=== PATIENT | female | born 2000 | race Hispanic/Latino ===

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

== ENCOUNTER → 2023-06-04 | Emergency (ER) | payer OTHER, SELFPAY ==
[~2023-06-04] MED LIST: NA CHLORIDE 0.9% 2,000 ML ONE; ONDANSETRON 4 MG/2 ML VIAL ONE
--- OUTSIDE RECORDS SUMMARY | 2023-06-04 07:05 | XMS REPORT | Continuity of Care Document ---
Author Name Unknown Address [address] [facility]. [address] [place] [address] [facility] thconnect Address [address] [facility] [address] [place] [address] Care Team Providers Care Director Of Corporate Communications Name Role Phone Olivia Dumont Primary Care Physician [phone] LUIS RICE Attending Clinician Unavailable NAPOLEON HERBERT Attending Clinician NAPOLEON Caballero Attending Clinician JULIO Gallo Attending Clinician Unavaila ble TRIJULIO HAY Attending Clinician Unavaila ble Lab, Ang - Db Attending Clinician Unavailable Doctor Unassigned, [place] Attending Clinician U Luis Gtz MD Attending Clinician [phone], [facility] Attending Clinician Unavailable Only, Timbo Db Test Attending Clinician Unavailabl e Yordy Delgado Attending Clinician [phone] YORDY SCHAEFER Attending Clinician Unavailable Amalia Thakkar Attending Clinician [phone] AMALIA MELLO Attending Clinician Unavailable Chayito Field PA-C Attending Clinician [phone] CHAYITO FIELD Attending Clinician Unavailable Suzi Moya MD Attending Clinician [phone] SUZI MOYA Attending Clinician Unavailable PREET MAYBERRY Attending Clinician Bryce Bergman DO Anthony Grewalan Attending Clinician [phone] Preet Mayberry MD Attending Clinician + [phone] Curt ARCHIBALD, Sharimn K.H. Attending Clinician [phone] SHARMIN ROUSEH. Attending Clinician Unavailaamir Henriquez WHCNPCindy Attending Clinician + CINDY HENRIQUEZ Attending Clinician Unavail able Room, [facility] Attending Clinician Unavailable Ultrasound, Ang-Mfm Attending Clinician Unavaila Dylan Molina MD Attending Clinician [phone] RAHEEM BENITO Attending Clinician Unavailab jovanni Benito WELLNESS EDUCATORRaheem Attending Clinician + [phone] LUIS RICE Admitting Clinician Unavailable Luis Rice MD Admitting Clinician [phone] Payers Payer Name Policy Type Policy Number Effective Date Expirati on Date Source [employer] [id number] 2019 00:00:00 Problems Condition Name Condition Details Condition Category Status Onset Date Resolution Date Last Treatment Date Treating Clinician Comments Source Encounter for initial management of nuvaring Encounter for initial management of nuvaring Disease Active 2020-03 00:00: 00 [facility] Allergies, Adverse Reactions, Alerts Allergy Name Allergy Type Status Severity Reaction(s) Onset Date Inactive Date Treating Clinician Comments Source NO KNOWN ALLERGIE S Drug Class Active [facility] Social History Social Habit Start Date Stop Date Quantity Comments Source History SDOH Alcohol Comment [place] o f [facility] History SDOH Alcohol Std Drinks [facility] History SDOH Alcohol Binge [facility] Gender identity [facility] Sexual orientation U [facility] Alcohol intake 2023-02-16 00:00:00 2023-02-16 00:00:00 Lifetime non-drinker (finding) [facility] Exposure to SARS-CoV-2 (event) 2022-07-03 00:00:00 2022-07-13 09:05:00 Not sure [facility] Tobacco use and exposure 2022-07-01 00:00:00 2022-07-01 00:00:00 Smokeless tobacco non-user [facility] History of Social function 2022-07-01 00:00:00 2022-07-01 00:00:00 [facility] Education - What is the highest level of school you have completed or the highest degree you have received? 2019-10-09 00:00:00 2019-10-09 00:00:00 12th grade [facility] History SDOH Financial 2019-10-09 00:00:00 2019-10-09 00:00:00 5 [facility] History SDOH Food Worry 2019-10-09 00:00:00 2019-10-09 00:00:00 1 [facility] History SDOH Food Scarcity 2019-10-09 00:00:00 2019-10-09 00:00:00 1 [facility] History SDOH Transport Med 2019-10-09 00:00:00 2019-10-09 00:00:00 2 [facility] History SDOH Transport Non-Med 2019-10-09 00:00:00 2019-10-09 00:00:00 2 [facility] History SDOH Alcohol Frequency 2019-07-01 00:00:00 2019-07-01 00:00:00 1 [facility] Sex Assigned At 2001 00:00:00 2000 00:00:00 [facility] Smoking Status Start Date Stop Date Source Never smoked tobacco [facility] Medications Ordered Medication Name Filled Medication Name Start Date Stop Date Current Medication? Ordering Clinician Indication Dosage Frequency Signature (SIG) Comments Components Source copper (PARAGARD T 380A) IUD 1 Intra Uterine Device 15 18:00: 00 10-25 17:59 :00 No [id number] 1{IUD} [facility] copper (PARAGARD T 380A) IUD 1 Intra Uterine Device 10-25 18:00: 00 10-25 17:59 :00 No [id number] 1{IUD} 1 Intra Uterine Device, Intrauteri ne, ONCE, 1 dose, On Mon10/25/22 at 1300, Routine [facility] copper (PARAGARD T 380A) IUD 1 Intra Uterine Device 10-25 18:00: 00 10-25 17:59 :00 No [id number] 1{IUD} [facility] copper (PARAGARD T 380A) IUD 1 Intra Uterine Device 10-25 18:00: 00 10-25 17:59 :00 No [id number] 1{IUD} 1 Intra Uterine Device, Intrauteri ne, ONCE, 1 dose, On Mon10/25/22 at 1300, Routine [facility] metroNIDAZO LE (FLAGYL) 500 mg tablet 07-14 00:00: 00 07-22 04:59 :00 No [id number] 500mg Take 1 tablet by mouth in the morning and 1 tablet in the evening. Do all this for 7 days. [facility] NuvaRing 0.12-0.015 mg/24 hr vaginal insert 07-13 00:00: 00 Yes [id number] 1{each} Insert 1 Each into vagina once every month. Insert vaginally and leave in place for 3 consecutiv e weeks, then remove for 1 week. [facility] NuvaRing 0.12-0.015 mg/24 hr vaginal insert 07-13 00:00: 00 Yes [id number] 1{each} Insert 1 Each into vagina once every month. Insert vaginally and leave in place for 3 consecutiv e weeks, then remove for 1 week. [facility] NuvaRing 0.12-0.015 mg/24 hr vaginal insert 07-13 00:00: 00 Yes [id number] 1{each} Insert 1 Each into vagina once every month. Insert vaginally and leave in place for 3 consecutiv e weeks, then remove for 1 week. [facility] NuvaRing 0.12-0.015 mg/24 hr vaginal insert 2022-0 5-03 00:00: 00 Yes [id number] 1{each} Insert 1 Each into vagina once every month. Insert vaginally and leave in place for 3 consecutiv e weeks, then remove for 1 week. [facility] NuvaRing 0.12-0.015 mg/24 hr vaginal insert 2022-0 5-03 00:00: 00 Yes [id number] 1{each} Insert 1 Each into vagina once every month. Insert vaginally and leave in place for 3 consecutiv e weeks, then remove for 1 week. [facility] it[facility] NuvaRing 0.12-0.015 mg/24 hr vaginal insert 2022-0 5- 00:00: 00 Yes [id number] 1{each} Insert 1 Each into vagina once every month. Insert vaginally and leave in place for 3 consecutiv e weeks, then remove for 1 week. [facility] it[facility] NuvaRing 0.12-0.015 mg/24 hr vaginal insert 2022-0 - 00:00: 00 Yes [id number] 1{each} Insert 1 Each into vagina once every month. Insert vaginally and leave in place for 3 consecutiv e weeks, then remove for 1 week. [facility] ity [facility] NuvaRing 0.12-0.015 mg/24 hr vaginal insert 2022-0 5-03 00:00: 00 Yes [id number] 1{each} Insert 1 Each into vagina once every month. Insert vaginally and leave in place for 3 consecutiv e weeks, then remove for 1 week. [facility] NuvaRing 0.12-0.015 mg/24 hr vaginal insert 2022-0 -03 00:00: 00 Yes [id number] 1{each} Insert 1 Each into vagina once every month. Insert vaginally and leave in place for 3 consecutiv e weeks, then remove for 1 week. [facility] NuvaRing 0.12-0.015 mg/24 hr vaginal insert 2022-0 5-03 00:00: 00 Yes [id number] 1{each} Insert 1 Each into vagina once every month. Insert vaginally and leave in place for 3 consecutiv e weeks, then remove for 1 week. [facility] 0.12-0.015 mg/24 hr vaginal insert 2022-0 5- 00:00: 00 Yes [id number] 1{each} Insert 1 Each into vagina once every month. Insert vaginally and leave in place for 3 consecutiv e weeks, then remove for 1 week. [facility] 0.12-0.015 mg/24 hr vaginal insert 2022-0 5- 00:00: 00 Yes [id number] 1{each} Insert 1 Each into vagina once every month. Insert vaginally and leave in place for 3 consecutiv e weeks, then remove for 1 week. [facility] NuvaRing 0.12-0.015 mg/24 hr vaginal insert 2022-0 5- 00:00: 00 Yes [id number] 1{each} Insert 1 Each into vagina once every month. Insert vaginally and leave in place for 3 consecutiv e weeks, then remove for 1 week. [facility] NuvaRing 0.12-0.015 mg/24 hr vaginal insert 2022-0 5- 00:00: 00 Yes [id number] 1{each} Insert 1 Each into vagina once every month. Insert vaginally and leave in place for 3 consecutiv e weeks, then remove for 1 week. [facility] NuvaRing 0.12-0.015 mg/24 hr vaginal insert 2022-0 5- 00:00: 00 Yes [id number] 1{each} Insert 1 Each into vagina once every month. Insert vaginally and leave in place for 3 consecutiv e weeks, then remove for 1 week. [facility] NuvaRing 0.12-0.015 mg/24 hr vaginal insert 2022-0 5-03 00:00: 00 Yes [id number] 1{each} Insert 1 Each into vagina once every month. Insert vaginally and leave in place for 3 consecutiv e weeks, then remove for 1 week. [facility] NuvaRing 0.12-0.015 mg/24 hr vaginal insert 2022-0 5-03 00:00: 00 Yes [id number] 1{each} Insert 1 Each into vagina once every month. Insert vaginally and leave in place for 3 consecutiv e weeks, then remove for 1 week. [facility] NuvaRing 0.12-0.015 mg/24 hr vaginal insert 0 - 00:00: 00 12-23 00:00 :00 No [id number] 1{each} Insert 1 Each into vagina once every month. Insert vaginally and leave in place for 3 consecutiv e weeks, then remove for 1 week. [facility] NuvaRing 0.12-0.015 mg/24 hr vaginal insert - 00:00: 00 12-23 00:00 :00 No [id number] 1{each} Insert 1 Each into vagina once every month. Insert vaginally and leave in place for 3 consecutiv e weeks, then remove for 1 week. [facility] NuvaRing 0.12-0.015 mg/24 hr vaginal insert 07-13 00:00: 00 12-23 00:00 :00 No [id number] 1{each} Insert 1 Each into vagina once every month. Insert vaginally and leave in place for 3 consecutiv e weeks, then remove for 1 week. [facility] amoxicillin -pot clavulanate 500 mg (AUGMENTIN) 500-125 mg tablet 07-04 00:00: 00 Yes [id number] 500mg Take 1 tablet by mouth in the morning and 1 tablet at noon and 1 tablet in the evening. [facility] amoxicillin -pot clavulanate 500 mg (AUGMENTIN) 500-125 mg tablet 07-04 00:00: 00 07-13 00:00 :00 No [id number] 500mg Take 1 tablet by mouth in the morning and 1 tablet at noon and 1 tablet in the evening. [facility] amoxicillin -pot clavulanate 500 mg (AUGMENTIN) 500-125 mg tablet 07-04 00:00: 00 07-13 00:00 :00 No [id number] 500mg Take 1 tablet by mouth in the morning and 1 tablet at noon and 1 tablet in the evening. [facility] NUVARING (NUVARING) 0.12-0.015 mg/24 hr vaginal insert 2021-0 - 00:00: 00 Yes [id number] 1{each} Insert 1 Each into vagina once every month. Insert vaginally and leave in place for 3 consecutiv e weeks, then remove for 1 week. [facility] NUVARING (NUVARING) 0.12-0.015 mg/24 hr vaginal insert 2021-0 5- 00:00: 00 Yes [id number] 1{each} Insert 1 Each into vagina once every month. Insert vaginally and leave in place for 3 consecutiv e weeks, then remove for 1 week. [facility] NUVARING (NUVARING) 0.12-0.015 mg/24 hr vaginal insert 2021-0 5- 00:00: 00 Yes [id number] 1{each} Insert 1 Each into vagina once every month. Insert vaginally and leave in place for 3 consecutiv e weeks, then remove for 1 week. [facility] NUVARING (NUVARING) 0.12-0.015 mg/24 hr vaginal insert 2021-0 - 00:00: 00 Yes [id number] 1{each} Insert 1 Each into vagina once every month. Insert vaginally and leave in place for 3 consecutiv e weeks, then remove for 1 week. [facility] NUVARING (NUVARING) 0.12-0.015 mg/24 hr vaginal insert 2021-0 5- 00:00: 00 Yes [id number] 1{each} Insert 1 Each into vagina once every month. Insert vaginally and leave in place for 3 consecutiv e weeks, then remove for 1 week. [facility] NUVARING (NUVARING) 0.12-0.015 mg/24 hr vaginal insert 2021-0 5- 00:00: 00 Yes [id number] 1{each} Insert 1 Each into vagina once every month. Insert vaginally and leave in place for 3 consecutiv e weeks, then remove for 1 week. [facility] NUVARING (NUVARING) 0.12-0.015 mg/24 hr vaginal insert 2021-0 5-02 00:00: 00 Yes [id number] 1{each} Insert 1 Each into vagina once every month. Insert vaginally and leave in place for 3 consecutiv e weeks, then remove for 1 week. [facility] NUVARING (NUVARING) 0.12-0.015 mg/24 hr vaginal insert 2021-0 5-02 00:00: 00 Yes [id number] 1{each} Insert 1 Each into vagina once every month. Insert vaginally and leave in place for 3 consecutiv e weeks, then remove for 1 week. [facility] NUVARING (NUVARING) 0.12-0.015 mg/24 hr vaginal insert 2021-0 5-02 00:00: 00 07-13 00:00 :00 No [id number] 1{each} Insert 1 Each into vagina once every month. Insert vaginally and leave in place for 3 consecutiv e weeks, then remove [facility] NUVARING (NUVARING) 0.12-0.015 mg/24 hr vaginal insert 2021-0 5-02 00:00: 00 07-13 00:00 :00 No [id number] 1{each} Insert 1 Each into vagina once every month. Insert vaginally and leave in place for 3 consecutiv e weeks, then remove for 1 week. [facility] NUVARING (NUVARING) 0.12-0.015 mg/24 hr vaginal insert 2021-0 3-08 00:00: 00 07-12 00:00 :00 No [id number] 1{each} Insert 1 Each into vagina once every month. Insert vaginally and leave in place for 3 consecutiv e weeks, then remove for 1 week. [facility] NUVARING (NUVARING) 0.12-0.015 mg/24 hr vaginal insert 2021-0 3-08 00:00: 00 07-12 00:00 :00 No [id number] 1{each} Insert 1 Each into vagina once every month. Insert vaginally and leave in place for 3 consecutiv e weeks, then remove for 1 week. [facility] Colestipol HCl 1 gram tablet 2020-0 6-17 00:00: 00 Yes [facility] Colestipol HCl 1 gram tablet 0 08-27 00:00: 00 Yes [facility] Colestipol HCl 1 gram tablet 2020-0 17 00:00: 00 Yes [facility] Colestipol HCl 1 gram tablet 0 08-27 00:00: 00 Yes [facility] Colestipol HCl 1 gram tablet 0 08-27 00:00: 00 Yes [facility] Colestipol HCl 1 gram tablet 0 08-27 00:00: 00 Yes [facility] Colestipol HCl 1 gram tablet 0 17 00:00: 00 Yes [facility] Colestipol HCl 1 gram tablet 0 08-27 00:00: 00 Yes [facility] Colestipol HCl 1 gram tablet 0 08-27 00:00: 00 07-13 00:00 :00 No [facility] Colestipol HCl 1 gram tablet 0 08-27 00:00: 00 07-13 00:00 :00 No [facility] Immunizations Ordered Immunization Name Filled Immunization Name Date Status Comments Source SARS-COV-2 COVID-19 PFIZER VACCINE 2020-09-27 00:00:00 Completed [facility] SARS-COV-2 COVID-19 PFIZER VACCINE 2020-09-27 00:00:00 Completed [facility] SARS-COV-2 COVID-19 PFIZER VACCINE 2020-09-27 00:00:00 Completed [facility] SARS-COV-2 COVID-19 PFIZER VACCINE 2020-09-27 00:00:00 Completed [facility] SARS-COV-2 COVID-19 PFIZER VACCINE 2020-09-27 00:00:00 Completed [facility] SARS-COV-2 COVID-19 PFIZER VACCINE 2020-09-27 00:00:00 Completed [facility] SARS-COV-2 COVID-19 PFIZER VACCINE 2020-09-27 00:00:00 Completed [facility] SARS-COV-2 COVID-19 PFIZER VACCINE 2020-09-27 00:00:00 Completed [facility] SARS-COV-2 COVID-19 PFIZER VACCINE 2020-09-27 00:00:00 Completed [facility] SARS-COV-2 COVID-19 PFIZER VACCINE 2020-09-27 00:00:00 Completed [facility] SARS-COV-2 COVID-19 PFIZER VACCINE 2020-09-27 00:00:00 Completed [facility] SARS-COV-2 COVID-19 PFIZER VACCINE 2020-09-27 00:00:00 Completed [facility] SARS-COV-2 COVID-19 PFIZER VACCINE 2020-09-27 00:00:00 Completed [facility] SARS-COV-2 COVID-19 PFIZER VACCINE 2020-09-27 00:00:00 Completed [facility] SARS-COV-2 COVID-19 PFIZER VACCINE 2020-09-27 00:00:00 Completed [facility] SARS-COV-2 COVID-19 PFIZER VACCINE 2020-09-27 00:00:00 Completed [facility] SARS-COV-2 COVID-19 PFIZER VACCINE 2020-09-27 00:00:00 Completed [facility] SARS-COV-2 COVID-19 PFIZER VACCINE 2020-09-27 00:00:00 Completed [facility] SARS-COV-2 COVID-19 PFIZER VACCINE 2020-09-27 00:00:00 Completed [facility] SARS-COV-2 COVID-19 PFIZER VACCINE 2020-09-27 00:00:00 Completed [facility] SARS-COV-2 COVID-19 PFIZER VACCINE 2020-09-27 00:00:00 Completed [facility] SARS-COV-2 COVID-19 PFIZER VACCINE 2020-09-27 00:00:00 Completed [facility] SARS-COV-2 COVID-19 PFIZER VACCINE 2020-09-27 00:00:00 Completed [facility] SARS-COV-2 COVID-19 PFIZER VACCINE 2020-09-27 00:00:00 Completed [facility] SARS-COV-2 COVID-19 PFIZER VACCINE 2020-09-06 00:00:00 Completed [facility] SARS-COV-2 COVID-19 PFIZER VACCINE 2020-09-06 00:00:00 Completed [facility] SARS-COV-2 COVID-19 PFIZER VACCINE 2020-09-06 00:00:00 Completed [facility] SARS-COV-2 COVID-19 PFIZER VACCINE 2020-09-06 00:00:00 Completed [facility] SARS-COV-2 COVID-19 PFIZER VACCINE 2020-09-06 00:00:00 Completed [facility] SARS-COV-2 COVID-19 PFIZER VACCINE 2020-09-06 00:00:00 Completed [facility] SARS-COV-2 COVID-19 PFIZER VACCINE 2020-09-06 00:00:00 Completed [facility] SARS-COV-2 COVID-19 PFIZER VACCINE 2020-09-06 00:00:00 Completed [facility] SARS-COV-2 COVID-19 PFIZER VACCINE 2020-09-06 00:00:00 Completed [facility] SARS-COV-2 COVID-19 PFIZER VACCINE 2020-09-06 00:00:00 Completed [facility] SARS-COV-2 COVID-19 PFIZER VACCINE 2020-09-06 00:00:00 Completed [facility] SARS-COV-2 COVID-19 PFIZER VACCINE 2020-09-06 00:00:00 Completed [facility] SARS-COV-2 COVID-19 PFIZER VACCINE 2020-09-06 00:00:00 Completed [facility] SARS-COV-2 COVID-19 PFIZER VACCINE 2020-09-06 00:00:00 Completed [facility] SARS-COV-2 COVID-19 PFIZER VACCINE 2020-09-06 00:00:00 Completed [facility] SARS-COV-2 COVID-19 PFIZER VACCINE 2020-09-06 00:00:00 Completed [facility] SARS-COV-2 COVID-19 PFIZER VACCINE 2020-09-06 00:00:00 Completed [facility] SARS-COV-2 COVID-19 PFIZER VACCINE 2020-09-06 00:00:00 Completed [facility] SARS-COV-2 COVID-19 PFIZER VACCINE 2020-09-06 00:00:00 Completed [facility] SARS-COV-2 COVID-19 PFIZER VACCINE 2020-09-06 00:00:00 Completed [facility] SARS-COV-2 COVID-19 PFIZER VACCINE 2020-09-06 00:00:00 Completed [facility] SARS-COV-2 COVID-19 PFIZER VACCINE 2020-09-06 00:00:00 Completed [facility] SARS-COV-2 COVID-19 PFIZER VACCINE 2020-09-06 00:00:00 Completed [facility] SARS-COV-2 COVID-19 PFIZER VACCINE 2020-09-06 00:00:00 Completed [facility] TDAP 2012-12-03 00:00:00 Completed [facility] Meningococcal Oligosaccharide (groups A, C, Y and W-135) conjugate vaccine (MCV4O) 2012-12-03 00:00:00 Completed [facility] Influenza Virus Vaccine 2012-12-03 00:00:00 Completed [facility] TDAP 2012-12-03 00:00:00 Completed [facility] Meningococcal Oligosaccharide (groups A, C, Y and W-135) conjugate vaccine (MCV4O) 2012-12-03 00:00:00 Completed [facility] Influenza Virus Vaccine 2012-12-03 00:00:00 Completed [facility] TDAP 2012-12-03 00:00:00 Completed [facility] Meningococcal Oligosaccharide (groups A, C, Y and W-135) conjugate vaccine (MCV4O) 2012-12-03 00:00:00 Completed [facility] Influenza Virus Vaccine 2012-12-03 00:00:00 Completed [facility] TDAP 2012-12-03 00:00:00 Completed [facility] Meningococcal Oligosaccharide (groups A, C, Y and W-135) conjugate vaccine (MCV4O) 2012-12-03 00:00:00 Completed [facility] Influenza Virus Vaccine 2012-12-03 00:00:00 Completed [facility] TDAP 2012-12-03 00:00:00 Completed [facility] Meningococcal Oligosaccharide (groups A, C, Y and W-135) conjugate vaccine (MCV4O) 2012-12-03 00:00:00 Completed [facility] Influenza Virus Vaccine 2012-12-03 00:00:00 Completed [facility] TDAP 2012-12-03 00:00:00 Completed [facility] Meningococcal Oligosaccharide (groups A, C, Y and W-135) conjugate vaccine (MCV4O) 2012-12-03 00:00:00 Completed [facility] Influenza Virus Vaccine 2012-12-03 00:00:00 Completed [facility] TDAP 2012-12-03 00:00:00 Completed [facility] Meningococcal Oligosaccharide (groups A, C, Y and W-135) conjugate vaccine (MCV4O) 2012-12-03 00:00:00 Completed [facility] Influenza Virus Vaccine 2012-12-03 00:00:00 Completed [facility] TDAP 2012-12-03 00:00:00 Completed [facility] Meningococcal Oligosaccharide (groups A, C, Y and W-135) conjugate vaccine (MCV4O) 2012-12-03 00:00:00 Completed [facility] Influenza Virus Vaccine 2012-12-03 00:00:00 Completed [facility] TDAP 2012-12-03 00:00:00 Completed [facility] Meningococcal Oligosaccharide (groups A, C, Y and W-135) conjugate vaccine (MCV4O) 2012-12-03 00:00:00 Completed [facility] Influenza Virus Vaccine 2012-12-03 00:00:00 Completed [facility] TDAP 2012-12-03 00:00:00 Completed [facility] Meningococcal Oligosaccharide (groups A, C, Y and W-135) conjugate vaccine (MCV4O) 2012-12-03 00:00:00 Completed [facility] Influenza Virus Vaccine 2012-12-03 00:00:00 Completed [facility] TDAP 2012-12-03 00:00:00 Completed [facility] Meningococcal Oligosaccharide (groups A, C, Y and W-135) conjugate vaccine (MCV4O) 2012-12-03 00:00:00 Completed [facility] Influenza Virus Vaccine 2012-12-03 00:00:00 Completed [facility] TDAP 2012-12-03 00:00:00 Completed [facility] Meningococcal Oligosaccharide (groups A, C, Y and W-135) conjugate vaccine (MCV4O) 2012-12-03 00:00:00 Completed [facility] Influenza Virus Vaccine 2012-12-03 00:00:00 Completed [facility] TDAP 2012-12-03 00:00:00 Completed [facility] Meningococcal Oligosaccharide (groups A, C, Y and W-135) conjugate vaccine (MCV4O) 2012-12-03 00:00:00 Completed [facility] Influenza Virus Vaccine 2012-12-03 00:00:00 Completed [facility] TDAP 2012-12-03 00:00:00 Completed [facility] Meningococcal Oligosaccharide (groups A, C, Y and W-135) conjugate vaccine (MCV4O) 2012-12-03 00:00:00 Completed [facility] Influenza Virus Vaccine 2012-12-03 00:00:00 Completed [facility] TDAP 2012-12-03 00:00:00 Completed [facility] Meningococcal Oligosaccharide (groups A, C, Y and W-135) conjugate vaccine (MCV4O) 2012-12-03 00:00:00 Completed [facility] Influenza Virus Vaccine 2012-12-03 00:00:00 Completed [facility] TDAP 2012-12-03 00:00:00 Completed [facility] Meningococcal Oligosaccharide (groups A, C, Y and W-135) conjugate vaccine (MCV4O) 2012-12-03 00:00:00 Completed [facility] Influenza Virus Vaccine 2012-12-03 00:00:00 Completed [facility] TDAP 2012-12-03 00:00:00 Completed [facility] Meningococcal Oligosaccharide (groups A, C, Y and W-135) conjugate vaccine (MCV4O) 2012-12-03 00:00:00 Completed [facility] Influenza Virus Vaccine 2012-12-03 00:00:00 Completed [facility] TDAP 2012-12-03 00:00:00 Completed [facility] Meningococcal Oligosaccharide (groups A, C, Y and W-135) conjugate vaccine (MCV4O) 2012-12-03 00:00:00 Completed [facility] Influenza Virus Vaccine 2012-12-03 00:00:00 Completed [facility] TDAP 2012-12-03 00:00:00 Completed [facility] Meningococcal Oligosaccharide (groups A, C, Y and W-135) conjugate vaccine (MCV4O) 2012-12-03 00:00:00 Completed [facility] Influenza Virus Vaccine 2012-12-03 00:00:00 Completed [facility] TDAP 2012-12-03 00:00:00 Completed [facility] Meningococcal Oligosaccharide (groups A, C, Y and W-135) conjugate vaccine (MCV4O) 2012-12-03 00:00:00 Completed [facility] Influenza Virus Vaccine 2012-12-03 00:00:00 Completed [facility] TDAP 2012-12-03 00:00:00 Completed [facility] Meningococcal Oligosaccharide (groups A, C, Y and W-135) conjugate vaccine (MCV4O) 2012-12-03 00:00:00 Completed [facility] Influenza Virus Vaccine 2012-12-03 00:00:00 Completed [facility] TDAP 2012-12-03 00:00:00 Completed [facility] Meningococcal Oligosaccharide (groups A, C, Y and W-135) conjugate vaccine (MCV4O) 2012-12-03 00:00:00 Completed [facility] Influenza Virus Vaccine 2012-12-03 00:00:00 Completed [facility] TDAP 2012-12-03 00:00:00 Completed [facility] Meningococcal Oligosaccharide (groups A, C, Y and W-135) conjugate vaccine (MCV4O) 2012-12-03 00:00:00 Completed [facility] Influenza Virus Vaccine 2012-12-03 00:00:00 Completed [facility] TDAP 2012-12-03 00:00:00 Completed [facility] Meningococcal Oligosaccharide (groups A, C, Y and W-135) conjugate vaccine (MCV4O) 2012-12-03 00:00:00 Completed [facility] Influenza Virus Vaccine 2012-12-03 00:00:00 Completed [facility] Influenza Virus Vaccine 2012-03-14 00:00:00 Completed [facility] Influenza Virus Vaccine 2012-03-14 00:00:00 Completed [facility] Influenza Virus Vaccine 2012-03-14 00:00:00 Completed [facility] Influenza Virus Vaccine 2012-03-14 00:00:00 Completed [facility] Influenza Virus Vaccine 2012-03-14 00:00:00 Completed [facility] Influenza Virus Vaccine 2012-03-14 00:00:00 Completed [facility] Influenza Virus Vaccine 2012-03-14 00:00:00 Completed [facility] Influenza Virus Vaccine 2012-03-14 00:00:00 Completed [facility] Influenza Virus Vaccine 2012-03-14 00:00:00 Completed [facility] Influenza Virus Vaccine 2012-03-14 00:00:00 Completed [facility] Influenza Virus Vaccine 2012-03-14 00:00:00 Completed [facility] Influenza Virus Vaccine 2012-03-14 00:00:00 Completed [facility] Influenza Virus Vaccine 2012-03-14 00:00:00 Completed [facility] Influenza Virus Vaccine 2012-03-14 00:00:00 Completed [facility] Influenza Virus Vaccine 2012-03-14 00:00:00 Completed [facility] Influenza Virus Vaccine 2012-03-14 00:00:00 Completed [facility] Influenza Virus Vaccine 2012-03-14 00:00:00 Completed [facility] Influenza Virus Vaccine 2012-03-14 00:00:00 Completed [facility] Influenza Virus Vaccine 2012-03-14 00:00:00 Completed [facility] Influenza Virus Vaccine 2012-03-14 00:00:00 Completed [facility] Influenza Virus Vaccine 2012-03-14 00:00:00 Completed [facility] Influenza Virus Vaccine 2012-03-14 00:00:00 Completed [facility] Influenza Virus Vaccine 2012-03-14 00:00:00 Completed [facility] Influenza Virus Vaccine 2012-03-14 00:00:00 Completed [facility] HPV 2011-05-09 00:00:00 Completed [facility] HPV 2011-05-09 00:00:00 Completed [facility] HPV 2011-05-09 00:00:00 Completed [facility] HPV 2011-05-09 00:00:00 Completed [facility] HPV 2011-05-09 00:00:00 Completed [facility] HPV 2011-05-09 00:00:00 Completed [facility] HPV 2011-05-09 00:00:00 Completed [facility] HPV 2011-05-09 00:00:00 Completed [facility] HPV 2011-05-09 00:00:00 Completed [facility] HPV 2011-05-09 00:00:00 Completed [facility] HPV 2011-05-09 00:00:00 Completed [facility] HPV 2011-05-09 00:00:00 Completed [facility] HPV 2011-05-09 00:00:00 Completed [facility] HPV 2011-05-09 00:00:00 Completed [facility] HPV 2011-05-09 00:00:00 Completed [facility] HPV 2011-05-09 00:00:00 Completed [facility] HPV 2011-05-09 00:00:00 Completed [facility] HPV 2011-05-09 00:00:00 Completed [facility] HPV 2011-05-09 00:00:00 Completed [facility] HPV 2011-05-09 00:00:00 Completed [facility] HPV 2011-05-09 00:00:00 Completed [facility] HPV 2011-05-09 00:00:00 Completed [facility] HPV 2011-05-09 00:00:00 Completed [facility] HPV 2011-05-09 00:00:00 Completed [facility] HPV 2011-01-10 00:00:00 Completed [facility] Influenza Virus Vaccine 2011-01-10 00:00:00 Completed [facility] HPV 2011-01-10 00:00:00 Completed [facility] Influenza Virus Vaccine 2011-01-10 00:00:00 Completed [facility] HPV 2011-01-10 00:00:00 Completed [facility] Influenza Virus Vaccine 2011-01-10 00:00:00 Completed [facility] HPV 2011-01-10 00:00:00 Completed [facility] Influenza Virus Vaccine 2011-01-10 00:00:00 Completed [facility] HPV 2011-01-10 00:00:00 Completed [facility] Influenza Virus Vaccine 2011-01-10 00:00:00 Completed [facility] HPV 2011-01-10 00:00:00 Completed [facility] Influenza Virus Vaccine 2011-01-10 00:00:00 Completed [facility] HPV 2011-01-10 00:00:00 Completed [facility] Influenza Virus Vaccine 2011-01-10 00:00:00 Completed [facility] HPV 2011-01-10 00:00:00 Completed [facility] Influenza Virus Vaccine 2011-01-10 00:00:00 Completed [facility] HPV 2011-01-10 00:00:00 Completed [facility] Influenza Virus Vaccine 2011-01-10 00:00:00 Completed [facility] HPV 2011-01-10 00:00:00 Completed [facility] Influenza Virus Vaccine 2011-01-10 00:00:00 Completed [facility] HPV 2011-01-10 00:00:00 Completed [facility] Influenza Virus Vaccine 2011-01-10 00:00:00 Completed [facility] HPV 2011-01-10 00:00:00 Completed [facility] Influenza Virus Vaccine 2011-01-10 00:00:00 Completed [facility] HPV 2011-01-10 00:00:00 Completed [facility] Influenza Virus Vaccine 2011-01-10 00:00:00 Completed [facility] HPV 2011-01-10 00:00:00 Completed [facility] Influenza Virus Vaccine 2011-01-10 00:00:00 Completed [facility] HPV 2011-01-10 00:00:00 Completed [facility] Influenza Virus Vaccine 2011-01-10 00:00:00 Completed [facility] HPV 2011-01-10 00:00:00 Completed [facility] Influenza Virus Vaccine 2011-01-10 00:00:00 Completed [facility] HPV 2011-01-10 00:00:00 Completed [facility] Influenza Virus Vaccine 2011-01-10 00:00:00 Completed [facility] HPV 2011-01-10 00:00:00 Completed [facility] Influenza Virus Vaccine 2011-01-10 00:00:00 Completed [facility] HPV 2011-01-10 00:00:00 Completed [facility] Influenza Virus Vaccine 2011-01-10 00:00:00 Completed [facility] HPV 2011-01-10 00:00:00 Completed [facility] Influenza Virus Vaccine 2011-01-10 00:00:00 Completed [facility] HPV 2011-01-10 00:00:00 Completed [facility] Influenza Virus Vaccine 2011-01-10 00:00:00 Completed [facility] HPV 2011-01-10 00:00:00 Completed [facility] Influenza Virus Vaccine 2011-01-10 00:00:00 Completed [facility] HPV 2011-01-10 00:00:00 Completed [facility] Influenza Virus Vaccine 2011-01-10 00:00:00 Completed [facility] HPV 2011-01-10 00:00:00 Completed [facility] Influenza Virus Vaccine 2011-01-10 00:00:00 Completed [facility] HPV 2010-11-09 00:00:00 Completed [facility] HPV 2010-11-09 00:00:00 Completed [facility] HPV 2010-11-09 00:00:00 Completed [facility] HPV 2010-11-09 00:00:00 Completed [facility] HPV 2010-11-09 00:00:00 Completed [facility] HPV 2010-11-09 00:00:00 Completed [facility] HPV 2010-11-09 00:00:00 Completed [facility] HPV 2010-11-09 00:00:00 Completed [facility] HPV 2010-11-09 00:00:00 Completed [facility] HPV 2010-11-09 00:00:00 Completed [facility] HPV 2010-11-09 00:00:00 Completed [facility] HPV 2010-11-09 00:00:00 Completed [facility] HPV 2010-11-09 00:00:00 Completed [facility] HPV 2010-11-09 00:00:00 Completed [facility] HPV 2010-11-09 00:00:00 Completed [facility] HPV 2010-11-09 00:00:00 Completed [facility] HPV 2010-11-09 00:00:00 Completed [facility] HPV 2010-11-09 00:00:00 Completed [facility] HPV 2010-11-09 00:00:00 Completed [facility] HPV 2010-11-09 00:00:00 Completed [facility] HPV 2010-11-09 00:00:00 Completed [facility] HPV 2010-11-09 00:00:00 Completed [facility] HPV 2010-11-09 00:00:00 Completed [facility] HPV 2010-11-09 00:00:00 Completed [facility] Varicella (varivax)(chicken pox) 2006-10-09 00:00:00 Completed [facility] Varicella (varivax)(chicken pox) 2006-10-09 00:00:00 Completed [facility] Varicella (varivax)(chicken pox) 2006-10-09 00:00:00 Completed [facility] Varicella (varivax)(chicken pox) 2006-10-09 00:00:00 Completed [facility] Varicella (varivax)(chicken pox) 2006-10-09 00:00:00 Completed [facility] Varicella (varivax)(chicken pox) 2006-10-09 00:00:00 Completed [facility] Varicella (varivax)(chicken pox) 2006-10-09 00:00:00 Completed [facility] Varicella (varivax)(chicken pox) 2006-10-09 00:00:00 Completed [facility] Varicella (varivax)(chicken pox) 2006-10-09 00:00:00 Completed [facility] Varicella (varivax)(chicken pox) 2006-10-09 00:00:00 Completed [facility] Varicella (varivax)(chicken pox) 2006-10-09 00:00:00 Completed [facility] Varicella (varivax)(chicken pox) 2006-10-09 00:00:00 Completed [facility] Varicella (varivax)(chicken pox) 2006-10-09 00:00:00 Completed [facility] Varicella (varivax)(chicken pox) 2006-10-09 00:00:00 Completed [facility] Varicella (varivax)(chicken pox) 2006-10-09 00:00:00 Completed [facility] Varicella (varivax)(chicken pox) 2006-10-09 00:00:00 Completed [facility] Varicella (varivax)(chicken pox) 2006-10-09 00:00:00 Completed [facility] Varicella (varivax)(chicken pox) 2006-10-09 00:00:00 Completed [facility] Varicella (varivax)(chicken pox) 2006-10-09 00:00:00 Completed [facility] Varicella (varivax)(chicken pox) 2006-10-09 00:00:00 Completed [facility] Varicella (varivax)(chicken pox) 2006-10-09 00:00:00 Completed [facility] Varicella (varivax)(chicken pox) 2006-10-09 00:00:00 Completed [facility] Varicella (varivax)(chicken pox) 2006-10-09 00:00:00 Completed [facility] Varicella (varivax)(chicken pox) 2006-10-09 00:00:00 Completed [facility] HEPATITIS A 2005-11-18 00:00:00 Completed [facility] HEPATITIS A 2005-11-18 00:00:00 Completed [facility] HEPATITIS A 2005-11-18 00:00:00 Completed [facility] HEPATITIS A 2005-11-18 00:00:00 Completed [facility] HEPATITIS A 2005-11-18 00:00:00 Completed [facility] HEPATITIS A 2005-11-18 00:00:00 Completed [facility] HEPATITIS A 2005-11-18 00:00:00 Completed [facility] HEPATITIS A 2005-11-18 00:00:00 Completed [facility] HEPATITIS A 2005-11-18 00:00:00 Completed [facility] HEPATITIS A 2005-11-18 00:00:00 Completed [facility] HEPATITIS A 2005-11-18 00:00:00 Completed [facility] HEPATITIS A 2005-11-18 00:00:00 Completed [facility] HEPATITIS A 2005-11-18 00:00:00 Completed [facility] HEPATITIS A 2005-11-18 00:00:00 Completed [facility] HEPATITIS A 2005-11-18 00:00:00 Completed [facility] HEPATITIS A 2005-11-18 00:00:00 Completed [facility] HEPATITIS A 2005-11-18 00:00:00 Completed [facility] HEPATITIS A 2005-11-18 00:00:00 Completed [facility] HEPATITIS A 2005-11-18 00:00:00 Completed [facility] HEPATITIS A 2005-11-18 00:00:00 Completed [facility] HEPATITIS A 2005-11-18 00:00:00 Completed [facility] HEPATITIS A 2005-11-18 00:00:00 Completed [facility] HEPATITIS A 2005-11-18 00:00:00 Completed [facility] HEPATITIS A 2005-11-18 00:00:00 Completed [facility] DTAP 2005-10-14 00:00:00 Completed [facility] Polio (IPV/OPV) 2005-10-14 00:00:00 Completed [facility] MMR 2005-10-14 00:00:00 Completed [facility] DTAP 2005-10-14 00:00:00 Completed [facility] Polio (IPV/OPV) 2005-10-14 00:00:00 Completed [facility] MMR 2005-10-14 00:00:00 Completed [facility] DTAP 2005-10-14 00:00:00 Completed [facility] Polio (IPV/OPV) 2005-10-14 00:00:00 Completed [facility] MMR 2005-10-14 00:00:00 Completed [facility] HEPATITIS A 2005-04-13 00:00:00 Completed [facility] HEPATITIS A 2005-04-13 00:00:00 Completed [facility] HEPATITIS A 2005-04-13 00:00:00 Completed [facility] HEPATITIS A 2005-04-13 00:00:00 Completed [facility] HEPATITIS A 2005-04-13 00:00:00 Completed [facility] HEPATITIS A 2005-04-13 00:00:00 Completed [facility] HEPATITIS A 2005-04-13 00:00:00 Completed [facility] HEPATITIS A 2005-04-13 00:00:00 Completed [facility] HEPATITIS A 2005-04-13 00:00:00 Completed [facility] HEPATITIS A 2005-04-13 00:00:00 Completed [facility] HEPATITIS A 2005-04-13 00:00:00 Completed [facility] HEPATITIS A 2005-04-13 00:00:00 Completed [facility] HEPATITIS A 2005-04-13 00:00:00 Completed [facility] HEPATITIS A 2005-04-13 00:00:00 Completed [facility] HEPATITIS A 2005-04-13 00:00:00 Completed [facility] HEPATITIS A 2005-04-13 00:00:00 Completed [facility] HEPATITIS A 2005-04-13 00:00:00 Completed [facility] HEPATITIS A 2005-04-13 00:00:00 Completed [facility] HEPATITIS A 2005-04-13 00:00:00 Completed [facility] HEPATITIS A 2005-04-13 00:00:00 Completed [facility] HEPATITIS A 2005-04-13 00:00:00 Completed [facility] HEPATITIS A 2005-04-13 00:00:00 Completed [facility] HEPATITIS A 2005-04-13 00:00:00 Completed [facility] HEPATITIS A 2005-04-13 00:00:00 Completed [facility] Pneumococcal 7 Conjugate, PCV7 (Prevnar7) 2003-06-13 00:00:00 Completed [facility] Pneumococcal 7 Conjugate, PCV7 (Prevnar7) 2003-06-13 00:00:00 Completed [facility] Pneumococcal 7 Conjugate, PCV7 (Prevnar7) 2003-06-13 00:00:00 Completed [facility] Pneumococcal 7 Conjugate, PCV7 (Prevnar7) 2003-06-13 00:00:00 Completed [facility] Pneumococcal 7 Conjugate, PCV7 (Prevnar7) 2003-06-13 00:00:00 Completed [facility] Pneumococcal 7 Conjugate, PCV7 (Prevnar7) 2003-06-13 00:00:00 Completed [facility] Pneumococcal 7 Conjugate, PCV7 (Prevnar7) 2003-06-13 00:00:00 Completed [facility] Pneumococcal 7 Conjugate, PCV7 (Prevnar7) 2003-06-13 00:00:00 Completed [facility] Pneumococcal 7 Conjugate, PCV7 (Prevnar7) 2003-06-13 00:00:00 Completed [facility] Pneumococcal 7 Conjugate, PCV7 (Prevnar7) 2003-06-13 00:00:00 Completed [facility] Pneumococcal 7 Conjugate, PCV7 (Prevnar7) 2003-06-13 00:00:00 Completed [facility] Pneumococcal 7 Conjugate, PCV7 (Prevnar7) 2003-06-13 00:00:00 Completed [facility] Pneumococcal 7 Conjugate, PCV7 (Prevnar7) 2003-06-13 00:00:00 Completed [facility] Pneumococcal 7 Conjugate, PCV7 (Prevnar7) 2003-06-13 00:00:00 Completed [facility] Pneumococcal 7 Conjugate, PCV7 (Prevnar7) 2003-06-13 00:00:00 Completed [facility] Pneumococcal 7 Conjugate, PCV7 (Prevnar7) 2003-06-13 00:00:00 Completed [facility] Pneumococcal 7 Conjugate, PCV7 (Prevnar7) 2003-06-13 00:00:00 Completed [facility] Pneumococcal 7 Conjugate, PCV7 (Prevnar7) 2003-06-13 00:00:00 Completed [facility] Pneumococcal 7 Conjugate, PCV7 (Prevnar7) 2003-06-13 00:00:00 Completed [facility] Pneumococcal 7 Conjugate, PCV7 (Prevnar7) 2003-06-13 00:00:00 Completed [facility] Pneumococcal 7 Conjugate, PCV7 (Prevnar7) 2003-06-13 00:00:00 Completed [facility] Pneumococcal 7 Conjugate, PCV7 (Prevnar7) 2003-06-13 00:00:00 Completed [facility] Pneumococcal 7 Conjugate, PCV7 (Prevnar7) 2003-06-13 00:00:00 Completed [facility] Pneumococcal 7 Conjugate, PCV7 (Prevnar7) 2003-06-13 00:00:00 Completed [facility] DTAP 2003-03-11 00:00:00 Completed [facility] HIB 4 Dose Schedule 2003-03-11 00:00:00 Completed [facility] Pneumococcal 7 Conjugate, PCV7 (Prevnar7) 2003-03-11 00:00:00 Completed [facility] DTAP 2003-03-11 00:00:00 Completed [facility] HIB 4 Dose Schedule 2003-03-11 00:00:00 Completed [facility] Pneumococcal 7 Conjugate, PCV7 (Prevnar7) 2003-03-11 00:00:00 Completed [facility] DTAP 2003-03-11 00:00:00 Completed [facility] HIB 4 Dose Schedule 2003-03-11 00:00:00 Completed [facility] Pneumococcal 7 Conjugate, PCV7 (Prevnar7) 2003-03-11 00:00:00 Completed [facility] DTAP 2003-03-11 00:00:00 Completed [facility] HIB 4 Dose Schedule 2003-03-11 00:00:00 Completed [facility] Pneumococcal 7 Conjugate, PCV7 (Prevnar7) 2003-03-11 00:00:00 Completed [facility] DTAP 2003-03-11 00:00:00 Completed [facility] HIB 4 Dose Schedule 2003-03-11 00:00:00 Completed [facility] Pneumococcal 7 Conjugate, PCV7 (Prevnar7) 2003-03-11 00:00:00 Completed [facility] DTAP 2003-03-11 00:00:00 Completed [facility] HIB 4 Dose Schedule 2003-03-11 00:00:00 Completed [facility] Pneumococcal 7 Conjugate, PCV7 (Prevnar7) 2003-03-11 00:00:00 Completed [facility] DTAP 2003-03-11 00:00:00 Completed [facility] HIB 4 Dose Schedule 2003-03-11 00:00:00 Completed [facility] Pneumococcal 7 Conjugate, PCV7 (Prevnar7) 2003-03-11 00:00:00 Completed [facility] DTAP 2003-03-11 00:00:00 Completed [facility] HIB 4 Dose Schedule 2003-03-11 00:00:00 Completed [facility] Pneumococcal 7 Conjugate, PCV7 (Prevnar7) 2003-03-11 00:00:00 Completed [facility] DTAP 2003-03-11 00:00:00 Completed [facility] HIB 4 Dose Schedule 2003-03-11 00:00:00 Completed [facility] Pneumococcal 7 Conjugate, PCV7 (Prevnar7) 2003-03-11 00:00:00 Completed [facility] DTAP 2003-03-11 00:00:00 Completed [facility] HIB 4 Dose Schedule 2003-03-11 00:00:00 Completed [facility] Pneumococcal 7 Conjugate, PCV7 (Prevnar7) 2003-03-11 00:00:00 Completed [facility] DTAP 2003-03-11 00:00:00 Completed [facility] HIB 4 Dose Schedule 2003-03-11 00:00:00 Completed [facility] Pneumococcal 7 Conjugate, PCV7 (Prevnar7) 2003-03-11 00:00:00 Completed [facility] DTAP 2003-03-11 00:00:00 Completed [facility] HIB 4 Dose Schedule 2003-03-11 00:00:00 Completed [facility] Pneumococcal 7 Conjugate, PCV7 (Prevnar7) 2003-03-11 00:00:00 Completed [facility] DTAP 2003-03-11 00:00:00 Completed [facility] HIB 4 Dose Schedule 2003-03-11 00:00:00 Completed [facility] Pneumococcal 7 Conjugate, PCV7 (Prevnar7) 2003-03-11 00:00:00 Completed [facility] DTAP 2003-03-11 00:00:00 Completed [facility] HIB 4 Dose Schedule 2003-03-11 00:00:00 Completed [facility] Pneumococcal 7 Conjugate, PCV7 (Prevnar7) 2003-03-11 00:00:00 Completed [facility] DTAP 2003-03-11 00:00:00 Completed [facility] HIB 4 Dose Schedule 2003-03-11 00:00:00 Completed [facility] Pneumococcal 7 Conjugate, PCV7 (Prevnar7) 2003-03-11 00:00:00 Completed [facility] DTAP 2003-03-11 00:00:00 Completed [facility] HIB 4 Dose Schedule 2003-03-11 00:00:00 Completed [facility] Pneumococcal 7 Conjugate, PCV7 (Prevnar7) 2003-03-11 00:00:00 Completed [facility] DTAP 2003-03-11 00:00:00 Completed [facility] HIB 4 Dose Schedule 2003-03-11 00:00:00 Completed [facility] Pneumococcal 7 Conjugate, PCV7 (Prevnar7) 2003-03-11 00:00:00 Completed [facility] DTAP 2003-03-11 00:00:00 Completed [facility] HIB 4 Dose Schedule 2003-03-11 00:00:00 Completed [facility] Pneumococcal 7 Conjugate, PCV7 (Prevnar7) 2003-03-11 00:00:00 Completed [facility] DTAP 2003-03-11 00:00:00 Completed [facility] HIB 4 Dose Schedule 2003-03-11 00:00:00 Completed [facility] Pneumococcal 7 Conjugate, PCV7 (Prevnar7) 2003-03-11 00:00:00 Completed [facility] DTAP 2003-03-11 00:00:00 Completed [facility] HIB 4 Dose Schedule 2003-03-11 00:00:00 Completed [facility] Pneumococcal 7 Conjugate, PCV7 (Prevnar7) 2003-03-11 00:00:00 Completed [facility] DTAP 2003-03-11 00:00:00 Completed [facility] HIB 4 Dose Schedule 2003-03-11 00:00:00 Completed [facility] Pneumococcal 7 Conjugate, PCV7 (Prevnar7) 2003-03-11 00:00:00 Completed [facility] DTAP 2003-03-11 00:00:00 Completed [facility] HIB 4 Dose Schedule 2003-03-11 00:00:00 Completed [facility] Pneumococcal 7 Conjugate, PCV7 (Prevnar7) 2003-03-11 00:00:00 Completed [facility] DTAP 2003-03-11 00:00:00 Completed [facility] HIB 4 Dose Schedule 2003-03-11 00:00:00 Completed [facility] Pneumococcal 7 Conjugate, PCV7 (Prevnar7) 2003-03-11 00:00:00 Completed [facility] DTAP 2003-03-11 00:00:00 Completed [facility] HIB 4 Dose Schedule 2003-03-11 00:00:00 Completed [facility] Pneumococcal 7 Conjugate, PCV7 (Prevnar7) 2003-03-11 00:00:00 Completed [facility] Hep B, Adol or Pedi Dosage 2002-10-15 00:00:00 Completed [facility] MMR 2002-10-15 00:00:00 Completed [facility] Polio (IPV/OPV) 2002-10-15 00:00:00 Completed [facility] Varicella (varivax)(chicken pox) 2002-10-15 00:00:00 Completed [facility] Hep B, Adol or Pedi Dosage 2002-10-15 00:00:00 Completed [facility] MMR 2002-10-15 00:00:00 Completed [facility] Polio (IPV/OPV) 2002-10-15 00:00:00 Completed [facility] Varicella (varivax)(chicken pox) 2002-10-15 00:00:00 Completed [facility] Hep B, Adol or Pedi Dosage 2002-10-15 00:00:00 Completed [facility] MMR 2002-10-15 00:00:00 Completed [facility] Polio (IPV/OPV) 2002-10-15 00:00:00 Completed [facility] Varicella (varivax)(chicken pox) 2002-10-15 00:00:00 Completed [facility] Hep B, Adol or Pedi Dosage 2002-10-15 00:00:00 Completed [facility] MMR 2002-10-15 00:00:00 Completed [facility] Polio (IPV/OPV) 2002-10-15 00:00:00 Completed [facility] Varicella (varivax)(chicken pox) 2002-10-15 00:00:00 Completed [facility] Hep B, Adol or Pedi Dosage 2002-10-15 00:00:00 Completed [facility] MMR 2002-10-15 00:00:00 Completed [facility] Polio (IPV/OPV) 2002-10-15 00:00:00 Completed [facility] Varicella (varivax)(chicken pox) 2002-10-15 00:00:00 Completed [facility] Hep B, Adol or Pedi Dosage 2002-10-15 00:00:00 Completed [facility] MMR 2002-10-15 00:00:00 Completed [facility] Polio (IPV/OPV) 2002-10-15 00:00:00 Completed [facility] Varicella (varivax)(chicken pox) 2002-10-15 00:00:00 Completed [facility] Hep B, Adol or Pedi Dosage 2002-10-15 00:00:00 Completed [facility] MMR 2002-10-15 00:00:00 Completed [facility] Polio (IPV/OPV) 2002-10-15 00:00:00 Completed [facility] Varicella (varivax)(chicken pox) 2002-10-15 00:00:00 Completed [facility] Hep B, Adol or Pedi Dosage 2002-10-15 00:00:00 Completed [facility] MMR 2002-10-15 00:00:00 Completed [facility] Polio (IPV/OPV) 2002-10-15 00:00:00 Completed [facility] Varicella (varivax)(chicken pox) 2002-10-15 00:00:00 Completed [facility] Hep B, Adol or Pedi Dosage 2002-10-15 00:00:00 Completed [facility] MMR 2002-10-15 00:00:00 Completed [facility] Polio (IPV/OPV) 2002-10-15 00:00:00 Completed [facility] Varicella (varivax)(chicken pox) 2002-10-15 00:00:00 Completed [facility] Hep B, Adol or Pedi Dosage 2002-10-15 00:00:00 Completed [facility] MMR 2002-10-15 00:00:00 Completed [facility] Polio (IPV/OPV) 2002-10-15 00:00:00 Completed [facility] Varicella (varivax)(chicken pox) 2002-10-15 00:00:00 Completed [facility] Hep B, Adol or Pedi Dosage 2002-10-15 00:00:00 Completed [facility] MMR 2002-10-15 00:00:00 Completed [facility] Polio (IPV/OPV) 2002-10-15 00:00:00 Completed [facility] Varicella (varivax)(chicken pox) 2002-10-15 00:00:00 Completed [facility] Hep B, Adol or Pedi Dosage 2002-10-15 00:00:00 Completed [facility] MMR 2002-10-15 00:00:00 Completed [facility] Polio (IPV/OPV) 2002-10-15 00:00:00 Completed [facility] Varicella (varivax)(chicken pox) 2002-10-15 00:00:00 Completed [facility] Hep B, Adol or Pedi Dosage 2002-10-15 00:00:00 Completed [facility] MMR 2002-10-15 00:00:00 Completed [facility] Polio (IPV/OPV) 2002-10-15 00:00:00 Completed [facility] Varicella (varivax)(chicken pox) 2002-10-15 00:00:00 Completed [facility] Hep B, Adol or Pedi Dosage 2002-10-15 00:00:00 Completed [facility] MMR 2002-10-15 00:00:00 Completed [facility] Polio (IPV/OPV) 2002-10-15 00:00:00 Completed [facility] Varicella (varivax)(chicken pox) 2002-10-15 00:00:00 Completed [facility] Hep B, Adol or Pedi Dosage 2002-10-15 00:00:00 Completed [facility] MMR 2002-10-15 00:00:00 Completed [facility] Polio (IPV/OPV) 2002-10-15 00:00:00 Completed [facility] Varicella (varivax)(chicken pox) 2002-10-15 00:00:00 Completed [facility] Hep B, Adol or Pedi Dosage 2002-10-15 00:00:00 Completed [facility] MMR 2002-10-15 00:00:00 Completed [facility] Polio (IPV/OPV) 2002-10-15 00:00:00 Completed [facility] Varicella (varivax)(chicken pox) 2002-10-15 00:00:00 Completed [facility] Hep B, Adol or Pedi Dosage 2002-10-15 00:00:00 Completed [facility] MMR 2002-10-15 00:00:00 Completed [facility] Polio (IPV/OPV) 2002-10-15 00:00:00 Completed [facility] Varicella (varivax)(chicken pox) 2002-10-15 00:00:00 Completed [facility] Hep B, Adol or Pedi Dosage 2002-10-15 00:00:00 Completed [facility] MMR 2002-10-15 00:00:00 Completed [facility] Polio (IPV/OPV) 2002-10-15 00:00:00 Completed [facility] Varicella (varivax)(chicken pox) 2002-10-15 00:00:00 Completed [facility] Hep B, Adol or Pedi Dosage 2002-10-15 00:00:00 Completed [facility] MMR 2002-10-15 00:00:00 Completed [facility] Polio (IPV/OPV) 2002-10-15 00:00:00 Completed [facility] Varicella (varivax)(chicken pox) 2002-10-15 00:00:00 Completed [facility] Hep B, Adol or Pedi Dosage 2002-10-15 00:00:00 Completed [facility] MMR 2002-10-15 00:00:00 Completed [facility] Polio (IPV/OPV) 2002-10-15 00:00:00 Completed [facility] Varicella (varivax)(chicken pox) 2002-10-15 00:00:00 Completed [facility] Hep B, Adol or Pedi Dosage 2002-10-15 00:00:00 Completed [facility] MMR 2002-10-15 00:00:00 Completed [facility] Polio (IPV/OPV) 2002-10-15 00:00:00 Completed [facility] Varicella (varivax)(chicken pox) 2002-10-15 00:00:00 Completed [facility] Hep B, Adol or Pedi Dosage 2002-10-15 00:00:00 Completed [facility] MMR 2002-10-15 00:00:00 Completed [facility] Polio (IPV/OPV) 2002-10-15 00:00:00 Completed [facility] Varicella (varivax)(chicken pox) 2002-10-15 00:00:00 Completed [facility] Hep B, Adol or Pedi Dosage 2002-10-15 00:00:00 Completed [facility] MMR 2002-10-15 00:00:00 Completed [facility] Polio (IPV/OPV) 2002-10-15 00:00:00 Completed [facility] Varicella (varivax)(chicken pox) 2002-10-15 00:00:00 Completed [facility] Hep B, Adol or Pedi Dosage 2002-10-15 00:00:00 Completed [facility] MMR 2002-10-15 00:00:00 Completed [facility] Polio (IPV/OPV) 2002-10-15 00:00:00 Completed [facility] Varicella (varivax)(chicken pox) 2002-10-15 00:00:00 Completed [facility] HIB 4 Dose Schedule 2002-04-19 00:00:00 Completed [facility] DTAP 2002-04-19 00:00:00 Completed [facility] HIB 4 Dose Schedule 2002-04-19 00:00:00 Completed [facility] DTAP 2002-04-19 00:00:00 Completed [facility] HIB 4 Dose Schedule 2002-04-19 00:00:00 Completed [facility] DTAP 2002-04-19 00:00:00 Completed [facility] HIB 4 Dose Schedule 2002-04-19 00:00:00 Completed [facility] DTAP 2002-04-19 00:00:00 Completed [facility] HIB 4 Dose Schedule 2002-04-19 00:00:00 Completed [facility] DTAP 2002-04-19 00:00:00 Completed [facility] HIB 4 Dose Schedule 2002-04-19 00:00:00 Completed [facility] DTAP 2002-04-19 00:00:00 Completed [facility] HIB 4 Dose Schedule 2002-04-19 00:00:00 Completed [facility] DTAP 2002-04-19 00:00:00 Completed [facility] HIB 4 Dose Schedule 2002-04-19 00:00:00 Completed [facility] DTAP 2002-04-19 00:00:00 Completed [facility] HIB 4 Dose Schedule 2002-04-19 00:00:00 Completed [facility] DTAP 2002-04-19 00:00:00 Completed [facility] HIB 4 Dose Schedule 2002-04-19 00:00:00 Completed [facility] DTAP 2002-04-19 00:00:00 Completed [facility] HIB 4 Dose Schedule 2002-04-19 00:00:00 Completed [facility] DTAP 2002-04-19 00:00:00 Completed [facility] HIB 4 Dose Schedule 2002-04-19 00:00:00 Completed [facility] DTAP 2002-04-19 00:00:00 Completed [facility] HIB 4 Dose Schedule 2002-04-19 00:00:00 Completed [facility] DTAP 2002-04-19 00:00:00 Completed [facility] HIB 4 Dose Schedule 2002-04-19 00:00:00 Completed [facility] DTAP 2002-04-19 00:00:00 Completed [facility] HIB 4 Dose Schedule 2002-04-19 00:00:00 Completed [facility] DTAP 2002-04-19 00:00:00 Completed [facility] HIB 4 Dose Schedule 2002-04-19 00:00:00 Completed [facility] DTAP 2002-04-19 00:00:00 Completed [facility] HIB 4 Dose Schedule 2002-04-19 00:00:00 Completed [facility] DTAP 2002-04-19 00:00:00 Completed [facility] HIB 4 Dose Schedule 2002-04-19 00:00:00 Completed [facility] DTAP 2002-04-19 00:00:00 Completed [facility] HIB 4 Dose Schedule 2002-04-19 00:00:00 Completed [facility] DTAP 2002-04-19 00:00:00 Completed [facility] HIB 4 Dose Schedule 2002-04-19 00:00:00 Completed [facility] DTAP 2002-04-19 00:00:00 Completed [facility] HIB 4 Dose Schedule 2002-04-19 00:00:00 Completed [facility] DTAP 2002-04-19 00:00:00 Completed [facility] HIB 4 Dose Schedule 2002-04-19 00:00:00 Completed [facility] DTAP 2002-04-19 00:00:00 Completed [facility] HIB 4 Dose Schedule 2002-04-19 00:00:00 Completed [facility] DTAP 2002-04-19 00:00:00 Completed [facility] HIB 4 Dose Schedule 2002-04-19 00:00:00 Completed [facility] DTAP 2002-04-19 00:00:00 Completed [facility] DTAP 2002-02-18 00:00:00 Completed [facility] HIB 4 Dose Schedule 2002-02-18 00:00:00 Completed [facility] Polio (IPV/OPV) 2002-02-18 00:00:00 Completed [facility] DTAP 2002-02-18 00:00:00 Completed [facility] HIB 4 Dose Schedule 2002-02-18 00:00:00 Completed [facility] Polio (IPV/OPV) 2002-02-18 00:00:00 Completed [facility] DTAP 2002-02-18 00:00:00 Completed [facility] HIB 4 Dose Schedule 2002-02-18 00:00:00 Completed [facility] Polio (IPV/OPV) 2002-02-18 00:00:00 Completed [facility] DTAP 2002-02-18 00:00:00 Completed [facility] HIB 4 Dose Schedule 2002-02-18 00:00:00 Completed [facility] Polio (IPV/OPV) 2002-02-18 00:00:00 Completed [facility] DTAP 2002-02-18 00:00:00 Completed [facility] HIB 4 Dose Schedule 2002-02-18 00:00:00 Completed [facility] Polio (IPV/OPV) 2002-02-18 00:00:00 Completed [facility] DTAP 2002-02-18 00:00:00 Completed [facility] HIB 4 Dose Schedule 2002-02-18 00:00:00 Completed [facility] Polio (IPV/OPV) 2002-02-18 00:00:00 Completed [facility] DTAP 2002-02-18 00:00:00 Completed [facility] HIB 4 Dose Schedule 2002-02-18 00:00:00 Completed [facility] Polio (IPV/OPV) 2002-02-18 00:00:00 Completed [facility] DTAP 2002-02-18 00:00:00 Completed [facility] HIB 4 Dose Schedule 2002-02-18 00:00:00 Completed [facility] Polio (IPV/OPV) 2002-02-18 00:00:00 Completed [facility] DTAP 2002-02-18 00:00:00 Completed [facility] HIB 4 Dose Schedule 2002-02-18 00:00:00 Completed [facility] Polio (IPV/OPV) 2002-02-18 00:00:00 Completed [facility] DTAP 2002-02-18 00:00:00 Completed [facility] HIB 4 Dose Schedule 2002-02-18 00:00:00 Completed [facility] Polio (IPV/OPV) 2002-02-18 00:00:00 Completed [facility] DTAP 2002-02-18 00:00:00 Completed [facility] HIB 4 Dose Schedule 2002-02-18 00:00:00 Completed [facility] Polio (IPV/OPV) 2002-02-18 00:00:00 Completed [facility] DTAP 2002-02-18 00:00:00 Completed [facility] HIB 4 Dose Schedule 2002-02-18 00:00:00 Completed [facility] Polio (IPV/OPV) 2002-02-18 00:00:00 Completed [facility] DTAP 2002-02-18 00:00:00 Completed [facility] HIB 4 Dose Schedule 2002-02-18 00:00:00 Completed [facility] Polio (IPV/OPV) 2002-02-18 00:00:00 Completed [facility] DTAP 2002-02-18 00:00:00 Completed [facility] HIB 4 Dose Schedule 2002-02-18 00:00:00 Completed [facility] Polio (IPV/OPV) 2002-02-18 00:00:00 Completed [facility] DTAP 2002-02-18 00:00:00 Completed [facility] HIB 4 Dose Schedule 2002-02-18 00:00:00 Completed [facility] Polio (IPV/OPV) 2002-02-18 00:00:00 Completed [facility] DTAP 2002-02-18 00:00:00 Completed [facility] HIB 4 Dose Schedule 2002-02-18 00:00:00 Completed [facility] Polio (IPV/OPV) 2002-02-18 00:00:00 Completed [facility] DTAP 2002-02-18 00:00:00 Completed [facility] HIB 4 Dose Schedule 2002-02-18 00:00:00 Completed [facility] Polio (IPV/OPV) 2002-02-18 00:00:00 Completed [facility] DTAP 2002-02-18 00:00:00 Completed [facility] HIB 4 Dose Schedule 2002-02-18 00:00:00 Completed [facility] Polio (IPV/OPV) 2002-02-18 00:00:00 Completed [facility] DTAP 2002-02-18 00:00:00 Completed [facility] HIB 4 Dose Schedule 2002-02-18 00:00:00 Completed [facility] Polio (IPV/OPV) 2002-02-18 00:00:00 Completed [facility] DTAP 2002-02-18 00:00:00 Completed [facility] HIB 4 Dose Schedule 2002-02-18 00:00:00 Completed [facility] Polio (IPV/OPV) 2002-02-18 00:00:00 Completed [facility] DTAP 2002-02-18 00:00:00 Completed [facility] HIB 4 Dose Schedule 2002-02-18 00:00:00 Completed [facility] Polio (IPV/OPV) 2002-02-18 00:00:00 Completed [facility] DTAP 2002-02-18 00:00:00 Completed [facility] HIB 4 Dose Schedule 2002-02-18 00:00:00 Completed [facility] Polio (IPV/OPV) 2002-02-18 00:00:00 Completed [facility] DTAP 2002-02-18 00:00:00 Completed [facility] HIB 4 Dose Schedule 2002-02-18 00:00:00 Completed [facility] Polio (IPV/OPV) 2002-02-18 00:00:00 Completed [facility] DTAP 2002-02-18 00:00:00 Completed [facility] HIB 4 Dose Schedule 2002-02-18 00:00:00 Completed [facility] Polio (IPV/OPV) 2002-02-18 00:00:00 Completed [facility] DTAP 2002-01-16 00:00:00 Completed [facility] HIB 4 Dose Schedule 2002-01-16 00:00:00 Completed [facility] Hep B, Adol or Pedi Dosage 2002-01-16 00:00:00 Completed [facility] Polio (IPV/OPV) 2002-01-16 00:00:00 Completed [facility] DTAP 2002-01-16 00:00:00 Completed [facility] HIB 4 Dose Schedule 2002-01-16 00:00:00 Completed [facility] Hep B, Adol or Pedi Dosage 2002-01-16 00:00:00 Completed [facility] Polio (IPV/OPV) 2002-01-16 00:00:00 Completed [facility] DTAP 2002-01-16 00:00:00 Completed [facility] HIB 4 Dose Schedule 2002-01-16 00:00:00 Completed [facility] Hep B, Adol or Pedi Dosage 2002-01-16 00:00:00 Completed [facility] Polio (IPV/OPV) 2002-01-16 00:00:00 Completed [facility] DTAP 2002-01-16 00:00:00 Completed [facility] HIB 4 Dose Schedule 2002-01-16 00:00:00 Completed [facility] Hep B, Adol or Pedi Dosage 2002-01-16 00:00:00 Completed [facility] Polio (IPV/OPV) 2002-01-16 00:00:00 Completed [facility] DTAP 2002-01-16 00:00:00 Completed [facility] HIB 4 Dose Schedule 2002-01-16 00:00:00 Completed [facility] Hep B, Adol or Pedi Dosage 2002-01-16 00:00:00 Completed [facility] Polio (IPV/OPV) 2002-01-16 00:00:00 Completed [facility] DTAP 2002-01-16 00:00:00 [facility] [facility] HIB 4 Dose Schedule 2002-01-16 00:00:00 Completed [facility] Hep B, Adol or Pedi Dosage 2002-01-16 00:00:00 Completed [facility] Polio (IPV/OPV) 2002-01-16 00:00:00 Completed [facility] DTAP 2002-01-16 00:00:00 Completed [facility] HIB 4 Dose Schedule 2002-01-16 00:00:00 Completed [facility] Hep B, Adol or Pedi Dosage 2002-01-16 00:00:00 Completed [facility] Polio (IPV/OPV) 2002-01-16 00:00:00 Completed [facility] DTAP 2002-01-16 00:00:00 Completed [facility] HIB 4 Dose Schedule 2002-01-16 00:00:00 Completed [facility] Hep B, Adol or Pedi Dosage 2002-01-16 00:00:00 Completed [facility] Polio (IPV/OPV) 2002-01-16 00:00:00 Completed [facility] DTAP 2002-01-16 00:00:00 Completed [facility] HIB 4 Dose Schedule 2002-01-16 00:00:00 Completed [facility] Hep B, Adol or Pedi Dosage 2002-01-16 00:00:00 Completed [facility] Polio (IPV/OPV) 2002-01-16 00:00:00 Completed [facility] DTAP 2002-01-16 00:00:00 Completed [facility] HIB 4 Dose Schedule 2002-01-16 00:00:00 Completed [facility] Hep B, Adol or Pedi Dosage 2002-01-16 00:00:00 Completed [facility] Polio (IPV/OPV) 2002-01-16 00:00:00 Completed [facility] DTAP 2002-01-16 00:00:00 Completed [facility] HIB 4 Dose Schedule 2002-01-16 00:00:00 Completed [facility] Hep B, Adol or Pedi Dosage 2002-01-16 00:00:00 Completed [facility] Polio (IPV/OPV) 2002-01-16 00:00:00 Completed [facility] DTAP 2002-01-16 00:00:00 Completed [facility] HIB 4 Dose Schedule 2002-01-16 00:00:00 Completed [facility] Hep B, Adol or Pedi Dosage 2002-01-16 00:00:00 Completed [facility] Polio (IPV/OPV) 2002-01-16 00:00:00 Completed [facility] DTAP 2002-01-16 00:00:00 Completed [facility] HIB 4 Dose Schedule 2002-01-16 00:00:00 Completed [facility] Hep B, Adol or Pedi Dosage 2002-01-16 00:00:00 Completed [facility] Polio (IPV/OPV) 2002-01-16 00:00:00 Completed [facility] DTAP 2002-01-16 00:00:00 Completed [facility] HIB 4 Dose Schedule 2002-01-16 00:00:00 Completed [facility] Hep B, Adol or Pedi Dosage 2002-01-16 00:00:00 Completed [facility] Polio (IPV/OPV) 2002-01-16 00:00:00 Completed [facility] DTAP 2002-01-16 00:00:00 Completed [facility] HIB 4 Dose Schedule 2002-01-16 00:00:00 Completed [facility] Hep B, Adol or Pedi Dosage 2002-01-16 00:00:00 Completed [facility] Polio (IPV/OPV) 2002-01-16 00:00:00 Completed [facility] DTAP 2002-01-16 00:00:00 Completed [facility] HIB 4 Dose Schedule 2002-01-16 00:00:00 Completed [facility] Hep B, Adol or Pedi Dosage 2002-01-16 00:00:00 Completed [facility] Polio (IPV/OPV) 2002-01-16 00:00:00 Completed [facility] DTAP 2002-01-16 00:00:00 Completed [facility] HIB 4 Dose Schedule 2002-01-16 00:00:00 Completed [facility] Hep B, Adol or Pedi Dosage 2002-01-16 00:00:00 Completed [facility] Polio (IPV/OPV) 2002-01-16 00:00:00 Completed [facility] DTAP 2002-01-16 00:00:00 Completed [facility] HIB 4 Dose Schedule 2002-01-16 00:00:00 Completed [facility] Hep B, Adol or Pedi Dosage 2002-01-16 00:00:00 Completed [facility] Polio (IPV/OPV) 2002-01-16 00:00:00 Completed [facility] DTAP 2002-01-16 00:00:00 Completed [facility] HIB 4 Dose Schedule 2002-01-16 00:00:00 Completed [facility] Hep B, Adol or Pedi Dosage 2002-01-16 00:00:00 Completed [facility] Polio (IPV/OPV) 2002-01-16 00:00:00 Completed [facility] DTAP 2002-01-16 00:00:00 Completed [facility] HIB 4 Dose Schedule 2002-01-16 00:00:00 Completed [facility] Hep B, Adol or Pedi Dosage 2002-01-16 00:00:00 Completed [facility] Polio (IPV/OPV) 2002-01-16 00:00:00 Completed [facility] DTAP 2002-01-16 00:00:00 Completed [facility] HIB 4 Dose Schedule 2002-01-16 00:00:00 Completed [facility] Hep B, Adol or Pedi Dosage 2002-01-16 00:00:00 Completed [facility] Polio (IPV/OPV) 2002-01-16 00:00:00 Completed [facility] DTAP 2002-01-16 00:00:00 Completed [facility] HIB 4 Dose Schedule 2002-01-16 00:00:00 Completed [facility] Hep B, Adol or Pedi Dosage 2002-01-16 00:00:00 Completed [facility] Polio (IPV/OPV) 2002-01-16 00:00:00 Completed [facility] DTAP 2002-01-16 00:00:00 Completed [facility] HIB 4 Dose Schedule 2002-01-16 00:00:00 Completed [facility] Hep B, Adol or Pedi Dosage 2002-01-16 00:00:00 Completed [facility] Polio (IPV/OPV) 2002-01-16 00:00:00 Completed [facility] DTAP 2002-01-16 00:00:00 Completed [facility] HIB 4 Dose Schedule 2002-01-16 00:00:00 Completed [facility] Hep B, Adol or Pedi Dosage 2002-01-16 00:00:00 Completed [facility] Polio (IPV/OPV) 2002-01-16 00:00:00 Completed [facility] Hep B, Adol or Pedi Dosage 2001 00:00:00 Completed [facility] Hep B, Adol or Pedi Dosage 2001 00:00:00 Completed [facility] Hep B, Adol or Pedi Dosage 2001 00:00:00 Completed [facility] Hep B, Adol or Pedi Dosage 2001 00:00:00 Completed [facility] Hep B, Adol or Pedi Dosage 2001 00:00:00 Completed [facility] Hep B, Adol or Pedi Dosage 2001 00:00:00 Completed [facility] Hep B, Adol or Pedi Dosage 2001 00:00:00 Completed [facility] Hep B, Adol or Pedi Dosage 2001 00:00:00 Completed [facility] Hep B, Adol or Pedi Dosage 2001 00:00:00 Completed [facility] Hep B, Adol or Pedi Dosage 2001 00:00:00 Completed [facility] Hep B, Adol or Pedi Dosage 2001 00:00:00 Completed [facility] Hep B, Adol or Pedi Dosage 2001 00:00:00 Completed [facility] Hep B, Adol or Pedi Dosage 2001 00:00:00 Completed [facility] Hep B, Adol or Pedi Dosage 2001 00:00:00 Completed [facility] Hep B, Adol or Pedi Dosage 2001 00:00:00 Completed [facility] Hep B, Adol or Pedi Dosage 2001 00:00:00 Completed [facility] Hep B, Adol or Pedi Dosage 2001 00:00:00 Completed [facility] Hep B, Adol or Pedi Dosage 2001 00:00:00 Completed [facility] Hep B, Adol or Pedi Dosage 2001 00:00:00 Completed [facility] Hep B, Adol or Pedi Dosage 2001 00:00:00 Completed [facility] Hep B, Adol or Pedi Dosage 2001 00:00:00 Completed [facility] Hep B, Adol or Pedi Dosage 2001 00:00:00 Completed [facility] Hep B, Adol or Pedi Dosage 2001 00:00:00 Completed [facility] Hep B, Adol or Pedi Dosage 2001 00:00:00 Completed [facility] DTAP Unknown Completed [facility] DTAP Unknown Completed [facility] DTAP Unknown Completed [facility] DTAP Unknown Completed [facility] HIB 4 Dose Schedule Unknown Completed [facility] HIB 4 Dose Schedule Unknown Completed [facility] HIB 4 Dose Schedule Unknown Completed [facility] HIB 4 Dose Schedule Unknown Completed [facility] HEPATITIS A Unknown Completed [facility] HEPATITIS A Unknown Completed [facility] Hep B, Adol or Pedi Dosage Unknown Completed [facility] Hep B, Adol or Pedi Dosage Unknown Completed [facility] Hep B, Adol or Pedi Dosage Unknown Completed [facility] HPV Unknown Completed [facility] HPV Unknown Completed [facility] HPV Unknown Completed [facility] Influenza Virus Vaccine Unknown Completed [facility] Influenza Virus Vaccine Unknown Completed [facility] MMR Unknown Completed [facility] Pneumococcal 7 Conjugate, PCV7 (Prevnar7) Unknown Completed [facility] Pneumococcal 7 Conjugate, PCV7 (Prevnar7) Unknown Completed [facility] Polio (IPV/OPV) Unknown [facility]) [facility] Com[facility] Varicella (varivax)(chicken pox) Unknown Completed [facility] Varicella (varivax)(chicken pox) Unknown Completed [facility] TDAP Unknown Completed [facility] Meningococcal Oligosaccharide (groups A, C, Y and W-135) conjugate vaccine (MCV4O) Unknown Completed [facility] Influenza Virus Vaccine Unknown Completed [facility] SARS-COV-2 COVID-19 PFIZER VACCINE Unknown Completed [facility] SARS-COV-2 COVID-19 PFIZER VACCINE Unknown Completed [facility] DTAP Unknown Completed [facility] DTAP Unknown Completed [facility] DTAP Unknown Completed [facility] DTAP Unknown Completed [facility] HIB 4 Dose Schedule Unknown Completed [facility] HIB 4 Dose Schedule Unknown Completed [facility] HIB 4 Dose Schedule Unknown Completed [facility] HIB 4 Dose Schedule Unknown Completed [facility] HEPATITIS A Unknown Completed [facility] HEPATITIS A Unknown Completed [facility] Hep B, Adol or Pedi Dosage Unknown Completed [facility] Hep B, Adol or Pedi Dosage Unknown Completed [facility] Hep B, Adol or Pedi Dosage Unknown Completed [facility] HPV Unknown Completed [facility] HPV Unknown Completed [facility] HPV Unknown Completed [facility] Influenza Virus Vaccine Unknown Completed [facility] Influenza Virus Vaccine Unknown Completed [facility] MMR Unknown Completed [facility] Pneumococcal 7 Conjugate, PCV7 (Prevnar7) Unknown Completed [facility] Pneumococcal 7 Conjugate, PCV7 (Prevnar7) Unknown Completed [facility] Polio (IPV/OPV) Unknown Completed [facility] Polio (IPV/OPV) Unknown Completed [facility] Polio (IPV/OPV) Unknown Completed [facility] Varicella (varivax)(chicken pox) Unknown Completed [facility] Varicella (varivax)(chicken pox) Unknown Completed [facility] TDAP Unknown Completed [facility] Meningococcal Oligosaccharide (groups A, C, Y and W-135) conjugate vaccine (MCV4O) Unknown Completed [facility] Influenza Virus Vaccine Unknown Completed [facility] DTAP Unknown Completed [facility] DTAP Unknown Completed [facility] DTAP Unknown Completed [facility] DTAP Unknown Completed [facility] HIB 4 Dose Schedule Unknown Completed [facility] HIB 4 Dose Schedule Unknown Completed [facility] HIB 4 Dose Schedule Unknown Completed [facility] HIB 4 Dose Schedule Unknown Completed [facility] HEPATITIS A Unknown [facility] HEPATITIS A Unknown [facility] Hep B, Adol or Pedi Dosage Unknown Completed [facility] Hep B, Adol or Pedi Dosage Unknown Completed [facility] Hep B, Adol or Pedi Dosage Unknown Completed [facility] HPV Unknown Completed [facility] HPV Unknown Completed [facility] HPV Unknown Completed [facility] Influenza Virus Vaccine Unknown Completed [facility] Influenza Virus Vaccine Unknown Completed [facility] MMR Unknown Completed [facility] Pneumococcal 7 Conjugate, PCV7 (Prevnar7) Unknown Completed [facility] Pneumococcal 7 Conjugate, PCV7 (Prevnar7) Unknown Completed [facility] Polio (IPV/OPV) Unknown Completed [facility] Polio (IPV/OPV) Unknown Completed [facility] Polio (IPV/OPV) Unknown Completed [facility] Varicella (varivax)(chicken pox) Unknown Completed [facility] Varicella (varivax)(chicken pox) Unknown Completed [facility] TDAP Unknown Completed [facility] Meningococcal Oligosaccharide (groups A, C, Y and W-135) conjugate vaccine (MCV4O) Unknown Completed [facility] Influenza Virus Vaccine Unknown Completed [facility] SARS-COV-2 COVID-19 PFIZER VACCINE Unknown Completed [facility] SARS-COV-2 COVID-19 PFIZER VACCINE Unknown Completed [facility] DTAP Unknown Completed [facility] DTAP Unknown Completed [facility] DTAP Unknown Completed [facility] DTAP Unknown Completed [facility] HIB 4 Dose Schedule Unknown Completed [facility] HIB 4 Dose Schedule Unknown Completed [facility] HIB 4 Dose Schedule Unknown Completed [facility] HIB 4 Dose Schedule Unknown Completed [facility] HEPATITIS A Unknown [facility] HEPATITIS A Unknown Completed [facility] Hep B, Adol or Pedi Dosage Unknown Completed [facility] Hep B, Adol or Pedi Dosage Unknown Completed [facility] Hep B, Adol or Pedi Dosage Unknown Completed [facility] HPV Unknown Completed [facility] HPV Unknown Completed [facility] HPV Unknown Completed [facility] Influenza Virus Vaccine Unknown Completed [facility] Influenza Virus Vaccine Unknown Completed [facility] MMR Unknown Completed [facility] Pneumococcal 7 Conjugate, PCV7 (Prevnar7) Unknown Completed [facility] Pneumococcal 7 Conjugate, PCV7 (Prevnar7) Unknown Completed [facility] Polio (IPV/OPV) Unknown Completed [facility] Polio (IPV/OPV) Unknown Completed [facility] Polio (IPV/OPV) Unknown Completed [facility] Varicella (varivax)(chicken pox) Unknown Completed [facility] Varicella (varivax)(chicken pox) Unknown Completed [facility] TDAP Unknown Completed [facility] Meningococcal Oligosaccharide (groups A, C, Y and W-135) conjugate vaccine (MCV4O) Unknown Completed [facility] Influenza Virus Vaccine Unknown Completed [facility] SARS-COV-2 COVID-19 PFIZER VACCINE Unknown Completed [facility] SARS-COV-2 COVID-19 PFIZER VACCINE Unknown Completed [facility] DTAP Unknown Completed [facility] Polio (IPV/OPV) Unknown Completed [facility] MMR Unknown Completed [facility] DTAP Unknown Completed [facility] DTAP Unknown Completed [facility] DTAP Unknown Completed [facility] DTAP Unknown Completed [facility] HIB 4 Dose Schedule Unknown Completed [facility] HIB 4 Dose Schedule Unknown Completed [facility] HIB 4 Dose Schedule Unknown Completed [facility] HIB 4 Dose Schedule Unknown Completed [facility] HEPATITIS A Unknown Completed [facility] HEPATITIS A Unknown Completed [facility] Hep B, Adol or Pedi Dosage Unknown Completed [facility] Hep B, Adol or Pedi Dosage Unknown Completed [facility] Hep B, Adol or Pedi Dosage Unknown Completed [facility] HPV Unknown Completed [facility] HPV Unknown Completed [facility] HPV Unknown Completed [facility] Influenza Virus Vaccine Unknown Completed [facility] Influenza Virus Vaccine Unknown Completed [facility] MMR Unknown Completed [facility] Pneumococcal 7 Conjugate, PCV7 (Prevnar7) Unknown Completed [facility] Pneumococcal 7 Conjugate, PCV7 (Prevnar7) Unknown Completed [facility] Polio (IPV/OPV) Unknown Completed [facility] Polio (IPV/OPV) Unknown Completed [facility] Polio (IPV/OPV) Unknown Completed [facility] Varicella (varivax)(chicken pox) Unknown Completed [facility] Varicella (varivax)(chicken pox) Unknown Completed [facility] TDAP Unknown Completed [facility] Meningococcal Oligosaccharide (groups A, C, Y and W-135) conjugate vaccine (MCV4O) Unknown Completed [facility] Influenza Virus Vaccine Unknown Completed [facility] SARS-COV-2 COVID-19 PFIZER VACCINE Unknown Completed [facility] SARS-COV-2 COVID-19 PFIZER VACCINE Unknown Completed [facility] DTAP Unknown Completed [facility] DTAP Unknown Completed [facility] DTAP Unknown Completed [facility] DTAP Unknown Completed [facility] HIB 4 Dose Schedule Unknown Completed [facility] HIB 4 Dose Schedule Unknown Completed [facility] HIB 4 Dose Schedule Unknown Completed [facility] HIB 4 Dose Schedule Unknown Completed [facility] HEPATITIS A Unknown Completed [facility] HEPATITIS A Unknown Completed [facility] Hep B, Adol or Pedi Dosage Unknown Completed [facility] Hep B, Adol or Pedi Dosage Unknown Completed [facility] Hep B, Adol or Pedi Dosage Unknown Completed [facility] HPV Unknown Completed [facility] HPV Unknown Completed [facility] HPV Unknown Completed [facility] Influenza Virus Vaccine Unknown Completed [facility] Influenza Virus Vaccine Unknown Completed [facility] MMR Unknown Completed [facility] Pneumococcal 7 Conjugate, PCV7 (Prevnar7) Unknown Completed [facility] Pneumococcal 7 Conjugate, PCV7 (Prevnar7) Unknown Completed [facility] Polio (IPV/OPV) Unknown Completed [facility] Polio (IPV/OPV) Unknown Completed [facility] Polio (IPV/OPV) Unknown Completed [facility] Varicella (varivax)(chicken pox) Unknown Completed [facility] Varicella (varivax)(chicken pox) Unknown Completed [facility] TDAP Unknown Completed [facility] Meningococcal Oligosaccharide (groups A, C, Y and W-135) conjugate vaccine (MCV4O) Unknown Completed [facility] Influenza Virus Vaccine Unknown Completed [facility] SARS-COV-2 COVID-19 PFIZER VACCINE Unknown Completed [facility] SARS-COV-2 COVID-19 PFIZER VACCINE Unknown Completed [facility] DTAP Unknown Completed [facility] DTAP Unknown Completed [facility] DTAP Unknown Completed [facility] DTAP Unknown Completed [facility] HIB 4 Dose Schedule Unknown Completed [facility] HIB 4 Dose Schedule Unknown Completed [facility] HIB 4 Dose Schedule Unknown Completed [facility] HIB 4 Dose Schedule Unknown Completed [facility] HEPATITIS A Unknown Completed [facility] HEPATITIS A Unknown Completed [facility] Hep B, Adol or Pedi Dosage Unknown Completed [facility] Hep B, Adol or Pedi Dosage Unknown Completed [facility] Hep B, Adol or Pedi Dosage Unknown Completed [facility] HPV Unknown Completed [facility] HPV Unknown Completed [facility] HPV Unknown Completed [facility] Influenza Virus Vaccine Unknown Completed [facility] Influenza Virus Vaccine Unknown Completed [facility] MMR Unknown Completed [facility] Pneumococcal 7 Conjugate, PCV7 (Prevnar7) Unknown Completed [facility] Pneumococcal 7 Conjugate, PCV7 (Prevnar7) Unknown Completed [facility] Polio (IPV/OPV) Unknown Completed [facility] Polio (IPV/OPV) Unknown Completed [facility] Polio (IPV/OPV) Unknown Completed [facility] Varicella (varivax)(chicken pox) Unknown Completed [facility] Varicella (varivax)(chicken pox) Unknown Completed [facility] TDAP Unknown Completed [facility] Meningococcal Oligosaccharide (groups A, C, Y and W-135) conjugate vaccine (MCV4O) Unknown Completed [facility] Influenza Virus Vaccine Unknown Completed [facility] SARS-COV-2 COVID-19 PFIZER VACCINE Unknown Completed [facility] SARS-COV-2 COVID-19 PFIZER VACCINE Unknown Completed [facility] DTAP Unknown Completed [facility] DTAP Unknown Completed [facility] DTAP Unknown Completed [facility] DTAP Unknown Completed [facility] HIB 4 Dose Schedule Unknown Completed [facility] HIB 4 Dose Schedule Unknown Completed [facility] HIB 4 Dose Schedule Unknown Completed [facility] HIB 4 Dose Schedule Unknown Completed [facility] HEPATITIS A Unknown Completed [facility] HEPATITIS A Unknown Completed [facility] Hep B, Adol or Pedi Dosage Unknown Completed [facility] Hep B, Adol or Pedi Dosage Unknown Completed [facility] Hep B, Adol or Pedi Dosage Unknown Completed [facility] HPV Unknown Completed [facility] HPV Unknown Completed [facility] HPV Unknown Completed [facility] Influenza Virus Vaccine Unknown Completed [facility] Influenza Virus Vaccine Unknown Completed [facility] MMR Unknown Completed [facility] Pneumococcal 7 Conjugate, PCV7 (Prevnar7) Unknown Completed [facility] Pneumococcal 7 Conjugate, PCV7 (Prevnar7) Unknown Completed [facility] Polio (IPV/OPV) Unknown Completed [facility] Polio (IPV/OPV) Unknown Completed [facility] Polio (IPV/OPV) Unknown Completed [facility] Varicella (varivax)(chicken pox) Unknown Completed [facility] Varicella (varivax)(chicken pox) Unknown Completed [facility] TDAP Unknown Completed [facility] Meningococcal Oligosaccharide (groups A, C, Y and W-135) conjugate vaccine (MCV4O) Unknown Completed [facility] Influenza Virus Vaccine Unknown Completed [facility] SARS-COV-2 COVID-19 PFIZER VACCINE Unknown Completed [facility] SARS-COV-2 COVID-19 PFIZER VACCINE Unknown Completed [facility] DTAP Unknown Completed [facility] DTAP Unknown Completed [facility] DTAP Unknown Completed [facility] DTAP Unknown Completed [facility] HIB 4 Dose Schedule Unknown Completed [facility] HIB 4 Dose Schedule Unknown Completed [facility] HIB 4 Dose Schedule Unknown Completed [facility] HIB 4 Dose Schedule Unknown Completed [facility] HEPATITIS A Unknown Completed [facility] HEPATITIS A Unknown Completed [facility] Hep B, Adol or Pedi Dosage Unknown Completed [facility] Hep B, Adol or Pedi Dosage Unknown Completed [facility] Hep B, Adol or Pedi Dosage Unknown Completed [facility] HPV Unknown Completed [facility] HPV Unknown Completed [facility] HPV Unknown Completed [facility] Influenza Virus Vaccine Unknown Completed [facility] Influenza Virus Vaccine Unknown Completed [facility] MMR Unknown Completed [facility] Pneumococcal 7 Conjugate, PCV7 (Prevnar7) Unknown Completed [facility] Pneumococcal 7 Conjugate, PCV7 (Prevnar7) Unknown Completed [facility] Polio (IPV/OPV) Unknown Completed [facility] Polio (IPV/OPV) Unknown Completed [facility] Polio (IPV/OPV) Unknown Completed [facility] Varicella (varivax)(chicken pox) Unknown Completed [facility] Varicella (varivax)(chicken pox) Unknown Completed [facility] TDAP Unknown Completed [facility] Meningococcal Oligosaccharide (groups A, C, Y and W-135) conjugate vaccine (MCV4O) Unknown Completed [facility] Influenza Virus Vaccine Unknown Completed [facility] SARS-COV-2 COVID-19 PFIZER VACCINE Unknown Completed [facility] SARS-COV-2 COVID-19 PFIZER VACCINE Unknown Completed [facility] DTAP Unknown Completed [facility] DTAP Unknown Completed [facility] DTAP Unknown Completed [facility] DTAP Unknown Completed [facility] HIB 4 Dose Schedule Unknown Completed [facility] HIB 4 Dose Schedule Unknown Completed [facility] HIB 4 Dose Schedule Unknown Completed [facility] HIB 4 Dose Schedule Unknown Completed [facility] HEPATITIS A Unknown Completed [facility] HEPATITIS A Unknown Completed [facility] Hep B, Adol or Pedi Dosage Unknown Completed [facility] Hep B, Adol or Pedi Dosage Unknown Completed [facility] Hep B, Adol or Pedi Dosage Unknown Completed [facility] HPV Unknown Completed [facility] HPV Unknown Completed [facility] HPV Unknown Completed [facility] Influenza Virus Vaccine Unknown Completed [facility] Influenza Virus Vaccine Unknown Completed [facility] MMR Unknown Completed [facility] Pneumococcal 7 Conjugate, PCV7 (Prevnar7) Unknown Completed [facility] Pneumococcal 7 Conjugate, PCV7 (Prevnar7) Unknown Completed [facility] Polio (IPV/OPV) Unknown Completed [facility] Polio (IPV/OPV) Unknown Completed [facility] Polio (IPV/OPV) Unknown Completed [facility] Varicella (varivax)(chicken pox) Unknown Completed [facility] Varicella (varivax)(chicken pox) Unknown Completed [facility] TDAP Unknown Completed [facility] Meningococcal Oligosaccharide (groups A, C, Y and W-135) conjugate vaccine (MCV4O) Unknown Completed [facility] Influenza Virus Vaccine Unknown Completed [facility] SARS-COV-2 COVID-19 PFIZER VACCINE Unknown Completed [facility] SARS-COV-2 COVID-19 PFIZER VACCINE Unknown Completed [facility] DTAP Unknown Completed [facility] DTAP Unknown Completed [facility] DTAP Unknown Completed [facility] DTAP Unknown Completed [facility] HIB 4 Dose Schedule Unknown Completed [facility] HIB 4 Dose Schedule Unknown Completed [facility] HIB 4 Dose Schedule Unknown Completed [facility] HIB 4 Dose Schedule Unknown Completed [facility] HEPATITIS A Unknown Completed [facility] HEPATITIS A Unknown Completed [facility] Hep B, Adol or Pedi Dosage Unknown Completed [facility] Hep B, Adol or Pedi Dosage Unknown Completed [facility] Hep B, Adol or Pedi Dosage Unknown Completed [facility] HPV Unknown Completed [facility] HPV Unknown Completed [facility] HPV Unknown Completed [facility] Influenza Virus Vaccine Unknown Completed [facility] Influenza Virus Vaccine Unknown Completed [facility] MMR Unknown Completed [facility] Pneumococcal 7 Conjugate, PCV7 (Prevnar7) Unknown Completed [facility] Pneumococcal 7 Conjugate, PCV7 (Prevnar7) Unknown Completed [facility] Polio (IPV/OPV) Unknown Completed [facility] Polio (IPV/OPV) Unknown Completed [facility] Polio (IPV/OPV) Unknown Completed [facility] Varicella (varivax)(chicken pox) Unknown Completed [facility] Varicella (varivax)(chicken pox) Unknown Completed [facility] TDAP Unknown Completed [facility] Meningococcal Oligosaccharide (groups A, C, Y and W-135) conjugate vaccine (MCV4O) Unknown Completed [facility] Influenza Virus Vaccine Unknown Completed [facility] SARS-COV-2 COVID-19 PFIZER VACCINE Unknown Completed [facility] SARS-COV-2 COVID-19 PFIZER VACCINE Unknown Completed [facility] DTAP Unknown Completed [facility] DTAP Unknown Completed [facility] DTAP Unknown Completed [facility] DTAP Unknown Completed [facility] HIB 4 Dose Schedule Unknown Completed [facility] HIB 4 Dose Schedule Unknown Completed [facility] HIB 4 Dose Schedule Unknown Completed [facility] HIB 4 Dose Schedule Unknown Completed [facility] HEPATITIS A Unknown Completed [facility] HEPATITIS A Unknown Completed [facility] Hep B, Adol or Pedi Dosage Unknown Completed [facility] Hep B, Adol or Pedi Dosage Unknown Completed [facility] Hep B, Adol or Pedi Dosage Unknown Completed [facility] HPV Unknown Completed [facility] HPV Unknown Completed [facility] HPV Unknown Completed [facility] Influenza Virus Vaccine Unknown Completed [facility] Influenza Virus Vaccine Unknown Completed [facility] MMR Unknown Completed [facility] Pneumococcal 7 Conjugate, PCV7 (Prevnar7) Unknown Completed [facility] Pneumococcal 7 Conjugate, PCV7 (Prevnar7) Unknown Completed [facility] Polio (IPV/OPV) Unknown Completed [facility] Polio (IPV/OPV) Unknown Completed [facility] Polio (IPV/OPV) Unknown Completed [facility] Varicella (varivax)(chicken pox) Unknown Completed [facility] Varicella (varivax)(chicken pox) Unknown Completed [facility] TDAP Unknown Completed [facility] Meningococcal Oligosaccharide (groups A, C, Y and W-135) conjugate vaccine (MCV4O) Unknown Completed [facility] Influenza Virus Vaccine Unknown Completed [facility] SARS-COV-2 COVID-19 PFIZER VACCINE Unknown Completed [facility] SARS-COV-2 COVID-19 PFIZER VACCINE Unknown Completed [facility] DTAP Unknown Completed [facility] DTAP Unknown Completed [facility] DTAP Unknown Completed [facility] DTAP Unknown Completed [facility] HIB 4 Dose Schedule Unknown Completed [facility] HIB 4 Dose Schedule Unknown Completed [facility] HIB 4 Dose Schedule Unknown Completed [facility] HIB 4 Dose Schedule Unknown Completed [facility] HEPATITIS A Unknown Completed [facility] HEPATITIS A Unknown Completed [facility] Hep B, Adol or Pedi Dosage Unknown Completed [facility] Hep B, Adol or Pedi Dosage Unknown Completed [facility] Hep B, Adol or Pedi Dosage Unknown Completed [facility] HPV Unknown Completed [facility] HPV Unknown Completed [facility] HPV Unknown Completed [facility] Influenza Virus Vaccine Unknown Completed [facility] Influenza Virus Vaccine Unknown Completed [facility] MMR Unknown Completed [facility] Pneumococcal 7 Conjugate, PCV7 (Prevnar7) Unknown Completed [facility] Pneumococcal 7 Conjugate, PCV7 (Prevnar7) Unknown Completed [facility] Polio (IPV/OPV) Unknown Completed [facility] Polio (IPV/OPV) Unknown Completed [facility] Polio (IPV/OPV) Unknown Completed [facility] Varicella (varivax)(chicken pox) Unknown Completed [facility] Varicella (varivax)(chicken pox) Unknown Completed [facility] TDAP Unknown Completed [facility] Meningococcal Oligosaccharide (groups A, C, Y and W-135) conjugate vaccine (MCV4O) Unknown Completed [facility] Influenza Virus Vaccine Unknown Completed [facility] SARS-COV-2 COVID-19 PFIZER VACCINE Unknown Completed [facility] SARS-COV-2 COVID-19 PFIZER VACCINE Unknown Completed [facility] Vital Signs Vital Name Observation Time Observation Value Comments Se carreon Systolic blood pressure 2023-02-16 14:30:00 120 mm[Hg] [facility] Diastolic blood pressure 2023-02-16 14:30:00 79 mm[Hg] [facility] Heart rate 2023-02-16 14:30:00 77 /min [facility] Body temperature 2023-02-16 14:30:00 36.94 Jackie [facility] Respiratory rate 2023-02-16 14:30:00 16 /min [facility] Body height 2023-02-16 14:30:00 154.9 cm [facility] Body weight 2023-02-16 14:30:00 74.435 kg [facility] BMI 2023-02-16 14:30:00 31.01 kg/m2 [facility] Oxygen saturation in Arterial blood by Pulse oximetry 2023-02-16 14:30:00 100 /min [facility] Systolic blood pressure 2022-12-23 20:36:00 136 mm[Hg] [facility] Diastolic blood pressure 2022-12-23 20:36:00 85 mm[Hg] [facility] Heart rate 2022-12-23 20:36:00 99 /[facility] Respiratory rate 2022-12-23 20:36:00 18 /min [facility] Body height 2022-12-23 20:36:00 154.9 cm [facility] Body weight 2022-12-23 20:36:00 75.297 kg [facility] BMI 2022-12-23 20:36:00 31.37 kg/m2 [facility] Systolic blood pressure 2022-11-24 16:40:00 135 mm[Hg] [facility] Diastolic blood pressure 2022-11-24 16:40:00 89 mm[Hg] [facility] Heart rate 2022-11-24 16:40:00 88 /min [facility] Respiratory rate 2022-11-24 16:40:00 18 /min [facility] Body height 2022-11-24 16:40:00 154.9 cm [facility] Body weight 2022-11-24 16:40:00 72.576 kg [facility] BMI 2022-11-24 16:40:00 30.23 kg/m2 [facility] Systolic blood pressure 2022-10-25 15:47:00 126 mm[Hg] [facility] Diastolic blood pressure 2022-10-25 15:47:00 82 mm[Hg] [facility] Body temperature 2022-10-25 15:47:00 37.17 Jackie [facility] Respiratory rate 2022-10-25 15:47:00 18 /min [facility] Body height 2022-10-25 15:47:00 154.9 cm [facility] Body weight 2022-10-25 15:47:00 73.029 kg [facility] BMI 2022-10-25 15:47:00 30.42 kg/m2 [facility] Systolic blood pressure 2022-10-18 15:15:00 129 mm[Hg] [facility] Diastolic blood pressure 2022-10-18 15:15:00 86 mm[Hg] [facility] Heart rate 2022-10-18 15:15:00 96 /min [facility] Body temperature 2022-10-18 15:15:00 36.78 Jackie [facility] Body height 2022-10-18 15:15:00 154.9 cm [facility] Body weight 2022-10-18 15:15:00 71.487 kg [facility] BMI 2022-10-18 15:15:00 29.78 kg/m2 [facility] Systolic blood pressure 2022-07-13 14:25:00 120 mm[Hg] [facility] Diastolic blood pressure 2022-07-13 14:25:00 81 mm[Hg] [facility] Heart rate 2022-07-13 14:25:00 87 /min [facility] Body temperature 2022-07-13 14:25:00 36.67 Jackie [facility] Respiratory rate 2022-07-13 14:25:00 18 /min [facility] Body height 2022-07-13 14:25:00 154.9 cm [facility] Body weight 2022-07-13 14:25:00 70.126 kg [facility] BMI 2022-07-13 14:25:00 29.21 kg/m2 [facility] Oxygen saturation in Arterial blood by Pulse oximetry 2022-07-13 14:25:00 99 /min [facility] Systolic blood pressure 2022-07-01 13:17:00 129 mm[Hg] [facility] Diastolic blood pressure 2022-07-01 13:17:00 71 mm[Hg] [facility] Heart rate 2022-07-01 13:17:00 86 /min [facility] Respiratory rate 2022-07-01 13:17:00 18 /min [facility] Body height 2022-07-01 13:17:00 154.9 cm [facility] Body weight 2022-07-01 13:17:00 71.169 kg [facility] BMI 2022-07-01 13:17:00 29.65 kg/m2 [facility] Oxygen saturation in Arterial blood by Pulse oximetry 2022-07-01 13:17:00 99 /min [facility] Systolic blood pressure 2021-07-12 14:42:00 120 mm[Hg] [facility] Diastolic blood pressure 2021-07-12 14:42:00 80 mm[Hg] [facility] Heart rate 2021-07-12 14:42:00 83 /min [facility] Body temperature 2021-07-12 14:42:00 36.67 Jackie [facility] Respiratory rate 2021-07-12 14:42:00 18 /min [facility] Body height 2021-07-12 14:42:00 154.9 cm [facility] Body weight 2021-07-12 14:42:00 71.668 kg [facility] BMI 2021-07-12 14:42:00 29.85 kg/m2 [facility] Body mass index (BMI) [Percentile] Per age and sex 2021-07-12 14:42:00 93.09 % [facility] Procedures Procedure Date / Time Performed Performing Clinician Source POCT TEST 2022-12-23 00:00:00 Napoleon Herbert [facility] NET TRAINER CL[facility]IC ULTRASOUND 2022-11-24 05:01:00 Doc tor Unassigned, [place] [facility] POCT TEST 2022-11-24 00:00:00 Napoleon Herbert [facility] DISCLOSURE AND CONSENT MEDICAL & SURGICAL PROCEDURES - FEMALM 2022-10-25 05:01:00 Doctor Unassigned, [place] [facility] POCT TEST 2022-10-25 00:00:00 Napoleon Herbert [facility] CONSENT FOR CONTRACEPTION 2022-07-13 05:01:00 Doctor Unassigned, [place] [facility] POCT URINALYSIS 2022-07-01 13:22:00 Zara Herbert [facility] ASSIGNMENT OF BENEFITS 2022-07-01 13:04:58 Docto r Unassigned, [place] [facility] CONSENT FOR CONTRACEPTION 2021-07-12 05:01:00 Doctor Unassigned, [place] [facility] Encounters Start Date/Time End Date/Time Encounter Type Admission Type Attending Clinicians Care Facility Care Department Encounter ID Source 2021-01-08 09:31:05 Outpatient P [facility] [id number] [facility] 2023-04-10 13:30:00 2023-04-10 13:30:00 Outpatient NAPOLEON BERRY [facility] [id number] [facility] 2023-02-16 08:30:00 2023-02-16 08:57:21 Outpatient NAPOLEON BERRY [facility] [id number] [facility] 2023-02-16 08:30:00 2023-02-16 08:57:21 Office Visit Emmanuel salter [facility] 1.2.840.114 350.1.13.10 4.2.7.2.686 [id number] [facility] 2023-02-16 00:00:00 2023-02-16 00:00:00 Letter (Out) Emmanuel salter [facility] 1.2.840.114 350.1.13.10 4.2.7.2.686 [id number] [facility] 2022-12-23 16:30:00 2022-12-23 16:30:00 Outpatient R [id number] 2022-12-23 16:30:00 2022-12-23 16:30:00 Reading Intervention Teacher Visit Lab, [place] - Vinnie Emmanuel salter [facility] 1.2.840.114 350.1.13.10 4.2.7.2.686 [id number] [facility] 2022-12-23 15:30:00 2022-12-23 15:49:47 Office Visit Emmanuel salter [facility] 1.2.840.114 350.1.13.10 4.2.7.2.686 [id number] [facility] 2022-12-23 00:00:00 2022-12-23 00:00:00 Letter (Out) Emmanuel salter [facility] 1.2.840.114 350.1.13.10 4.2.7.2.686 [id number] [facility] 2022-12-23 00:00:00 2022-12-23 00:00:00 Telephone Emmanuel salter [facility] 1.2.840.114 350.1.13.10 4.2.7.2.686 [id number] [facility] 2022-11-24 12:45:00 2022-11-24 13:00:00 Reading Intervention Teacher Visit Lab, Ang - Db Emmanuel salter [facility] 1.2.840.114 350.1.13.10 4.2.7.2.686 [id number] [facility] 2022-11-24 12:45:00 2022-11-24 12:45:00 Outpatient R EMMANUEL S, NAPOLEON MARVIN-EMETERIO S [facility] [id number] [facility] 2022-11-24 11:30:00 2022-11-24 12:04:33 [facility] 1.2.840.114 350.1.13.10 4.2.7.2.686 [id number] [facility] 2022-11-24 00:00:00 2022-11-24 00:00:00 Orders Only Doctor Unassigned, [place] [facility] 1.2.840.114 350.1.13.10 4.2.7.2.686 [id number] [facility] 2022-10-25 11:00:00 2022-10-25 11:47:43 Outpatient R CHAGO-EMETERIO S, NAPOLEON MARVIN-EMETERIO S, [facility] [id number] [facility] 2022-10-25 11:00:00 2022-10-25 11:47:43 Office Visit Napoleon Hartmann [facility] 1.2840.114 350.1.13.10 4.2.7.2.686 [id number] [facility] 2022-10-25 00:00:00 2022-10-25 00:00:00 Letter (Out) Napoleon Hartmann [facility] 1.2.840.114 350.1.13.10 4.2.7.2.686 [id number] [facility] 2022-10-25 00:00:00 2022-10-25 00:00:00 Orders Only Doctor Unassigned, [place] [facility] 1.2840.114 350.1.13.10 4.2.7.2.686 [id number] [facility] 2022-10-18 10:30:00 2022-10-18 10:30:00 Office Visit Napoleon Hartmann [facility] 1.2840.114 350.1.13.10 4.2.7.2.686 [id number] [facility] 2022-10-18 10:30:00 2022-10-18 10:28:14 Outpatient R EMMANUEL Salter, NAPOLEON EMMANUEL Salter, N[facility]OLEON [facility] [id number] [facility] 2022-10-18 00:00:00 2022-10-18 00:00:00 Letter (Out) Napoleon Hartmann [facility] 1.2.840.114 350.1.13.10 4.2.7.2.686 [id number] [facility] 2022-07-14 00:00:00 2022-07-14 00:00:00 Case Management Luis Rice [facility] 1.2.840.114 350.1.13.10 4.2.7.2.686 [id number] [facility] 2022-07-13 10:15:00 2022-07-13 10:30:00 Reading Intervention Teacher Visit 2, Adc Lab Luis Rice [facility] 1.2.840.114 350.1.13.10 4.2.7.2.686 [id number] [facility] 2022-07-13 09:30:00 2022-07-13 09:51:41 Outpatient R DWAYNE [facility]IS [facility] [id number] [facility] 2022-07-13 09:30:00 2022-07-13 09:51:41 Office Visit Luis Rice [facility] 1.2.840.114 350.1.13.10 4.2.7.2.686 [id number] 134 [id number] [facility] 2022-07-13 00:00:00 2022-07-13 00:00:00 Letter (Out) Luis Rice [facility] 1.2.840.114 350.1.13.10 4.2.7.2.686 [id number] 134 [id number] [facility] 2022-07-13 00:00:00 2022-07-13 00:00:00 Orders Only Doctor Unassigned, [place] [facility] 1.2.840.114 350.1.13.10 4.2.7.2.686 [id number] [facility] 2022-07-04 00:00:00 2022-07-04 00:00:00 Telephone Napoleon Hartmann [facility] 1.2.840.114 350.1.13.10 4.2.7.2.686 [id number] 134 [id number] [facility] 2022-07-01 08:00:00 2022-07-01 08:47:31 Outpatient R AUNDREAEMETERIO Se, NAPOLEON MARVINSylvainEMETERIO Se NAPOLEON [facility] [id number] [facility] 2022-07-01 08:00:00 2022-07-01 08:47:31 Office Visit Napoleon Hartmann [facility] 1.2840.114 350.1.13.10 4.2.7.2.686 [id number] 134 [id number] [facility] 2022-07-01 00:00:00 2022-07-01 00:00:00 Orders Only Doctor Unassigned, [place] [facility] 1.2840.114 350.1.13.10 4.2.7.2.686 [id number] [facility] 2021-07-12 10:45:00 2021-07-12 11:00:00 Reading Intervention Teacher Visit 2, Adc Lab [facility] 1.284.114 350.1.13.10 4.2.7.2.686 [id number] [facility] 2021-07-12 09:30:00 2021-07-12 10:07:49 Outpatient R LUIS RICE [facility] [id number] [facility] 2021-07-12 09:30:00 2021-07-12 10:07:49 Office Visit [facility] 1.284.114 350.1.13.10 4.2.7.2.686 [id number] 134 [id number] [facility] 2021-07-12 09:30:00 2021-07-12 09:30:00 Outpatient R LUIS RICE [facility] [id number] [facility] 2021-07-12 09:30:00 2021-07-12 09:30:00 Outpatient R LUIS RICE [facility] [id number] [facility] 2021-07-12 00:00:00 2021-07-12 00:00:00 Letter (Out) Luis Rice [facility] 1.840.114 350.1.13.10 4.2.7.2.686 [id number] 134 [id number] [facility] 2021-07-12 00:00:00 2021-07-12 00:00:00 Orders Only Doctor Unassigned, [place] [facility] 1.840.114 350.1.13.10 4.2.7.2.686 [id number] [facility] 2021-07-05 08:00:00 2021-07-05 08:00:00 Outpatient R LUIS RICE [facility] [id number] [facility] 2021-05-17 00:00:00 2021-05-17 00:00:00 Refill Luis Rice [facility] 1.840.114 350.1.13.10 4.2.7.2.686 [id number] 134 [id number] [facility] 2021-03-16 12:00:00 2021-03-16 12:15:00 Laboratory Only Only, Ang Db Test Manda [facility] 1.840.114 350.1.13.10 4.2.7.2.686 [id number] [facility] 2021-03-16 12:00:00 2021-03-16 12:00:00 Outpatient R [facility]DA [facility] [id number] [facility] 2021-03-11 14:00:00 2021-03-11 14:15:00 Laboratory Only Only, Ang Db Test Anthony [facility] 1..840.114 350.1.13.10 4.2.7.2.686 [id number] [facility] 2021-03-11 14:00:00 2021-03-11 14:00:00 Outpatient Janette MELLO AMALIA [facility] [id number] [facility] 2021-01-28 15:59:35 2021-01-28 16:42:18 Office Visit Luis Rice [facility] 1..840.114 350.1.13.10 4.2.7.2.686 [id number] 134 [id number] [facility] 2021-01-28 15:45:00 2021-01-28 16:42:18 Outpatient Janette FIELD [facility] [id number] [facility] 2021-01-28 15:45:00 2021-01-28 15:45:00 Outpatient Janette FIELD [facility] [id number] [facility] 2021-01-28 00:00:00 2021-01-28 00:00:00 Orders Only Doctor Unassigned, [place] [facility] 1.840.114 350.1.13.10 4.2.7.2.686 [id number] [facility] 2020-12-17 09:03:03 2020-12-17 09:50:58 Office Visit Suzi Moya [facility] 1..840.114 350.1.13.10 4.2.7.2.686 [id number] [facility] 2020-12-17 09:00:00 2020-12-17 09:00:00 [facility] [id number] [facility] 2020-11-27 00:00:00 2020-11-27 00:00:00 Case Management Suzi Moya [facility] Building 1.2.840.114 350.1.13.10 4.2.7.2.686 [id number] 134 [id number] [facility] 2020-11-27 00:00:00 2020-11-27 00:00:00 Telephone Adum, Suzi BURNS [facility] 1.2.840.114 350.1.13.10 4.2.7.2.686 [id number] 134 [id number] [facility] 2020-11-25 00:00:00 2020-11-25 00:00:00 Case Management Adum, Suzi Moss [facility] 1.2.840.114 350.1.13.10 4.2.7.2.686 [id number] 134 [id number] [facility] 2020-11-25 00:00:00 2020-11-25 00:00:00 Telephone Adum, Suzi Moss [facility] 1.2.840.114 350.1.13.10 4.2.7.2.686 [id number] 134 [id number] [facility] 2020-11-19 12:54:20 2020-11-19 13:35:54 Office Visit AdSuzi corea MAKOMAL [facility] 1.2.840.114 350.1.13.10 4.2.7.2.686 [id number] 134 [id number] [facility] 2020-11-19 13:00:00 2020-11-19 13:00:00 Outpatient R ADPIPPA, SUZI [facility] [id number] [facility] 2020-11-19 00:00:00 2020-11-19 00:00:00 Orders Only Doctor Unassigned, [place] [facility] 1.2.840.114 350.1.13.10 4.2.7.2.686 [id number] [id number] [facility] 2020-11-19 00:00:00 2020-11-19 00:00:00 Orders Only Doctor Unassigned, [place] [facility] 1.2.840.114 350.1.13.10 4.2.7.2.686 [id number] [facility] 2020-10-21 11:00:00 2020-10-21 11:00:00 Outpatient PREET BRIGHT [facility] [id number] [facility] 2020-09-08 10:32:07 2020-09-08 11:02:07 Office Visit Larry Riceen Suzi Mendiola [facility] 1..840.114 350.1.13.10 4.2.7.2.686 [id number] 134 [id number] [facility] 2020-09-08 10:30:00 2020-09-08 10:30:00 Outpatient SUZI GRAFF [facility] [id number] [facility] 2020-07-20 10:15:00 2020-07-20 10:15:00 Outpatient PREET BRIGHT [facility] [id number] [facility] 2020-07-09 15:12:08 2020-07-09 16:41:32 Office Visit Luis Rice [facility] Building 1..840.114 350.1.13.10 4.2.7.2.686 [id number] 134 [id number] [facility] 2020-07-09 15:00:00 2020-07-09 15:00:00 Outpatient R LUIS RICE [facility] [id number] [facility] 2020-07-06 00:00:00 2020-07-06 00:00:00 Telephone Luis Rice Bossman [facility] Building 1..840.114 350.1.13.10 4.2.7.2.686 [id number] 134 [id number] [facility] 2020-06-02 00:00:00 2020-06-02 00:00:00 Patient Outreach Anthony Bergman [facility] 1.840.114 350.1.13.10 4.2.7.2.686 [id number] [facility] 2020-01-20 10:28:24 2020-01-20 10:43:24 Office Visit Liuwin Preet [facility] Building [facility] 1.840.114 350.1.13.10 4.2.7.2.686 [id number] [facility] 2020-01-20 10:30:00 2020-01-20 10:30:00 Outpatient R PREET MAYBERRY [facility] [id number] [facility] 2020-01-08 09:00:00 2020-01-08 09:00:00 Outpatient R [facility] [id number] [facility] 2019-12-25 09:30:20 2019-12-25 10:00:20 Office Visit Preet Mayberry [facility] 1.840.114 350.1.13.10 4.2.7.2.686 [id number] [facility] 2019-12-25 09:30:00 2019-12-25 09:30:00 Outpatient R PREET MAYBERRY [facility] [id number] [facility] 2019-12-09 13:46:42 2019-12-16 15:20:20 Office Visit Sharmin Rouse [facility] Building 1..840.114 350.1.13.10 4.2.7.2.686 [id number] [facility] 2019-12-16 00:00:00 2019-12-16 00:00:00 Telephone Sharmin Rouse [facility] Building 1.0.114 350.1.13.10 4.2.7.2.686 [id number] [facility] 2019-12-09 14:00:00 2019-12-09 14:00:00 Outpatient R SHARMIN ROUSE [facility] [id number] [facility] 2019-11-27 10:29:31 2019-11-27 11:14:39 Office Visit Luis Rice [facility] 1..114 350.1.13.10 4.2.7.2.686 [id number] 134 [id number] [facility] 2019-11-27 10:30:00 2019-11-27 10:30:00 Outpatient R LUIS RICE [facility] [id number] [facility] 2019-11-21 08:56:57 2019-11-21 09:44:36 Office Visit Cindy Henriquez [facility] NET TRAINER [facility]ERNAL & [facility] 1..114 350.1.13.10 4.2.7.2.686 [id number] [facility] 2019-11-21 09:00:00 2019-11-21 09:00:00 Outpatient R CINDY HENRIQUEZ [facility] [id number] [facility] 2019-11-21 00:00:00 2019-11-21 00:00:00 Orders Only Doctor Unassigned, [place] [facility] 1.114 350.1.13.10 4.2.7.2.686 [id number] [facility] 2019-11-20 00:00:00 2019-11-20 00:00:00 Telephone Cindy Henriquez [facility] NET TRAINER [facility] CHILD [facility] 1.114 350.1.13.10 4.2.7.2.686 [id number] [facility] 2019-11-12 00:00:00 2019-11-12 00:00:00 Telephone Luis Rice [facility] 1.2.840.114 350.1.13.10 4.2.7.2.686 [id number] 134 [id number] [facility] 2019-11-12 00:00:00 2019-11-12 00:00:00 Telephone Luis Rice [facility] 1.2.840.114 350.1.13.10 4.2.7.2.686 [id number] 134 [id number] [facility] 2019-11-12 00:00:00 2019-11-12 00:00:00 Telephone Luis Rice [facility] 1.2.840.114 350.1.13.10 4.2.7.2.686 [id number] 134 [id number] [facility] 2019-11-12 00:00:00 2019-11-12 00:00:00 Patient Secure Msg Doctor Unassigned, [place] [facility] 1.2.840.114 350.1.13.10 4.2.7.2.686 [id number] 134 [id number] [facility] 2019-11-12 00:00:00 2019-11-12 00:00:00 Telephone Luis Rice [facility] 1.2.840.114 350.1.13.10 4.2.7.2.686 [id number] 134 [id number] 2019-11-12 00:00:00 2019-11-12 00:00:00 Telephone Luis Rice [facility] Building 1.2.840.114 350.1.13.10 4.2.7.2.686 [id number] 134 [id number] 2019-11-12 00:00:00 2019-11-12 00:00:00 [facility] 1.2.840.114 350.1.13.10 4.2.7.2.686 [id number] 134 [id number] 2019-10-30 09:25:33 2019-10-30 11:02:55 Office Visit Luis Rice [facility] Building 1.284.114 350.1.13.10 4.2.7.2.686 [id number] 134 [id number] [facility] 2019-10-30 09:25:33 2019-10-30 11:02:55 Office Visit Luis Rice [facility] Building 1.2.114 350.1.13.10 4.2.7.2.686 [id number] 134 [id number] 2019-10-30 09:30:00 2019-10-30 09:30:00 Outpatient R [facility]NE [facility] [id number] [facility] 2019-10-28 10:45:00 2019-10-28 10:45:00 [id number] 2019-10-23 13:25:39 2019-10-23 14:04:18 Routine Visit Luis Rice [facility] Building 1.2114 350.1.13.10 4.2.7.2.686 [id number] 134 [id number] [facility] 2019-10-23 13:30:00 2019-10-23 13:30:00 [facility] [id number] [facility] 2019-10-23 09:00:00 2019-10-23 09:00:00 Outpatient R DWAYNE [facility] [id number] [facility] 2019-10-23 00:00:00 2019-10-23 00:00:00 Orders Only Doctor Unassigned, [place] [facility] 1.284.114 350.1.13.10 4.2.7.2.686 [id number] [facility] 2019-10-22 00:00:00 2019-10-22 00:00:00 Telephone Luis Rice [facility] 1.2.840.114 350.1.13.10 4.2.7.2.686 [id number] 134 [id number] [facility] 2019-10-09 10:04:00 2019-10-10 21:15:00 Hospital Encounter Luis Rice [facility] 1.2.840.114 350.1.13.10 4.2.7.2.686 [id number] [facility] 2019-10-10 00:00:00 2019-10-10 00:00:00 Refill [facility] 1.2.840.114 350.1.13.10 4.2.7.2.686 [id number] 134 [id number] [facility] 2019-10-09 10:04:00 2019-10-09 10:04:00 Outpatient P LUIS RICE [facility] [id number] [facility] 2019-10-09 08:50:40 2019-10-09 09:47:51 Routine Visit Luis Rice [facility] Building 1.2.840.114 350.1.13.10 4.2.7.2.686 [id number] [facility] 2019-10-09 09:00:00 2019-10-09 09:00:00 Outpatient R LUIS RICE [facility] [id number] [facility] 2019-10-08 16:30:00 2019-10-08 23:59:00 Hospital Encounter Luis Rice [facility] 1.2.840.114 350.1.13.10 4.2.7.2.686 [id number] [facility] 2019-10-08 15:45:00 2019-10-08 15:45:00 Outpatient R LUIS RICE [facility] [id number] [facility] 2019-10-08 00:00:00 2019-10-08 00:00:00 Outpatient R LUIS RICE [facility] [id number] [facility] 2019-10-08 00:00:00 2019-10-08 00:00:00 Orders Only Doctor Unassigned, [place] [facility] 1..114 350.1.13.10 4.2.7.2.686 [id number] [facility] 2019-10-07 15:52:52 2019-10-07 16:47:16 Routine Visit Room, [facility] Nst Luis Rice [facility] Building 1..114 350.1.13.10 4.2.7.2.686 [id number] [facility] 2019-10-07 15:00:00 2019-10-07 15:00:00 Outpatient R [facility] [id number] [facility] 2019-10-07 00:00:00 2019-10-07 00:00:00 Telephone Luis Rice [facility] Building 1..114 350.1.13.10 4.2.7.2.686 [id number] 134 [id number] [facility] 2019-10-01 00:00:00 2019-10-01 00:00:00 Telephone Luis Rice [facility] Building 1.84.114 350.1.13.10 4.2.7.2.686 [id number] 134 [id number] [facility] 2019-09-30 08:44:27 2019-09-30 11:34:24 Telemedici ne Visit [facility] 1..114 350.1.13.10 4.2.7.2.686 [id number] 134 [id number] [facility] 2019-09-30 11:30:00 2019-09-30 11:30:00 Outpatient R EMIR CHAYITO [facility] [id number] [facility] 2019-09-25 00:00:00 2019-09-25 00:00:00 Refill Luis Rice [facility] Building 1.114 350.1.13.10 4.2.7.2.686 [id number] 134 [id number] [facility] 2019-09-11 08:22:17 2019-09-11 09:25:31 Reading Intervention Teacher Visit Ultrasound, Dylan Parham [facility] NET TRAINER [facility] 1.114 350.1.13.10 4.2.7.2.686 [id number] [facility] 2019-09-11 08:30:00 2019-09-11 08:30:00 Outpatient P [facility] [id number] [facility] 2019-09-02 11:32:22 2019-09-02 12:17:09 Routine Visit Luis Rice [facility] Building 1.114 350.1.13.10 4.2.7.2.686 [id number] 134 [id number] [facility] 2019-09-02 11:30:00 2019-09-02 11:30:00 Outpatient R DWAYNE LUIS [facility] [id number] [facility] 2019-08-20 00:00:00 2019-08-20 00:00:00 Orders Only Doctor Unassigned, [place] [facility] 1.114 350.1.13.10 4.2.7.2.686 [id number] [facility] 2019-08-07 11:38:10 2019-08-07 11:53:10 Reading Intervention Teacher Visit 2, Adc Lab Luis Rice [facility] Building 1.2.840.114 350.1.13.10 4.2.7.2.686 [id number] [facility] 2019-08-07 11:45:00 2019-08-07 11:45:00 Outpatient R [facility] [id number] [facility] 2019-08-01 14:15:00 2019-08-01 14:15:00 Outpatient R CHAYITO FIELD [facility] [id number] [facility] 2019-08-01 09:15:00 2019-08-01 09:15:00 Outpatient R GEOVANY BENITOPHYLICIA [facility] [id number] [facility] 2019-08-01 08:10:47 2019-08-01 08:25:47 Telemedici ne Visit Chayito Field [facility] 1.2.840.114 350.1.13.10 4.2.7.2.686 [id number] 134 [id number] [facility] 2019-07-15 00:00:00 2019-07-15 00:00:00 Telephone Luis Rice [facility] 1.2.840.114 350.1.13.10 4.2.7.2.686 [id number] 134 [id number] [facility] 2019-07-10 00:00:00 2019-07-10 00:00:00 Telephone Luis Rice [facility] 1.2.840.114 350.1.13.10 4.2.7.2.686 [id number] 134 [id number] [facility] 2019-07-05 08:36:47 2019-07-05 08:51:47 Reading Intervention Teacher Visit 2, Adc Lab Luis Rice [facility] Building 1.2.840.114 350.1.13.10 4.2.7.2.686 [id number] [facility] 2019-07-05 08:45:00 2019-07-05 08:45:00 Outpatient R LUIS RICE [facility] [id number] [facility] 2019-07-04 07:57:41 2019-07-04 13:41:52 Telemedici ne Visit Luis Rice [facility] 1.284.114 350.1.13.10 4.2.7.2.686 [id number] 134 [id number] [facility] 2019-07-04 11:00:00 2019-07-04 11:00:00 Outpatient R LUIS RICE [facility] [id number] [facility] 2019-07-02 00:00:00 2019-07-02 00:00:00 Telephone Raheem Benito [facility] NET TRAINER [facility] MATERNAL & CHILD [facility] 1.84.114 350.1.13.10 4.2.7.2.686 [id number] [facility] 2019-07-01 08:37:18 2019-07-01 09:59:40 Initial Visit Raheem Benito [facility] NET TRAINER [facility] MATERNAL & CHILD [facility] 1..114 350.1.13.10 4.2.7.2.686 [id number] [facility] 2019-07-01 08:45:00 2019-07-01 08:45:00 Outpatient R RAHEEM BENITO [facility] [id number] [facility] 2019-07-01 00:00:00 2019-07-01 00:00:00 Orders Only Doctor Unassigned, [place] [facility] 1..114 350.1.13.10 4.2.7.2.686 [id number] [facility] Results Test Description Test Time Test Comments Results Result Co [facility]ments [id number] 20:41:00* Test Item Value Reference Range Interpretation Comme nts POCT PREG (test code = 1605) Negative On board controls acceptable with C Line (test code = 3574) Yes POCT PREG LOT # (test code = 3575) POCT PREG TEST DATE ( test code = 3576) [facility] [id number] 20:41:00* Test Item Value Reference Range Interpretation Comme nts POCT PREG (test code = 1605) Negative On board controls acceptable with C Line (test code = 3574) Yes POCT PREG LOT # (test code = 3575) POCT PREG TEST DATE ( test code = 3576) [facility] [id number] 17:07:00* Test Item Value Reference Range Interpretation Comme nts POCT PREG (test code = 1605) Negative - per marvin On board controls acceptable with C Line (test code = 3574) Yes POCT PREG LOT # (test code = 3575) POCT PREG TEST DATE ( test code = 3576) [facility] [id number] 17:07:00* Test Item Value Reference Range Interpretation Comme nts POCT PREG (test code = 1605) Negative - per marvni On board controls acceptable with C Line (test code = 3574) Yes POCT PREG LOT # (test code = 3575) POCT PREG TEST DATE ( test code = 3576) [facility] [id number] 16:13:00* Test Item Value Reference Range Interpretation Comme nts POCT PREG (test code = 1605) Negative On board controls acceptable with C Line (test code = 3574) Yes POCT PREG LOT # (test code = 3575) POCT PREG TEST DATE ( test code = 3576) [facility] [id number] 16:13:00* Test Item Value Reference Range Interpretation Comme nts POCT PREG (test code = 1605) Negative On board controls acceptable with C Line (test code = 3574) Yes POCT PREG LOT # (test code = 3575) POCT PREG TEST DATE ( test code = 3576) [facility] URINALYSIS W SPECIFIC [id number] 13:23:00* Test Item Value Reference Range Interpretation Comme nts POCT U SP GRAV (test code = 3255) n/a 1.005-1.025 POCT PH U (test code = 3254) 7 mg/dl 5-8 POCT U LEUK EST (test code = 3263) negative Negative - Negative POCT U NIT (test code = 3262) negative Negative - Negati ve POCT U PROT (test code = 3259) negative Negative - Negat sima POCT U GLU (test code = 3256) negative Negative - Negati ve POCT U KETONE (test code = 3258) negative Negative - Neg ative POCT U UROBILI (test code = 3260) negative 0.2-1 POCT U BILI (test code = 3261) negative Negative - Negat sima POCT U BLD (test code = 3257) 250 Negative - Negati ve POCT U COLOR (test code = 3266) POCT U APPEAR (test code = 3267) Lab Interpretation (test cod e = 37408-9) Normal [facility] URINALYSIS W SPECIFIC [id number] 13:23:00* Test Item Value Reference Range Interpretation Comme nts POCT U SP GRAV (test code = 3255) n/a 1.005-1.025 POCT PH U (test code = 3254) 7 mg/dl 5-8 POCT U LEUK EST (test code = 3263) negative Negative - Negative POCT U NIT (test code = 3262) negative Negative - Negati ve POCT U PROT (test code = 3259) negative Negative - Negat sima POCT U GLU (test code = 3256) negative Negative - Negati ve POCT U KETONE (test code = 3258) negative Negative - Neg ative POCT U UROBILI (test code = 3260) negative 0.2-1 POCT U BILI (test code = 3261) negative Negative - Negat sima POCT U BLD (test code = 3257) 250 Negative - Negati ve POCT U COLOR (test code = 3266) POCT U APPEAR (test code = 3267) Lab Interpretation (test cod e = 99909-7) Normal [facility] URINALYSIS W SPECIFIC [id number] 13:23:00* Test Item Value Reference Range Interpretation Comme nts POCT U SP GRAV (test code = 3255) n/a 1.005-1.025 POCT PH U (test code = 3254) 7 mg/dl 5-8 POCT U LEUK EST (test code = 3263) negative Negative - Negative POCT U NIT (test code = 3262) negative Negative - Negati ve POCT U PROT (test code = 3259) negative Negative - Negat sima POCT U GLU (test code = 3256) negative Negative - Negati ve POCT U KETONE (test code = 3258) negative Negative - Neg ative POCT U UROBILI (test code = 3260) negative 0.2-1 POCT U BILI (test code = 3261) negative Negative - Negat sima POCT U BLD (test code = 3257) 250 Negative - Negati ve POCT U COLOR (test code = 3266) POCT U APPEAR (test code = 3267) Lab Interpretation (test cod e = 91505-6) Normal [facility] Notes Date/Time Note Provider Source 2022-11-24 12:45:00 [id number]:45:00F ormatting of this note is different from the original.Images from the original note were not included.Venipuncture collection performed by clean technique on the left anticubitus. Total of 1 attempts were made. Slight pressure and a bandage/dressing were applied to the site(s). The patient experienced no complications. The following specimens were processed according to instructions and sent to [facility] laboratories per lab order on today: LT BLUE SST 1 RED LAV PPT DK GREEN (LiHep) DK GREEN (SodH) [place] DK BLUE (K2) DK BLUE (S) ACD Blood Culture NIPT/NTD [id number] [id number]:34:13Nurse [id number] for patient [id number] NoteLN[address] [id number] [id number] .[id number]. [id number] [facility]"
[2023-06-04 07:58] LABS: Absolute Basophils 0.1 K/uL (0-0.5); Absolute Lymphocytes (CBC) 0.3 K/uL (0.7-4.9); Absolute Monocytes 0.5 K/uL (0.1-1.3); Absolute Neutrophil 17.6 K/uL (1.8-8.0); Basophils % 0.7 % (0-1.3); Hematocrit 43.5 % (36.0-45.0); Lymphocytes % 1.7 % (15.3-44.8); MCH 25.3 pg (27.0-35.0); MCHC 32.1 g/dL (32.0-36.0); MCV 78.9 fL (80-100); MPV 8.6 fL (7.6-11.3); Monocytes % 2.6 % (3.3-12.3); Platelets 266 thou/uL (152-406); RBC Red Blood Cell Count 5.52 M/uL (3.86-4.86); Red Cell Distribution Width 14.1 % (12.1-15.2)
[2023-06-04 08:18] LABS: ALT/SGPT 23 U/L (13-56); AST/SGOT 16 U/L (15-37); Albumin/Globulin Ratio 0.9 (1.1-1.8); Alkaline Phosphatase 91 U/L (45-117); BUN Blood Urea Nitrogen 16 mg/dL (7-18); Bicarbonate 26 mEq/L (21-32); Bilirubin Direct 0.2 mg/dL (0-0.2); Bilirubin Indirect, Calculated 0.5 mg/dL (0.2-0.8); Bilirubin Total 0.7 mg/dL (0.2-1.0); Globulin 4.3 g/dL (2.3-3.5); Glomerular Filtration Rate 83 ml/min (=/>90); Glucose Level 150 mg/dL (74-106); Lipase 21 U/L (13-75); NT PRO-BNP 18 pg/mL (<125); Protein, Total 8.3 g/dL (6.4-8.2); Sodium Level 140 mEq/L (136-145)
[2023-06-04 08:20] LABS: Troponin High Sensitivity < 3.0 pg/mL (<58.9)
--- NOTE | 2023-06-04 08:40 | RAD REPORT ---
EXAM DESCRIPTION: CT - Head Brain Wo Cont - 06/04/2023 7:39 am CLINICAL HISTORY: SYNCOPE Headache, drowsiness, syncope COMPARISON: No comparisons TECHNIQUE: All CT scans are performed using dose optimization technique as appropriate and may inclu de automated exposure control or mA/KV adjustment according to patient size. FINDINGS: No intracranial hemorrhage, hydrocephalus or extra-axial fluid collection.No areas of brai n edema or evidence of midline shift. The paranasal sinuses and mastoids are clear. The calvarium is intact. IMPRESSION: No acute intracranial abnormality.
--- NOTE | 2023-06-04 08:44 | RAD REPORT ---
EXAM DESCRIPTION: RAD - Chest Single View - 06/04/2023 8:08 am CLINICAL HISTORY: CHEST PAIN Chest pain. COMPARISON: No comparisons FINDINGS: Portable technique limits examination quality. The lungs are grossly clear. The heart is normal in size. No displaced fractures. IMPRESSION: No acute intrathoracic process suspected.
[2023-06-04 10:08] LABS: Blood Morphology Comment NOT SEEN (NOT SEEN); Platelet Estimate ADEQ; White Blood Cell Scan OK (OK)
--- NOTE | 2023-06-04 10:10 | RAD REPORT ---
EXAM DESCRIPTION: US - Extrem Venous W Compress Az - 06/04/2023 10:04 am CLINICAL HISTORY: PAIN Bilateral leg edema and swelling. COMPARISON: No comparisons TECHNIQUE: Real-time sonographic interrogation of the left and right lower extremity deep venous sys tems was performed. FINDINGS: Normal compressibility, flow augmentation, phasic flow and spontaneous flow is identified in both the left and right lower extremity deep venous systems. IMPRESSION: No sonographic evidence of left or right lower extremity deep venous thrombosis.
[2023-06-04 10:28] LABS: Specific Gravity 1.029 (1.005-1.030)
[2023-06-04 10:30] LABS: Specific Gravity 1.029 (1.005-1.030); Urine Bacteria None Seen /HPF (<20); Urine Bilirubin NEGATIVE (Negative); Urine Blood Negative (Negative); Urine Clarity Turbid (Clear); Urine Color Light-Yellow (Yellow); Urine Culture Reflex Order NOT NEEDED; Urine Glucose NEGATIVE (Negative); Urine Ketones NEGATIVE (Negative); Urine Microscopic Reflex YN ORDER UMIC; Urine Mucus 2+ /HPF (None Seen); Urine Nitrite NEGATIVE (Negative); Urine Protein TRACE (Negative); Urine Urobilinogen Normal (Normal); Urine WBC <5 /HPF (<5); Urine pH 6.5 (5.0-7.0)
--- NOTE | 2023-06-04 10:53 | RAD REPORT ---
EXAM DESCRIPTION: CT - Chest For Pe Angio - 06/04/2023 10:45 am CLINICAL HISTORY: Chest pain. CHEST PAIN COMPARISON: No comparisons TECHNIQUE: CT angiogram of the pulmonary arteries was performed with MIP. All CT scans are performed using dose optimization technique as appropriate and may include automated exposure control or mA/KV adjustment according to patient size. FINDINGS: No evidence of pulmonary thromboembolism. No acute aortic finding demonstrated. The lungs are clear. No significant pericardial or pleural fluid. No concerning bony finding. IMPRESSION: No evidence of pulmonary thromboembolism. No acute lung findings.
--- NOTE | 2023-06-04 10:54 | RAD REPORT ---
EXAM DESCRIPTION: CTAbdomen Pelvis W Contrast - 06/04/2023 10:45 am CLINICAL HISTORY: Abdominal pain. ABD PAIN COMPARISON: Abdomen Pelvis W Contrast dated 04/21/2019 TECHNIQUE: Biphasic CT imaging of the abdomen and pelvis was performed with 100 ml non-ionic IV cont rast. All CT scans are performed using dose optimization technique as appropriate and may include automated exposure control or mA/KV adjustment according to patient size. FINDINGS: The lung bases are clear.Cholecystectomy clips. The liver, spleen, pancreas, adrenal glands and kidneys are within normal limits. No bowel obstruction, free air, free fluid or abscess. Mild fluid filled colon and small bowel loops. The appendix is normal. No evidence of significant lymphadenopathy. IUD is noted in the uterus. No suspicious bony findings. IMPRESSION: Nonspecific fluid-filled small and large bowel loops present. This is a nonspecific find ing but could indicate diarrheal condition.
--- NOTE | 2023-06-04 11:00 | ER ---
Nurse's Notes [facility] Name: Rashmi Patel Age: 22 yrs Sex: Female : 2000 Arrival Date: 06/04/2023 Time: 06:56 Bed 7 Private MD: Diagnosis: Syncope Near;Vomiting;Diarrhea, unspecified;Weakness;Elevated white blood cell count;Other specified noninfective gastroenteritis and colitis Presentation: 06/03 07:09 Chief complaint: N/V/D and chills since last night. Not tolerating fluids. Coronavirus hb screen: At this time, the client does not indicate any symptoms associated with coronavirus-19. Ebola Screen: No symptoms or risks identified at this time. Initial Sepsis Screen: Does the patient meet any 2 criteria? No. Patient's initial sepsis screen is negative. Does the patient have a suspected source of infection? No. Patient's initial sepsis screen is negative. Risk Assessment: Do you want to hurt yourself or someone else? Patient reports no desire to harm self or others. Onset of symptoms was June 03, 2023. 07:09 Method Of Arrival: Ambulatory 07:09 Acuity: MARK 3 hb Triage Assessment: 07:10 General: Appears in no apparent distress. uncomfortable, Behavior is calm, cooperative. hb Pain: Pain currently is 0 out of 10 on a pain scale. Neuro: Level of Consciousness is awake, alert, obeys commands, Oriented to person, place, time, situation. Cardiovascular: Patient's skin is warm and dry. Respiratory: Respiratory effort is even, unlabored, Respiratory pattern is regular, symmetrical. GI: Reports diarrhea, intolerance of fluids, nausea, vomiting. 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 - Social history:: Smoking status: Patient denies any tobacco usage or history of. Screenin:40 [facility] ED Fall Risk Assessment (Adult) History of falling in the last 3 months, jp5 including since admission No falls in past 3 months (0 pts) Confusion or Disorientation No (0 pts) Intoxicated or Sedated No (0 pts) Impaired Gait No (0 pts) Mobility Assist Device Used No (0 pt) Altered Elimination No (0 pt) Score/Fall Risk Level 0 - 2 = Low Risk Oriented to surroundings. 07:40 Abuse screen: Denies threats or abuse. Denies injuries from another. Nutritional jp5 screening: No deficits noted. Tuberculosis screening: No symptoms or risk factors identified. Assessment: 07:40 General: Appears in no apparent distress. comfortable, well groomed, Behavior is calm, jp5 cooperative, appropriate for age, Denies fever, fatigue, chills. Pain: Complains of pain in chest Pain radiates to left arm. Neuro: Level of Consciousness is awake, alert, obeys commands, Oriented to person, place, time, situation, Appropriate for age. Cardiovascular: Capillary refill < 3 seconds Patient's skin is warm and dry. Respiratory: Airway is patent Respiratory effort is even, unlabored, relaxed. GI: Abdomen is non-distended, Reports nausea, vomiting. Vital Signs: 07:09 BP 108 / 74; Pulse 80; Resp 16; Temp 98.9(O); Pulse Ox 98% on R/A; Weight 70.31 kg; hb Height 5 ft. 1 in. ; Pain 0/10; 08:30 BP 124 / 70; Pulse 98; Resp 16; Pulse Ox 100% on R/A; ph 09:44 BP 131 / 76; Pulse 103; Resp 16; Pulse Ox 100% on R/A; ph 10:56 BP 117 / 66 LA Sitting (auto/reg); Pulse 102; Resp 16 S; Pulse Ox 100% on R/A; ph 07:09 Body Mass Index 29.29 (70.31 kg, 154.94 cm) hb 07:09 Pain Scale: Adult hb ED Course: 07:02 Patient arrived in ED. gm2 07:04 Noah Gallegos MD is Attending Physician. rt 07:09 Attending Physician role handed off by Noah Gallegos MD kera 07:09 Sourav Mariee MD is Attending Physician. kera 07:10 Triage completed. hb 07:10 Arm band placed on right wrist. hb 07:11 Provided Education on: use of call light. Client placed on continuous cardiac and pulse hb oximetry monitoring. NIBP monitoring applied. Pulse ox on. NIBP on. 07:40 Patient has correct armband on for positive identification. Bed in low position. Call 5 light in reach. Side rails up X 1. Adult w/ patient. 07:40 Initial lab(s) drawn, by me, sent to lab. Inserted saline lock: 22 gauge in right jp5 antecubital area, using aseptic technique. 07:41 CT Head Brain wo Cont In Process Unspecified. EDMS 07:52 Lipase Sent. jp5 07:52 D-Dimer Sent. jp5 07:52 Basic Metabolic Panel Sent. jp5 07:52 CBC with Diff Sent. jp5 07:52 LFT's Sent. jp5 07:52 NT PRO-BNP Sent. jp5 07:52 Troponin HS Sent. jp5 08:10 XRAY Chest (1 view) In Process Unspecified. EDMS 08:26 EKG done, by phone technician. reviewed by Sourav Mariee MD. hb 08:56 Radiology exam delayed due to test not completed at this time. mw3 09:58 Radiology exam delayed due to test not completed at this time. mw3 10:06 US Extremity Venous W Compression Az In Process Unspecified. EDMS 10:17 Test, Serum Sent. hb 10:17 PREGU Sent. hb 10:17 Urinalysis w/ reflexes Sent. hb 10:17 Urine collected: clean catch specimen, clear. hb 10:30 EKG done, by phone technician. reviewed by Sourav Mariee MD. hb 10:[address] via wheelchair. hb 10:36 Adela Israel, RN is Primary Nurse. ph 10:47 CT Chest For PE Angio In Process Unspecified. EDMS 10:47 CT Abd/Pelvis - IV Contrast Only In Process Unspecified. EDMS 11:19 IV discontinued, bleeding controlled, Pressure dressing applied. jp5 Administered Medications: 07:51 Drug: NS 0.9% IV 1000 ml IV at 1 bolus Per protocol; 1000 mL bolus Route: IV; Rate: 1 jp5 bolus; Site: right antecubital; 09:50 Follow up: Response: No adverse reaction; IV Status: Completed infusion; IV Intake: ph 1000ml 09:51 Follow up: Response: No adverse reaction; IV Status: Completed infusion; IV Intake: ph 1000ml 07:51 Drug: NS 0.9% IV 1000 ml IV at 1 bolus Per protocol; 1000 mL bolus Route: IV; Rate: 1 jp5 bolus; Site: right antecubital; 07:51 Drug: Ondansetron IVP 4 mg IVP once; over 2 minutes Route: IVP; Site: right antecubital;jp5 09:51 Follow up: Response: No adverse reaction; Marked relief of symptoms ph Intake: 09:50 IV: 1000ml; Total: 1000ml. ph 09:51 IV: 1000ml; Total: 2000ml. ph Outcome: 10:58 Discharge ordered by . kera 11:19 Discharged to home ambulatory, jp5 11:19 Condition: good 11:19 Discharge instructions given to patient, family, Instructed on discharge instructions, follow up and referral plans. medication usage, Demonstrated understanding of instructions, follow-up care, medications, Prescriptions given X 2, 11:20 Patient left the ED. jp5 Signatures: Dispatcher [employer] Sourav Greenberg MD MD cha Hall, Patricia, RN RN Carol Martinez RN RN Samira Christensen mw3 Elizabeth Herron ag6 Noah Gallegos MD MD rt Mitchell, Ginger gm2 Karen Vieyra, PANCHO RN jp5 Corrections: (The following items were deleted from the chart) 09:57 09:57 Radiology exam delayed due to test not completed at this time. ag6 ag6
--- NOTE | 2023-06-04 11:00 | EDPHYS ---
Physician Documentation [facility] Name: Rashmi Patel Age: 22 yrs Sex: Female : 2000 Arrival Date: 06/04/2023 Time: 06:56 Bed 7 Private MD: ED Physician Sourav Mariee HPI: 06/03 07:20 This 22 yrs old Female presents to ER via Ambulatory with complaints of kera Nausea/Vomiting, Weakness, Syncope. 07:20 The patient presents to the emergency department with nausea, vomiting, diarrhea. kera Onset: The symptoms/episode began/occurred just prior to arrival, last night. Possible causes: unknown. The symptoms are aggravated by nothing. The symptoms are alleviated by nothing. Severity of symptoms: At their worst the symptoms were mild moderate in the emergency department the symptoms are unchanged. The patient has not experienced similar symptoms in the past. 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 - Social history:: Smoking status: Patient denies any tobacco usage or history of. ROS: 07:22 Constitutional: Negative for fever, chills, and weight loss, Eyes: Negative for injury, kera pain, redness, and discharge, ENT: Negative for injury, pain, and discharge, Neck: Negative for injury, pain, and swelling, Respiratory: Negative for shortness of breath, cough, wheezing, and pleuritic chest pain, Back: Negative for injury and pain, : Negative for injury, bleeding, discharge, and swelling, MS/Extremity: Negative for injury and deformity, Skin: Negative for injury, rash, and discoloration, Neuro: Negative for headache, weakness, numbness, tingling, and seizure, Psych: Negative for depression, anxiety, suicide ideation, homicidal ideation, and hallucinations, Allergy/Immunology: Negative for hives, rash, and allergies, Endocrine: Negative for neck swelling, polydipsia, polyuria, polyphagia, and marked weight changes, Hematologic/Lymphatic: Negative for swollen nodes, abnormal bleeding, and unusual bruising, 07:22 Cardiovascular: Positive for chest pain, 07:22 Neuro: Positive for syncope, near syncope, weakness, Exam: 07:22 Constitutional: This is a well developed, well nourished patient who is awake, alert, kera and in no acute distress. Head/Face: Normocephalic, atraumatic. Eyes: Pupils equal round and reactive to light, extra-ocular motions intact. Lids and lashes normal. Conjunctiva and sclera are non-icteric and not injected. Cornea within normal limits. Periorbital areas with no swelling, redness, or edema. ENT: Nares patent. No nasal discharge, no septal abnormalities noted. Tympanic membranes are normal and external auditory canals are clear. Oropharynx with no redness, swelling, or masses, exudates, or evidence of obstruction, uvula midline. Mucous membranes moist. Neck: Trachea midline, no thyromegaly or masses palpated, and no cervical lymphadenopathy. Supple, full range of motion without nuchal rigidity, or vertebral point tenderness. No Meningismus. Chest/axilla: Normal chest wall appearance and motion. Nontender with no deformity. No lesions are appreciated. Cardiovascular: Regular rate and rhythm with a normal S1 and S2. No gallops, murmurs, or rubs. Normal PMI, no JVD. No pulse deficits. Respiratory: Lungs have equal breath sounds bilaterally, clear to auscultation and percussion. No rales, rhonchi or wheezes noted. No increased work of breathing, no retractions or nasal flaring. Abdomen/GI: Soft, non-tender, with normal bowel sounds. No distension or tympany. No guarding or rebound. No evidence of tenderness throughout. Back: No spinal tenderness. No costovertebral tenderness. Full range of motion. Skin: Warm, dry with normal turgor. Normal color with no rashes, no lesions, and no evidence of cellulitis. MS/ Extremity: Pulses equal, no cyanosis. Neurovascular intact. Full, normal range of motion. Neuro: Awake and alert, GCS 15, oriented to person, place, time, and situation. Cranial nerves II-XII grossly intact. Motor strength 5/5 in all extremities. Sensory grossly intact. Cerebellar exam normal. Normal gait. Psych: Awake, alert, with orientation to person, place and time. Behavior, mood, and affect are within normal limits. 07:22 Musculoskeletal/extremity: DVT Exam: No signs of deep vein thrombosis. no pain, no swelling, no tenderness, negative Homans' sign noted on exam, no appreciated bluish discoloration, no erythema, no increased warmth, 07:22 Neuro: Orientation: is normal, appropriate for stated age, no acute changes, Mentation: is normal, appropriate for stated age, no acute changes, Memory: is normal, appropriate for stated age, no acute changes, Cranial nerves: grossly normal, is grossly normal based on the patient's age, no acute changes, Cerebellar function: is grossly normal, is grossly normal based on the patient's age, no acute changes, Gait: is steady, appropriate for age, Babinski testing is normal, seizure activity, is not displayed by the patient, 10:15 ECG was reviewed by the Attending Physician. kera 10:24 ECG was reviewed by the Attending Physician. [facility] Vital Signs: 07:09 BP 108 / 74; Pulse 80; Resp 16; Temp 98.9(O); Pulse Ox 98% on R/A; Weight 70.31 kg; hb Height 5 ft. 1 in. ; Pain 0/10; 08:30 BP 124 / 70; Pulse 98; Resp 16; Pulse Ox 100% on R/A; ph 09:44 BP 131 / 76; Pulse 103; Resp 16; Pulse Ox 100% on R/A; ph 10:56 BP 117 / 66 LA Sitting (auto/reg); Pulse 102; Resp 16 S; Pulse Ox 100% on R/A; ph 07:09 Body Mass Index 29.29 (70.31 kg, 154.94 cm) hb 07:09 Pain Scale: Adult hb MDM: 07:09 Patient medically screened. kera 07:22 Differential diagnosis: abnormal EKG, coronary artery disease Nonspecific abd pain, kera gastritis, cholecystitis, pancreatitis, appendicitis, diverticulitis, viral gastroenteritis. HEART Score: History: Slightly Suspicious (0), ECG: Normal (0), Age: < or = 45 years (0), Risk Factors: No Risk Factors Known (0), Troponin: < or = 1 x Normal Limit (0). Differential Diagnosis: aortic aneurysm, cardiac arrhythmia, cerebrovascular accident, GI bleed, , seizure, vasovagal episode. COOKIE Risk Score: TOTAL SCORE = 0. Data reviewed: vital signs, nurses notes, lab test result(s), EKG, radiologic studies, CT scan, plain films. Consideration of Admission/Observation Escalation of care including admission/observation considered. I considered the following discharge prescriptions or medication management in the emergency department Medications were administered in the Emergency Department. See MAR. Test considered but Not performed: MRI: renee mri brain. 06/03 07:20 Order name: Basic Metabolic Panel; Complete Time: 08:47 06/03 07:20 Order name: CBC with Diff; Complete Time: 10:10 06/03 07:20 Order name: D-Dimer; Complete Time: 08:47 06/03 07:20 Order name: LFT's; Complete Time: 08:47 06/03 07:20 Order name: NT PRO-BNP; Complete Time: 08:47 06/03 07:20 Order name: Troponin HS; Complete Time: 08:47 06/03 07:20 Order name: Lipase; Complete Time: 08:47 06/03 07:22 Order name: Urinalysis w/ reflexes; Complete Time: 10:40 kera 06/03 07:22 Order name: PREGU; Complete Time: 10:40 06/03 08:02 Order name: CBC Smear Scan; Complete Time: 10:10 EDMS 06/03 07:20 Order name: XRAY Chest (1 view); Complete Time: 08:47 06/03 07:20 Order name: CT Head Brain wo Cont; Complete Time: 08:47 06/03 08:48 Order name: CT Chest For PE Angio; Complete Time: 10:58 06/03 08:48 Order name: CT Abd/Pelvis - IV Contrast Only; Complete Time: 10:58 06/03 08:48 Order name: US Extremity Venous W Compression Az; Complete Time: 10:16 06/03 07:20 Order name: EKG; Complete Time: 07:21 06/03 10:15 Order name: EKG; Complete Time: 10:15 06/03 07:20 Order name: Cardiac monitoring; Complete Time: 07:53 06/03 07:20 Order name: EKG - Nurse/Tech; Complete Time: 09:19 06/03 07:20 Order name: IV Saline Lock; Complete Time: 07:52 06/03 07:20 Order name: Labs collected and sent; Complete Time: 07:52 06/03 07:20 Order name: O2 Per Protocol; Complete Time: 09:19 kera 06/03 07:20 Order name: O2 Sat Monitoring; Complete Time: 07:52 [facility] 06/03 10:15 Order name: EKG - Nurse/Tech; Complete Time: 10:29 [facility] 06/03 10:16 Order name: PO challenge: JUICE kera EC:15 Rate is 94 beats/min. Rhythm is regular. QRS Niles is Normal. ND interval is normal. QRS kera interval is normal. QT interval is normal. No Q waves. T waves are Normal. No ST changes noted. Clinical impression: NSR w/ Non-specific ST/T Changes and No evidence of ischemia. Interpreted by me. Reviewed by me. 10:24 Rate is 103 beats/min. Rhythm is regular. QRS Niles is Normal. ND interval is normal. kera QRS interval is normal. QT interval is normal. No Q waves. T waves are Normal. No ST changes noted. Clinical impression: Sinus tachycardia and No evidence of ischemia. Interpreted by me. Reviewed by me. Administered Medications: 07:51 Drug: NS 0.9% IV 1000 ml IV at 1 bolus Per protocol; 1000 mL bolus Route: IV; Rate: 1 jp5 bolus; Site: right antecubital; 09:50 Follow up: Response: No adverse reaction; IV Status: Completed infusion; IV Intake: ph 1000ml 09:51 Follow up: Response: No adverse reaction; IV Status: Completed infusion; IV Intake: ph 1000ml 07:51 Drug: NS 0.9% IV 1000 ml IV at 1 bolus Per protocol; 1000 mL bolus Route: IV; Rate: 1 jp5 bolus; Site: right antecubital; 07:51 Drug: Ondansetron IVP 4 mg IVP once; over 2 minutes Route: IVP; Site: right antecubital;jp5 09:51 Follow up: Response: No adverse reaction; Marked relief of symptoms ph Disposition Summary: 06/04/23 10:58 Discharge Ordered Notes: Location: Home kera Problem: new kera Symptoms: have improved kera Condition: Stable kera Diagnosis - Syncope Near kera - Vomiting kera - Diarrhea, unspecified kera - Weakness kera - Elevated white blood cell count kera - Other specified noninfective gastroenteritis and colitis kera Followup: kera - With: Private Physician - When: 2 - 3 days - Reason: Recheck today's complaints, Continuance of care, Re-evaluation by your physician Discharge Instructions: - Discharge Summary Sheet kera - Diarrhea, Adult kera - Near-Syncope kera - Syncope kera - Viral Gastroenteritis, Adult kera - Weakness kera - Viral Gastroenteritis, Adult, Uand-hf-Zwav kera - Near-Syncope, Axmy-pl-Vjzl kera - Syncope, Darn-xb-Tunp kera - Weakness, Vibo-bd-Hmdm kera - Vomiting, Adult [facility] Forms: - Medication Reconciliation Form [facility] - Thank You Letter kera - Antibiotic Education kera - Prescription Opioid Use kera - Patient Portal Instructions kera - Leadership Thank You Letter kera - Work release form eb Prescriptions: - ondansetron 4 mg Oral Tablet,disintegrating - take 1 tablet ORAL route every 6-8 hours for 5 days; 20 tablet; Refills: 0, [facility] Product Selection Permitted - dicyclomine 20 mg Oral tablet - take 1 tablet ORAL route 4 times per day; 28 tablet; Refills: 0, Product [facility] Selection Permitted Signatures: Dispatcher [employer] Sourav Greenberg MD MD cha Baxter, Heather RN RN Karen Vieyra RN RN jp5 Adela Israel RN ph
[2023-06-04 11:35] VITALS: TEMP 98.9; O2SAT 100
[2023-06-04 12:08] VITALS: BP 117/66
--- NOTE | 2023-06-05 14:16 | EKG ---
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
--- NOTE | 2023-06-05 14:17 | EKG ---
Test Date: 2023-06-04 Test Time: 07:26:25 Conference Services Coordinator: MARÍA ELENA MEASUREMENT RESULTS: Intervals: Rate: 94 MT: 154 QRSD: 100 QT: 342 QTc: 427 [place]: P: 148 MT: 154 QRS: 167 T: 128 INTERPRETIVE STATEMENTS: Suspect arm lead reversal, interpretation assumes no reversal Unusual P axis, possible ectopic atrial rhythm Right ventricular hypertrophy Nonspecific T wave abnormality Abnormal ECG Compared to ECG 11/13/2019 14:46:08 Right ventricular hypertrophy now present T-wave abnormality now present Sinus rhythm no longer present ST (T wave) deviation no longer present Electronically Signed On 06-05-23 14:14:05 CDT by Dane Cruz
== END ==
LOC: ER 06:56
DX: R55 Syncope and collapse (principal); R11.10 Vomiting, unspecified; R19.7 Diarrhea, unspecified; R53.1 Weakness; D72.829 Elevated white blood cell count, unspecified; K52.89 Other specified noninfective gastroenteritis and colitis
CPT/HCPCS: 36415; 70450; 71045; 71275; 74177; 80048; 80076; 81001; 81025; 83690; 83880; 84484; 85025; 85379; 93005; 93970; 96361; 96374; 99285; J2405; J7030; Q9967

== ENCOUNTER 2023-12-13 15:02 | Emergency (ER) | payer OTHER ==
--- OUTSIDE RECORDS SUMMARY | 2023-12-13 15:09 | XMS REPORT | Continuity of Care Document ---
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 Name Role Phone BLU CAO Primary Care Physician Unavaila janae RICE LUIS CAM Attending Clinician Unavailable DWAYNE LUIS CAM Attending Clinician Unavailable SUZI MOYA Attending Clinician Unavailable SUZI MOYA Attending Clinician Unavailable MONIQUE HERBERT Attending Clinician MONIQUE Caballero Attending Clinician Bryce michaud 2, [facility] Attending Clinician Unavailable Suzi Moya MD Attending Clinician [phone], [facility] Attending Clinician Unavailable JULIO SCHRADER Attending Clinician Unavaila ble JULIO SCHRADER Attending Clinician Unavaila ble Lab, Ang - Db Attending Clinician Unavailable Doctor Unassigned, [place] Attending Clinician U navailable Only, Ang Db Test Attending Clinician UnavailSkylar Williamson Attending Clinician [phone] SKYLAR SCHAEFER Attending Clinician Unavailable Jimmy Thakkar Attending Clinician [phone] JIMMY MELLO Attending Clinician Unavailable Wayne Field PA-C Attending Clinician [phone] WAYNE FIELD Attending Clinician Unavailable PREET MAYBERRY Attending Clinician Anthony Valdes DO Attending Clinician [phone] Preet Mayberry MD Attending Clinician + [phone] Victorino Rouse MDHChrissy Attending Clinician [phone] VICTORINO ROUSEHChrissy Attending Clinician Unavailaamir Henriquez WHCNPYola Attending Clinician + YOLA HENRIQUEZ Attending Clinician Unavail [facility] Attending Clinician Unavailable Ultrasound, Ang-Mfm Attending Clinician Unavaila Dylan Molina MD Attending Clinician [phone] RAHEEM BENITO Attending Clinician Unavailab jovanni Benito ENVIRONMENTAL PLANNERRaheem Attending Clinician [phone] LUIS RICE Admitting Clinician Unavailable Luis Rice MD Admitting Clinician [phone] Payers Payer Name Policy Type Policy Number Effective Date Expirati on Date Source [facility] [id number] 2019 00:00:00 Problems Condition Name Condition Details Condition Category Status Onset Date Resolution Date Last Treatment Date Treating Clinician Comments Source Presence of intrauteri ne contracept sima device Presence of intrauteri ne contracept sima device Disease Active 5-06 00:00: 00 [facility] Encounter for initial management of nuvaring Encounter for initial management of nuvaring Disease Resolve d 2020-03 1-18 00:00: 00 2023-07-17 00:00:00 2023-07-17 08:45:04 [facility] Encounter for IUD removal Encounter for IUD removal Disease Resolve d 9-10 00:00: 00 2020-07-09 00:00:00 2020-07-09 15:41:01 [facility] (spontaneo us vaginal delivery) (spontaneo us vaginal delivery) Disease Resolve d 10-09 00:00: 00 2020-07-09 00:00:00 2020-07-09 15:41:09 [facility] Mild pre-eclamp ruby in second trimester Mild pre-eclamp ruby in second trimester Disease Resolve d 7 00:00: 00 2020-07-09 00:00:00 2020-07-09 15:41:04 [facility] demise in bojorquez greater than 22 weeks gestation, antepartum demise in bojorquez greater than 22 weeks gestation, antepartum Disease Resolve d 10-08 00:00: 00 2020-07-09 00:00:00 2020-07-09 15:41:07 [facility] Anemia, antepartum , second trimester Anemia, antepartum , second trimester Disease Resolve d 10-08 00:00: 00 2020-07-09 00:00:00 2020-07-09 15:41:06 [facility] Abnormal glucose tolerance affecting , antepartum Abnormal glucose tolerance affecting , antepartum Disease Resolve d 0 4-21 00:00: 00 2019-10-09 00:00:00 2019-10-09 09:43:46 [facility] High-risk in second trimester High-risk in second trimester Disease Resolve d 2019-0 4-20 00:00: 00 2019-10-09 00:00:00 2019-10-09 09:43:43 [facility] BMI 27.0-27.9, adult BMI 27.0-27.9, adult Disease Resolve d 2019-0 4-20 00:00: 00 2019-09-02 00:00:00 2019-09-02 12:18:31 [facility] Obesity Obesity Disease Resolve d 0 9-23 00:00: 00 2019-09-02 00:00:00 2021-09-26 00:26:36 [facility] Primigravi da in first trimester Primigravi da in first trimester Disease Resolve d 2019-0 4-20 00:00: 00 2019-07-04 00:00:00 2019-07-04 20:32:15 [facility] Microcytos is Microcytos is Disease Resolve d 2012-03 0-04 00:00: 00 2019-07-04 00:00:00 2019-07-04 20:32:23 [facility] Nevus, non-neopla stic Nevus, non-neopla stic Disease Resolve d 1-14 00:00: 00 2012-12-03 00:00:00 2012-12-03 09:21:08 [facility] Allergies, Adverse Reactions, Alerts Allergy Name Allergy Type Status Severity Reaction(s) Onset Date Inactive Date Treating Clinician Comments Source NO KNOWN ALLERGIE S Drug Class Active [facility] Social History Social Habit Start Date Stop Date Quantity Comments Source History SDOH Alcohol Std Drinks [facility] History SDOH Alcohol Binge [facility] Gender identity [facility] Sexual orientation U [facility] History of Social function 2023-11-07 00:00:00 2023-11-07 00:00:00 [facility] Alcoholic beverage intake 2023-11-07 00:00:00 2023-11-07 00:00:00 Current drinker of alcohol (finding) [facility] Alcohol Comment 2023-07-17 00:00:00 2023-07-17 00:00:00 rarely [facility] Tobacco use and exposure 2023-07-17 00:00:00 2023-07-17 00:00:00 Smokeless tobacco non-user [facility] Alcohol intake 2023-02-16 00:00:00 2023-02-16 00:00:00 Lifetime non-drinker (finding) [facility] Exposure to SARS-CoV-2 (event) 2022-07-03 00:00:00 2022-07-13 09:05:00 Not sure [facility] Education 2019-10-09 00:00:00 2019-10-09 00:00:00 12 [facility] History SDOH Financial 2019-10-09 00:00:00 2019-10-09 00:00:00 5 [facility] History SDOH Food Worry 2019-10-09 00:00:00 2019-10-09 00:00:00 1 [facility] History SDOH Food Scarcity 2019-10-09 00:00:00 2019-10-09 00:00:00 1 [facility] History SDOH Transport Med 2019-10-09 00:00:00 2019-10-09 00:00:00 2 [facility] History SDOH Transport Non-Med 2019-10-09 00:00:00 2019-10-09 00:00:00 2 [facility] History SDOH Alcohol Frequency 2019-07-01 00:00:00 2019-07-01 00:00:00 1 [facility] Sex assigned at 2001 00:00:00 2000 00:00:00 [facility] Smoking Status Start Date Stop Date Source Never smoked tobacco [facility] Medications Ordered Medication Name Filled Medication Name Start Date Stop Date Current Medication? Ordering Clinician Indication Dosage Frequency Signature (SIG) Comments Components Source copper (PARAGARD T 380A) IUD 1 Intra Uterine Device 8-15 18:00: 00 10-25 17:59 :00 No [id number] 1{IUD} [facility] metroNIDAZO LE (FLAGYL) 500 mg tablet 07-14 00:00: 00 07-22 04:59 :00 No [id number] 500mg Take 1 tablet by mouth in the morning and 1 tablet in the evening. Do all this for 7 days. [facility] NuvaRing 0.12-0.015 mg/24 hr vaginal insert 03 00:00: 00 12-23 00:00 :00 No [id number] 1{each} Insert 1 Each into vagina once every month. Insert vaginally and leave in place for 3 consecutiv e weeks, then remove for 1 week. [facility] amoxicillin -pot clavulanate 500 mg (AUGMENTIN) 500-125 mg tablet 4-24 00:00: 00 07-13 00:00 :00 No [id number] 500mg Take 1 tablet by mouth in the morning and 1 tablet at noon and 1 tablet in the evening. [facility] NUVARING (NUVARING) 0.12-0.015 mg/24 hr vaginal insert 2021-0 5-02 00:00: 00 07-13 00:00 :00 No [id number] 1{each} Insert 1 Each into vagina once every month. Insert vaginally and leave in place for 3 consecutiv e weeks, then remove for 1 week. [facility] NUVARING (NUVARING) 0.12-0.015 mg/24 hr vaginal insert 0 3-08 00:00: 00 07-12 00:00 :00 No [id number] 1{each} Insert 1 Each into vagina once every month. Insert vaginally and leave in place for 3 consecutiv e weeks, then remove for 1 week. [facility] Colestipol HCl 1 gram tablet 6-17 00:00: 00 07-13 00:00 :00 No [facility] Immunizations Ordered Immunization Name Filled Immunization Name Date Status Comments Source SARS-COV-2 COVID-19 PFIZER VACCINE 2020-09-27 00:00:00 Completed [facility] SARS-COV-2 COVID-19 PFIZER VACCINE 2020-09-27 00:00:00 Completed [facility] SARS-COV-2 COVID-19 PFIZER VACCINE 2020-09-27 00:00:00 Completed [facility] SARS-COV-2 COVID-19 PFIZER VACCINE 2020-09-27 00:00:00 Completed [facility] SARS-COV-2 COVID-19 PFIZER VACCINE 2020-09-27 00:00:00 Completed [facility] SARS-COV-2 COVID-19 PFIZER VACCINE 2020-09-27 00:00:00 Completed [facility] SARS-COV-2 COVID-19 PFIZER VACCINE 2020-09-27 00:00:00 Completed [facility] SARS-COV-2 COVID-19 PFIZER VACCINE 2020-09-27 00:00:00 Completed [facility] SARS-COV-2 COVID-19 PFIZER VACCINE 2020-09-27 00:00:00 Completed [facility] SARS-COV-2 COVID-19 PFIZER VACCINE 2020-09-27 00:00:00 Completed [facility] SARS-COV-2 COVID-19 PFIZER VACCINE 2020-09-27 00:00:00 Completed [facility] SARS-COV-2 COVID-19 PFIZER VACCINE 2020-09-27 00:00:00 Completed [facility] SARS-COV-2 COVID-19 PFIZER VACCINE 2020-09-27 00:00:00 Completed [facility] SARS-COV-2 COVID-19 PFIZER VACCINE 2020-09-27 00:00:00 Completed [facility] SARS-COV-2 COVID-19 PFIZER VACCINE 2020-09-27 00:00:00 Completed [facility] SARS-COV-2 COVID-19 PFIZER VACCINE 2020-09-27 00:00:00 Completed [facility] SARS-COV-2 COVID-19 PFIZER VACCINE 2020-09-27 00:00:00 Completed [facility] SARS-COV-2 COVID-19 PFIZER VACCINE 2020-09-06 00:00:00 Completed [facility] SARS-COV-2 COVID-19 PFIZER VACCINE 2020-09-06 00:00:00 Completed [facility] SARS-COV-2 COVID-19 PFIZER VACCINE 2020-09-06 00:00:00 Completed [facility] SARS-COV-2 COVID-19 PFIZER VACCINE 2020-09-06 00:00:00 Completed [facility] SARS-COV-2 COVID-19 PFIZER VACCINE 2020-09-06 00:00:00 Completed [facility] SARS-COV-2 COVID-19 PFIZER VACCINE 2020-09-06 00:00:00 Completed [facility] SARS-COV-2 COVID-19 PFIZER VACCINE 2020-09-06 00:00:00 Completed [facility] SARS-COV-2 COVID-19 PFIZER VACCINE 2020-09-06 00:00:00 Completed [facility] SARS-COV-2 COVID-19 PFIZER VACCINE 2020-09-06 00:00:00 Completed [facility] SARS-COV-2 COVID-19 PFIZER VACCINE 2020-09-06 00:00:00 Completed [facility] SARS-COV-2 COVID-19 PFIZER VACCINE 2020-09-06 00:00:00 Completed [facility] SARS-COV-2 COVID-19 PFIZER VACCINE 2020-09-06 00:00:00 Completed [facility] SARS-COV-2 COVID-19 PFIZER VACCINE 2020-09-06 00:00:00 Completed [facility] SARS-COV-2 COVID-19 PFIZER VACCINE 2020-09-06 00:00:00 Completed [facility] SARS-COV-2 COVID-19 PFIZER VACCINE 2020-09-06 00:00:00 Completed [facility] SARS-COV-2 COVID-19 PFIZER VACCINE 2020-09-06 00:00:00 Completed [facility] SARS-COV-2 COVID-19 PFIZER VACCINE 2020-09-06 00:00:00 Completed [facility] TDAP 2012-12-03 00:00:00 Completed [facility] Meningococcal Oligosaccharide (groups A, C, Y and W-135) conjugate vaccine (MCV4O) 2012-12-03 00:00:00 Completed [facility] Influenza Virus Vaccine 2012-12-03 00:00:00 Completed [facility] TDAP 2012-12-03 00:00:00 Completed [facility] Meningococcal Oligosaccharide (groups A, C, Y and W-135) conjugate vaccine (MCV4O) 2012-12-03 00:00:00 Completed [facility] Influenza Virus Vaccine 2012-12-03 00:00:00 Completed [facility] TDAP 2012-12-03 00:00:00 Completed [facility] Meningococcal Oligosaccharide (groups A, C, Y and W-135) conjugate vaccine (MCV4O) 2012-12-03 00:00:00 Completed [facility] Influenza Virus Vaccine 2012-12-03 00:00:00 Completed [facility] TDAP 2012-12-03 00:00:00 Completed [facility] Meningococcal Oligosaccharide (groups A, C, Y and W-135) conjugate vaccine (MCV4O) 2012-12-03 00:00:00 Completed [facility] Influenza Virus Vaccine 2012-12-03 00:00:00 Completed [facility] TDAP 2012-12-03 00:00:00 Completed [facility] Meningococcal Oligosaccharide (groups A, C, Y and W-135) conjugate vaccine (MCV4O) 2012-12-03 00:00:00 Completed [facility] Influenza Virus Vaccine 2012-12-03 00:00:00 Completed [facility] TDAP 2012-12-03 00:00:00 Completed [facility] Meningococcal Oligosaccharide (groups A, C, Y and W-135) conjugate vaccine (MCV4O) 2012-12-03 00:00:00 Completed [facility] Influenza Virus Vaccine 2012-12-03 00:00:00 Completed [facility] TDAP 2012-12-03 00:00:00 Completed [facility] Meningococcal Oligosaccharide (groups A, C, Y and W-135) conjugate vaccine (MCV4O) 2012-12-03 00:00:00 Completed [facility] Influenza Virus Vaccine 2012-12-03 00:00:00 Completed [facility] TDAP 2012-12-03 00:00:00 Completed [facility] Meningococcal Oligosaccharide (groups A, C, Y and W-135) conjugate vaccine (MCV4O) 2012-12-03 00:00:00 Completed [facility] Influenza Virus Vaccine 2012-12-03 00:00:00 Completed [facility] TDAP 2012-12-03 00:00:00 Completed [facility] Meningococcal Oligosaccharide (groups A, C, Y and W-135) conjugate vaccine (MCV4O) 2012-12-03 00:00:00 Completed [facility] Influenza Virus Vaccine 2012-12-03 00:00:00 Completed [facility] TDAP 2012-12-03 00:00:00 Completed [facility] Meningococcal Oligosaccharide (groups A, C, Y and W-135) conjugate vaccine (MCV4O) 2012-12-03 00:00:00 Completed [facility] Influenza Virus Vaccine 2012-12-03 00:00:00 Completed [facility] TDAP 2012-12-03 00:00:00 Completed [facility] Meningococcal Oligosaccharide (groups A, C, Y and W-135) conjugate vaccine (MCV4O) 2012-12-03 00:00:00 Completed [facility] Influenza Virus Vaccine 2012-12-03 00:00:00 Completed [facility] TDAP 2012-12-03 00:00:00 Completed [facility] Meningococcal Oligosaccharide (groups A, C, Y and W-135) conjugate vaccine (MCV4O) 2012-12-03 00:00:00 Completed [facility] Influenza Virus Vaccine 2012-12-03 00:00:00 Completed [facility] TDAP 2012-12-03 00:00:00 Completed [facility] Meningococcal Oligosaccharide (groups A, C, Y and W-135) conjugate vaccine (MCV4O) 2012-12-03 00:00:00 Completed [facility] Influenza Virus Vaccine 2012-12-03 00:00:00 Completed [facility] TDAP 2012-12-03 00:00:00 Completed [facility] Meningococcal Oligosaccharide (groups A, C, Y and W-135) conjugate vaccine (MCV4O) 2012-12-03 00:00:00 Completed [facility] Influenza Virus Vaccine 2012-12-03 00:00:00 Completed [facility] TDAP 2012-12-03 00:00:00 Completed [facility] Meningococcal Oligosaccharide (groups A, C, Y and W-135) conjugate vaccine (MCV4O) 2012-12-03 00:00:00 Completed [facility] Influenza Virus Vaccine 2012-12-03 00:00:00 Completed [facility] TDAP 2012-12-03 00:00:00 Completed [facility] Meningococcal Oligosaccharide (groups A, C, Y and W-135) conjugate vaccine (MCV4O) 2012-12-03 00:00:00 Completed [facility] Influenza Virus Vaccine 2012-12-03 00:00:00 Completed [facility] TDAP 2012-12-03 00:00:00 Completed [facility] Meningococcal Oligosaccharide (groups A, C, Y and W-135) conjugate vaccine (MCV4O) 2012-12-03 00:00:00 Completed [facility] Influenza Virus Vaccine 2012-12-03 00:00:00 Completed [facility] Influenza Virus Vaccine 2012-03-14 00:00:00 Completed [facility] Influenza Virus Vaccine 2012-03-14 00:00:00 Completed [facility] Influenza Virus Vaccine 2012-03-14 00:00:00 Completed [facility] Influenza Virus Vaccine 2012-03-14 00:00:00 Completed [facility] Influenza Virus Vaccine 2012-03-14 00:00:00 Completed [facility] Influenza Virus Vaccine 2012-03-14 00:00:00 Completed [facility] Influenza Virus Vaccine 2012-03-14 00:00:00 Completed [facility] Influenza Virus Vaccine 2012-03-14 00:00:00 Completed [facility] Influenza Virus Vaccine 2012-03-14 00:00:00 Completed [facility] Influenza Virus Vaccine 2012-03-14 00:00:00 Completed [facility] Influenza Virus Vaccine 2012-03-14 00:00:00 Completed [facility] Influenza Virus Vaccine 2012-03-14 00:00:00 Completed [facility] Influenza Virus Vaccine 2012-03-14 00:00:00 Completed [facility] Influenza Virus Vaccine 2012-03-14 00:00:00 Completed [facility] Influenza Virus Vaccine 2012-03-14 00:00:00 Completed [facility] Influenza Virus Vaccine 2012-03-14 00:00:00 Completed [facility] Influenza Virus Vaccine 2012-03-14 00:00:00 Completed [facility] HPV 2011-05-09 00:00:00 Completed [facility] HPV 2011-05-09 00:00:00 Completed [facility] HPV 2011-05-09 00:00:00 Completed [facility] HPV 2011-05-09 00:00:00 Completed [facility] HPV 2011-05-09 00:00:00 Completed [facility] HPV 2011-05-09 00:00:00 Completed [facility] HPV 2011-05-09 00:00:00 Completed [facility] HPV 2011-05-09 00:00:00 Completed [facility] HPV 2011-05-09 00:00:00 Completed [facility] HPV 2011-05-09 00:00:00 Completed [facility] HPV 2011-05-09 00:00:00 Completed [facility] HPV 2011-05-09 00:00:00 Completed [facility] HPV 2011-05-09 00:00:00 Completed [facility] HPV 2011-05-09 00:00:00 Completed [facility] HPV 2011-05-09 00:00:00 Completed [facility] HPV 2011-05-09 00:00:00 Completed [facility] HPV 2011-05-09 00:00:00 Completed [facility] HPV 2011-01-10 00:00:00 Completed [facility] Influenza Virus Vaccine 2011-01-10 00:00:00 Completed [facility] HPV 2011-01-10 00:00:00 Completed [facility] Influenza Virus Vaccine 2011-01-10 00:00:00 Completed [facility] HPV 2011-01-10 00:00:00 Completed [facility] Influenza Virus Vaccine 2011-01-10 00:00:00 Completed [facility] HPV 2011-01-10 00:00:00 Completed [facility] Influenza Virus Vaccine 2011-01-10 00:00:00 Completed [facility] HPV 2011-01-10 00:00:00 Completed [facility] Influenza Virus Vaccine 2011-01-10 00:00:00 Completed [facility] HPV 2011-01-10 00:00:00 Completed [facility] Influenza Virus Vaccine 2011-01-10 00:00:00 Completed [facility] HPV 2011-01-10 00:00:00 Completed [facility] Influenza Virus Vaccine 2011-01-10 00:00:00 Completed [facility] HPV 2011-01-10 00:00:00 Completed [facility] Influenza Virus Vaccine 2011-01-10 00:00:00 Completed [facility] HPV 2011-01-10 00:00:00 Completed [facility] Influenza Virus Vaccine 2011-01-10 00:00:00 Completed [facility] HPV 2011-01-10 00:00:00 Completed [facility] Influenza Virus Vaccine 2011-01-10 00:00:00 Completed [facility] HPV 2011-01-10 00:00:00 Completed [facility] Influenza Virus Vaccine 2011-01-10 00:00:00 Completed [facility] HPV 2011-01-10 00:00:00 Completed [facility] Influenza Virus Vaccine 2011-01-10 00:00:00 Completed [facility] HPV 2011-01-10 00:00:00 Completed [facility] Influenza Virus Vaccine 2011-01-10 00:00:00 Completed [facility] HPV 2011-01-10 00:00:00 Completed [facility] Influenza Virus Vaccine 2011-01-10 00:00:00 Completed [facility] HPV 2011-01-10 00:00:00 Completed [facility] Influenza Virus Vaccine 2011-01-10 00:00:00 Completed [facility] HPV 2011-01-10 00:00:00 Completed [facility] Influenza Virus Vaccine 2011-01-10 00:00:00 Completed [facility] HPV 2011-01-10 00:00:00 Completed [facility] Influenza Virus Vaccine 2011-01-10 00:00:00 Completed [facility] HPV 2010-11-09 00:00:00 Completed [facility] HPV 2010-11-09 00:00:00 Completed [facility] HPV 2010-11-09 00:00:00 Completed [facility] HPV 2010-11-09 00:00:00 Completed [facility] HPV 2010-11-09 00:00:00 Completed [facility] HPV 2010-11-09 00:00:00 Completed [facility] HPV 2010-11-09 00:00:00 Completed [facility] HPV 2010-11-09 00:00:00 Completed [facility] HPV 2010-11-09 00:00:00 Completed [facility] HPV 2010-11-09 00:00:00 Completed [facility] HPV 2010-11-09 00:00:00 Completed [facility] HPV 2010-11-09 00:00:00 Completed [facility] HPV 2010-11-09 00:00:00 Completed [facility] HPV 2010-11-09 00:00:00 Completed [facility] HPV 2010-11-09 00:00:00 Completed [facility] HPV 2010-11-09 00:00:00 Completed [facility] HPV 2010-11-09 00:00:00 Completed [facility] Varicella (varivax)(chicken pox) 2006-10-09 00:00:00 Completed [facility] Varicella (varivax)(chicken pox) 2006-10-09 00:00:00 Completed [facility] Varicella (varivax)(chicken pox) 2006-10-09 00:00:00 Completed [facility] Varicella (varivax)(chicken pox) 2006-10-09 00:00:00 Completed [facility] Varicella (varivax)(chicken pox) 2006-10-09 00:00:00 Completed [facility] Varicella (varivax)(chicken pox) 2006-10-09 00:00:00 Completed [facility] Varicella (varivax)(chicken pox) 2006-10-09 00:00:00 Completed [facility] Varicella (varivax)(chicken pox) 2006-10-09 00:00:00 Completed [facility] Varicella (varivax)(chicken pox) 2006-10-09 00:00:00 Completed [facility] Varicella (varivax)(chicken pox) 2006-10-09 00:00:00 Completed [facility] Varicella (varivax)(chicken pox) 2006-10-09 00:00:00 Completed [facility] Varicella (varivax)(chicken pox) 2006-10-09 00:00:00 Completed [facility] Varicella (varivax)(chicken pox) 2006-10-09 00:00:00 Completed [facility] Varicella (varivax)(chicken pox) 2006-10-09 00:00:00 Completed [facility] Varicella (varivax)(chicken pox) 2006-10-09 00:00:00 Completed [facility] Varicella (varivax)(chicken pox) 2006-10-09 00:00:00 Completed [facility] Varicella (varivax)(chicken pox) 2006-10-09 00:00:00 Completed [facility] HEPATITIS A 2005-11-18 00:00:00 Completed [facility] HEPATITIS A 2005-11-18 00:00:00 Completed [facility] HEPATITIS A 2005-11-18 00:00:00 Completed [facility] HEPATITIS A 2005-11-18 00:00:00 Completed [facility] HEPATITIS A 2005-11-18 00:00:00 Completed [facility] HEPATITIS A 2005-11-18 00:00:00 Completed [facility] HEPATITIS A 2005-11-18 00:00:00 Completed [facility] HEPATITIS A 2005-11-18 00:00:00 Completed [facility] HEPATITIS A 2005-11-18 00:00:00 Completed [facility] HEPATITIS A 2005-11-18 00:00:00 Completed [facility] HEPATITIS A 2005-11-18 00:00:00 Completed [facility] HEPATITIS A 2005-11-18 00:00:00 Completed [facility] HEPATITIS A 2005-11-18 00:00:00 Completed [facility] HEPATITIS A 2005-11-18 00:00:00 Completed [facility] HEPATITIS A 2005-11-18 00:00:00 Completed [facility] HEPATITIS A 2005-11-18 00:00:00 Completed [facility] HEPATITIS A 2005-11-18 00:00:00 Completed [facility] DTAP 2005-10-14 00:00:00 Completed [facility] Polio (IPV/OPV) 2005-10-14 00:00:00 Completed [facility] MMR 2005-10-14 00:00:00 Completed [facility] DTAP 2005-10-14 00:00:00 Completed [facility] Polio (IPV/OPV) 2005-10-14 00:00:00 Completed [facility] MMR 2005-10-14 00:00:00 Completed [facility] HEPATITIS A 2005-04-13 00:00:00 Completed [facility] HEPATITIS A 2005-04-13 00:00:00 Completed [facility] HEPATITIS A 2005-04-13 00:00:00 Completed [facility] HEPATITIS A 2005-04-13 00:00:00 Completed [facility] HEPATITIS A 2005-04-13 00:00:00 Completed [facility] HEPATITIS A 2005-04-13 00:00:00 Completed [facility] HEPATITIS A 2005-04-13 00:00:00 Completed [facility] HEPATITIS A 2005-04-13 00:00:00 Completed [facility] HEPATITIS A 2005-04-13 00:00:00 Completed [facility] HEPATITIS A 2005-04-13 00:00:00 Completed [facility] HEPATITIS A 2005-04-13 00:00:00 Completed [facility] HEPATITIS A 2005-04-13 00:00:00 Completed [facility] HEPATITIS A 2005-04-13 00:00:00 Completed [facility] HEPATITIS A 2005-04-13 00:00:00 Completed [facility] HEPATITIS A 2005-04-13 00:00:00 Completed [facility] HEPATITIS A 2005-04-13 00:00:00 Completed [facility] HEPATITIS A 2005-04-13 00:00:00 Completed [facility] Pneumococcal 7 Conjugate, PCV7 (Prevnar7) 2003-06-13 00:00:00 Completed [facility] Pneumococcal 7 Conjugate, PCV7 (Prevnar7) 2003-06-13 00:00:00 Completed [facility] Pneumococcal 7 Conjugate, PCV7 (Prevnar7) 2003-06-13 00:00:00 Completed [facility] Pneumococcal 7 Conjugate, PCV7 (Prevnar7) 2003-06-13 00:00:00 Completed [facility] Pneumococcal 7 Conjugate, PCV7 (Prevnar7) 2003-06-13 00:00:00 Completed [facility] Pneumococcal 7 Conjugate, PCV7 (Prevnar7) 2003-06-13 00:00:00 Completed [facility] Pneumococcal 7 Conjugate, PCV7 (Prevnar7) 2003-06-13 00:00:00 Completed [facility] Pneumococcal 7 Conjugate, PCV7 (Prevnar7) 2003-06-13 00:00:00 Completed [facility] Pneumococcal 7 Conjugate, PCV7 (Prevnar7) 2003-06-13 00:00:00 Completed [facility] Pneumococcal 7 Conjugate, PCV7 (Prevnar7) 2003-06-13 00:00:00 Completed [facility] Pneumococcal 7 Conjugate, PCV7 (Prevnar7) 2003-06-13 00:00:00 Completed [facility] Pneumococcal 7 Conjugate, PCV7 (Prevnar7) 2003-06-13 00:00:00 Completed [facility] Pneumococcal 7 Conjugate, PCV7 (Prevnar7) 2003-06-13 00:00:00 Completed [facility] Pneumococcal 7 Conjugate, PCV7 (Prevnar7) 2003-06-13 00:00:00 Completed [facility] Pneumococcal 7 Conjugate, PCV7 (Prevnar7) 2003-06-13 00:00:00 Completed [facility] Pneumococcal 7 Conjugate, PCV7 (Prevnar7) 2003-06-13 00:00:00 Completed [facility] Pneumococcal 7 Conjugate, PCV7 (Prevnar7) 2003-06-13 00:00:00 Completed [facility] DTAP 2003-03-11 00:00:00 Completed [facility] HIB 4 Dose Schedule 2003-03-11 00:00:00 Completed [facility] Pneumococcal 7 Conjugate, PCV7 (Prevnar7) 2003-03-11 00:00:00 Completed [facility] DTAP 2003-03-11 00:00:00 Completed [facility] HIB 4 Dose Schedule 2003-03-11 00:00:00 Completed [facility] Pneumococcal 7 Conjugate, PCV7 (Prevnar7) 2003-03-11 00:00:00 Completed [facility] DTAP 2003-03-11 00:00:00 Completed [facility] HIB 4 Dose Schedule 2003-03-11 00:00:00 Completed [facility] Pneumococcal 7 Conjugate, PCV7 (Prevnar7) 2003-03-11 00:00:00 Completed [facility] DTAP 2003-03-11 00:00:00 Completed [facility] HIB 4 Dose Schedule 2003-03-11 00:00:00 Completed [facility] Pneumococcal 7 Conjugate, PCV7 (Prevnar7) 2003-03-11 00:00:00 Completed [facility] DTAP 2003-03-11 00:00:00 Completed [facility] HIB 4 Dose Schedule 2003-03-11 00:00:00 Completed [facility] Pneumococcal 7 Conjugate, PCV7 (Prevnar7) 2003-03-11 00:00:00 Completed [facility] DTAP 2003-03-11 00:00:00 Completed [facility] HIB 4 Dose Schedule 2003-03-11 00:00:00 Completed [facility] Pneumococcal 7 Conjugate, PCV7 (Prevnar7) 2003-03-11 00:00:00 Completed [facility] DTAP 2003-03-11 00:00:00 Completed [facility] HIB 4 Dose Schedule 2003-03-11 00:00:00 Completed [facility] Pneumococcal 7 Conjugate, PCV7 (Prevnar7) 2003-03-11 00:00:00 Completed [facility] DTAP 2003-03-11 00:00:00 Completed [facility] HIB 4 Dose Schedule 2003-03-11 00:00:00 Completed [facility] Pneumococcal 7 Conjugate, PCV7 (Prevnar7) 2003-03-11 00:00:00 Completed [facility] DTAP 2003-03-11 00:00:00 Completed [facility] HIB 4 Dose Schedule 2003-03-11 00:00:00 Completed [facility] Pneumococcal 7 Conjugate, PCV7 (Prevnar7) 2003-03-11 00:00:00 Completed [facility] DTAP 2003-03-11 00:00:00 Completed [facility] HIB 4 Dose Schedule 2003-03-11 00:00:00 Completed [facility] Pneumococcal 7 Conjugate, PCV7 (Prevnar7) 2003-03-11 00:00:00 Completed [facility] DTAP 2003-03-11 00:00:00 Completed [facility] HIB 4 Dose Schedule 2003-03-11 00:00:00 Completed [facility] Pneumococcal 7 Conjugate, PCV7 (Prevnar7) 2003-03-11 00:00:00 Completed [facility] DTAP 2003-03-11 00:00:00 Completed [facility] HIB 4 Dose Schedule 2003-03-11 00:00:00 Completed [facility] Pneumococcal 7 Conjugate, PCV7 (Prevnar7) 2003-03-11 00:00:00 Completed [facility] DTAP 2003-03-11 00:00:00 Completed [facility] HIB 4 Dose Schedule 2003-03-11 00:00:00 Completed [facility] Pneumococcal 7 Conjugate, PCV7 (Prevnar7) 2003-03-11 00:00:00 Completed [facility] DTAP 2003-03-11 00:00:00 Completed [facility] HIB 4 Dose Schedule 2003-03-11 00:00:00 Completed [facility] Pneumococcal 7 Conjugate, PCV7 (Prevnar7) 2003-03-11 00:00:00 Completed [facility] DTAP 2003-03-11 00:00:00 Completed [facility] HIB 4 Dose Schedule 2003-03-11 00:00:00 Completed [facility] Pneumococcal 7 Conjugate, PCV7 (Prevnar7) 2003-03-11 00:00:00 Completed [facility] DTAP 2003-03-11 00:00:00 Completed [facility] HIB 4 Dose Schedule 2003-03-11 00:00:00 Completed [facility] Pneumococcal 7 Conjugate, PCV7 (Prevnar7) 2003-03-11 00:00:00 Completed [facility] DTAP 2003-03-11 00:00:00 Completed [facility] HIB 4 Dose Schedule 2003-03-11 00:00:00 Completed [facility] Pneumococcal 7 Conjugate, PCV7 (Prevnar7) 2003-03-11 00:00:00 Completed [facility] Hep B, Adol or Pedi Dosage 2002-10-15 00:00:00 Completed [facility] MMR 2002-10-15 00:00:00 Completed [facility] Polio (IPV/OPV) 2002-10-15 00:00:00 Completed [facility] Varicella (varivax)(chicken pox) 2002-10-15 00:00:00 Completed [facility] Hep B, Adol or Pedi Dosage 2002-10-15 00:00:00 Completed [facility] MMR 2002-10-15 00:00:00 Completed [facility] Polio (IPV/OPV) 2002-10-15 00:00:00 Completed [facility] Varicella (varivax)(chicken pox) 2002-10-15 00:00:00 Completed [facility] Hep B, Adol or Pedi Dosage 2002-10-15 00:00:00 Completed [facility] MMR 2002-10-15 00:00:00 Completed [facility] Polio (IPV/OPV) 2002-10-15 00:00:00 Completed [facility] Varicella (varivax)(chicken pox) 2002-10-15 00:00:00 Completed [facility] Hep B, Adol or Pedi Dosage 2002-10-15 00:00:00 Completed [facility] MMR 2002-10-15 00:00:00 Completed [facility] Polio (IPV/OPV) 2002-10-15 00:00:00 Completed [facility] Varicella (varivax)(chicken pox) 2002-10-15 00:00:00 Completed [facility] Hep B, Adol or Pedi Dosage 2002-10-15 00:00:00 Completed [facility] MMR 2002-10-15 00:00:00 Completed [facility] Polio (IPV/OPV) 2002-10-15 00:00:00 Completed [facility] Varicella (varivax)(chicken pox) 2002-10-15 00:00:00 Completed [facility] Hep B, Adol or Pedi Dosage 2002-10-15 00:00:00 Completed [facility] MMR 2002-10-15 00:00:00 Completed [facility] Polio (IPV/OPV) 2002-10-15 00:00:00 Completed [facility] Varicella (varivax)(chicken pox) 2002-10-15 00:00:00 Completed [facility] Hep B, Adol or Pedi Dosage 2002-10-15 00:00:00 Completed [facility] MMR 2002-10-15 00:00:00 Completed [facility] Polio (IPV/OPV) 2002-10-15 00:00:00 Completed [facility] Varicella (varivax)(chicken pox) 2002-10-15 00:00:00 Completed [facility] Hep B, Adol or Pedi Dosage 2002-10-15 00:00:00 Completed [facility] MMR 2002-10-15 00:00:00 Completed [facility] Polio (IPV/OPV) 2002-10-15 00:00:00 Completed [facility] Varicella (varivax)(chicken pox) 2002-10-15 00:00:00 Completed [facility] Hep B, Adol or Pedi Dosage 2002-10-15 00:00:00 Completed [facility] MMR 2002-10-15 00:00:00 Completed [facility] Polio (IPV/OPV) 2002-10-15 00:00:00 Completed [facility] Varicella (varivax)(chicken pox) 2002-10-15 00:00:00 Completed [facility] Hep B, Adol or Pedi Dosage 2002-10-15 00:00:00 Completed [facility] MMR 2002-10-15 00:00:00 Completed [facility] Polio (IPV/OPV) 2002-10-15 00:00:00 Completed [facility] Varicella (varivax)(chicken pox) 2002-10-15 00:00:00 Completed [facility] Hep B, Adol or Pedi Dosage 2002-10-15 00:00:00 Completed [facility] MMR 2002-10-15 00:00:00 Completed [facility] Polio (IPV/OPV) 2002-10-15 00:00:00 Completed [facility] Varicella (varivax)(chicken pox) 2002-10-15 00:00:00 Completed [facility] Hep B, Adol or Pedi Dosage 2002-10-15 00:00:00 Completed [facility] MMR 2002-10-15 00:00:00 Completed [facility] Polio (IPV/OPV) 2002-10-15 00:00:00 Completed [facility] Varicella (varivax)(chicken pox) 2002-10-15 00:00:00 Completed [facility] Hep B, Adol or Pedi Dosage 2002-10-15 00:00:00 Completed [facility] MMR 2002-10-15 00:00:00 Completed [facility] Polio (IPV/OPV) 2002-10-15 00:00:00 Completed [facility] Varicella (varivax)(chicken pox) 2002-10-15 00:00:00 Completed [facility] Hep B, Adol or Pedi Dosage 2002-10-15 00:00:00 Completed [facility] MMR 2002-10-15 00:00:00 Completed [facility] Polio (IPV/OPV) 2002-10-15 00:00:00 Completed [facility] Varicella (varivax)(chicken pox) 2002-10-15 00:00:00 Completed [facility] Hep B, Adol or Pedi Dosage 2002-10-15 00:00:00 Completed [facility] MMR 2002-10-15 00:00:00 Completed [facility] Polio (IPV/OPV) 2002-10-15 00:00:00 Completed [facility] Varicella (varivax)(chicken pox) 2002-10-15 00:00:00 Completed [facility] Hep B, Adol or Pedi Dosage 2002-10-15 00:00:00 Completed [facility] MMR 2002-10-15 00:00:00 Completed [facility] Polio (IPV/OPV) 2002-10-15 00:00:00 Completed [facility] Varicella (varivax)(chicken pox) 2002-10-15 00:00:00 Completed [facility] Hep B, Adol or Pedi Dosage 2002-10-15 00:00:00 Completed [facility] MMR 2002-10-15 00:00:00 Completed [facility] Polio (IPV/OPV) 2002-10-15 00:00:00 Completed [facility] Varicella (varivax)(chicken pox) 2002-10-15 00:00:00 Completed [facility] DTAP 2002-04-19 00:00:00 Completed [facility] HIB 4 Dose Schedule 2002-04-19 00:00:00 Completed [facility] DTAP 2002-04-19 00:00:00 Completed [facility] HIB 4 Dose Schedule 2002-04-19 00:00:00 Completed [facility] DTAP 2002-04-19 00:00:00 Completed [facility] HIB 4 Dose Schedule 2002-04-19 00:00:00 Completed [facility] DTAP 2002-04-19 00:00:00 Completed [facility] HIB 4 Dose Schedule 2002-04-19 00:00:00 Completed [facility] DTAP 2002-04-19 00:00:00 Completed [facility] HIB 4 Dose Schedule 2002-04-19 00:00:00 Completed [facility] DTAP 2002-04-19 00:00:00 Completed [facility] HIB 4 Dose Schedule 2002-04-19 00:00:00 Completed [facility] DTAP 2002-04-19 00:00:00 Completed [facility] HIB 4 Dose Schedule 2002-04-19 00:00:00 Completed [facility] DTAP 2002-04-19 00:00:00 Completed [facility] HIB 4 Dose Schedule 2002-04-19 00:00:00 Completed [facility] DTAP 2002-04-19 00:00:00 Completed [facility] HIB 4 Dose Schedule 2002-04-19 00:00:00 Completed [facility] DTAP 2002-04-19 00:00:00 Completed [facility] HIB 4 Dose Schedule 2002-04-19 00:00:00 Completed [facility] DTAP 2002-04-19 00:00:00 Completed [facility] HIB 4 Dose Schedule 2002-04-19 00:00:00 Completed [facility] DTAP 2002-04-19 00:00:00 Completed [facility] HIB 4 Dose Schedule 2002-04-19 00:00:00 Completed [facility] DTAP 2002-04-19 00:00:00 Completed [facility] HIB 4 Dose Schedule 2002-04-19 00:00:00 Completed [facility] DTAP 2002-04-19 00:00:00 Completed [facility] HIB 4 Dose Schedule 2002-04-19 00:00:00 Completed [facility] DTAP 2002-04-19 00:00:00 Completed [facility] HIB 4 Dose Schedule 2002-04-19 00:00:00 Completed [facility] DTAP 2002-04-19 00:00:00 Completed [facility] HIB 4 Dose Schedule 2002-04-19 00:00:00 Completed [facility] DTAP 2002-04-19 00:00:00 Completed [facility] HIB 4 Dose Schedule 2002-04-19 00:00:00 Completed [facility] DTAP 2002-02-18 00:00:00 Completed [facility] HIB 4 Dose Schedule 2002-02-18 00:00:00 Completed [facility] Polio (IPV/OPV) 2002-02-18 00:00:00 Completed [facility] DTAP 2002-02-18 00:00:00 Completed [facility] HIB 4 Dose Schedule 2002-02-18 00:00:00 Completed [facility] Polio (IPV/OPV) 2002-02-18 00:00:00 Completed [facility] DTAP 2002-02-18 00:00:00 Completed [facility] HIB 4 Dose Schedule 2002-02-18 00:00:00 Completed [facility] Polio (IPV/OPV) 2002-02-18 00:00:00 Completed [facility] DTAP 2002-02-18 00:00:00 Completed [facility] HIB 4 Dose Schedule 2002-02-18 00:00:00 Completed [facility] Polio (IPV/OPV) 2002-02-18 00:00:00 Completed [facility] DTAP 2002-02-18 00:00:00 Completed [facility] HIB 4 Dose Schedule 2002-02-18 00:00:00 Completed [facility] Polio (IPV/OPV) 2002-02-18 00:00:00 Completed [facility] DTAP 2002-02-18 00:00:00 Completed [facility] HIB 4 Dose Schedule 2002-02-18 00:00:00 Completed [facility] Polio (IPV/OPV) 2002-02-18 00:00:00 Completed [facility] DTAP 2002-02-18 00:00:00 Completed [facility] HIB 4 Dose Schedule 2002-02-18 00:00:00 Completed [facility] Polio (IPV/OPV) 2002-02-18 00:00:00 Completed [facility] DTAP 2002-02-18 00:00:00 Completed [facility] HIB 4 Dose Schedule 2002-02-18 00:00:00 Completed [facility] Polio (IPV/OPV) 2002-02-18 00:00:00 Completed [facility] DTAP 2002-02-18 00:00:00 Completed [facility] HIB 4 Dose Schedule 2002-02-18 00:00:00 Completed [facility] Polio (IPV/OPV) 2002-02-18 00:00:00 Completed [facility] DTAP 2002-02-18 00:00:00 Completed [facility] HIB 4 Dose Schedule 2002-02-18 00:00:00 Completed [facility] Polio (IPV/OPV) 2002-02-18 00:00:00 Completed [facility] DTAP 2002-02-18 00:00:00 Completed [facility] HIB 4 Dose Schedule 2002-02-18 00:00:00 Completed [facility] Polio (IPV/OPV) 2002-02-18 00:00:00 Completed [facility] DTAP 2002-02-18 00:00:00 Completed [facility] HIB 4 Dose Schedule 2002-02-18 00:00:00 Completed [facility] Polio (IPV/OPV) 2002-02-18 00:00:00 Completed [facility] DTAP 2002-02-18 00:00:00 Completed [facility] HIB 4 Dose Schedule 2002-02-18 00:00:00 Completed [facility] Polio (IPV/OPV) 2002-02-18 00:00:00 Completed [facility] DTAP 2002-02-18 00:00:00 Completed [facility] HIB 4 Dose Schedule 2002-02-18 00:00:00 Completed [facility] Polio (IPV/OPV) 2002-02-18 00:00:00 Completed [facility] DTAP 2002-02-18 00:00:00 Completed [facility] HIB 4 Dose Schedule 2002-02-18 00:00:00 Completed [facility] Polio (IPV/OPV) 2002-02-18 00:00:00 Completed [facility] DTAP 2002-02-18 00:00:00 Completed [facility] HIB 4 Dose Schedule 2002-02-18 00:00:00 Completed [facility] Polio (IPV/OPV) 2002-02-18 00:00:00 Completed [facility] DTAP 2002-02-18 00:00:00 Completed [facility] HIB 4 Dose Schedule 2002-02-18 00:00:00 Completed [facility] Polio (IPV/OPV) 2002-02-18 00:00:00 Completed [facility] DTAP 2002-01-16 00:00:00 Completed [facility] HIB 4 Dose Schedule 2002-01-16 00:00:00 Completed [facility] Hep B, Adol or Pedi Dosage 2002-01-16 00:00:00 Completed [facility] Polio (IPV/OPV) 2002-01-16 00:00:00 Completed [facility] DTAP 2002-01-16 00:00:00 Completed [facility] HIB 4 Dose Schedule 2002-01-16 00:00:00 Completed [facility] Hep B, Adol or Pedi Dosage 2002-01-16 00:00:00 Completed [facility] Polio (IPV/OPV) 2002-01-16 00:00:00 Completed [facility] DTAP 2002-01-16 00:00:00 Completed [facility] HIB 4 Dose Schedule 2002-01-16 00:00:00 Completed [facility] Hep B, Adol or Pedi Dosage 2002-01-16 00:00:00 Completed [facility] Polio (IPV/OPV) 2002-01-16 00:00:00 Completed [facility] DTAP 2002-01-16 00:00:00 Completed [facility] HIB 4 Dose Schedule 2002-01-16 00:00:00 Completed [facility] Hep B, Adol or Pedi Dosage 2002-01-16 00:00:00 Completed [facility] Polio (IPV/OPV) 2002-01-16 00:00:00 Completed [facility] DTAP 2002-01-16 00:00:00 Completed [facility] HIB 4 Dose Schedule 2002-01-16 00:00:00 Completed [facility] Hep B, Adol or Pedi Dosage 2002-01-16 00:00:00 Completed [facility] Polio (IPV/OPV) 2002-01-16 00:00:00 Completed [facility] DTAP 2002-01-16 00:00:00 Completed [facility] HIB 4 Dose Schedule 2002-01-16 00:00:00 Completed [facility] Hep B, Adol or Pedi Dosage 2002-01-16 00:00:00 Completed [facility] Polio (IPV/OPV) 2002-01-16 00:00:00 Completed [facility] DTAP 2002-01-16 00:00:00 Completed [facility] HIB 4 Dose Schedule 2002-01-16 00:00:00 Completed [facility] Hep B, Adol or Pedi Dosage 2002-01-16 00:00:00 Completed [facility] Polio (IPV/OPV) 2002-01-16 00:00:00 Completed [facility] DTAP 2002-01-16 00:00:00 Completed [facility] HIB 4 Dose Schedule 2002-01-16 00:00:00 Completed [facility] Hep B, Adol or Pedi Dosage 2002-01-16 00:00:00 Completed [facility] Polio (IPV/OPV) 2002-01-16 00:00:00 Completed [facility] DTAP 2002-01-16 00:00:00 Completed [facility] HIB 4 Dose Schedule 2002-01-16 00:00:00 Completed [facility] Hep B, Adol or Pedi Dosage 2002-01-16 00:00:00 Completed [facility] Polio (IPV/OPV) 2002-01-16 00:00:00 Completed [facility] DTAP 2002-01-16 00:00:00 Completed [facility] HIB 4 Dose Schedule 2002-01-16 00:00:00 Completed [facility] Hep B, Adol or Pedi Dosage 2002-01-16 00:00:00 Completed [facility] Polio (IPV/OPV) 2002-01-16 00:00:00 Completed [facility] DTAP 2002-01-16 00:00:00 Completed [facility] HIB 4 Dose Schedule 2002-01-16 00:00:00 Completed [facility] Hep B, Adol or Pedi Dosage 2002-01-16 00:00:00 Completed [facility] Polio (IPV/OPV) 2002-01-16 00:00:00 Completed [facility] DTAP 2002-01-16 00:00:00 Completed [facility] HIB 4 Dose Schedule 2002-01-16 00:00:00 Completed [facility] Hep B, Adol or Pedi Dosage 2002-01-16 00:00:00 Completed [facility] Polio (IPV/OPV) 2002-01-16 00:00:00 Completed [facility] DTAP 2002-01-16 00:00:00 Completed [facility] HIB 4 Dose Schedule 2002-01-16 00:00:00 Completed [facility] Hep B, Adol or Pedi Dosage 2002-01-16 00:00:00 Completed [facility] Polio (IPV/OPV) 2002-01-16 00:00:00 Completed [facility] DTAP 2002-01-16 00:00:00 Completed [facility] HIB 4 Dose Schedule 2002-01-16 00:00:00 Completed [facility] Hep B, Adol or Pedi Dosage 2002-01-16 00:00:00 Completed [facility] Polio (IPV/OPV) 2002-01-16 00:00:00 Completed [facility] DTAP 2002-01-16 00:00:00 Completed [facility] HIB 4 Dose Schedule 2002-01-16 00:00:00 Completed [facility] Hep B, Adol or Pedi Dosage 2002-01-16 00:00:00 Completed [facility] Polio (IPV/OPV) 2002-01-16 00:00:00 Completed [facility] DTAP 2002-01-16 00:00:00 Completed [facility] HIB 4 Dose Schedule 2002-01-16 00:00:00 Completed [facility] Hep B, Adol or Pedi Dosage 2002-01-16 00:00:00 Completed [facility] Polio (IPV/OPV) 2002-01-16 00:00:00 Completed [facility] DTAP 2002-01-16 00:00:00 Completed [facility] HIB 4 Dose Schedule 2002-01-16 00:00:00 Completed [facility] Hep B, Adol or Pedi Dosage 2002-01-16 00:00:00 Completed [facility] Polio (IPV/OPV) 2002-01-16 00:00:00 Completed [facility] Hep B, Adol or Pedi Dosage 2001 00:00:00 Completed [facility] Hep B, Adol or Pedi Dosage 2001 00:00:00 Completed [facility] Hep B, Adol or Pedi Dosage 2001 00:00:00 Completed [facility] Hep B, Adol or Pedi Dosage 2001 00:00:00 Completed [facility] Hep B, Adol or Pedi Dosage 2001 00:00:00 Completed [facility] Hep B, Adol or Pedi Dosage 2001 00:00:00 Completed [facility] Hep B, Adol or Pedi Dosage 2001 00:00:00 Completed [facility] Hep B, Adol or Pedi Dosage 2001 00:00:00 Completed [facility] Hep B, Adol or Pedi Dosage 2001 00:00:00 Completed [facility] Hep B, Adol or Pedi Dosage 2001 00:00:00 Completed [facility] Hep B, Adol or Pedi Dosage 2001 00:00:00 Completed [facility] Hep B, Adol or Pedi Dosage 2001 00:00:00 Completed [facility] Hep B, Adol or Pedi Dosage 2001 00:00:00 Completed [facility] Hep B, Adol or Pedi Dosage 2001 00:00:00 Completed [facility] Hep B, Adol or Pedi Dosage 2001 00:00:00 Completed [facility] Hep B, Adol or Pedi Dosage 2001 00:00:00 Completed [facility] Hep B, Adol or Pedi Dosage 2001 00:00:00 Completed [facility] DTAP Unknown Completed [facility] HIB 4 Dose Schedule Unknown Completed [facility] HEPATITIS A Unknown [facility] Hep [facility], Adol or Pedi Dosage Unknown Completed [facility] HPV Unknown Completed [facility] Influenza Virus Vaccine Unknown Completed [facility] MMR Unknown Completed [facility] Pneumococcal 7 Conjugate, PCV7 (Prevnar7) Unknown Completed [facility] Polio (IPV/OPV) Unknown Completed [facility] Varicella (varivax)(chicken pox) Unknown Completed [facility] TDAP Unknown Completed [facility] Meningococcal Oligosaccharide (groups A, C, Y and W-135) conjugate vaccine (MCV4O) Unknown Completed [facility] SARS-COV-2 COVID-19 PFIZER VACCINE Unknown Completed [facility] DTAP Unknown Completed [facility] HIB 4 Dose Schedule Unknown Completed [facility] HEPATITIS A Unknown Completed [facility] Hep B, Adol or Pedi Dosage Unknown Completed [facility] HPV Unknown Completed [facility] Influenza Virus Vaccine Unknown Completed [facility] MMR Unknown Completed [facility] Pneumococcal 7 Conjugate, PCV7 (Prevnar7) Unknown Completed [facility] Polio (IPV/OPV) Unknown Completed [facility] Varicella (varivax)(chicken pox) Unknown Completed [facility] TDAP Unknown Completed [facility] Meningococcal Oligosaccharide (groups A, C, Y and W-135) conjugate vaccine (MCV4O) Unknown Completed [facility] HIB 4 Dose Schedule Unknown Completed [facility] Hep B, Adol or Pedi Dosage Unknown Completed [facility] HPV Unknown Completed [facility] MMR Unknown Completed [facility] Varicella (varivax)(chicken pox) Unknown Completed [facility] SARS-COV-2 COVID-19 PFIZER VACCINE Unknown Completed [facility] HEPATITIS A Unknown Com[facility] DTAP Unknown Completed [facility] Polio (IPV/OPV) Unknown Completed [facility] Influenza Virus Vaccine Unknown Completed [facility] Pneumococcal 7 Conjugate, PCV7 (Prevnar7) Unknown Completed [facility] TDAP Unknown Completed [facility] Meningococcal Oligosaccharide (groups A, C, Y and W-135) conjugate vaccine (MCV4O) Unknown Completed [facility] HIB 4 Dose Schedule Unknown Completed [facility] Hep B, Adol or Pedi Dosage Unknown Completed [facility] HPV Unknown Completed [facility] MMR Unknown Completed [facility] Varicella (varivax)(chicken pox) Unknown Completed [facility] SARS-COV-2 COVID-19 PFIZER VACCINE Unknown Completed [facility] HEPATITIS A Unknown Completed [facility] DTAP Unknown Completed [facility] Pneumococcal 7 Conjugate, PCV7 (Prevnar7) Unknown Completed [facility] Polio (IPV/OPV) Unknown Completed [facility] TDAP Unknown Completed [facility] Meningococcal Oligosaccharide (groups A, C, Y and W-135) conjugate vaccine (MCV4O) Unknown Completed [facility] Influenza Virus Vaccine Unknown Completed [facility] DTAP Unknown Completed [facility] HIB 4 Dose Schedule Unknown Completed [facility] HEPATITIS A Unknown Completed [facility] Hep B, Adol or Pedi Dosage Unknown Completed [facility] HPV Unknown Completed [facility] Influenza Virus Vaccine Unknown Completed [facility] MMR Unknown Completed [facility] Pneumococcal 7 Conjugate, PCV7 (Prevnar7) Unknown Completed [facility] Polio (IPV/OPV) Unknown Completed [facility] Varicella (varivax)(chicken pox) Unknown Completed [facility] TDAP Unknown Completed [facility] Meningococcal Oligosaccharide (groups A, C, Y and W-135) conjugate vaccine (MCV4O) Unknown Completed [facility] SARS-COV-2 COVID-19 PFIZER VACCINE Unknown Completed [facility] DTAP Unknown Completed [facility] HIB 4 Dose Schedule Unknown Completed [facility] HEPATITIS A Unknown Completed [facility] Hep B, Adol or Pedi Dosage Unknown Completed [facility] HPV Unknown Completed [facility] Influenza Virus Vaccine Unknown Completed [facility] MMR Unknown Completed [facility] Pneumococcal 7 Conjugate, PCV7 (Prevnar7) Unknown Completed [facility] Polio (IPV/OPV) Unknown Completed [facility] Varicella (varivax)(chicken pox) Unknown Completed [facility] TDAP Unknown Completed [facility] Meningococcal Oligosaccharide (groups A, C, Y and W-135) conjugate vaccine (MCV4O) Unknown Completed [facility] SARS-COV-2 COVID-19 PFIZER VACCINE Unknown Completed [facility] MMR Unknown Completed [facility] TDAP Unknown Completed [facility] Meningococcal Oligosaccharide (groups A, C, Y and W-135) conjugate vaccine (MCV4O) Unknown Completed [facility] DTAP Unknown Completed [facility] HIB 4 Dose Schedule Unknown Completed [facility] HEPATITIS A Unknown Completed [facility] Hep B, Adol or Pedi Dosage Unknown Completed [facility] HPV Unknown Completed [facility] Influenza Virus Vaccine Unknown Completed [facility] Pneumococcal 7 Conjugate, PCV7 (Prevnar7) Unknown Completed [facility] Polio (IPV/OPV) Unknown Completed [facility] Varicella (varivax)(chicken pox) Unknown Completed [facility] SARS-COV-2 COVID-19 PFIZER VACCINE Unknown Completed [facility] DTAP Unknown Completed [facility] HIB 4 Dose Schedule Unknown Completed [facility] HEPATITIS A Unknown Completed [facility] Hep B, Adol or Pedi Dosage Unknown Completed [facility] HPV Unknown Completed [facility] Influenza Virus Vaccine Unknown Completed [facility] MMR Unknown Completed [facility] Pneumococcal 7 Conjugate, PCV7 (Prevnar7) Unknown Completed [facility] Polio (IPV/OPV) Unknown Completed [facility] Varicella (varivax)(chicken pox) Unknown Completed [facility] TDAP Unknown Completed [facility] Meningococcal Oligosaccharide (groups A, C, Y and W-135) conjugate vaccine (MCV4O) Unknown Completed [facility] SARS-COV-2 COVID-19 PFIZER VACCINE Unknown Completed [facility] MMR Unknown Completed [facility] TDAP Unknown Completed [facility] Meningococcal Oligosaccharide (groups A, C, Y and W-135) conjugate vaccine (MCV4O) Unknown Completed [facility] Influenza Virus Vaccine Quad .5 mL IM 6+ MO (FLUZONE/FLULAVAL/FLU ARIX) Unknown Completed [facility] Meningococcal Polysaccharide (groups A, C, Y and W-135) conjugate vaccine (MCV4P) Unknown Completed [facility] DTAP Unknown Completed [facility] HIB 4 Dose Schedule Unknown Completed [facility] HEPATITIS A Unknown [facility] Hep B, Adol or Pedi Dosage Unknown Completed [facility] HPV Unknown Completed [facility] Influenza Virus Vaccine Unknown Completed [facility] Pneumococcal 7 Conjugate, PCV7 (Prevnar7) Unknown Completed [facility] Polio (IPV/OPV) Unknown Completed [facility] Varicella (varivax)(chicken pox) Unknown Completed [facility] SARS-COV-2 COVID-19 PFIZER VACCINE Unknown Completed [facility] DTaP, Unspecified Formulation Unknown Completed [facility] Influenza Virus Vaccine Nasal Unknown Completed [facility] IPV Unknown Completed [facility] DTAP Unknown Completed [facility] HIB 4 Dose Schedule Unknown Completed [facility] HEPATITIS A Unknown Completed [facility] Hep B, Adol or Pedi Dosage Unknown Completed [facility] HPV Unknown Completed [facility] Influenza Virus Vaccine Unknown Completed [facility] MMR Unknown Completed [facility] Pneumococcal 7 Conjugate, PCV7 (Prevnar7) Unknown Completed [facility] Polio (IPV/OPV) Unknown Completed [facility] Varicella (varivax)(chicken pox) Unknown Completed [facility] TDAP Unknown Completed [facility] Meningococcal Oligosaccharide (groups A, C, Y and W-135) conjugate vaccine (MCV4O) Unknown Completed [facility] SARS-COV-2 COVID-19 PFIZER VACCINE Unknown Completed [facility] DTaP, Unspecified Formulation Unknown Completed [facility] Influenza Virus Vaccine Quad .5 mL IM 6+ MO (FLUZONE/FLULAVAL/FLU ARIX) Unknown Completed [facility] Influenza Virus Vaccine Nasal Unknown Completed [facility] Meningococcal Polysaccharide (groups A, C, Y and W-135) conjugate vaccine (MCV4P) Unknown Completed [facility] IPV Unknown Completed [facility] DTAP Unknown Completed [facility] HIB 4 Dose Schedule Unknown Completed [facility] HEPATITIS A Unknown Completed [facility] Hep B, Adol or Pedi Dosage Unknown Completed [facility] HPV Unknown Completed [facility] Influenza Virus Vaccine Unknown Completed [facility] MMR Unknown Completed [facility] Pneumococcal 7 Conjugate, PCV7 (Prevnar7) Unknown Completed [facility] Polio (IPV/OPV) Unknown Completed [facility] Varicella (varivax)(chicken pox) Unknown Completed [facility] TDAP Unknown Completed [facility] Meningococcal Oligosaccharide (groups A, C, Y and W-135) conjugate vaccine (MCV4O) Unknown Completed [facility] SARS-COV-2 COVID-19 PFIZER VACCINE Unknown Completed [facility] DTaP, Unspecified Formulation Unknown Completed [facility] Influenza Virus Vaccine Quad .5 mL IM 6+ MO (FLUZONE/FLULAVAL/FLU ARIX) Unknown Completed [facility] Influenza Virus Vaccine Nasal Unknown Completed [facility] Meningococcal Polysaccharide (groups A, C, Y and W-135) conjugate vaccine (MCV4P) Unknown Completed [facility] IPV Unknown Completed [facility] DTAP Unknown Completed [facility] HIB 4 Dose Schedule Unknown Completed [facility] HEPATITIS A [facility], Adol or Pedi Dosage Unknown Completed [facility] MMR Unknown Completed [facility] Pneumococcal 7 Conjugate, PCV7 (Prevnar7) Unknown Completed [facility] Polio (IPV/OPV) Unknown Completed [facility] Varicella (varivax)(chicken pox) Unknown Completed [facility] TDAP Unknown Completed [facility] Meningococcal Oligosaccharide (groups A, C, Y and W-135) conjugate vaccine (MCV4O) Unknown Completed [facility] Influenza Virus Vaccine Unknown Completed [facility] SARS-COV-2 COVID-19 PFIZER VACCINE Unknown Completed [facility] HPV Unknown Completed [facility] DTaP, Unspecified Formulation Unknown Completed [facility] Influenza Virus Vaccine Quad .5 mL IM 6+ MO (FLUZONE/FLULAVAL/FLU ARIX) Unknown Completed [facility] Influenza Virus Vaccine Nasal Unknown Completed [facility] Meningococcal Polysaccharide (groups A, C, Y and W-135) conjugate vaccine (MCV4P) Unknown Completed [facility] IPV Unknown Completed [facility] DTAP Unknown Completed [facility] HIB 4 Dose Schedule Unknown Completed [facility] HEPATITIS A Unknown [facility] Hep B, Adol or Pedi Dosage Unknown Completed [facility] HPV Unknown Completed [facility] Influenza Virus Vaccine Unknown Completed [facility] MMR Unknown Completed [facility] Pneumococcal 7 Conjugate, PCV7 (Prevnar7) Unknown Completed [facility] Polio (IPV/OPV) Unknown Completed [facility] Varicella (varivax)(chicken pox) Unknown Completed [facility] TDAP Unknown Completed [facility] Meningococcal Oligosaccharide (groups A, C, Y and W-135) conjugate vaccine (MCV4O) Unknown Completed [facility] SARS-COV-2 COVID-19 PFIZER VACCINE Unknown Completed [facility] DTaP, Unspecified Formulation Unknown Completed [facility] Influenza Virus Vaccine Quad .5 mL IM 6+ MO (FLUZONE/FLULAVAL/FLU ARIX) Unknown Completed [facility] Influenza Virus Vaccine Nasal Unknown Completed [facility] Meningococcal Polysaccharide (groups A, C, Y and W-135) conjugate vaccine (MCV4P) Unknown Completed [facility] IPV Unknown Completed [facility] DTAP Unknown Completed [facility] HIB 4 Dose Schedule Unknown Completed [facility] HEPATITIS A Unknown [facility] Hep B, Adol or Pedi Dosage Unknown Completed [facility] HPV Unknown Completed [facility] Influenza Virus Vaccine Unknown Completed [facility] MMR Unknown Completed [facility] Pneumococcal 7 Conjugate, PCV7 (Prevnar7) Unknown Completed [facility] Polio (IPV/OPV) Unknown Completed [facility] Varicella (varivax)(chicken pox) Unknown Completed [facility] TDAP Unknown Completed [facility] Meningococcal Oligosaccharide (groups A, C, Y and W-135) conjugate vaccine (MCV4O) Unknown Completed [facility] SARS-COV-2 COVID-19 PFIZER VACCINE Unknown Completed [facility] DTaP, Unspecified Formulation Unknown Completed [facility] Influenza Virus Vaccine Quad .5 mL IM 6+ MO (FLUZONE/FLULAVAL/FLU ARIX) Unknown Completed [facility] Influenza Virus Vaccine Nasal Unknown Completed [facility] Meningococcal Polysaccharide (groups A, C, Y and W-135) conjugate vaccine (MCV4P) Unknown Completed [facility] IPV Unknown Completed [facility] DTAP Unknown Completed [facility] HIB 4 Dose Schedule Unknown Completed [facility] HEPATITIS A Unknown Completed [facility] Hep B, Adol or Pedi Dosage Unknown Completed [facility] HPV Unknown Completed [facility] Influenza Virus Vaccine Unknown Completed [facility] MMR Unknown Completed [facility] Pneumococcal 7 Conjugate, PCV7 (Prevnar7) Unknown Completed [facility] Polio (IPV/OPV) Unknown Completed [facility] Varicella (varivax)(chicken pox) Unknown Completed [facility] TDAP Unknown Completed [facility] Meningococcal Oligosaccharide (groups A, C, Y and W-135) conjugate vaccine (MCV4O) Unknown Completed [facility] SARS-COV-2 COVID-19 PFIZER VACCINE Unknown Completed [facility] DTaP, Unspecified Formulation Unknown Completed [facility] Influenza Virus Vaccine Quad .5 mL IM 6+ MO (FLUZONE/FLULAVAL/FLU ARIX) Unknown Completed [facility] Influenza Virus Vaccine Nasal Unknown Completed [facility] Meningococcal Polysaccharide (groups A, C, Y and W-135) conjugate vaccine (MCV4P) Unknown Completed [facility] IPV Unknown Completed [facility] DTAP Unknown Completed [facility] HIB 4 Dose Schedule Unknown Completed [facility] HEPATITIS A Unknown Completed [facility] Hep B, Adol or Pedi Dosage Unknown Completed [facility] HPV Unknown Completed [facility] Influenza Virus Vaccine Unknown Completed [facility] MMR Unknown Completed [facility] Pneumococcal 7 Conjugate, PCV7 (Prevnar7) Unknown Completed [facility] Polio (IPV/OPV) Unknown Completed [facility] Varicella (varivax)(chicken pox) Unknown Completed [facility] TDAP Unknown Completed [facility] Meningococcal Oligosaccharide (groups A, C, Y and W-135) conjugate vaccine (MCV4O) Unknown Completed [facility] SARS-COV-2 COVID-19 PFIZER VACCINE Unknown Completed [facility] DTaP, Unspecified Formulation Unknown Completed [facility] Influenza Virus Vaccine Quad .5 mL IM 6+ MO (FLUZONE/FLULAVAL/FLU ARIX) Unknown Completed [facility] Influenza Virus Vaccine Nasal Unknown Completed [facility] Meningococcal Polysaccharide (groups A, C, Y and W-135) conjugate vaccine (MCV4P) Unknown Completed [facility] IPV Unknown Completed [facility] Vital Signs Vital Name Observation Time Observation Value Comments Joie carreon Systolic blood pressure 2023-11-07 19:43:00 129 mm[Hg] [facility] Diastolic blood pressure 2023-11-07 19:43:00 79 mm[Hg] [facility] Heart rate 2023-11-07 19:43:00 81 /min [facility] Body temperature 2023-11-07 19:43:00 36.89 Jackie [facility] Respiratory rate 2023-11-07 19:43:00 18 /min [facility] Body height 2023-11-07 19:43:00 154.9 cm [facility] Body weight 2023-11-07 19:43:00 78.291 kg [facility] BMI 2023-11-07 19:43:00 32.61 kg/m2 [facility] Systolic blood pressure 2023-09-08 13:12:00 107 mm[Hg] [facility] Diastolic blood pressure 2023-09-08 13:12:00 61 mm[Hg] [facility] Heart rate 2023-09-08 13:11:00 83 /min [facility] Body height 2023-09-08 13:11:00 154.9 cm [facility] Body weight 2023-09-08 13:11:00 77.202 kg [facility] BMI 2023-09-08 13:11:00 32.16 kg/m2 [facility] Systolic blood pressure 2023-07-17 13:11:00 123 mm[Hg] [facility] Diastolic blood pressure 2023-07-17 13:11:00 75 mm[Hg] [facility] Heart rate 2023-07-17 13:11:00 79 /min [facility] Body temperature 2023-07-17 13:11:00 36.83 Jackie [facility] Body height 2023-07-17 13:11:00 154.9 cm [facility] Body weight 2023-07-17 13:11:00 76.386 kg [facility] BMI 2023-07-17 13:11:00 31.82 kg/m2 [facility] Systolic blood pressure 2023-02-16 14:30:00 120 mm[Hg] [facility] Diastolic blood pressure 2023-02-16 14:30:00 79 mm[Hg] [facility] Heart rate 2023-02-16 14:30:00 77 /min [facility] Body temperature 2023-02-16 14:30:00 36.94 Jackie [facility] Respiratory rate 2023-02-16 14:30:00 16 /min [facility] Body height 2023-02-16 14:30:00 154.9 cm [facility] Body weight 2023-02-16 14:30:00 74.435 kg [facility] BMI 2023-02-16 14:30:00 31.01 kg/m2 [facility] Oxygen saturation in Arterial blood by Pulse oximetry 2023-02-16 14:30:00 100 /min [facility] Systolic blood pressure 2022-12-23 20:36:00 136 mm[Hg] [facility] Diastolic blood pressure 2022-12-23 20:36:00 85 mm[Hg] [facility] Heart rate 2022-12-23 20:36:00 99 /min [facility] Respiratory rate 2022-12-23 20:36:00 18 /min [facility] Body height 2022-12-23 20:36:00 154.9 cm [facility] Body weight 2022-12-23 20:36:00 75.297 kg [facility] BMI 2022-12-23 20:36:00 31.37 kg/m2 [facility] Systolic blood pressure 2022-11-24 16:40:00 135 mm[Hg] [facility] Diastolic blood pressure 2022-11-24 16:40:00 89 mm[Hg] [facility] Heart rate 2022-11-24 16:40:00 88 /min [facility] Respiratory rate 2022-11-24 16:40:00 18 /min [facility] Body height 2022-11-24 16:40:00 154.9 cm [facility] 2022-11-24 16:40:00 72.576 [facility] 2022-11-24 16:40:00 30.23 kg/m2 [facility] Systolic blood pressure 2022-10-25 15:47:00 126 mm[Hg] [facility] Diastolic blood pressure 2022-10-25 15:47:00 82 mm[Hg] [facility] Body temperature 2022-10-25 15:47:00 37.17 Jackie [facility] Respiratory rate 2022-10-25 15:47:00 18 /min [facility] Body height 2022-10-25 15:47:00 154.9 cm [facility] Body weight 2022-10-25 15:47:00 73.029 kg [facility] BMI 2022-10-25 15:47:00 30.42 kg/m2 [facility] Systolic blood pressure 2022-10-18 15:15:00 129 mm[Hg] [facility] Diastolic blood pressure 2022-10-18 15:15:00 86 mm[Hg] [facility] Heart rate 2022-10-18 15:15:00 96 /min [facility] Body temperature 2022-10-18 15:15:00 36.78 Jackie [facility] Body height 2022-10-18 15:15:00 154.9 cm [facility] Body weight 2022-10-18 15:15:00 71.487 [facility] BMI 2022-10-18 15:15:00 29.78 kg/m2 [facility] Systolic blood pressure 2022-07-13 14:25:00 120 mm[Hg] [facility] Diastolic blood pressure 2022-07-13 14:25:00 81 mm[Hg] [facility] Heart rate 2022-07-13 14:25:00 87 /min [facility] Body temperature 2022-07-13 14:25:00 36.67 Jackie [facility] Respiratory rate 2022-07-13 14:25:00 18 /min [facility] Body height 2022-07-13 14:25:00 154.9 cm [facility] Body weight 2022-07-13 14:25:00 70.126 kg [facility] BMI 2022-07-13 14:25:00 29.21 kg/m2 [facility] Oxygen saturation in Arterial blood by Pulse oximetry 2022-07-13 14:25:00 99 /min [facility] Systolic blood pressure 2022-07-01 13:17:00 129 mm[Hg] [facility] Diastolic blood pressure 2022-07-01 13:17:00 71 mm[Hg] [facility] Heart rate 2022-07-01 13:17:00 86 /min [facility] Respiratory rate 2022-07-01 13:17:00 18 /min [facility] Body height 2022-07-01 13:17:00 154.9 cm [facility] Body weight 2022-07-01 13:17:00 71.169 kg [facility] BMI 2022-07-01 13:17:00 29.65 kg/m2 [facility] Oxygen saturation in Arterial blood by Pulse oximetry 2022-07-01 13:17:00 99 /min [facility] Systolic blood pressure 2021-07-12 14:42:00 120 mm[Hg] [facility] Diastolic blood pressure 2021-07-12 14:42:00 80 mm[Hg] [facility] Heart rate 2021-07-12 14:42:00 83 /min [facility] Body temperature 2021-07-12 14:42:00 36.67 Jackie [facility] Respiratory rate 2021-07-12 14:42:00 18 /min [facility] Body height 2021-07-12 14:42:00 154.9 cm [facility] Body weight 2021-07-12 14:42:00 71.668 kg [facility] BMI 2021-07-12 14:42:00 29.85 kg/m2 [facility] Body mass index (BMI) [Percentile] Per age and sex 2021-07-12 14:42:00 93.09 % [facility] Procedures Procedure Date / Time Performed Performing Clinician Source POCT TEST 2022-12-23 00:00:00 Monique Herbert [facility] 2022-11-24 05:01:00 Doc tor Unassigned, [place] [facility] POCT TEST 2022-11-24 00:00:00 Monique Herbert [facility] DISCLOSURE AND CONSENT MEDICAL & SURGICAL PROCEDURES - FEMALM 2022-10-25 05:01:00 Doctor Unassigned, [place] [facility] POCT TEST 2022-10-25 00:00:00 Monique Herbert [facility] CONSENT FOR CONTRACEPTION 2022-07-13 05:01:00 Doctor Unassigned, [place] [facility] POCT URINALYSIS 2022-07-01 13:22:00 Zara Herbert [facility] ASSIGNMENT OF BENEFITS 2022-07-01 13:04:58 Docto r Unassigned, [place] [facility] CONSENT FOR CONTRACEPTION 2021-07-12 05:01:00 Doctor Unassigned, [place] [facility] Encounters Start Date/Time End Date/Time Encounter Type Admission Type Attending Clinicians Care Facility Care Department Encounter ID Source 2021-01-08 09:31:05 Outpatient P [facility] LEXI [id number] [facility] 2024-01-05 08:30:00 2024-01-05 08:30:00 Outpatient R SUZI MOYA [facility] [id number] [facility] 2023-12-07 13:00:00 2023-12-07 13:00:00 Outpatient R SUZI MOYA [facility] [id number] [facility] 2023-11-15 09:30:00 2023-11-15 09:30:00 Outpatient R ADUMSUZI [facility]IV[facility] [id number] [facility] 2023-11-07 15:15:00 2023-11-07 15:30:00 Supervisor Vat House Visit 2, Adc Lab AdumSuzi 2, Adc Lab [facility] 1.2.840.114 350.1.13.10 4.2.7.2.686 [id number] [facility] 2023-11-07 15:15:00 2023-11-07 15:15:00 Outpatient R ADSUZI DAS [facility] [id number] [facility] 2023-11-07 00:00:00 2023-11-07 15:02:59 Letter (Out) Suzi Moya [facility] 1.2.840.114 350.1.13.10 4.2.7.2.686 [id number] 134 [id number] [facility] 2023-11-07 14:00:00 2023-11-07 14:59:22 Office Visit Suzi Moya [facility] 1.2.840.114 350.1.13.10 4.2.7.2.686 [id number] 134 [id number] [facility] 2023-09-08 11:45:00 2023-09-08 12:00:00 Supervisor Vat House Visit 2, Adc Lab Suzi Moya [facility] 1.2.840.114 350.1.13.10 4.2.7.2.686 [id number] [facility] 2023-09-08 11:45:00 2023-09-08 11:45:00 [facility] [id number] [facility] 2023-09-08 08:00:00 2023-09-08 08:22:22 [facility] Visit [facility] 1.2.840.114 350.1.13.10 4.2.7.2.686 [id number] 134 [id number] [facility] 2023-07-17 09:00:00 2023-07-17 09:15:00 Supervisor Vat House Visit 2, Adc Lab Luis Rice [facility] NAL BUILD[facility] 1.2.840.114 350.1.13.10 4.2.7.2.686 [id number] [facility] 2023-07-17 00:00:00 2023-07-17 09:05:17 Letter (Out) Luis Rice [facility] 1.2.840.114 350.1.13.10 4.2.7.2.686 [id number] 134 [id number] [facility] 2023-07-17 08:00:00 2023-07-17 08:30:07 Outpatient R LUIS RICE [facility] [id number] [facility] 2023-07-17 08:00:00 2023-07-17 08:30:07 Office Visit Luis Rice [facility] 1.2.840.114 350.1.13.10 4.2.7.2.686 [id number] [facility] 2023-04-10 13:30:00 2023-04-10 13:30:00 Outpatient R JUAREZ-EMETERIO S, MONIQUE JUAREZ-EMETERIO S, MONIQUE [facility] [id number] [facility] 2023-02-16 08:30:00 2023-02-16 08:57:21 Outpatient R JUAREZ-EMETERIO S, MONIQUE JUAREZ-EMETERIO S, MONIQUE [facility] [id number] [facility] 2023-02-16 08:30:00 2023-02-16 08:57:21 Office Visit Zara Chandsol [facility] 1.2.840.114 350.1.13.10 4.2.7.2.686 [id number] 134 [id number] [facility] 2023-02-16 00:00:00 2023-02-16 00:00:00 Letter (Out) Kary salter [facility] 1.2.840.114 350.1.13.10 4.2.7.2.686 [id number] 134 [id number] [facility] 2022-12-23 16:30:00 2022-12-23 16:30:00 Outpatient R [facility] [id number] [facility] 2022-12-23 16:30:00 2022-12-23 16:30:00 Supervisor Vat House Visit Lab, Ang - [facility] 1.2.840.114 350.1.13.10 4.2.7.2.686 [id number] 353 [id number] [facility] 2022-12-23 15:30:00 2022-12-23 15:49:47 Office Visit Kary salter [facility] 1.2.840.114 350.1.13.10 4.2.7.2.686 [id number] 134 [id number] [facility] 2022-12-23 00:00:00 2022-12-23 00:00:00 Letter (Out) Kary salter [facility] 1.2.840.114 350.1.13.10 4.2.7.2.686 [id number] 134 [id number] [facility] 2022-12-23 00:00:00 2022-12-23 00:00:00 Telephone Juarez-Emeterio sZaraMonique [facility] 1..114 350.1.13.10 4.2.7.2.686 [id number] 134 [id number] [facility] 2022-11-24 12:45:00 2022-11-24 13:00:00 Supervisor Vat House Visit Lab, Timbo - Vinnie [facility]io [facility], [facility] 1..114 350.1.13.10 4.2.7.2.686 [id number] [facility] 2022-11-24 12:45:00 2022-11-24 12:45:00 Outpatient R JUAREZ-EMETERIO S, MONIQUE JUAREZ-EMETERIO S, MONIQUE [facility] [id number] [facility] 2022-11-24 11:30:00 2022-11-24 12:04:33 [facility].114 350.1.13.10 4.2.7.2.686 [id number] 134 [id number] [facility] 2022-11-24 00:00:00 2022-11-24 00:00:00 Orders Only Doctor Unassigned, Kenyon [facility] 1..114 350.1.13.10 4.2.7.2.686 [id number] [facility] 2022-10-25 11:00:00 2022-10-25 11:47:43 Outpatient R JUAREZ-EMETERIO S, MONIQUE JUAREZ-EMETERIO S, MNOIQUE [facility] [id number] [facility] 2022-10-25 11:00:00 2022-10-25 11:47:43 [facility] 1.2.840.114 350.1.13.10 4.2.7.2.686 [id number] 134 [id number] [facility] 2022-10-25 00:00:00 2022-10-25 00:00:00 Letter (Out) JuarezLancei joie Monique [facility] 1.2.840.114 350.1.13.10 4.2.7.2.686 [id number] 134 [id number] [facility] 2022-10-25 00:00:00 2022-10-25 00:00:00 Orders Only Doctor Unassigned, Kenyon [facility] 1.2840.114 350.1.13.10 4.2.7.2.686 [id number] [facility] 2022-10-18 10:30:00 2022-10-18 10:30:00 Office Visit Kary salter Monique [facility] 1.2840.114 350.1.13.10 4.2.7.2.686 [id number] 134 [id number] [facility] 2022-10-18 10:30:00 2022-10-18 10:28:14 Outpatient R JUAREZ-EMETERIO S, MONIQUE JUAREZ-EMETERIO S, MONIQUE [facility] [id number] [facility] 2022-10-18 00:00:00 2022-10-18 00:00:00 Letter (Out) Kary salter Monique [facility] 1.2.840.114 350.1.13.10 4.2.7.2.686 [id number] [facility] 2022-07-14 00:00:00 2022-07-14 00:00:00 Case Management Luis Rice [facility] 1.2.840.114 350.1.13.10 4.2.7.2.686 [id number] [facility] 2022-07-13 10:15:00 2022-07-13 10:30:00 Supervisor Vat House Visit 2, Adc Lab Luis Rice [facility] NAL BUILD[facility] 1.2840.114 350.1.13.10 4.2.7.2.686 [id number] [facility] 2022-07-13 09:30:00 2022-07-13 09:51:41 Outpatient R [facility] [facility] [id number] [facility] 2022-07-13 09:30:00 2022-07-13 09:51:41 Office Visit Luis Rice [facility] BUILDING 1.2840.114 350.1.13.10 4.2.7.2.686 [id number] 134 [id number] [facility] 2022-07-13 00:00:00 2022-07-13 00:00:00 Letter (Out) Luis Rice [facility] BUILDING 1.20.114 350.1.13.10 4.2.7.2.686 [id number] 134 [id number] [facility] 2022-07-13 00:00:00 2022-07-13 00:00:00 Orders Only Doctor Unassigned, Kenyon [facility] 1.20.114 350.1.13.10 4.2.7.2.686 [id number] [facility] 2022-07-04 00:00:00 2022-07-04 00:00:00 Telephone Monique Chand [facility] 1.20.114 350.1.13.10 4.2.7.2.686 [id number] 134 [id number] [facility] 2022-07-01 08:00:00 2022-07-01 08:47:31 Outpatient R MONIQUE CHAND KARY Salter, MONIQUE [facility] [id number] [facility] 2022-07-01 08:00:00 2022-07-01 08:47:31 Office Visit Monique Chand [facility] 1.840.114 350.1.13.10 4.2.7.2.686 [id number] 134 [id number] [facility] 2022-07-01 00:00:00 2022-07-01 00:00:00 Orders Only Doctor Unassigned, Kenyon [facility] 1.2840.114 350.1.13.10 4.2.7.2.686 [id number] [id number] [facility] 2021-07-12 10:45:00 2021-07-12 11:00:00 Supervisor Vat House Visit 2, Adc Lab Luis Rice [facility] BUILDING 1.2840.114 350.1.13.10 4.2.7.2.686 [id number] [facility] 2021-07-12 09:30:00 2021-07-12 10:07:49 Outpatient R LUIS RICE [facility] [id number] [facility] 2021-07-12 09:30:00 2021-07-12 10:07:49 Office Visit Luis Rice [facility] BUILDING 1..840.114 350.1.13.10 4.2.7.2.686 [id number] 134 [id number] [facility] 2021-07-12 09:30:00 2021-07-12 09:30:00 Outpatient LUIS PALMA [facility] [id number] [facility] 2021-07-12 09:30:00 2021-07-12 09:30:00 Outpatient LUIS PALMA [facility] [id number] [facility] 2021-07-12 00:00:00 2021-07-12 00:00:00 Letter (Out) Luis Rice [facility] BUILDING 1.84114 350.1.13.10 4.2.7.2.686 [id number] 134 [id number] [facility] 2021-07-12 00:00:00 2021-07-12 00:00:00 Orders Only Doctor Unassigned, Kenyon [facility] 1.114 350.1.13.10 4.2.7.2.686 [id number] [id number] [facility] 2021-07-05 08:00:00 2021-07-05 08:00:00 Outpatient R LUIS RICE [facility] [id number] [facility] 2021-05-17 00:00:00 2021-05-17 00:00:00 Refill Rice Luis [facility] BUILDING 1.84114 350.1.13.10 4.2.7.2.686 [id number] 134 [id number] [facility] 2021-03-16 12:00:00 2021-03-16 12:15:00 Laboratory Only Only, Ang Db Test Robycande [facility]?SHANA [facility] MEDICAL OFFICE BUILDING 1.84.114 350.1.13.10 4.2.7.2.686 [id number] [facility] 2021-03-16 12:00:00 2021-03-16 12:00:00 Outpatient R OLIVE [facility] [id number] [facility] 2021-03-11 14:00:00 2021-03-11 14:15:00 Laboratory Only Only, Ang Db Test [facility] MED[facility] BUILDING 1.84.114 350.1.13.10 4.2.7.2.686 [id number] [facility] 2021-03-11 14:00:00 2021-03-11 14:00:00 Outpatient R JIMMY MELLO [facility] [id number] [facility] 2021-01-28 15:59:35 2021-01-28 16:42:18 Office Visit Luis Rice [facility] 1.840.114 350.1.13.10 4.2.7.2.686 [id number] 134 [id number] [facility] 2021-01-28 15:45:00 2021-01-28 16:42:18 Outpatient Janette FIELD [facility] [id number] [facility] 2021-01-28 15:45:00 2021-01-28 15:45:00 Outpatient Janette FIELD [facility] [id number] [facility] 2021-01-28 00:00:00 2021-01-28 00:00:00 Orders Only Doctor Unassigned, Kenyon [facility] ..114 350.1.13.10 4.2.7.2.686 [id number] [id number] [facility] 2020-12-17 09:03:03 2020-12-17 09:50:58 Office Visit Suzi Moya [facility] 1.840.114 350.1.13.10 4.2.7.2.686 [id number] 134 [id number] [facility] 2020-12-17 09:00:00 2020-12-17 09:00:00 Outpatient R SUZI MOYA [facility] [id number] [facility] 2020-11-27 00:00:00 2020-11-27 00:00:00 Case Management Jazz Moyaian Ajay [facility] 1.840.114 350.1.13.10 4.2.7.2.686 [id number] 134 [id number] [facility] 2020-11-27 00:00:00 2020-11-27 00:00:00 Telephone Adum, Suzi Moss [facility] 1.2.840.114 350.1.13.10 4.2.7.2.686 [id number] 134 [id number] [facility] 2020-11-25 00:00:00 2020-11-25 00:00:00 Case Management Adum, Suzi Moss [facility] 1.2.840.114 350.1.13.10 4.2.7.2.686 [id number] 134 [id number] [facility] 2020-11-25 00:00:00 2020-11-25 00:00:00 Telephone Adum, Suzi Moss [facility] 1.2.840.114 350.1.13.10 4.2.7.2.686 [id number] 134 [id number] [facility] 2020-11-19 12:54:20 2020-11-19 13:35:54 Office Visit AdSuzi das [facility] 1.2.840.114 350.1.13.10 4.2.7.2.686 [id number] 134 [id number] [facility] 2020-11-19 13:00:00 2020-11-19 13:00:00 Outpatient R ADPIPPA, SUZI [facility] [id number] [facility] 2020-11-19 00:00:00 2020-11-19 00:00:00 Orders Only Doctor Unassigned, Kenyon [facility] 1.2.840.114 350.1.13.10 4.2.7.2.686 [id number] [id number] [facility] 2020-11-19 00:00:00 2020-11-19 00:00:00 Orders Only Doctor Unassigned, Kenyon [facility] 1..840.114 350.1.13.10 4.2.7.2.686 [id number] [facility] 2020-10-21 11:00:00 2020-10-21 11:00:00 Outpatient PREET BRIGHT [facility] [id number] [facility] 2020-09-08 10:32:07 2020-09-08 11:02:07 Office Visit Luis Rice Bossman SolomonpippaSuzi [facility] Building 1..840.114 350.1.13.10 4.2.7.2.686 [id number] [facility] 2020-09-08 10:30:00 2020-09-08 10:30:00 Outpatient SUZI GRAFF [facility] [id number] [facility] 2020-07-20 10:15:00 2020-07-20 10:15:00 Outpatient PREET BRIGHT [facility] [id number] [facility] 2020-07-09 15:12:08 2020-07-09 16:41:32 Office Visit Luis Rice [facility] Building 1..840.114 350.1.13.10 4.2.7.2.686 [id number] [facility] 2020-07-09 15:00:00 2020-07-09 15:00:00 Outpatient R DWAYNE LUIS [facility] [id number] [facility] 2020-07-06 00:00:00 2020-07-06 00:00:00 Telephone Luis Rice [facility] Building 1.2.840.114 350.1.13.10 4.2.7.2.686 [id number] 134 [id number] [facility] 2020-06-02 00:00:00 2020-06-02 00:00:00 Patient Outreach Anthony Bergman [facility] 1.20.114 350.1.13.10 4.2.7.2.686 [id number] [facility] 2020-01-20 10:28:24 2020-01-20 10:43:24 Office Visit Preet Mayberry [facility] Office Building One 1.2840.114 350.1.13.10 4.2.7.2.686 [id number] [facility] 2020-01-20 10:30:00 2020-01-20 10:30:00 Outpatient R PREET MAYBERRY [facility] [id number] [facility] 2020-01-08 09:00:00 2020-01-08 09:00:00 Outpatient R [facility] [id number] [facility] 2019-12-25 09:30:20 2019-12-25 10:00:20 Office Visit Preet Mayberry [facility] Office Building One 1.114 350.1.13.10 4.2.7.2.686 [id number] [facility] 2019-12-25 09:30:00 2019-12-25 09:30:00 Outpatient R PREET MAYBERRY [facility] [id number] [facility] 2019-12-09 13:46:42 2019-12-16 15:20:20 Office Visit Victorino Rouse [facility] Building 1.2114 350.1.13.10 4.2.7.2.686 [id number] [facility] 2019-12-16 00:00:00 2019-12-16 00:00:00 Telephone Victorino Rouse [facility] Building 1.2840.114 350.1.13.10 4.2.7.2.686 [id number] [facility] 2019-12-09 14:00:00 2019-12-09 14:00:00 Outpatient R VICTORINO ROUSE [facility] [id number] [facility] 2019-11-27 10:29:31 2019-11-27 11:14:39 Office Visit Luis Rice [facility] 1..114 350.1.13.10 4.2.7.2.686 [id number] 134 [id number] [facility] 2019-11-27 10:30:00 2019-11-27 10:30:00 Outpatient R LUIS RICE [facility] [id number] [facility] 2019-11-21 08:56:57 2019-11-21 09:44:36 Office Visit Yola Henriquez [facility] & CHILD [facility] 1..114 350.1.13.10 4.2.7.2.686 [id number] [facility] 2019-11-21 09:00:00 2019-11-21 09:00:00 Outpatient R YOLA HENRIQUEZ [facility] [id number] [facility] 2019-11-21 00:00:00 2019-11-21 00:00:00 Orders Only Doctor Unassigned, Kenyon [facility] .114 350.1.13.10 4.2.7.2.686 [id number] [id number] [facility] 2019-11-20 00:00:00 2019-11-20 00:00:00 Telephone Yola Henriquez [facility] ..114 350.1.13.10 4.2.7.2.686 [id number] [facility] 2019-11-12 00:00:00 2019-11-12 00:00:00 Telephone Luis Rice [facility] 1.0.114 350.1.13.10 4.2.7.2.686 [id number] 134 [id number] [facility] 2019-11-12 00:00:00 2019-11-12 00:00:00 Telephone Luis Rice [facility] Yamilet Barros nal Building 1.2.840.114 350.1.13.10 4.2.7.2.686 [id number] 134 [id number] [facility] 2019-11-12 00:00:00 2019-11-12 00:00:00 Telephone Luis Rice [facility] Yamilet Barros [facility] Building 1.2.840.114 350.1.13.10 4.2.7.2.686 [id number] 134 [id number] [facility] 2019-11-12 00:00:00 2019-11-12 00:00:00 Patient Secure Msg Doctor Unassigned, Kenyon [facility] 1.2.840.114 350.1.13.10 4.2.7.2.686 [id number] 134 [id number] [facility] 2019-11-12 00:00:00 2019-11-12 00:00:00 Telephone Luis Rice [facility] Yamilet Barros nal Building 1.2.840.114 350.1.13.10 4.2.7.2.686 [id number] 134 [id number] 2019-11-12 00:00:00 2019-11-12 00:00:00 Telephone Luis Rice [facility] Yamilet Barros nal Building 1.2.840.114 350.1.13.10 4.2.7.2.686 [id number] 134 [id number] 2019-11-12 00:00:00 2019-11-12 00:00:00 Telephone Luis Rice [facility] Yamilet Barros [facility] Building 1.2.840.114 350.1.13.10 4.2.7.2.686 [id number] 134 [id number] 2019-10-30 09:25:33 2019-10-30 11:02:55 Office Visit Luis Rice [facility] 1.2.840.114 350.1.13.10 4.2.7.2.686 [id number] 134 [id number] [facility] 2019-10-30 09:25:33 2019-10-30 11:02:55 Office Visit Luis Rice [facility] 1.2.840.114 350.1.13.10 4.2.7.2.686 [id number] 134 [id number] 2019-10-30 09:30:00 2019-10-30 09:30:00 Outpatient R LUIS RICE [facility] [id number] [facility] 2019-10-28 10:45:00 2019-10-28 10:45:00 Outpatient R LUIS RICE [facility] [id number] [facility] 2019-10-23 13:25:39 2019-10-23 14:04:18 Routine Visit Luis Rice [facility] 1.2.840.114 350.1.13.10 4.2.7.2.686 [id number] 134 [id number] [facility] 2019-10-23 13:30:00 2019-10-23 13:30:00 Outpatient R LUIS RICE [facility] [id number] [facility] 2019-10-23 09:00:00 2019-10-23 09:00:00 [facility] [id number] 2019-10-23 00:00:00 2019-10-23 00:00:00 Orders Only Doctor Unassigned, Kenyon [facility] 1.2.840.114 350.1.13.10 4.2.7.2.686 [id number] [facility] 2019-10-22 00:00:00 2019-10-22 00:00:00 Telephone Rice, Luis Cam [facility] Professio nal Building 1.2.840.114 350.1.13.10 4.2.7.2.686 [id number] 134 [id number] [facility] 2019-10-09 10:04:00 2019-10-10 21:15:00 Hospital Encounter Luis Rice [facility] 1.2.840.114 350.1.13.10 4.2.7.2.686 [id number] [facility] 2019-10-10 00:00:00 2019-10-10 00:00:00 Refill Luis Rice [facility] Professio nal Building 1.2.840.114 350.1.13.10 4.2.7.2.686 [id number] 134 [id number] [facility] 2019-10-09 10:04:00 2019-10-09 10:04:00 Outpatient P LUIS RICE [facility] LEXI [id number] [facility] 2019-10-09 08:50:40 2019-10-09 09:47:51 Routine Visit Luis Rice [facility] Professio nal Building 1.2.840.114 350.1.13.10 4.2.7.2.686 [id number] [facility] 2019-10-09 09:00:00 2019-10-09 09:00:00 Outpatient R LUIS RICE [facility] [id number] [facility] 2019-10-08 16:30:00 2019-10-08 23:59:00 Hospital Encounter Luis Rice [facility] 1.2.840.114 350.1.13.10 4.2.7.2.686 [id number] [facility] 2019-10-08 15:45:00 2019-10-08 15:45:00 Outpatient R LUIS RICE [facility] [id number] [facility] 2019-10-08 00:00:00 2019-10-08 00:00:00 Outpatient R LUIS RICE [facility] [id number] [facility] 2019-10-08 00:00:00 2019-10-08 00:00:00 Orders Only Doctor Unassigned, Kenyon [facility] 1.2.840.114 350.1.13.10 4.2.7.2.686 [id number] [facility] 2019-10-07 15:52:52 2019-10-07 16:47:16 Routine Visit Room, [facility] Luis Rice [facility] Building 1.2.840.114 350.1.13.10 4.2.7.2.686 [id number] 134 [id number] [facility] 2019-10-07 15:00:00 2019-10-07 15:00:00 Outpatient R [facility] [id number] [facility] 2019-10-07 00:00:00 2019-10-07 00:00:00 Telephone Luis Rice [facility] Building 1.2.840.114 350.1.13.10 4.2.7.2.686 [id number] [facility] 2019-10-01 00:00:00 2019-10-01 00:00:00 Telephone Luis Rice [facility] Building 1.2.840.114 350.1.13.10 4.2.7.2.686 [id number] 134 [id number] [facility] 2019-09-30 08:44:27 2019-09-30 11:34:24 Telemedici ne Wayne Bustos [facility] Building 1.2.840.114 350.1.13.10 4.2.7.2.686 [id number] 134 [id number] [facility] 2019-09-30 11:30:00 2019-09-30 11:30:00 Outpatient R VANWAYNE MAI [facility] [id number] [facility] 2019-09-25 00:00:00 2019-09-25 00:00:00 Refill Luis Rice [facility] Building 1.2.114 350.1.13.10 4.2.7.2.686 [id number] 134 [id number] [facility] 2019-09-11 08:22:17 2019-09-11 09:25:31 Supervisor Vat House Visit Ultrasound, Dylan Parham [facility] 1..114 350.1.13.10 4.2.7.2.686 [id number] [facility] 2019-09-11 08:30:00 2019-09-11 08:30:00 Outpatient P [facility] [id number] [facility] 2019-09-02 11:32:22 2019-09-02 12:17:09 Routine Visit Luis Rice [facility] 1..114 350.1.13.10 4.2.7.2.686 [id number] 134 [id number] [facility] 2019-09-02 11:30:00 2019-09-02 11:30:00 Outpatient R LUIS RICE [facility] [id number] [facility] 2019-08-20 00:00:00 2019-08-20 00:00:00 Orders Only Doctor Unassigned, Kenyon [facility] 1..114 350.1.13.10 4.2.7.2.686 [id number] [facility] 2019-08-07 11:38:10 2019-08-07 11:53:10 Supervisor Vat House Visit 2, Adc Lab Luis Rice [facility] Building 1..114 350.1.13.10 4.2.7.2.686 [id number] [facility] 2019-08-07 11:45:00 2019-08-07 11:45:00 Outpatient R [facility] [id number] [facility] 2019-08-01 14:15:00 2019-08-01 14:15:00 Outpatient R WAYNE FIELD [facility] [id number] [facility] 2019-08-01 09:15:00 2019-08-01 09:15:00 Outpatient R BENITO, ROSPHYLICIA [facility] [id number] [facility] 2019-08-01 08:10:47 2019-08-01 08:25:47 Telemedici ne Visit Wayne Field [facility] 1.2.840.114 350.1.13.10 4.2.7.2.686 [id number] 134 [id number] [facility] 2019-07-15 00:00:00 2019-07-15 00:00:00 Telephone Luis Rice [facility] 1.2.840.114 350.1.13.10 4.2.7.2.686 [id number] 134 [id number] [facility] 2019-07-10 00:00:00 2019-07-10 00:00:00 Telephone Luis Rice [facility] Building 1.2.840.114 350.1.13.10 4.2.7.2.686 [id number] 134 [id number] [facility] 2019-07-05 08:36:47 2019-07-05 08:51:47 Supervisor Vat House Visit 2, Adc Lab Luis Rice [facility] Building 1.2.840.114 350.1.13.10 4.2.7.2.686 [id number] [facility] 2019-07-05 08:45:00 2019-07-05 08:45:00 Outpatient R LUIS RICE [facility] [id number] [facility] 2019-07-04 07:57:41 2019-07-04 13:41:52 Telemedici ne Visit Luis Rice Bossman [facility] 1..840.114 350.1.13.10 4.2.7.2.686 [id number] 134 [id number] [facility] 2019-07-04 11:00:00 2019-07-04 11:00:00 Outpatient R LUIS RICE [facility] [id number] [facility] 2019-07-02 00:00:00 2019-07-02 00:00:00 Telephone Benito, Raheem [facility] CHILD [facility] 1..840.114 350.1.13.10 4.2.7.2.686 [id number] [facility] 2019-07-01 08:37:18 2019-07-01 09:59:40 Initial Visit BenitoRaheem [facility] 1..840.114 350.1.13.10 4.2.7.2.686 [id number] [facility] 2019-07-01 08:45:00 2019-07-01 08:45:00 Outpatient R KATHRYN BENITOKAYLA [facility] [id number] [facility] 2019-07-01 00:00:00 2019-07-01 00:00:00 Orders Only Doctor Unassigned, Kenyon [facility] 1..840.114 350.1.13.10 4.2.7.2.686 [id number] [facility] Results Test Description Test Time Test Comments Results Result Co mments Source [facility] [id number] 20:41:00* Test Item Value Reference Range Interpretation Comme nts POCT PREG (test code = 1605) Negative On board controls acceptable with C Line (test code = 3574) Yes POCT PREG LOT # (test code = 3575) POCT PREG TEST DATE ( test code = 3576) [facility] [id number] 20:41:00* Test Item Value Reference Range Interpretation Comme nts POCT PREG (test code = 1605) Negative On board controls acceptable with C Line (test code = 3574) Yes POCT PREG LOT # (test code = 3575) POCT PREG TEST DATE ( test code = 3576) [facility] [id number] 17:07:00* Test Item Value Reference Range Interpretation Comme nts POCT PREG (test code = 1605) Negative - per juarez On board controls acceptable with C Line (test code = 3574) Yes POCT PREG LOT # (test code = 3575) POCT PREG TEST DATE ( test code = 3576) [facility] [id number] 17:07:00* Test Item Value Reference Range Interpretation Comme nts POCT PREG (test code = 1605) Negative - per juarez On board controls acceptable with C Line (test code = 3574) Yes POCT PREG LOT # (test code = 3575) POCT PREG TEST DATE ( test code = 3576) [facility] [id number] 16:13:00* Test Item Value Reference Range Interpretation Comme nts POCT PREG (test code = 1605) Negative On board controls acceptable with C Line (test code = 3574) Yes POCT PREG LOT # (test code = 3575) POCT PREG TEST DATE ( test code = 3576) [facility] [id number] 16:13:00* Test Item Value Reference Range Interpretation Comme nts POCT PREG (test code = 1605) Negative On board controls acceptable with C Line (test code = 3574) Yes POCT PREG LOT # (test code = 3575) POCT PREG TEST DATE ( test code = 3576) [facility] URINALYSIS W SPECIFIC [id number] 13:23:00* Test Item Value Reference Range Interpretation [...] 3267) Lab Interpretation (test cod e = 43906-5) [facility] URINALYSIS W SPECIFIC [id number] 13:23:00* Test Item Value Reference Range Interpretation [...] 3267) Lab Interpretation (test cod e = 09224-0) [facility] URINALYSIS W SPECIFIC [id number] 13:23:00* Test Item Value Reference Range Interpretation [...] 3267) Lab Interpretation (test cod e = 04027-3) Normal [facility] Notes Date/Time Note Provider Source 2023-11-07 15:15:00 Images from the original note were not included. Venipuncture collection performed by clean technique on the left anticubitus. Total of 1 attempts were made. Slight pressure and a bandage/dressing were applied to the site(s). The patient experienced no complications. The following specimens were processed according to instructions and sent to [facility] laboratories per lab order on 11/07/2023 : LT BLUE SST 2 RED 1 LAV PPT DK GREEN (LiHep) DK GREEN (SodH) [place] DK BLUE (K2) DK BLUE (S) ACD Blood Culture NIPT/NTD T [facility] 2023-09-08 11:45:00 Images from the original note were not included. Venipuncture collection performed by clean technique on the left anticubitus. Total of 1 attempts were made. Slight pressure and a bandage/dressing were applied to the site(s). The patient experienced no complications. The following specimens were processed according to instructions and sent to [facility] laboratories per lab order on 09/08/2023: LT BLUE SST 2 RED 1 LAV PPT DK GREEN (LiHep) DK GREEN (SodH) [place] DK BLUE (K2) DK BLUE (S) ACD Blood Culture NIPT/NTD T [facility] 2023-07-17 09:00:00 Images from the original note were not included. Venipuncture collection performed by clean technique on the right anticubitus. Total of 1 attempts were made. Slight pressure and a bandage/dressing were applied to the site(s). The patient experienced no complications. The following specimens were processed according to instructions and sent to [facility] laboratories per lab order on today: LT BLUE SST 2 RED 1 LAV PPT DK GREEN (LiHep) DK GREEN (SodH) [place] DK BLUE (K2) DK BLUE (S) ACD Blood Culture NIPT/NTD T [facility] 2022-11-24 12:45:00 Formatting of this n ote is different from the original. Images from the original note were not included. Venipuncture collection performed by clean technique on the left anticubitus. Total of 1 attempts were made. Slight pressure and a bandage/dressing were applied to the site(s). The patient experienced no complications. The following specimens were processed according to instructions [facility] [facility] laboratories per lab order on today: LT BLUE SST 1 RED LAV PPT DK GREEN (LiHep) DK GREEN (SodH) [place] DK BLUE (K2) DK BLUE (S) ACD Blood Culture NIPT/NTD [facility], [facility]
[2023-12-13 16:00] LABS: Absolute Eosinophils 0.2 K/uL (0-0.5); Absolute Lymphocytes (CBC) 2.8 K/uL (0.7-4.9); Absolute Monocytes 0.8 K/uL (0.1-1.3); Absolute Neutrophil 9.4 K/uL (1.8-8.0); Basophils % 0.3 % (0-1.3); Eosinophils % 1.6 % (0-4.4); Hematocrit 38.7 % (36.0-45.0); Hemoglobin 12.3 g/dL (12.0-15.0); Lymphocytes % 21.1 % (15.3-44.8); MCH 24.6 pg (27.0-35.0); MCHC 31.9 g/dL (32.0-36.0); MCV 77.1 fL (80-100); MPV 8.8 fL (7.6-11.3); Monocytes % 6.2 % (3.3-12.3); Neutrophils % 70.8 % (41.7-73.7); Platelets 296 thou/uL (152-406); RBC Red Blood Cell Count 5.02 M/uL (3.86-4.86); Red Cell Distribution Width 15.7 % (12.1-15.2)
--- NOTE | 2023-12-13 16:01 | RAD REPORT ---
EXAMINATION: ONE VIEW CHEST XR CLINICAL INDICATION: Female, 23 years old.CHEST PAIN TECHNIQUE: 1 View, AP supine, X-ray of the chest was performed. [id number]. COMPARISON: 06/04/2023 FINDINGS: Lungs and pleura: Clear lungs. No effusion. Heart and mediastinum: Normal heart size. Unremarkable mediastinal contours. Osseous structures: No acute abnormality. Tubes/lines: None Other: None. IMPRESSION: No acute intrathoracic abnormality.
[2023-12-13 16:22] LABS: ALT/SGPT 21 U/L (13-56); AST/SGOT 17 U/L (15-37); Albumin 3.8 g/dL (3.4-5.0); Albumin/Globulin Ratio 0.9 (1.1-1.8); Alkaline Phosphatase 92 U/L (45-117); Anion Gap 9.9 mEq/L (5.0-15.0); BUN Blood Urea Nitrogen 10 mg/dL (7-18); Bicarbonate 22 mEq/L (21-32); Bilirubin Total 0.2 mg/dL (0.2-1.0); Globulin 4.1 g/dL (2.3-3.5); Glomerular Filtration Rate 129 ml/min (=/>90); Glucose Level 101 mg/dL (74-106); Magnesium 2.1 mg/dL (1.6-2.4); NT PRO-BNP 32 pg/mL (<125); Potassium 3.9 mEq/L (3.5-5.1); Protein, Total 7.9 g/dL (6.4-8.2); Sodium Level 140 mEq/L (136-145); Thyroid Stimulating Hormone 0.994 uIU/mL (0.358-3.740)
[2023-12-13 16:24] LABS: Bilirubin Direct < 0.2 mg/dL (0-0.2); Troponin High Sensitivity < 3.0 pg/mL (<58.9)
[2023-12-13 16:25] LABS: D-Dimer 0.346 FEUug/mL (0-0.500); PT Prothrombin Time 10.9 SECONDS (9.4-12.5); Protime INR 0.97
[2023-12-13 17:47] LABS: Specific Gravity 1.009 (1.005-1.030); Sqamous Epithelial <5 /HPF (None Seen); Urine Bacteria None Seen /HPF (<20); Urine Bilirubin NEGATIVE (Negative); Urine Blood Negative (Negative); Urine Clarity Clear (Clear); Urine Color Colorless (Yellow); Urine Culture Reflex Order NOT NEEDED; Urine Glucose NEGATIVE (Negative); Urine Ketones NEGATIVE (Negative); Urine Micro Reflex YN NO BILL MICROSCOPIC; Urine Nitrite NEGATIVE (Negative); Urine Protein NEGATIVE (Negative); Urine RBC <5 /HPF (None Seen); Urine Urobilinogen Normal (Normal); Urine WBC <5 /HPF (<5)
--- NOTE | 2023-12-13 19:49 | RAD REPORT ---
EXAMINATION: CT CHEST WITHOUT CONTRAST CLINICAL INDICATION: Female, 23 years old. CHEST PAIN TECHNIQUE: Routine CT scan of the chest without intravenous contrast. One or more of the following do se reduction techniques were used: Automated exposure control, adjustment of the mA and/or kV according to patient size, and/or iterative reconstruction. Unless otherwise specified, incidental fi ndings do not require dedicated imaging follow-up. [id number]. COMPARISON: 06/04/2023 FINDINGS: LOWER NECK: Visualized thyroid gland and soft tissues are normal. LUNGS AND AIRWAYS: Airways are clear. No evidence of airspace or interstitial process. No nodules. PLEURA: No pleural effusion. No pneumothorax. Hemidiaphragms are normally positioned. MEDIASTINUM AND LYMPH NODES: No mediastinal mass or fluid collection. Normal size mediastinal, hilar, and axillary lymph nodes. THORACIC AORTA: Normal caliber and configuration. PULMONARY ARTERIES: Normal caliber. HEART: Normal heart size. No coronary calcifications.No pericardial effusion. OSSEOUS STRUCTURES AND CHEST WALL: Intact. UPPER ABDOMEN: Cholecystectomy. IMPRESSION: No acute or significant abnormalities.
--- NOTE | 2023-12-13 20:10 | EDPHYS ---
Physician Documentation [facility] Name: Rashmi Patel Age: 23 yrs Sex: Female : 2000 Arrival Date: 12/13/2023 Time: 15:02 Bed 4 Private MD: ED Physician Sourav Mariee HPI: 12/12 15:31 This 23 yrs old Female presents to ER via Ambulatory with complaints of Chest sb4 Pain - COUPLE DAYS. 15:31 The patient or guardian reports chest pain that is located primarily in the anterior sb4 aspect of left upper chest. The pain radiates to the left arm, back. Associated signs and symptoms: Pertinent positives: shortness of breath, Pertinent negatives: cough, dizziness, headache, lower extremity swelling, lightheadedness, nausea, near syncope, palpitations, recent travel, syncope, vomiting. The chest pain is described as sharp. Duration: The patient or guardian reports multiple episodes, with no pattern. Modifying factors: The symptoms are alleviated by nothing. the symptoms are aggravated by nothing. The patient has not experienced similar symptoms in the past. The patient has not recently seen a physician. 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 - Infectious Disease History:: Denies. - Social history:: Smoking status: Patient denies any tobacco usage or history of. ROS: 15:31 Constitutional: Negative for fever, chills, and weight loss, sb4 15:31 Cardiovascular: Positive for chest pain, 15:31 Respiratory: Positive for shortness of breath, 15:31 All other systems are negative, Exam: 15:31 Constitutional: This is a well developed, well nourished patient who is awake, alert, sb4 and in no acute distress. Head/Face: Normocephalic, atraumatic. Eyes: Extra-ocular motions intact. Periorbital areas with no swelling, redness, or edema. ENT: Mucous membranes moist. Cardiovascular: Regular rate and rhythm with a normal S1 and S2. Respiratory: Lungs have equal breath sounds bilaterally, clear to auscultation and percussion. No rales, rhonchi or wheezes noted. No increased work of breathing, no retractions or nasal flaring. Abdomen/GI: Soft, non-tender, no distension. Skin: Warm, dry with normal turgor. Normal color with no rashes, no lesions, and no evidence of cellulitis. Vital Signs: 15:23 Weight 76.2 kg; Height 5 ft. 1 in. ; ll1 15:36 BP 141 / 86; Pulse 112; Resp 20; Temp 98; Pulse Ox 100% ; bp 17:00 BP 132 / 78; Pulse 98; Resp 18; Pulse Ox 100% on R/A; ph 18:30 BP 130 / 70; Pulse 96; Resp 16; Pulse Ox 99% on R/A; ph 20:17 BP 119 / 54; Pulse 91; Resp 18; Pulse Ox 100% ; cp4 15:23 Body Mass Index 31.74 (76.20 kg, 154.94 cm) ll1 MDM: 15:10 Patient medically screened. sb4 20:10 Data reviewed: vital signs, nurses notes, lab test result(s), EKG, radiologic studies, sb4 and as a result, I will discharge patient. Counseling: I had a detailed discussion with the patient and/or guardian regarding the historical points, exam findings, and any diagnostic results supporting the discharge/admit diagnosis, lab results, radiology results, the need for outpatient follow up, for definitive care, to return to the emergency department if symptoms worsen or persist or if there are any questions or concerns that arise at home. 12/12 15:29 Order name: Basic Metabolic Panel; Complete Time: 16:24 sb4 12/12 15:29 Order name: CBC with Diff; Complete Time: 16:15 sb4 12/12 15:29 Order name: D-Dimer; Complete Time: 16:26 sb4 12/12 15:29 Order name: LFT's; Complete Time: 16:24 sb4 12/12 15:29 Order name: Magnesium; Complete Time: 16:24 sb4 12/12 15:29 Order name: NT PRO-BNP; Complete Time: 16:24 sb4 12/12 15:29 Order name: PT-INR; Complete Time: 16:26 sb4 12/12 15:29 Order name: Troponin HS; Complete Time: 16:24 sb4 12/12 15:29 Order name: TSH; Complete Time: 16:24 sb4 12/12 15:29 Order name: Test, Urine; Complete Time: 17:48 sb4 12/12 16:26 Order name: UAM; Complete Time: 17:48 sb4 12/12 15:29 Order name: XRAY Chest (1 view); Complete Time: 16:01 sb4 12/12 17:53 Order name: CT Chest Wo Con; Complete Time: 19:56 sb4 12/12 15:29 Order name: Cardiac monitoring; Complete Time: 15:31 sb4 12/12 15:29 Order name: EKG - Nurse/Tech; Complete Time: 15:29 sb4 12/12 15:29 Order name: Labs collected and sent; Complete Time: 15:51 sb4 12/12 15:29 Order name: O2 Per Protocol; Complete Time: 15:31 sb4 12/12 15:29 Order name: O2 Sat Monitoring; Complete Time: 15:31 sb4 EC:31 Rate is 102 beats/min. Rhythm is regular, Sinus tachycardia. MT interval is normal at sb4 140 msec. QRS interval is normal at 90 msec. QT interval is normal at 344 msec. No Q waves. T waves are Normal. No ST changes noted. Clinical impression: Sinus tachycardia and No evidence of ischemia. Interpreted by me. Reviewed by me. Administered Medications: 18:59 Not Given (Physician Discretion): ns 0.9% 1000 ml IV at 1 bolus Per protocol; 1000 mL bp bolus 18:59 Not Given (Physician Discretion): [id number] mg IVP once bp Disposition Summary: 12/13/23 20:09 Discharge Ordered Notes: Location: Home sb4 Problem: new sb4 Symptoms: have improved sb4 Condition: Stable sb4 Diagnosis - Chest pain, unspecified sb4 Followup: sb4 - With: Emergency Department - When: As needed - Reason: Trouble breathing, Worsening of condition Discharge Instructions: - Discharge Summary Sheet sb4 - Nonspecific Chest Pain, Adult, [id number]-[id number] sb4 Forms: - Antibiotic Education sb4 - Patient Portal Instructions sb4 - Leadership Thank You Letter sb4 Prescriptions: - azithromycin 250 mg Oral tablet - take 1 dose pack ORAL route as directed on dose pack For 250 mg dose pack: take sb4 500 mg today (day 1), then 250 mg for 4 days (days 2-5); 1 Pack; Refills: 0, Product Selection Permitted - Anaprox DS 550 mg Oral Tablet - take 1 tablet ORAL route every 12 hours As needed; 20 tablet; Refills: 0, sb4 Product Selection Permitted Signatures: Dispatcher [employer] EDAdela Ibanez, RN RN Kel Valverde RN Maryam Costa RN RN ll1 Lilibeth Almaraz PA-C PA-C sb4 Corrections: (The following items were deleted from the chart) 15:29 15:29 BASIC METABOLIC PANEL+C.LAB.BRZ ordered. EDMS EDMS 15: 15:29 CBC+H.LAB.BRZ ordered. EDMS EDMS 15: 15:29 D-DIMER+COAG.LAB.BRZ ordered. EDMS EDMS 15: 15:29 HEPATIC FUNCTION+C.LAB.BRZ ordered. EDMS EDMS 15: 15:29 MAGNESIUM+C.LAB.BRZ ordered. EDMS EDMS 15: 15:29 PROBNP+C.LAB.BRZ ordered. EDMS EDMS 15:29 15:29 PROTIME (+INR)+COAG.LAB.BRZ ordered. EDMS EDMS 15:29 15:29 Troponin High Sensitivity+C.LAB.BRZ ordered. EDMS EDMS 15:29 15:29 THYROID STIMULAT HORMONE+C.LAB.BRZ ordered. EDMS EDMS 15:29 15:29 Test, Urine+UC.LAB.BRZ ordered. EDMS EDMS 15:29 15:29 Chest Single View+RAD.RAD.BRZ ordered. EDMS EDMS
--- NOTE | 2023-12-13 20:10 | ER ---
Nurse's Notes [facility] Name: Rashmi Patel Age: 23 yrs Sex: Female : 2000 Arrival Date: 12/13/2023 Time: 15:02 Bed 4 Private MD: Diagnosis: Chest pain, unspecified Presentation: 12/12 15:23 Chief complaint: Patient states: L sided CP for 1 week, worse for 3 days. Coronavirus ll1 screen: Client denies travel out of the [place] in the last 14 days. At this time, the client does not indicate any symptoms associated with coronavirus-19. Ebola Screen: Patient denies travel to an Ebola-affected area in the 21 days before illness onset. Initial Sepsis Screen: Does the patient meet any 2 criteria? No. Patient's initial sepsis screen is negative. Does the patient have a suspected source of infection? No. Patient's initial sepsis screen is negative. Risk Assessment: Do you want to hurt yourself or someone else? Patient reports no desire to harm self or others. Onset of symptoms was December 06, 2023. 15:23 Method Of Arrival: Ambulatory ll1 15:23 Acuity: MARK 3 ll1 Triage Assessment: 15:23 General: Appears uncomfortable, Behavior is calm, cooperative, appropriate for age. ll1 Pain: Complains of pain in chest Pain radiates to back and left arm. Cardiovascular: Reports chest pain. Musculoskeletal: Reports pain in back and left arm. 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 - Infectious Disease History:: Denies. - Social history:: Smoking status: Patient denies any tobacco usage or history of. Screenin:36 [facility] ED Fall Risk Assessment (Adult) History of falling in the last 3 months, bp including since admission No falls in past 3 months (0 pts) Confusion or Disorientation No (0 pts) Intoxicated or Sedated No (0 pts) Impaired Gait No (0 pts) Mobility Assist Device Used No (0 pt) Altered Elimination No (0 pt) Score/Fall Risk Level 0 - 2 = Low Risk. Abuse screen: Denies threats or abuse. Denies injuries from another. Nutritional screening: No deficits noted. Tuberculosis screening: No symptoms or risk factors identified. Assessment: 15:36 General: Appears in no apparent distress. Behavior is cooperative, appropriate for age, bp anxious. 15:49 General: Appears in no apparent distress. comfortable, well groomed, Behavior is ph cooperative, appropriate for age. Pain: Complains of pain in anterior aspect of left upper chest Pain radiates to left arm Quality of pain is described as sharp, Pain began approx 2 weeks ago Is intermittent, lasting a few minutes. Neuro: Level of Consciousness is awake, alert, obeys commands, Oriented to person, place, time, situation. Cardiovascular: Capillary refill < 3 seconds in bilateral fingers Patient's skin is warm and dry. Respiratory: Airway is patent Respiratory effort is even, unlabored, Respiratory pattern is regular, symmetrical. Derm: Skin is pink, warm \T\ dry. 18:55 Reassessment: Patient appears in no apparent distress at this time. Patient and/or ph family updated on plan of care and expected duration. Pain level reassessed. Patient is alert, oriented x 3, equal unlabored respirations, skin warm/dry/pink. Patient denies pain at this time. Vital Signs: 15:23 Weight 76.2 kg; Height 5 ft. 1 in. ; ll1 15:36 BP 141 / 86; Pulse 112; Resp 20; Temp 98; Pulse Ox 100% ; bp 17:00 BP 132 / 78; Pulse 98; Resp 18; Pulse Ox 100% on R/A; ph 18:30 BP 130 / 70; Pulse 96; Resp 16; Pulse Ox 99% on R/A; ph 20:17 BP 119 / 54; Pulse 91; Resp 18; Pulse Ox 100% ; cp4 15:23 Body Mass Index 31.74 (76.20 kg, 154.94 cm) ll1 ED Course: 15:08 Patient arrived in ED. mg5 15:08 Lilibeth Almaraz PA-C is PHCP. sb4 15:08 Sourav Mariee MD is Attending Physician. sb4 15:16 Adela Israel RN is Primary Nurse. ph 15:18 Arm band placed on Patient placed in an exam room, on a stretcher. ph 15:20 EKG completed in triage. Results shown to MD. ll1 15:23 Triage completed. ll1 15:36 Patient has correct armband on for positive identification. Client placed on continuous bp cardiac and pulse oximetry monitoring. NIBP monitoring applied. monitoring specialist on. Pulse ox on. NIBP on. 15:36 Patient maintains SpO2 saturation greater than 95% on room air. bp 15:40 Initial lab(s) drawn, by me, sent to lab. ll1 15:40 Missed attempt(s): 22 gauge in left forearm. Bleeding controlled, band aid applied, ll1 catheter tip intact. 15:53 XRAY Chest (1 view) In Process Unspecified. EDMS 17:06 Urine collected: clean catch specimen, clear. bp 18:56 No provider procedures requiring assistance completed. ph 19:21 CT Chest Wo Con In Process Unspecified. EDMS 20:18 Provided Education on: chest pain. cp4 20:18 intact, bleeding controlled, No redness/swelling at site. Pressure dressing applied. cp4 Administered Medications: 18:59 Not Given (Physician Discretion): ns 0.9% 1000 ml IV at 1 bolus Per protocol; 1000 mL bp bolus 18:59 Not Given (Physician Discretion): [id number] mg IVP once bp Medication: 15:36 VIS not applicable for this client. bp Outcome: 20:09 Discharge ordered by MD. sb4 20:18 Discharged to home ambulatory, cp4 20:18 Condition: stable 20:18 Discharge instructions given to patient, Instructed on discharge instructions, follow up and referral plans. medication usage, Demonstrated understanding of instructions, follow-up care, medications, Prescriptions given X 2, 20:21 Patient left the ED. cp4 Signatures: Dispatcher [employer] EDCT Adela Israel, RN RN Kel Rhodes, PANCHO RN Maryam Cespedes RN RN ll1 Lilibeth Almaraz, PA-C PA-C sb4 Jocelyn Lemos 5 Chetna Patel cp4
[2023-12-14 12:11] VITALS: TEMP 98
[2023-12-14 12:16] VITALS: BP 119/54; O2SAT 100
--- NOTE | 2023-12-15 16:41 | EKG ---
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
== END 2023-12-13 20:21 | disposition home or self-care (01) ==
LOC: ER 15:02
DX: R07.9 Chest pain, unspecified (principal)
CPT/HCPCS: 36415; 71045; 71250; 80048; 80076; 81001; 81025; 83735; 83880; 84443; 84484; 85025; 85379; 85610; 93005; 99284

== ENCOUNTER 2024-03-09 10:33 | Emergency (ER) | payer OTHER ==
--- OUTSIDE RECORDS SUMMARY | 2024-03-09 10:42 | XMS REPORT | Continuity of Care Document ---
Author Name Unknown Address [address] [facility]. [address] [place] [address] [facility] Address [address] [facility] [address] [place] [address] Care Team Providers Care Hydro Operator Name Role Phone Olivia Dumont Primary Care Physician [phone] Olivia Dumont Attending Clinician Unavailable LUIS RICE Attending Clinician Unavailable LUIS RICE Attending Clinician Unavailable SUZI MOYA Attending Clinician Unavailable SUZI MOYA Attending Clinician Unavailable CASIE BEASLEY Attending Clinician Unavailab CASIE Orantes Attending Clinician UnavailMonique Leger MD Attending Clinician [phone]- [phone] MONIQUE HERBERT Attending Clinician MONIQUE Caballero Attending Clinician Bryce Rouse MD, Victorino KChrissyHChrissy Attending Clinician + [phone] VICTORINO ROUSE Attending Clinician Unavailaamir cardoso 2, [facility] Attending Clinician Unavailable Suzi Moya MD Attending Clinician [phone] 2, [facility] Attending Clinician Unavailable JULIO SCHRADER Attending Clinician Unavaila janae SELFCHLJULIO DELANEY Attending Clinician Unavaila ble Lab, Ang - Db Attending Clinician Unavailable Doctor Unassigned, [place] Attending Clinician U navailable Only, Ang Db Test Attending Clinician Unavailscarlet Holman VEGETABLE LOADER MACHINE OPERATORSkylar Attending Clinician [phone] EBSKYLAR MARTEL Attending Clinician Unavailable Anthony VEGETABLE LOADER MACHINE OPERATOR, Jimmy Attending Clinician [phone] JIMMY MELLO Attending Clinician Unavailable Wayne Field PA-C Attending Clinician [phone] WAYNE FIELD Attending Clinician Unavailable PREET MAYBERRY Attending Clinician Anthony Valdes DO Attending Clinician [phone] Preet Mayberry MD Attending Clinician + [phone] Curt ARCHIBALD, Victorino KChrissyHChrissy Attending Clinician + [phone] Akinsisuzanne WHCNPYola Attending Clinician + YOLA HENRIQUEZ Attending Clinician Unavail [facility] Attending Clinician Unavailable Ultrasound, Ang-Mfm Attending Clinician Unavailaamir Blackmon MD, Dylan Soler Attending Clinician [phone] RAHEEM BENITO Attending Clinician Unavailab jovanni Benito VEGETABLE LOADER MACHINE OPERATORRaheem Headley Attending Clinician + [phone] LUIS RICE Admitting Clinician Unavailable Dwayne ARCHIBALD, Luis Keita Admitting Clinician [phone] Payers Payer Name Policy Type Policy Number Effective Date Expirati on Date Source [facility] [id number] 2019 00:00:00 Problems Condition Name Condition Details Condition Category Status Onset Date Resolution Date Last Treatment Date Treating Clinician Comments Source Presence of intrauteri ne contracept sima device Presence of intrauteri ne contracept sima device Disease Active 5-06 00:00: 00 [facility] [id number] Sore throat Problem [facility] [id number] Adult BMI 29.0-29.9 kg/sq m Problem [facility] [id number] Other elevated white blood cell (WBC) count Problem [facility] [id number] Right lower quadrant pain Problem [facility] Encounter for initial management of nuvaring Encounter for initial management of nuvaring Disease Resolve d 2020-03 1-18 00:00: 00 2023-07-17 00:00:00 2023-07-17 08:45:04 [facility] Encounter for IUD removal Encounter for IUD removal Disease Resolve d 2019-0 9-10 00:00: 00 2020-07-09 00:00:00 2020-07-09 15:41:01 [facility] (spontaneo us vaginal delivery) (spontaneo us vaginal delivery) Disease Resolve d 2019-0 7-30 00:00: 00 2020-07-09 00:00:00 2020-07-09 15:41:09 [facility] Mild pre-eclamp ruby in second trimester Mild pre-eclamp ruby in second trimester Disease Resolve d 2019-0 7-30 00:00: 00 2020-07-09 00:00:00 2020-07-09 15:41:04 [facility] demise in bojorquez greater than 22 weeks gestation, antepartum demise in bojorquez greater than 22 weeks gestation, antepartum Disease Resolve d 2019-0 7-29 00:00: 00 2020-07-09 00:00:00 2020-07-09 15:41:07 [facility] Anemia, antepartum , second trimester Anemia, antepartum , second trimester Disease Resolve d 2020-0 7-29 00:00: 00 2020-07-09 00:00:00 2020-07-09 15:41:06 [facility] Abnormal glucose tolerance affecting , antepartum Abnormal glucose tolerance affecting , antepartum Disease Resolve d 4-21 00:00: 00 2019-10-09 00:00:00 2019-10-09 09:43:46 [facility] High-risk in second trimester High-risk in second trimester Disease Resolve d 4-20 00:00: 00 2019-10-09 00:00:00 2019-10-09 09:43:43 [facility] Obesity Obesity Disease Resolve d 12-03 00:00: 00 2019-09-02 00:00:00 2021-09-26 00:26:36 [facility] Primigravi da in first trimester Primigravi da in first trimester Disease Resolve d 06-30 00:00: 00 2019-07-04 00:00:00 2019-07-04 20:32:15 [facility] Microcytos is Microcytos is Disease Resolve d 2012-03 0- 00:00: 00 2019-07-04 00:00:00 2019-07-04 20:32:23 [facility] Nevus, non-neopla stic Nevus, non-neopla stic Disease Resolve d 1-14 00:00: 00 2012-12-03 00:00:00 2012-12-03 09:21:08 [facility] Allergies, Adverse Reactions, Alerts Allergy Name Allergy Type Status Severity Reaction(s) Onset Date Inactive Date Treating Clinician Comments Source NO KNOWN ALLERGIE S Drug Class Active [facility] Social History Social Habit Start Date Stop Date Quantity Comments Source History of Tobacco Use [facility] Sex Assigned At [facility] History SDOH Alcohol Std Drinks [facility] History SDOH Alcohol Binge [facility] Gender identity [facility]coholic beverage intake 2024-02-29 00:00:00 2024-02-29 00:00:00 Current drinker of alcohol (finding) [facility] History of Social function 2023-11-07 00:00:00 2023-11-07 00:00:00 [facility] Alcohol Comment 2023-07-17 00:00:00 2023-07-17 00:00:00 rarely [facility] Tobacco use and exposure 2023-07-17 00:00:00 2023-07-17 00:00:00 Smokeless tobacco non-user [facility] Alcohol intake 2023-02-16 00:00:00 2023-02-16 00:00:00 Lifetime non-drinker (finding) [facility] Exposure to SARS-CoV-2 (event) 2022-07-03 00:00:00 2022-07-13 09:05:00 Not sure [facility] Education 2019-10-09 00:00:00 2019-10-09 00:00:00 12 [facility] History SDOH Financial 2019-10-09 00:00:00 2019-10-09 00:00:00 5 [facility] History SDOH Food Worry 2019-10-09 00:00:00 2019-10-09 00:00:00 1 [facility] History SDOH Food Scarcity 2019-10-09 00:00:00 2019-10-09 00:00:00 1 [facility] History SDOH Transport Med 2019-10-09 00:00:00 2019-10-09 00:00:00 2 [facility] History SDOH Transport Non-Med 2019-10-09 00:00:00 2019-10-09 00:00:00 2 [facility] History SDOH Alcohol Frequency 2019-07-01 00:00:00 2019-07-01 00:00:00 1 [facility] Smoking Status Start Date Stop Date Source Never smoked tobacco [facility] Medications Ordered Medication Name Filled Medication Name Start Date Stop Date Current Medication? Ordering Clinician Indication Dosage Frequency Signature (SIG) Comments Components Source metroNIDAZO LE 500 mg tablet 2023-03 00:00: 00 Yes [id number] 500mg Take 1 tablet by mouth every 12 (twelve) hours. [facility] fluconazole (DIFLUCAN) 150 mg tablet 2023-03 00:00: 00 03-02 05:59 :00 Yes [id number] 150mg Take 1 tablet by mouth once now for 1 dose. [facility] sulfur hexafluorid e microsphr (LUMASON) injection 5 mL 2023-03 20:38: 00 01-18 20:38 :00 No [id number] 5mL 5 mL, Intravenou s, ONCE, 1 dose, On Mon01/19/24 at 1500, Routine [facility] azithromyci n 250 mg tablet 2023-03 0- 00:00: 00 01-04 00:00 :00 No TAKE 2 TABLETS BY MOUTH ON DAY 1, THEN 1 TABLET DAILY ON DAYS 2 TO 5. [facility] naproxen sodium 550 mg tablet 2023-03 0- 00:00: 00 01-04 00:00 :00 No TAKE ONE (1) TABLET(S) BY MOUTH EVERY TWELVE HOURS NEEDED FOR PAIN. [facility] copper (PARAGARD T 380A) IUD 1 Intra Uterine Device 10-25 18:00: 00 10-25 17:59 :00 No [id number] [facility]IUD[facility] (FLAGYL) 500 mg tablet 5-04 00:00: 00 07-22 04:59 :00 No [id number] 500mg Take 1 tablet by mouth in the morning and 1 tablet in the evening. Do all this for 7 days. [facility] NuvaRing 0.12-0.015 mg/24 hr vaginal insert -03 00:00: 00 12-23 00:00 :00 No [id number] 1{each} Insert 1 Each into vagina once every month. Insert vaginally and leave in place for 3 consecutiv e weeks, then remove for 1 week. [facility] amoxicillin -pot clavulanate 500 mg (AUGMENTIN) 500-125 mg tablet -24 00:00: 00 07-13 00:00 :00 No [id number] 500mg Take 1 tablet by mouth in the morning and 1 tablet at noon and 1 tablet in the evening. [facility] NUVARING (NUVARING) 0.12-0.015 mg/24 hr vaginal insert 5-02 00:00: 00 07-13 00:00 :00 No [id number] 1{each} Insert 1 Each into vagina once every month. Insert vaginally and leave in place for 3 consecutiv e weeks, then remove for 1 week. [facility] NUVARING (NUVARING) 0.12-0.015 mg/24 hr vaginal insert 3-08 00:00: 00 07-12 00:00 :00 No [id number] 1{each} Insert 1 Each into vagina once every month. Insert vaginally and leave in place for 3 consecutiv e weeks, then remove for 1 week. [facility] Colestipol HCl 1 gram tablet 6-17 00:00: 00 07-13 00:00 :00 No [facility] Adult Gummy/DHA/F A 0.4-25 MG Adult Gummy/DHA/F A 0.4-25 MG No Adult Gummy/DHA/ FA 0.4-25 MG metroNIDAZO LE 500 MG metroNIDAZO LE 500 MG No 1{table t} TID metroNIDAZ OLE 500 MG Immunizations Ordered Immunization Name Filled Immunization Name Date Status Comments Source SARS-COV-2 COVID-19 PFIZER VACCINE 2020-09-27 00:00:00 Completed [facility] SARS-COV-2 COVID-19 PFIZER VACCINE 2020-09-27 00:00:00 Completed [facility] SARS-COV-2 COVID-19 PFIZER VACCINE 2020-09-27 00:00:00 Completed [facility] SARS-COV-2 COVID-19 PFIZER VACCINE 2020-09-27 00:00:00 Completed [facility] SARS-COV-2 COVID-19 PFIZER VACCINE 2020-09-27 00:00:00 Completed [facility] SARS-COV-2 COVID-19 PFIZER VACCINE 2020-09-27 00:00:00 Completed [facility] SARS-COV-2 COVID-19 PFIZER VACCINE 2020-09-27 00:00:00 Completed [facility] SARS-COV-2 COVID-19 PFIZER VACCINE 2020-09-27 00:00:00 Completed [facility] SARS-COV-2 COVID-19 PFIZER VACCINE 2020-09-27 00:00:00 Completed [facility] SARS-COV-2 COVID-19 PFIZER VACCINE 2020-09-27 00:00:00 Completed [facility] SARS-COV-2 COVID-19 PFIZER VACCINE 2020-09-27 00:00:00 Completed [facility] SARS-COV-2 COVID-19 PFIZER VACCINE 2020-09-27 00:00:00 Completed [facility] SARS-COV-2 COVID-19 PFIZER VACCINE 2020-09-27 00:00:00 Completed [facility] SARS-COV-2 COVID-19 PFIZER VACCINE 2020-09-27 00:00:00 Completed [facility] SARS-COV-2 COVID-19 PFIZER VACCINE 2020-09-27 00:00:00 Completed [facility] SARS-COV-2 COVID-19 PFIZER VACCINE 2020-09-27 00:00:00 Completed [facility] SARS-COV-2 COVID-19 PFIZER VACCINE 2020-09-27 00:00:00 Completed [facility] SARS-COV-2 COVID-19 PFIZER VACCINE 2020-09-27 00:00:00 Completed [facility] SARS-COV-2 COVID-19 PFIZER VACCINE 2020-09-06 00:00:00 Completed [facility] SARS-COV-2 COVID-19 PFIZER VACCINE 2020-09-06 00:00:00 Completed [facility] SARS-COV-2 COVID-19 PFIZER VACCINE 2020-09-06 00:00:00 Completed [facility] SARS-COV-2 COVID-19 PFIZER VACCINE 2020-09-06 00:00:00 Completed [facility] SARS-COV-2 COVID-19 PFIZER VACCINE 2020-09-06 00:00:00 Completed [facility] SARS-COV-2 COVID-19 PFIZER VACCINE 2020-09-06 00:00:00 Completed [facility] SARS-COV-2 COVID-19 PFIZER VACCINE 2020-09-06 00:00:00 Completed [facility] SARS-COV-2 COVID-19 PFIZER VACCINE 2020-09-06 00:00:00 Completed [facility] SARS-COV-2 COVID-19 PFIZER VACCINE 2020-09-06 00:00:00 Completed [facility] SARS-COV-2 COVID-19 PFIZER VACCINE 2020-09-06 00:00:00 Completed [facility] SARS-COV-2 COVID-19 PFIZER VACCINE 2020-09-06 00:00:00 Completed [facility] SARS-COV-2 COVID-19 PFIZER VACCINE 2020-09-06 00:00:00 Completed [facility] SARS-COV-2 COVID-19 PFIZER VACCINE 2020-09-06 00:00:00 Completed [facility] SARS-COV-2 COVID-19 PFIZER VACCINE 2020-09-06 00:00:00 Completed [facility] SARS-COV-2 COVID-19 PFIZER VACCINE 2020-09-06 00:00:00 Completed [facility] SARS-COV-2 COVID-19 PFIZER VACCINE 2020-09-06 00:00:00 Completed [facility] SARS-COV-2 COVID-19 PFIZER VACCINE 2020-09-06 00:00:00 Completed [facility] SARS-COV-2 COVID-19 PFIZER VACCINE 2020-09-06 00:00:00 Completed [facility] HPV 2014-02-13 00:00:00 Completed [facility] Influenza Virus Vaccine Quad .5 mL IM 6+ MO (FLUZONE/FLULAVAL/FLU ARIX) 2014-02-13 00:00:00 Completed TDAP 2012-12-03 00:00:00 Completed [facility] Meningococcal Oligosaccharide (groups A, C, Y and W-135) conjugate vaccine (MCV4O) 2012-12-03 00:00:00 Completed [facility] Influenza Virus Vaccine 2012-12-03 00:00:00 Completed [facility] TDAP 2012-12-03 00:00:00 Completed [facility] Meningococcal Oligosaccharide (groups A, C, Y and W-135) conjugate vaccine (MCV4O) 2012-12-03 00:00:00 Completed [facility] Influenza Virus Vaccine 2012-12-03 00:00:00 Completed [facility] TDAP 2012-12-03 00:00:00 Completed [facility] Meningococcal Oligosaccharide (groups A, C, Y and W-135) conjugate vaccine (MCV4O) 2012-12-03 00:00:00 Completed [facility] Influenza Virus Vaccine 2012-12-03 00:00:00 Completed [facility] TDAP 2012-12-03 00:00:00 Completed [facility] Meningococcal Oligosaccharide (groups A, C, Y and W-135) conjugate vaccine (MCV4O) 2012-12-03 00:00:00 Completed [facility] Influenza Virus Vaccine 2012-12-03 00:00:00 Completed [facility] TDAP 2012-12-03 00:00:00 Completed [facility] Meningococcal Oligosaccharide (groups A, C, Y and W-135) conjugate vaccine (MCV4O) 2012-12-03 00:00:00 Completed [facility] Influenza Virus Vaccine 2012-12-03 00:00:00 Completed [facility] TDAP 2012-12-03 00:00:00 Completed [facility] Meningococcal Oligosaccharide (groups A, C, Y and W-135) conjugate vaccine (MCV4O) 2012-12-03 00:00:00 Completed [facility] Influenza Virus Vaccine 2012-12-03 00:00:00 Completed [facility] TDAP 2012-12-03 00:00:00 Completed [facility] Meningococcal Oligosaccharide (groups A, C, Y and W-135) conjugate vaccine (MCV4O) 2012-12-03 00:00:00 Completed [facility] Influenza Virus Vaccine 2012-12-03 00:00:00 Completed [facility] TDAP 2012-12-03 00:00:00 Completed [facility] Meningococcal Oligosaccharide (groups A, C, Y and W-135) conjugate vaccine (MCV4O) 2012-12-03 00:00:00 Completed [facility] Influenza Virus Vaccine 2012-12-03 00:00:00 Completed [facility] TDAP 2012-12-03 00:00:00 Completed [facility] Meningococcal Oligosaccharide (groups A, C, Y and W-135) conjugate vaccine (MCV4O) 2012-12-03 00:00:00 Completed [facility] Influenza Virus Vaccine 2012-12-03 00:00:00 Completed [facility] TDAP 2012-12-03 00:00:00 Completed [facility] Meningococcal Oligosaccharide (groups A, C, Y and W-135) conjugate vaccine (MCV4O) 2012-12-03 00:00:00 Completed [facility] Influenza Virus Vaccine 2012-12-03 00:00:00 Completed [facility] TDAP 2012-12-03 00:00:00 Completed [facility] Meningococcal Oligosaccharide (groups A, C, Y and W-135) conjugate vaccine (MCV4O) 2012-12-03 00:00:00 Completed [facility] Influenza Virus Vaccine 2012-12-03 00:00:00 Completed [facility] TDAP 2012-12-03 00:00:00 Completed [facility] Meningococcal Oligosaccharide (groups A, C, Y and W-135) conjugate vaccine (MCV4O) 2012-12-03 00:00:00 Completed [facility] Influenza Virus Vaccine 2012-12-03 00:00:00 Completed [facility] TDAP 2012-12-03 00:00:00 Completed [facility] Meningococcal Oligosaccharide (groups A, C, Y and W-135) conjugate vaccine (MCV4O) 2012-12-03 00:00:00 Completed [facility] Influenza Virus Vaccine 2012-12-03 00:00:00 Completed [facility] TDAP 2012-12-03 00:00:00 Completed [facility] Meningococcal Oligosaccharide (groups A, C, Y and W-135) conjugate vaccine (MCV4O) 2012-12-03 00:00:00 Completed [facility] Influenza Virus Vaccine 2012-12-03 00:00:00 Completed [facility] TDAP 2012-12-03 00:00:00 Completed [facility] Meningococcal Oligosaccharide (groups A, C, Y and W-135) conjugate vaccine (MCV4O) 2012-12-03 00:00:00 Completed [facility] Influenza Virus Vaccine 2012-12-03 00:00:00 Completed [facility] TDAP 2012-12-03 00:00:00 Completed [facility] Meningococcal Oligosaccharide (groups A, C, Y and W-135) conjugate vaccine (MCV4O) 2012-12-03 00:00:00 Completed [facility] Influenza Virus Vaccine 2012-12-03 00:00:00 Completed [facility] TDAP 2012-12-03 00:00:00 Completed [facility] Meningococcal Oligosaccharide (groups A, C, Y and W-135) conjugate vaccine (MCV4O) 2012-12-03 00:00:00 Completed [facility] Influenza Virus Vaccine 2012-12-03 00:00:00 Completed [facility] TDAP 2012-12-03 00:00:00 Completed Meningococcal Oligosaccharide (groups A, C, Y and W-135) conjugate vaccine (MCV4O) 2012-12-03 00:00:00 Completed Influenza Virus Vaccine 2012-12-03 00:00:00 Completed Meningococcal Polysaccharide (groups A, C, Y and W-135) conjugate vaccine (MCV4P) 2012-12-03 00:00:00 Completed Influenza Virus Vaccine 2012-03-14 00:00:00 Completed [facility] Influenza Virus Vaccine 2012-03-14 00:00:00 Completed [facility] Influenza Virus Vaccine 2012-03-14 00:00:00 Completed [facility] Influenza Virus Vaccine 2012-03-14 00:00:00 Completed [facility] Influenza Virus Vaccine 2012-03-14 00:00:00 Completed [facility] Influenza Virus Vaccine 2012-03-14 00:00:00 Completed [facility] Influenza Virus Vaccine 2012-03-14 00:00:00 Completed [facility] Influenza Virus Vaccine 2012-03-14 00:00:00 Completed [facility] Influenza Virus Vaccine 2012-03-14 00:00:00 Completed [facility] Influenza Virus Vaccine 2012-03-14 00:00:00 Completed [facility] Influenza Virus Vaccine 2012-03-14 00:00:00 Completed [facility] Influenza Virus Vaccine 2012-03-14 00:00:00 Completed [facility] Influenza Virus Vaccine 2012-03-14 00:00:00 Completed [facility] Influenza Virus Vaccine 2012-03-14 00:00:00 Completed [facility] Influenza Virus Vaccine 2012-03-14 00:00:00 Completed [facility] Influenza Virus Vaccine 2012-03-14 00:00:00 Completed [facility] Influenza Virus Vaccine 2012-03-14 00:00:00 Completed [facility] Influenza Virus Vaccine 2012-03-14 00:00:00 Completed Influenza, Live, Trivalent, Intranasal (FLUMIST) 2012-03-14 00:00:00 Completed HPV 2011-05-09 00:00:00 Completed [facility] HPV 2011-05-09 00:00:00 Completed [facility] HPV 2011-05-09 00:00:00 Completed [facility] HPV 2011-05-09 00:00:00 Completed [facility] HPV 2011-05-09 00:00:00 Completed [facility] HPV 2011-05-09 00:00:00 Completed [facility] HPV 2011-05-09 00:00:00 Completed [facility] HPV 2011-05-09 00:00:00 Completed [facility] HPV 2011-05-09 00:00:00 Completed [facility] HPV 2011-05-09 00:00:00 Completed [facility] HPV 2011-05-09 00:00:00 Completed [facility] HPV 2011-05-09 00:00:00 Completed [facility] HPV 2011-05-09 00:00:00 Completed [facility] HPV 2011-05-09 00:00:00 Completed [facility] HPV 2011-05-09 00:00:00 Completed [facility] HPV 2011-05-09 00:00:00 Completed [facility] HPV 2011-05-09 00:00:00 Completed [facility] HPV 2011-05-09 00:00:00 Completed [facility] HPV 2011-01-10 00:00:00 Completed [facility] Influenza Virus Vaccine 2011-01-10 00:00:00 Completed [facility] HPV 2011-01-10 00:00:00 Completed [facility] Influenza Virus Vaccine 2011-01-10 00:00:00 Completed [facility] HPV 2011-01-10 00:00:00 Completed [facility] Influenza Virus Vaccine 2011-01-10 00:00:00 Completed [facility] HPV 2011-01-10 00:00:00 Completed [facility] Influenza Virus Vaccine 2011-01-10 00:00:00 Completed [facility] HPV 2011-01-10 00:00:00 Completed [facility] Influenza Virus Vaccine 2011-01-10 00:00:00 Completed [facility] HPV 2011-01-10 00:00:00 Completed [facility] Influenza Virus Vaccine 2011-01-10 00:00:00 Completed [facility] HPV 2011-01-10 00:00:00 Completed [facility] Influenza Virus Vaccine 2011-01-10 00:00:00 Completed [facility] HPV 2011-01-10 00:00:00 Completed [facility] Influenza Virus Vaccine 2011-01-10 00:00:00 Completed [facility] HPV 2011-01-10 00:00:00 Completed [facility] Influenza Virus Vaccine 2011-01-10 00:00:00 Completed [facility] HPV 2011-01-10 00:00:00 Completed [facility] Influenza Virus Vaccine 2011-01-10 00:00:00 Completed [facility] HPV 2011-01-10 00:00:00 Completed [facility] Influenza Virus Vaccine 2011-01-10 00:00:00 Completed [facility] HPV 2011-01-10 00:00:00 Completed [facility] Influenza Virus Vaccine 2011-01-10 00:00:00 Completed [facility] HPV 2011-01-10 00:00:00 Completed [facility] Influenza Virus Vaccine 2011-01-10 00:00:00 Completed [facility] HPV 2011-01-10 00:00:00 Completed [facility] Influenza Virus Vaccine 2011-01-10 00:00:00 Completed [facility] HPV 2011-01-10 00:00:00 Completed [facility] Influenza Virus Vaccine 2011-01-10 00:00:00 Completed [facility] HPV 2011-01-10 00:00:00 Completed [facility] Influenza Virus Vaccine 2011-01-10 00:00:00 Completed [facility] HPV 2011-01-10 00:00:00 Completed [facility] Influenza Virus Vaccine 2011-01-10 00:00:00 Completed [facility] HPV 2011-01-10 00:00:00 Completed [facility] Influenza Virus Vaccine 2011-01-10 00:00:00 Completed Influenza, Live, Trivalent, Intranasal (FLUMIST) 2011-01-10 00:00:00 Completed HPV 2010-11-09 00:00:00 Completed [facility] HPV 2010-11-09 00:00:00 Completed [facility] HPV 2010-11-09 00:00:00 Completed [facility] HPV 2010-11-09 00:00:00 Completed [facility] HPV 2010-11-09 00:00:00 Completed [facility] HPV 2010-11-09 00:00:00 Completed [facility] HPV 2010-11-09 00:00:00 Completed [facility] HPV 2010-11-09 00:00:00 Completed [facility] HPV 2010-11-09 00:00:00 Completed [facility] HPV 2010-11-09 00:00:00 Completed [facility] HPV 2010-11-09 00:00:00 Completed [facility] HPV 2010-11-09 00:00:00 Completed [facility] HPV 2010-11-09 00:00:00 Completed [facility] HPV 2010-11-09 00:00:00 Completed [facility] HPV 2010-11-09 00:00:00 Completed [facility] HPV 2010-11-09 00:00:00 Completed [facility] HPV 2010-11-09 00:00:00 Completed [facility] HPV 2010-11-09 00:00:00 Completed Varicella (varivax)(chicken pox) 2006-10-09 00:00:00 Completed [facility] Varicella (varivax)(chicken pox) 2006-10-09 00:00:00 Completed [facility] Varicella (varivax)(chicken pox) 2006-10-09 00:00:00 Completed [facility] Varicella (varivax)(chicken pox) 2006-10-09 00:00:00 Completed [facility] Varicella (varivax)(chicken pox) 2006-10-09 00:00:00 Completed [facility] Varicella (varivax)(chicken pox) 2006-10-09 00:00:00 Completed [facility] Varicella (varivax)(chicken pox) 2006-10-09 00:00:00 Completed [facility] Varicella (varivax)(chicken pox) 2006-10-09 00:00:00 Completed [facility] Varicella (varivax)(chicken pox) 2006-10-09 00:00:00 Completed [facility] Varicella (varivax)(chicken pox) 2006-10-09 00:00:00 Completed [facility] Varicella (varivax)(chicken pox) 2006-10-09 00:00:00 Completed [facility] Varicella (varivax)(chicken pox) 2006-10-09 00:00:00 Completed [facility] Varicella (varivax)(chicken pox) 2006-10-09 00:00:00 Completed [facility] Varicella (varivax)(chicken pox) 2006-10-09 00:00:00 Completed [facility] Varicella (varivax)(chicken pox) 2006-10-09 00:00:00 Completed [facility] Varicella (varivax)(chicken pox) 2006-10-09 00:00:00 Completed [facility] Varicella (varivax)(chicken pox) 2006-10-09 00:00:00 Completed [facility] Varicella (varivax)(chicken pox) 2006-10-09 00:00:00 Completed [facility] HEPATITIS A 2005-11-18 00:00:00 Completed [facility] HEPATITIS A 2005-11-18 00:00:00 Completed [facility] HEPATITIS A 2005-11-18 00:00:00 Completed [facility] HEPATITIS A 2005-11-18 00:00:00 Completed [facility] HEPATITIS A 2005-11-18 00:00:00 Completed [facility] HEPATITIS A 2005-11-18 00:00:00 Completed [facility] HEPATITIS A 2005-11-18 00:00:00 Completed [facility] HEPATITIS A 2005-11-18 00:00:00 Completed [facility] HEPATITIS A 2005-11-18 00:00:00 Completed [facility] HEPATITIS A 2005-11-18 00:00:00 Completed [facility] HEPATITIS A 2005-11-18 00:00:00 Completed [facility] HEPATITIS A 2005-11-18 00:00:00 Completed [facility] HEPATITIS A 2005-11-18 00:00:00 Completed [facility] HEPATITIS A 2005-11-18 00:00:00 Completed [facility] HEPATITIS A 2005-11-18 00:00:00 Completed [facility] HEPATITIS A 2005-11-18 00:00:00 Completed [facility] HEPATITIS A 2005-11-18 00:00:00 Completed [facility] HEPATITIS A 2005-11-18 00:00:00 Completed [facility] DTAP 2005-10-14 00:00:00 Completed [facility] Polio (IPV/OPV) 2005-10-14 00:00:00 Completed [facility] MMR 2005-10-14 00:00:00 Completed [facility] DTAP 2005-10-14 00:00:00 Completed [facility] Polio (IPV/OPV) 2005-10-14 00:00:00 Completed [facility] MMR 2005-10-14 00:00:00 Completed [facility] DTaP, Unspecified Formulation 2005-10-14 00:00:00 Completed IPV 2005-10-14 00:00:00 Completed HEPATITIS A 2005-04-13 00:00:00 Completed [facility] HEPATITIS A 2005-04-13 00:00:00 Completed [facility] HEPATITIS A 2005-04-13 00:00:00 Completed [facility] HEPATITIS A 2005-04-13 00:00:00 Completed [facility] HEPATITIS A 2005-04-13 00:00:00 Completed [facility] HEPATITIS A 2005-04-13 00:00:00 Completed [facility] HEPATITIS A 2005-04-13 00:00:00 Completed [facility] HEPATITIS A 2005-04-13 00:00:00 Completed [facility] HEPATITIS A 2005-04-13 00:00:00 Completed [facility] HEPATITIS A 2005-04-13 00:00:00 Completed [facility] HEPATITIS A 2005-04-13 00:00:00 Completed [facility] HEPATITIS A 2005-04-13 00:00:00 Completed [facility] HEPATITIS A 2005-04-13 00:00:00 Completed [facility] HEPATITIS A 2005-04-13 00:00:00 Completed [facility] HEPATITIS A 2005-04-13 00:00:00 Completed [facility] HEPATITIS A 2005-04-13 00:00:00 Completed [facility] HEPATITIS A 2005-04-13 00:00:00 Completed [facility] HEPATITIS A 2005-04-13 00:00:00 Completed Pneumococcal 7 Conjugate, PCV7 (Prevnar7) 2003-06-13 00:00:00 Completed [facility] Pneumococcal 7 Conjugate, PCV7 (Prevnar7) 2003-06-13 00:00:00 Completed [facility] Pneumococcal 7 Conjugate, PCV7 (Prevnar7) 2003-06-13 00:00:00 Completed [facility] Pneumococcal 7 Conjugate, PCV7 (Prevnar7) 2003-06-13 00:00:00 Completed [facility] Pneumococcal 7 Conjugate, PCV7 (Prevnar7) 2003-06-13 00:00:00 Completed [facility] Pneumococcal 7 Conjugate, PCV7 (Prevnar7) 2003-06-13 00:00:00 Completed [facility] Pneumococcal 7 Conjugate, PCV7 (Prevnar7) 2003-06-13 00:00:00 Completed [facility] Pneumococcal 7 Conjugate, PCV7 (Prevnar7) 2003-06-13 00:00:00 Completed [facility] Pneumococcal 7 Conjugate, PCV7 (Prevnar7) 2003-06-13 00:00:00 Completed [facility] Pneumococcal 7 Conjugate, PCV7 (Prevnar7) 2003-06-13 00:00:00 Completed [facility] Pneumococcal 7 Conjugate, PCV7 (Prevnar7) 2003-06-13 00:00:00 Completed [facility] Pneumococcal 7 Conjugate, PCV7 (Prevnar7) 2003-06-13 00:00:00 Completed [facility] Pneumococcal 7 Conjugate, PCV7 (Prevnar7) 2003-06-13 00:00:00 Completed [facility] Pneumococcal 7 Conjugate, PCV7 (Prevnar7) 2003-06-13 00:00:00 Completed [facility] Pneumococcal 7 Conjugate, PCV7 (Prevnar7) 2003-06-13 00:00:00 Completed [facility] Pneumococcal 7 Conjugate, PCV7 (Prevnar7) 2003-06-13 00:00:00 Completed [facility] Pneumococcal 7 Conjugate, PCV7 (Prevnar7) 2003-06-13 00:00:00 Completed [facility] Pneumococcal 7 Conjugate, PCV7 (Prevnar7) 2003-06-13 00:00:00 Completed DTAP 2003-03-11 00:00:00 Completed [facility] HIB 4 Dose Schedule 2003-03-11 00:00:00 Completed [facility] Pneumococcal 7 Conjugate, PCV7 (Prevnar7) 2003-03-11 00:00:00 Completed [facility] DTAP 2003-03-11 00:00:00 Completed [facility] HIB 4 Dose Schedule 2003-03-11 00:00:00 Completed [facility] Pneumococcal 7 Conjugate, PCV7 (Prevnar7) 2003-03-11 00:00:00 Completed [facility] DTAP 2003-03-11 00:00:00 Completed [facility] HIB 4 Dose Schedule 2003-03-11 00:00:00 Completed [facility] Pneumococcal 7 Conjugate, PCV7 (Prevnar7) 2003-03-11 00:00:00 Completed [facility] DTAP 2003-03-11 00:00:00 Completed [facility] HIB 4 Dose Schedule 2003-03-11 00:00:00 Completed [facility] Pneumococcal 7 Conjugate, PCV7 (Prevnar7) 2003-03-11 00:00:00 Completed [facility] DTAP 2003-03-11 00:00:00 Completed [facility] HIB 4 Dose Schedule 2003-03-11 00:00:00 Completed [facility] Pneumococcal 7 Conjugate, PCV7 (Prevnar7) 2003-03-11 00:00:00 Completed [facility] DTAP 2003-03-11 00:00:00 Completed [facility] HIB 4 Dose Schedule 2003-03-11 00:00:00 Completed [facility] Pneumococcal 7 Conjugate, PCV7 (Prevnar7) 2003-03-11 00:00:00 Completed [facility] DTAP 2003-03-11 00:00:00 Completed [facility] HIB 4 Dose Schedule 2003-03-11 00:00:00 Completed [facility] Pneumococcal 7 Conjugate, PCV7 (Prevnar7) 2003-03-11 00:00:00 Completed [facility] DTAP 2003-03-11 00:00:00 Completed [facility] HIB 4 Dose Schedule 2003-03-11 00:00:00 Completed [facility] Pneumococcal 7 Conjugate, PCV7 (Prevnar7) 2003-03-11 00:00:00 Completed [facility] DTAP 2003-03-11 00:00:00 Completed [facility] HIB 4 Dose Schedule 2003-03-11 00:00:00 Completed [facility] Pneumococcal 7 Conjugate, PCV7 (Prevnar7) 2003-03-11 00:00:00 Completed [facility] DTAP 2003-03-11 00:00:00 Completed [facility] HIB 4 Dose Schedule 2003-03-11 00:00:00 Completed [facility] Pneumococcal 7 Conjugate, PCV7 (Prevnar7) 2003-03-11 00:00:00 Completed [facility] DTAP 2003-03-11 00:00:00 Completed [facility] HIB 4 Dose Schedule 2003-03-11 00:00:00 Completed [facility] Pneumococcal 7 Conjugate, PCV7 (Prevnar7) 2003-03-11 00:00:00 Completed [facility] DTAP 2003-03-11 00:00:00 Completed [facility] HIB 4 Dose Schedule 2003-03-11 00:00:00 Completed [facility] Pneumococcal 7 Conjugate, PCV7 (Prevnar7) 2003-03-11 00:00:00 Completed [facility] DTAP 2003-03-11 00:00:00 Completed [facility] HIB 4 Dose Schedule 2003-03-11 00:00:00 Completed [facility] Pneumococcal 7 Conjugate, PCV7 (Prevnar7) 2003-03-11 00:00:00 Completed [facility] DTAP 2003-03-11 00:00:00 Completed [facility] HIB 4 Dose Schedule 2003-03-11 00:00:00 Completed [facility] Pneumococcal 7 Conjugate, PCV7 (Prevnar7) 2003-03-11 00:00:00 Completed [facility] DTAP 2003-03-11 00:00:00 Completed [facility] HIB 4 Dose Schedule 2003-03-11 00:00:00 Completed [facility] Pneumococcal 7 Conjugate, PCV7 (Prevnar7) 2003-03-11 00:00:00 Completed [facility] DTAP 2003-03-11 00:00:00 Completed [facility] HIB 4 Dose Schedule 2003-03-11 00:00:00 Completed [facility] Pneumococcal 7 Conjugate, PCV7 (Prevnar7) 2003-03-11 00:00:00 Completed [facility] DTAP 2003-03-11 00:00:00 Completed [facility] HIB 4 Dose Schedule 2003-03-11 00:00:00 Completed [facility] Pneumococcal 7 Conjugate, PCV7 (Prevnar7) 2003-03-11 00:00:00 Completed [facility] DTAP 2003-03-11 00:00:00 Completed HIB 4 Dose Schedule 2003-03-11 00:00:00 Completed Pneumococcal 7 Conjugate, PCV7 (Prevnar7) 2003-03-11 00:00:00 Completed DTaP, Unspecified Formulation 2003-03-11 00:00:00 Completed Hep B, Adol or Pedi Dosage 2002-10-15 00:00:00 Completed [facility] MMR 2002-10-15 00:00:00 Completed [facility] Polio (IPV/OPV) 2002-10-15 00:00:00 Completed [facility] Varicella (varivax)(chicken pox) 2002-10-15 00:00:00 Completed [facility] Hep B, Adol or Pedi Dosage 2002-10-15 00:00:00 Completed [facility] MMR 2002-10-15 00:00:00 Completed [facility] Polio (IPV/OPV) 2002-10-15 00:00:00 Completed [facility] Varicella (varivax)(chicken pox) 2002-10-15 00:00:00 Completed [facility] Hep B, Adol or Pedi Dosage 2002-10-15 00:00:00 Completed [facility] MMR 2002-10-15 00:00:00 Completed [facility] Polio (IPV/OPV) 2002-10-15 00:00:00 Completed [facility] Varicella (varivax)(chicken pox) 2002-10-15 00:00:00 Completed [facility] Hep B, Adol or Pedi Dosage 2002-10-15 00:00:00 Completed [facility] MMR 2002-10-15 00:00:00 Completed [facility] Polio (IPV/OPV) 2002-10-15 00:00:00 Completed [facility] Varicella (varivax)(chicken pox) 2002-10-15 00:00:00 Completed [facility] Hep B, Adol or Pedi Dosage 2002-10-15 00:00:00 Completed [facility] MMR 2002-10-15 00:00:00 Completed [facility] Polio (IPV/OPV) 2002-10-15 00:00:00 Completed [facility] Varicella (varivax)(chicken pox) 2002-10-15 00:00:00 Completed [facility] Hep B, Adol or Pedi Dosage 2002-10-15 00:00:00 Completed [facility] MMR 2002-10-15 00:00:00 Completed [facility] Polio (IPV/OPV) 2002-10-15 00:00:00 Completed [facility] Varicella (varivax)(chicken pox) 2002-10-15 00:00:00 Completed [facility] Hep B, Adol or Pedi Dosage 2002-10-15 00:00:00 Completed [facility] MMR 2002-10-15 00:00:00 Completed [facility] Polio (IPV/OPV) 2002-10-15 00:00:00 Completed [facility] Varicella (varivax)(chicken pox) 2002-10-15 00:00:00 Completed [facility] Hep B, Adol or Pedi Dosage 2002-10-15 00:00:00 Completed [facility] MMR 2002-10-15 00:00:00 Completed [facility] Polio (IPV/OPV) 2002-10-15 00:00:00 Completed [facility] Varicella (varivax)(chicken pox) 2002-10-15 00:00:00 Completed [facility] Hep B, Adol or Pedi Dosage 2002-10-15 00:00:00 Completed [facility] MMR 2002-10-15 00:00:00 Completed [facility] Polio (IPV/OPV) 2002-10-15 00:00:00 Completed [facility] Varicella (varivax)(chicken pox) 2002-10-15 00:00:00 Completed [facility] Hep B, Adol or Pedi Dosage 2002-10-15 00:00:00 Completed [facility] MMR 2002-10-15 00:00:00 Completed [facility] Polio (IPV/OPV) 2002-10-15 00:00:00 Completed [facility] Varicella (varivax)(chicken pox) 2002-10-15 00:00:00 Completed [facility] Hep B, Adol or Pedi Dosage 2002-10-15 00:00:00 Completed [facility] MMR 2002-10-15 00:00:00 Completed [facility] Polio (IPV/OPV) 2002-10-15 00:00:00 Completed [facility] Varicella (varivax)(chicken pox) 2002-10-15 00:00:00 Completed [facility] Hep B, Adol or Pedi Dosage 2002-10-15 00:00:00 Completed [facility] MMR 2002-10-15 00:00:00 Completed [facility] Polio (IPV/OPV) 2002-10-15 00:00:00 Completed [facility] Varicella (varivax)(chicken pox) 2002-10-15 00:00:00 Completed [facility] Hep B, Adol or Pedi Dosage 2002-10-15 00:00:00 Completed [facility] MMR 2002-10-15 00:00:00 Completed [facility] Polio (IPV/OPV) 2002-10-15 00:00:00 Completed [facility] Varicella (varivax)(chicken pox) 2002-10-15 00:00:00 Completed [facility] Hep B, Adol or Pedi Dosage 2002-10-15 00:00:00 Completed [facility] MMR 2002-10-15 00:00:00 Completed [facility] Polio (IPV/OPV) 2002-10-15 00:00:00 Completed [facility] Varicella (varivax)(chicken pox) 2002-10-15 00:00:00 Completed [facility] Hep B, Adol or Pedi Dosage 2002-10-15 00:00:00 Completed [facility] MMR 2002-10-15 00:00:00 Completed [facility] Polio (IPV/OPV) 2002-10-15 00:00:00 Completed [facility] Varicella (varivax)(chicken pox) 2002-10-15 00:00:00 Completed [facility] Hep B, Adol or Pedi Dosage 2002-10-15 00:00:00 Completed [facility] MMR 2002-10-15 00:00:00 Completed [facility] Polio (IPV/OPV) 2002-10-15 00:00:00 Completed [facility] Varicella (varivax)(chicken pox) 2002-10-15 00:00:00 Completed [facility] Hep B, Adol or Pedi Dosage 2002-10-15 00:00:00 Completed [facility] MMR 2002-10-15 00:00:00 Completed [facility] Polio (IPV/OPV) 2002-10-15 00:00:00 Completed Varicella (varivax)(chicken pox) 2002-10-15 00:00:00 Completed [facility] IPV 2002-10-15 00:00:00 Completed Hep B, Adol or Pedi Dosage 2002-10-15 00:00:00 Completed [facility] MMR 2002-10-15 00:00:00 Completed [facility] Polio (IPV/OPV) 2002-10-15 00:00:00 Completed [facility] Varicella (varivax)(chicken pox) 2002-10-15 00:00:00 Completed [facility] DTAP 2002-04-19 00:00:00 Completed [facility] HIB 4 Dose Schedule 2002-04-19 00:00:00 Completed [facility] DTAP 2002-04-19 00:00:00 Completed [facility] HIB 4 Dose Schedule 2002-04-19 00:00:00 Completed [facility] DTAP 2002-04-19 00:00:00 Completed [facility] HIB 4 Dose Schedule 2002-04-19 00:00:00 Completed [facility] DTAP 2002-04-19 00:00:00 Completed [facility] HIB 4 Dose Schedule 2002-04-19 00:00:00 Completed [facility] DTAP 2002-04-19 00:00:00 Completed [facility] HIB 4 Dose Schedule 2002-04-19 00:00:00 Completed [facility] DTAP 2002-04-19 00:00:00 Completed [facility] HIB 4 Dose Schedule 2002-04-19 00:00:00 Completed [facility] DTAP 2002-04-19 00:00:00 Completed [facility] HIB 4 Dose Schedule 2002-04-19 00:00:00 Completed [facility] DTAP 2002-04-19 00:00:00 Completed [facility] HIB 4 Dose Schedule 2002-04-19 00:00:00 Completed [facility] DTAP 2002-04-19 00:00:00 Completed [facility] HIB 4 Dose Schedule 2002-04-19 00:00:00 Completed [facility] DTAP 2002-04-19 00:00:00 Completed [facility] HIB 4 Dose Schedule 2002-04-19 00:00:00 Completed [facility] DTAP 2002-04-19 00:00:00 Completed [facility] HIB 4 Dose Schedule 2002-04-19 00:00:00 Completed [facility] DTAP 2002-04-19 00:00:00 Completed [facility] HIB 4 Dose Schedule 2002-04-19 00:00:00 Completed [facility] DTAP 2002-04-19 00:00:00 Completed [facility] HIB 4 Dose Schedule 2002-04-19 00:00:00 Completed [facility] DTAP 2002-04-19 00:00:00 Completed [facility] HIB 4 Dose Schedule 2002-04-19 00:00:00 Completed [facility] DTAP 2002-04-19 00:00:00 Completed [facility] HIB 4 Dose Schedule 2002-04-19 00:00:00 Completed [facility] DTAP 2002-04-19 00:00:00 Completed [facility] HIB 4 Dose Schedule 2002-04-19 00:00:00 Completed [facility] DTAP 2002-04-19 00:00:00 Completed [facility] HIB 4 Dose Schedule 2002-04-19 00:00:00 Completed [facility] DTAP 2002-04-19 00:00:00 Completed HIB 4 Dose Schedule 2002-04-19 00:00:00 Completed [facility] DTaP, Unspecified Formulation 2002-04-19 00:00:00 Completed DTAP 2002-02-18 00:00:00 Completed [facility] HIB 4 Dose Schedule 2002-02-18 00:00:00 Completed [facility] Polio (IPV/OPV) 2002-02-18 00:00:00 Completed [facility] DTAP 2002-02-18 00:00:00 Completed [facility] HIB 4 Dose Schedule 2002-02-18 00:00:00 Completed [facility] Polio (IPV/OPV) 2002-02-18 00:00:00 Completed [facility] DTAP 2002-02-18 00:00:00 Completed [facility] HIB 4 Dose Schedule 2002-02-18 00:00:00 Completed [facility] Polio (IPV/OPV) 2002-02-18 00:00:00 Completed [facility] DTAP 2002-02-18 00:00:00 Completed [facility] HIB 4 Dose Schedule 2002-02-18 00:00:00 Completed [facility] Polio (IPV/OPV) 2002-02-18 00:00:00 Completed [facility] DTAP 2002-02-18 00:00:00 Completed [facility] HIB 4 Dose Schedule 2002-02-18 00:00:00 Completed [facility] Polio (IPV/OPV) 2002-02-18 00:00:00 Completed [facility] DTAP 2002-02-18 00:00:00 Completed [facility] HIB 4 Dose Schedule 2002-02-18 00:00:00 Completed [facility] Polio (IPV/OPV) 2002-02-18 00:00:00 Completed [facility] DTAP 2002-02-18 00:00:00 Completed [facility] HIB 4 Dose Schedule 2002-02-18 00:00:00 Completed [facility] Polio (IPV/OPV) 2002-02-18 00:00:00 Completed [facility] DTAP 2002-02-18 00:00:00 Completed [facility] HIB 4 Dose Schedule 2002-02-18 00:00:00 Completed [facility] Polio (IPV/OPV) 2002-02-18 00:00:00 Completed [facility] DTAP 2002-02-18 00:00:00 Completed [facility] HIB 4 Dose Schedule 2002-02-18 00:00:00 Completed [facility] Polio (IPV/OPV) 2002-02-18 00:00:00 Completed [facility] DTAP 2002-02-18 00:00:00 Completed [facility] HIB 4 Dose Schedule 2002-02-18 00:00:00 Completed [facility] Polio (IPV/OPV) 2002-02-18 00:00:00 Completed [facility] DTAP 2002-02-18 00:00:00 Completed [facility] HIB 4 Dose Schedule 2002-02-18 00:00:00 Completed [facility] Polio (IPV/OPV) 2002-02-18 00:00:00 Completed [facility] DTAP 2002-02-18 00:00:00 Completed [facility] HIB 4 Dose Schedule 2002-02-18 00:00:00 Completed [facility] Polio (IPV/OPV) 2002-02-18 00:00:00 Completed [facility] DTAP 2002-02-18 00:00:00 Completed [facility] HIB 4 Dose Schedule 2002-02-18 00:00:00 Completed [facility] Polio (IPV/OPV) 2002-02-18 00:00:00 Completed [facility] DTAP 2002-02-18 00:00:00 Completed [facility] HIB 4 Dose Schedule 2002-02-18 00:00:00 Completed [facility] Polio (IPV/OPV) 2002-02-18 00:00:00 Completed [facility] DTAP 2002-02-18 00:00:00 Completed [facility] HIB 4 Dose Schedule 2002-02-18 00:00:00 Completed [facility] Polio (IPV/OPV) 2002-02-18 00:00:00 Completed [facility] DTAP 2002-02-18 00:00:00 Completed [facility] HIB 4 Dose Schedule 2002-02-18 00:00:00 Completed [facility] Polio (IPV/OPV) 2002-02-18 00:00:00 Completed [facility] DTAP 2002-02-18 00:00:00 Completed [facility] HIB 4 Dose Schedule 2002-02-18 00:00:00 Completed [facility] Polio (IPV/OPV) 2002-02-18 00:00:00 Completed [facility] DTAP 2002-02-18 00:00:00 Completed HIB 4 Dose Schedule 2002-02-18 00:00:00 Completed [facility] Polio (IPV/OPV) 2002-02-18 00:00:00 Completed DTaP, Unspecified Formulation 2002-02-18 00:00:00 Completed IPV 2002-02-18 00:00:00 Completed DTAP 2002-01-16 00:00:00 Completed [facility] HIB 4 Dose Schedule 2002-01-16 00:00:00 Completed [facility] Hep B, Adol or Pedi Dosage 2002-01-16 00:00:00 Completed [facility] Polio (IPV/OPV) 2002-01-16 00:00:00 Completed [facility] DTAP 2002-01-16 00:00:00 Completed [facility] HIB 4 Dose Schedule 2002-01-16 00:00:00 Completed [facility] Hep B, Adol or Pedi Dosage 2002-01-16 00:00:00 Completed [facility] Polio (IPV/OPV) 2002-01-16 00:00:00 Completed [facility] DTAP 2002-01-16 00:00:00 Completed [facility] HIB 4 Dose Schedule 2002-01-16 00:00:00 Completed [facility] Hep B, Adol or Pedi Dosage 2002-01-16 00:00:00 Completed [facility] Polio (IPV/OPV) 2002-01-16 00:00:00 Completed [facility] DTAP 2002-01-16 00:00:00 Completed [facility] HIB 4 Dose Schedule 2002-01-16 00:00:00 Completed [facility] Hep B, Adol or Pedi Dosage 2002-01-16 00:00:00 Completed [facility] Polio (IPV/OPV) 2002-01-16 00:00:00 Completed [facility] DTAP 2002-01-16 00:00:00 Completed [facility] HIB 4 Dose Schedule 2002-01-16 00:00:00 Completed [facility] Hep B, Adol or Pedi Dosage 2002-01-16 00:00:00 Completed [facility] Polio (IPV/OPV) 2002-01-16 00:00:00 Completed [facility] DTAP 2002-01-16 00:00:00 Completed [facility] HIB 4 Dose Schedule 2002-01-16 00:00:00 Completed [facility] Hep B, Adol or Pedi Dosage 2002-01-16 00:00:00 Completed [facility] Polio (IPV/OPV) 2002-01-16 00:00:00 Completed [facility] DTAP 2002-01-16 00:00:00 Completed [facility] HIB 4 Dose Schedule 2002-01-16 00:00:00 Completed [facility] Hep B, Adol or Pedi Dosage 2002-01-16 00:00:00 Completed [facility] Polio (IPV/OPV) 2002-01-16 00:00:00 Completed [facility] DTAP 2002-01-16 00:00:00 Completed [facility] HIB 4 Dose Schedule 2002-01-16 00:00:00 Completed [facility] Hep B, Adol or Pedi Dosage 2002-01-16 00:00:00 Completed [facility] Polio (IPV/OPV) 2002-01-16 00:00:00 Completed [facility] DTAP 2002-01-16 00:00:00 Completed [facility] HIB 4 Dose Schedule 2002-01-16 00:00:00 Completed [facility] Hep B, Adol or Pedi Dosage 2002-01-16 00:00:00 Completed [facility] Polio (IPV/OPV) 2002-01-16 00:00:00 Completed [facility] DTAP 2002-01-16 00:00:00 Completed [facility] HIB 4 Dose Schedule 2002-01-16 00:00:00 Completed [facility] Hep B, Adol or Pedi Dosage 2002-01-16 00:00:00 Completed [facility] Polio (IPV/OPV) 2002-01-16 00:00:00 Completed [facility] DTAP 2002-01-16 00:00:00 Completed [facility] HIB 4 Dose Schedule 2002-01-16 00:00:00 Completed [facility] Hep B, Adol or Pedi Dosage 2002-01-16 00:00:00 Completed [facility] Polio (IPV/OPV) 2002-01-16 00:00:00 Completed [facility] DTAP 2002-01-16 00:00:00 Completed [facility] HIB 4 Dose Schedule 2002-01-16 00:00:00 Completed [facility] Hep B, Adol or Pedi Dosage 2002-01-16 00:00:00 Completed [facility] Polio (IPV/OPV) 2002-01-16 00:00:00 Completed [facility] DTAP 2002-01-16 00:00:00 Completed [facility] HIB 4 Dose Schedule 2002-01-16 00:00:00 Completed [facility] Hep B, Adol or Pedi Dosage 2002-01-16 00:00:00 Completed [facility] Polio (IPV/OPV) 2002-01-16 00:00:00 Completed [facility] DTAP 2002-01-16 00:00:00 Completed [facility] HIB 4 Dose Schedule 2002-01-16 00:00:00 Completed [facility] Hep B, Adol or Pedi Dosage 2002-01-16 00:00:00 Completed [facility] Polio (IPV/OPV) 2002-01-16 00:00:00 Completed [facility] DTAP 2002-01-16 00:00:00 Completed [facility] HIB 4 Dose Schedule 2002-01-16 00:00:00 Completed [facility] Hep B, Adol or Pedi Dosage 2002-01-16 00:00:00 Completed [facility] Polio (IPV/OPV) 2002-01-16 00:00:00 Completed [facility] DTAP 2002-01-16 00:00:00 Completed [facility] HIB 4 Dose Schedule 2002-01-16 00:00:00 Completed [facility] Hep B, Adol or Pedi Dosage 2002-01-16 00:00:00 Completed [facility] Polio (IPV/OPV) 2002-01-16 00:00:00 Completed [facility] DTAP 2002-01-16 00:00:00 Completed [facility] HIB 4 Dose Schedule 2002-01-16 00:00:00 Completed [facility] Hep B, Adol or Pedi Dosage 2002-01-16 00:00:00 Completed [facility] Polio (IPV/OPV) 2002-01-16 00:00:00 Completed [facility] DTAP 2002-01-16 00:00:00 Completed HIB 4 Dose Schedule 2002-01-16 00:00:00 Completed Hep B, Adol or Pedi Dosage 2002-01-16 00:00:00 Completed Polio (IPV/OPV) 2002-01-16 00:00:00 Completed DTaP, Unspecified Formulation 2002-01-16 00:00:00 Completed IPV 2002-01-16 00:00:00 Completed Hep B, Adol or Pedi Dosage 2001 00:00:00 Completed [facility] Hep B, Adol or Pedi Dosage 2001 00:00:00 Completed [facility] Hep B, Adol or Pedi Dosage 2001 00:00:00 Completed [facility] Hep B, Adol or Pedi Dosage 2001 00:00:00 Completed [facility] Hep B, Adol or Pedi Dosage 2001 00:00:00 Completed [facility] Hep B, Adol or Pedi Dosage 2001 00:00:00 Completed [facility] Hep B, Adol or Pedi Dosage 2001 00:00:00 Completed [facility] Hep B, Adol or Pedi Dosage 2001 00:00:00 Completed [facility] Hep B, Adol or Pedi Dosage 2001 00:00:00 Completed [facility] Hep B, Adol or Pedi Dosage 2001 00:00:00 Completed [facility] Hep B, Adol or Pedi Dosage 2001 00:00:00 Completed [facility] Hep B, Adol or Pedi Dosage 2001 00:00:00 Completed [facility] Hep B, Adol or Pedi Dosage 2001 00:00:00 Completed [facility] Hep B, Adol or Pedi Dosage 2001 00:00:00 Completed [facility] Hep B, Adol or Pedi Dosage 2001 00:00:00 Completed [facility] Hep B, Adol or Pedi Dosage 2001 00:00:00 Completed [facility] Hep B, Adol or Pedi Dosage 2001 00:00:00 Completed [facility] Hep B, Adol or Pedi Dosage 2001 00:00:00 Completed DTAP Unknown Completed [facility] HIB 4 Dose Schedule Unknown Completed [facility] HEPATITIS A Unknown Completed [facility] Hep B, Adol or Pedi Dosage Unknown Completed [facility] HPV Unknown Completed [facility] Influenza Virus Vaccine Unknown Completed [facility] MMR Unknown Completed [facility] Pneumococcal 7 Conjugate, PCV7 (Prevnar7) Unknown Completed [facility] Polio (IPV/OPV) Unknown Completed [facility] Varicella (varivax)(chicken pox) Unknown Completed [facility] TDAP Unknown Completed [facility] Meningococcal Oligosaccharide (groups A, C, Y and W-135) conjugate vaccine (MCV4O) Unknown Completed [facility] SARS-COV-2 COVID-19 PFIZER VACCINE Unknown Completed [facility] DTAP Unknown Completed [facility] HIB 4 Dose Schedule Unknown Completed [facility] HEPATITIS A Unknown Completed [facility] Hep B, Adol or Pedi Dosage Unknown Completed [facility] HPV Unknown Completed [facility] Influenza Virus Vaccine Unknown Completed [facility] MMR Unknown Completed [facility] Pneumococcal 7 Conjugate, PCV7 (Prevnar7) Unknown Completed [facility] Polio (IPV/OPV) Unknown Completed [facility] Varicella (varivax)(chicken pox) Unknown Completed [facility] TDAP Unknown Completed [facility] Meningococcal Oligosaccharide (groups A, C, Y and W-135) conjugate vaccine (MCV4O) Unknown Completed [facility] HIB 4 Dose Schedule Unknown Completed [facility] Hep B, Adol or Pedi Dosage Unknown Completed [facility] HPV Unknown Completed [facility] MMR Unknown Completed [facility] Varicella (varivax)(chicken pox) Unknown Completed [facility] SARS-COV-2 COVID-19 PFIZER VACCINE Unknown Completed [facility] HEPATITIS A Unknown Completed [facility] DTAP Unknown Completed [facility] Polio (IPV/OPV) Unknown Completed [facility] Influenza Virus Vaccine Unknown Completed [facility] Pneumococcal 7 Conjugate, PCV7 (Prevnar7) Unknown Completed [facility] TDAP Unknown Completed [facility] Meningococcal Oligosaccharide (groups A, C, Y and W-135) conjugate vaccine (MCV4O) Unknown Completed [facility] HIB 4 Dose Schedule Unknown Completed [facility] Hep B, Adol or Pedi Dosage Unknown Completed [facility] HPV Unknown Completed [facility] MMR Unknown Completed [facility] Varicella (varivax)(chicken pox) Unknown Completed [facility] SARS-COV-2 COVID-19 PFIZER VACCINE Unknown Completed [facility] HEPATITIS A Unknown Completed [facility] DTAP Unknown Completed [facility] Pneumococcal 7 Conjugate, PCV7 (Prevnar7) Unknown Completed [facility] Polio (IPV/OPV) Unknown Completed [facility] TDAP Unknown Completed [facility] Meningococcal Oligosaccharide (groups A, C, Y and W-135) conjugate vaccine (MCV4O) Unknown Completed [facility] Influenza Virus Vaccine Unknown Completed [facility] DTAP Unknown Completed [facility] HIB 4 Dose Schedule Unknown Completed [facility] HEPATITIS A Unknown Completed [facility] Hep B, Adol or Pedi Dosage Unknown Completed [facility] HPV Unknown Completed [facility] Influenza Virus Vaccine Unknown Completed [facility] MMR Unknown Completed [facility] Pneumococcal 7 Conjugate, PCV7 (Prevnar7) Unknown Completed [facility] Polio (IPV/OPV) Unknown Completed [facility] Varicella (varivax)(chicken pox) Unknown Completed [facility] TDAP Unknown Completed [facility] Meningococcal Oligosaccharide (groups A, C, Y and W-135) conjugate vaccine (MCV4O) Unknown Completed [facility] SARS-COV-2 COVID-19 PFIZER VACCINE Unknown Completed [facility] DTAP Unknown Completed [facility] HIB 4 Dose Schedule Unknown Completed [facility] HEPATITIS A Unknown [facility], Adol or Pedi Dosage Unknown Completed [facility] HPV Unknown Completed [facility] Influenza Virus Vaccine Unknown Completed [facility] MMR Unknown Completed [facility] Pneumococcal 7 Conjugate, PCV7 (Prevnar7) Unknown Completed [facility] Polio (IPV/OPV) Unknown Completed [facility] Varicella (varivax)(chicken pox) Unknown Completed [facility] TDAP Unknown Completed [facility] Meningococcal Oligosaccharide (groups A, C, Y and W-135) conjugate vaccine (MCV4O) Unknown Completed [facility] SARS-COV-2 COVID-19 PFIZER VACCINE Unknown Completed [facility] MMR Unknown Completed [facility] TDAP Unknown Completed [facility] Meningococcal Oligosaccharide (groups A, C, Y and W-135) conjugate vaccine (MCV4O) Unknown Completed [facility] DTAP Unknown Completed [facility] HIB 4 Dose Schedule Unknown Completed [facility] HEPATITIS A Unknown [facility] Hep B, Adol or Pedi Dosage Unknown Completed [facility] HPV Unknown Completed [facility] Influenza Virus Vaccine Unknown Completed [facility] Pneumococcal 7 Conjugate, PCV7 (Prevnar7) Unknown Completed [facility] Polio (IPV/OPV) Unknown Completed [facility] Varicella (varivax)(chicken pox) Unknown Completed [facility] SARS-COV-2 COVID-19 PFIZER VACCINE Unknown Completed [facility] DTAP Unknown Completed [facility] HIB 4 Dose Schedule Unknown Completed [facility] HEPATITIS A Unknown Completed [facility] Hep B, Adol or Pedi Dosage Unknown Completed [facility] HPV Unknown Completed [facility] Influenza Virus Vaccine Unknown Completed [facility] MMR Unknown Completed [facility] Pneumococcal 7 Conjugate, PCV7 (Prevnar7) Unknown Completed [facility] Polio (IPV/OPV) Unknown Completed [facility] Varicella (varivax)(chicken pox) Unknown Completed [facility] TDAP Unknown Completed [facility] Meningococcal Oligosaccharide (groups A, C, Y and W-135) conjugate vaccine (MCV4O) Unknown Completed [facility] SARS-COV-2 COVID-19 PFIZER VACCINE Unknown Completed [facility] MMR Unknown Completed [facility] TDAP Unknown Completed [facility] Meningococcal Oligosaccharide (groups A, C, Y and W-135) conjugate vaccine (MCV4O) Unknown Completed [facility] Influenza Virus Vaccine Quad .5 mL IM 6+ MO (FLUZONE/FLULAVAL/FLU ARIX) Unknown Completed [facility] Meningococcal Polysaccharide (groups A, C, Y and W-135) conjugate vaccine (MCV4P) Unknown Completed [facility] DTAP Unknown Completed [facility] HIB 4 Dose Schedule Unknown Completed [facility] HEPATITIS A Unknown Completed [facility] Hep B, Adol or Pedi Dosage Unknown Completed [facility] HPV Unknown Completed [facility] Influenza Virus Vaccine Unknown Completed [facility] Pneumococcal 7 Conjugate, PCV7 (Prevnar7) Unknown Completed [facility] Polio (IPV/OPV) Unknown Completed [facility] Varicella (varivax)(chicken pox) Unknown Completed [facility] SARS-COV-2 COVID-19 PFIZER VACCINE Unknown Completed [facility] DTaP, Unspecified Formulation Unknown Completed [facility] Influenza Virus Vaccine Nasal Unknown Completed [facility] IPV Unknown Completed [facility] DTAP Unknown Completed [facility] HIB 4 Dose Schedule Unknown Completed [facility] HEPATITIS A Unknown Completed [facility] Hep B, Adol or Pedi Dosage Unknown Completed [facility] HPV Unknown Completed [facility] Influenza Virus Vaccine Unknown Completed [facility] MMR Unknown Completed [facility] Pneumococcal 7 Conjugate, PCV7 (Prevnar7) Unknown Completed [facility] Polio (IPV/OPV) Unknown Completed [facility] Varicella (varivax)(chicken pox) Unknown Completed [facility] TDAP Unknown Completed [facility] Meningococcal Oligosaccharide (groups A, C, Y and W-135) conjugate vaccine (MCV4O) Unknown Completed [facility] SARS-COV-2 COVID-19 PFIZER VACCINE Unknown Completed [facility] DTaP, Unspecified Formulation Unknown Completed [facility] Influenza Virus Vaccine Quad .5 mL IM 6+ MO (FLUZONE/FLULAVAL/FLU ARIX) Unknown Completed [facility] Influenza Virus Vaccine Nasal Unknown Completed [facility] Meningococcal Polysaccharide (groups A, C, Y and W-135) conjugate vaccine (MCV4P) Unknown Completed [facility] IPV Unknown Completed [facility] DTAP Unknown Completed [facility] HIB 4 Dose Schedule Unknown Completed [facility] HEPATITIS A Unknown Completed [facility] Hep B, Adol or Pedi Dosage Unknown Completed [facility] HPV Unknown Completed [facility] Influenza Virus Vaccine Unknown Completed [facility] MMR Unknown Completed [facility] Pneumococcal 7 Conjugate, PCV7 (Prevnar7) Unknown Completed [facility] Polio (IPV/OPV) Unknown Completed [facility] Varicella (varivax)(chicken pox) Unknown Completed [facility] TDAP Unknown Completed [facility] Meningococcal Oligosaccharide (groups A, C, Y and W-135) conjugate vaccine (MCV4O) Unknown Completed [facility] SARS-COV-2 COVID-19 PFIZER VACCINE Unknown Completed [facility] DTaP, Unspecified Formulation Unknown Completed [facility] Influenza Virus Vaccine Quad .5 mL IM 6+ MO (FLUZONE/FLULAVAL/FLU ARIX) Unknown Completed [facility] Influenza Virus Vaccine Nasal Unknown Completed [facility] Meningococcal Polysaccharide (groups A, C, Y and W-135) conjugate vaccine (MCV4P) Unknown Completed [facility] IPV Unknown Completed [facility] DTAP Unknown Completed [facility] HIB 4 Dose Schedule Unknown Completed [facility] HEPATITIS A Unknown Completed [facility] Hep B, Adol or Pedi Dosage Unknown Completed [facility] MMR Unknown Completed [facility] Pneumococcal 7 Conjugate, PCV7 (Prevnar7) Unknown Completed [facility] Polio (IPV/OPV) Unknown Completed [facility] Varicella (varivax)(chicken pox) Unknown Completed [facility] TDAP Unknown Completed [facility] Meningococcal Oligosaccharide (groups A, C, Y and W-135) conjugate vaccine (MCV4O) Unknown Completed [facility] Influenza Virus Vaccine Unknown Completed [facility] SARS-COV-2 COVID-19 PFIZER VACCINE Unknown Completed [facility] HPV Unknown Completed [facility] DTaP, Unspecified Formulation Unknown Completed [facility] Influenza Virus Vaccine Quad .5 mL IM 6+ MO (FLUZONE/FLULAVAL/FLU ARIX) Unknown Completed [facility] Influenza Virus Vaccine Nasal Unknown Completed [facility] Meningococcal Polysaccharide (groups A, C, Y and W-135) conjugate vaccine (MCV4P) Unknown Completed [facility] IPV Unknown Completed [facility] DTAP Unknown Completed [facility] HIB 4 Dose Schedule Unknown Completed [facility] HEPATITIS A Unknown Completed [facility] Hep B, Adol or Pedi Dosage Unknown Completed [facility] HPV Unknown Completed [facility] Influenza Virus Vaccine Unknown Completed [facility] MMR Unknown Completed [facility] Pneumococcal 7 Conjugate, PCV7 (Prevnar7) Unknown Completed [facility] Polio (IPV/OPV) Unknown Completed [facility] Varicella (varivax)(chicken pox) Unknown Completed [facility] TDAP Unknown Completed [facility] Meningococcal Oligosaccharide (groups A, C, Y and W-135) conjugate vaccine (MCV4O) Unknown Completed [facility] SARS-COV-2 COVID-19 PFIZER VACCINE Unknown Completed [facility] DTaP, Unspecified Formulation Unknown Completed [facility] Influenza Virus Vaccine Quad .5 mL IM 6+ MO (FLUZONE/FLULAVAL/FLU ARIX) Unknown Completed [facility] Influenza Virus Vaccine Nasal Unknown Completed [facility] Meningococcal Polysaccharide (groups A, C, Y and W-135) conjugate vaccine (MCV4P) Unknown Completed [facility] IPV Unknown Completed [facility] DTAP Unknown Completed [facility] HIB 4 Dose Schedule Unknown Completed [facility] HEPATITIS A Unknown Completed [facility] Hep B, Adol or Pedi Dosage Unknown Completed [facility] HPV Unknown Completed [facility] Influenza Virus Vaccine Unknown Completed [facility] MMR Unknown Completed [facility] Pneumococcal 7 Conjugate, PCV7 (Prevnar7) Unknown Completed [facility] Polio (IPV/OPV) Unknown Completed [facility] Varicella (varivax)(chicken pox) Unknown Completed [facility] TDAP Unknown Completed [facility] Meningococcal Oligosaccharide (groups A, C, Y and W-135) conjugate vaccine (MCV4O) Unknown Completed [facility] SARS-COV-2 COVID-19 PFIZER VACCINE Unknown Completed [facility] DTaP, Unspecified Formulation Unknown Completed [facility] Influenza Virus Vaccine Quad .5 mL IM 6+ MO (FLUZONE/FLULAVAL/FLU ARIX) Unknown Completed [facility] Influenza Virus Vaccine Nasal Unknown Completed [facility] Meningococcal Polysaccharide (groups A, C, Y and W-135) conjugate vaccine (MCV4P) Unknown Completed [facility] IPV Unknown Completed [facility] DTAP Unknown Completed [facility] HIB 4 Dose Schedule Unknown Completed [facility] HEPATITIS A Unknown Completed [facility] Hep B, Adol or Pedi Dosage Unknown Completed [facility] HPV Unknown Completed [facility] Influenza Virus Vaccine Unknown Completed [facility] MMR Unknown Completed [facility] Pneumococcal 7 Conjugate, PCV7 (Prevnar7) Unknown Completed [facility] Polio (IPV/OPV) Unknown Completed [facility] Varicella (varivax)(chicken pox) Unknown Completed [facility] TDAP Unknown Completed [facility] Meningococcal Oligosaccharide (groups A, C, Y and W-135) conjugate vaccine (MCV4O) Unknown Completed [facility] SARS-COV-2 COVID-19 PFIZER VACCINE Unknown Completed [facility] DTaP, Unspecified Formulation Unknown Completed [facility] Influenza Virus Vaccine Quad .5 mL IM 6+ MO (FLUZONE/FLULAVAL/FLU ARIX) Unknown Completed [facility] Influenza Virus Vaccine Nasal Unknown Completed [facility] Meningococcal Polysaccharide (groups A, C, Y and W-135) conjugate vaccine (MCV4P) Unknown Completed [facility] IPV Unknown Completed [facility] DTAP Unknown Completed [facility] HIB 4 Dose Schedule Unknown Completed [facility] HEPATITIS A Unknown Completed [facility] Hep B, Adol or Pedi Dosage Unknown Completed [facility] HPV Unknown Completed [facility] Influenza Virus Vaccine Unknown Completed [facility] MMR Unknown Completed [facility] Pneumococcal 7 Conjugate, PCV7 (Prevnar7) Unknown Completed [facility] Polio (IPV/OPV) Unknown Completed [facility] Varicella (varivax)(chicken pox) Unknown Completed [facility] TDAP Unknown Completed [facility] Meningococcal Oligosaccharide (groups A, C, Y and W-135) conjugate vaccine (MCV4O) Unknown Completed [facility] SARS-COV-2 COVID-19 PFIZER VACCINE Unknown Completed [facility] DTaP, Unspecified Formulation Unknown Completed [facility] Influenza Virus Vaccine Quad .5 mL IM 6+ MO (FLUZONE/FLULAVAL/FLU ARIX) Unknown Completed [facility] Influenza Virus Vaccine Nasal Unknown Completed [facility] Meningococcal Polysaccharide (groups A, C, Y and W-135) conjugate vaccine (MCV4P) Unknown Completed [facility] IPV Unknown Completed [facility] Vital Signs Vital Name Observation Time Observation Value Comments S ource height 2024-03-07 11:40:00 61 [in_i] Commo n [facility] weight 2024-03-07 11:40:00 170 [lb_av] Comm on [facility] bmi 2024-03-07 11:40:00 32.12 kg/m2 Comm on [facility] Systolic blood pressure 2024-02-29 19:54:00 125 mm[Hg] [facility] Diastolic blood pressure 2024-02-29 19:54:00 83 mm[Hg] [facility] Heart rate 2024-02-29 19:54:00 93 /min Unive [facility] Body temperature 2024-02-29 19:54:00 36.67 Jackie [facility] Respiratory rate 2024-02-29 19:54:00 18 /min [facility] Body height 2024-02-29 19:54:00 154.9 cm [facility] weight 2024-02-29 19:54:00 80.015 kg Univ [facility] BMI 2024-02-29 19:54:00 33.33 kg/m2 Univ [facility] Systolic blood pressure 2024-01-19 20:39:00 115 mm[Hg] [facility] Diastolic blood pressure 2024-01-19 20:39:00 76 mm[Hg] [facility] Heart rate 2024-01-19 20:39:00 88 /min [facility] Body height 2024-01-19 20:39:00 154.9 cm Univ [facility] Body weight 2024-01-19 20:39:00 76.204 kg Univ [facility] BMI 2024-01-19 20:39:00 31.74 kg/m2 [facility] Oxygen saturation in Arterial blood by Pulse oximetry 2024-01-19 20:39:00 98 /min [facility] Systolic blood pressure 2024-01-05 18:03:00 124 mm[Hg] [facility] Diastolic blood pressure 2024-01-05 18:03:00 86 mm[Hg] [facility] Heart rate 2024-01-05 18:03:00 90 /min Unive [facility] Respiratory rate 2024-01-05 18:03:00 18 /min [facility] Body height 2024-01-05 18:03:00 154.9 cm Univ [facility] Body weight 2024-01-05 18:03:00 76.522 kg [facility] BMI 2024-01-05 18:03:00 31.88 kg/m2 [facility] Oxygen saturation in Arterial blood by Pulse oximetry 2024-01-05 18:03:00 100 /min [facility] Systolic blood pressure 2023-12-29 19:04:00 131 mm[Hg] [facility] Diastolic blood pressure 2023-12-29 19:04:00 81 mm[Hg] [facility] Heart rate 2023-12-29 19:04:00 81 /min [facility] Body temperature 2023-12-29 19:04:00 37 Jackie [facility] Respiratory rate 2023-12-29 19:04:00 18 /min [facility] Body height 2023-12-29 19:04:00 154.9 cm [facility] Body weight 2023-12-29 19:04:00 77.747 kg [facility] BMI 2023-12-29 19:04:00 32.39 kg/m2 [facility] height 2023-12-21 09:00:00 61 [in_i] Commo n [facility] weight 2023-12-21 09:00:00 170.0 [lb_av] Co mmon [facility] temperature 2023-12-21 09:00:00 98.6 [degF] Com mon [facility] bmi 2023-12-21 09:00:00 32.12 kg/m2 Comm on [facility] oximetry 2023-12-21 09:00:00 99 % Commo n [facility] respiratory rate 2023-12-21 09:00:00 16 /min Common [facility] blood pressure systolic 2023-12-21 09:00:00 124 mm[Hg] Common [facility] blood pressure diastolic 2023-12-21 09:00:00 68 mm[Hg] Common [facility] Systolic blood pressure 2023-11-07 19:43:00 129 mm[Hg] [facility] Diastolic blood pressure 2023-11-07 19:43:00 79 mm[Hg] [facility] Heart rate 2023-11-07 19:43:00 81 /min [facility] Body temperature 2023-11-07 19:43:00 36.89 Jackie [facility] Respiratory rate 2023-11-07 19:43:00 18 /min [facility] Body height 2023-11-07 19:43:00 154.9 cm [facility] Body weight 2023-11-07 19:43:00 78.291 kg Univ [facility] BMI 2023-11-07 19:43:00 32.61 kg/m2 [facility] Systolic blood pressure 2023-09-08 13:12:00 107 mm[Hg] [facility] Diastolic blood pressure 2023-09-08 13:12:00 61 mm[Hg] [facility] Heart rate 2023-09-08 13:11:00 83 /min Unive [facility] Body height 2023-09-08 13:11:00 154.9 cm Univ [facility] Body weight 2023-09-08 13:11:00 77.202 kg Univ [facility] BMI 2023-09-08 13:11:00 32.16 kg/m2 [facility] Systolic blood pressure 2023-07-17 13:11:00 123 mm[Hg] [facility] Diastolic blood pressure 2023-07-17 13:11:00 75 mm[Hg] [facility] Heart rate 2023-07-17 13:11:00 79 /min Unive [facility] Body temperature 2023-07-17 13:11:00 36.83 Jackie [facility] Body height 2023-07-17 13:11:00 154.9 cm Univ [facility] Body weight 2023-07-17 13:11:00 76.386 kg [facility] BMI 2023-07-17 13:11:00 31.82 kg/m2 [facility] Systolic blood pressure 2023-02-16 14:30:00 120 mm[Hg] [facility] Diastolic blood pressure 2023-02-16 14:30:00 79 mm[Hg] [facility] Heart rate 2023-02-16 14:30:00 77 /min Unive [facility] Body temperature 2023-02-16 14:30:00 36.94 Jackie [facility] Respiratory rate 2023-02-16 14:30:00 16 /min [facility] Body height 2023-02-16 14:30:00 154.9 cm [facility] Body weight 2023-02-16 14:30:00 74.435 kg [facility] BMI 2023-02-16 14:30:00 31.01 kg/m2 [facility] Oxygen saturation in Arterial blood by Pulse oximetry 2023-02-16 14:30:00 100 /min [facility] Systolic blood pressure 2022-12-23 20:36:00 136 mm[Hg] [facility] Diastolic blood pressure 2022-12-23 20:36:00 85 mm[Hg] [facility] Heart rate 2022-12-23 20:36:00 99 /min Unive [facility] Respiratory rate 2022-12-23 20:36:00 18 /min [facility] Body height 2022-12-23 20:36:00 154.9 cm [facility] Body weight 2022-12-23 20:36:00 75.297 kg [facility] BMI 2022-12-23 20:36:00 31.37 kg/m2 [facility] Systolic blood pressure 2022-11-24 16:40:00 135 mm[Hg] [facility] Diastolic blood pressure 2022-11-24 16:40:00 89 mm[Hg] [facility] Heart rate 2022-11-24 16:40:00 88 /min Unive [facility] Respiratory rate 2022-11-24 16:40:00 18 /min [facility] Body height 2022-11-24 16:40:00 154.9 cm [facility] Body weight 2022-11-24 16:40:00 72.576 kg Univ [facility] BMI 2022-11-24 16:40:00 30.23 kg/m2 [facility] Systolic blood pressure 2022-10-25 15:47:00 126 mm[Hg] [facility] Diastolic blood pressure 2022-10-25 15:47:00 82 mm[Hg] [facility] Body temperature 2022-10-25 15:47:00 37.17 Jackie [facility] Respiratory rate 2022-10-25 15:47:00 18 /min [facility] Body height 2022-10-25 15:47:00 154.9 cm [facility] Body weight 2022-10-25 15:47:00 73.029 kg [facility] BMI 2022-10-25 15:47:00 30.42 kg/m2 [facility] Systolic blood pressure 2022-10-18 15:15:00 129 mm[Hg] [place] [facility] Diastolic blood pressure 2022-10-18 15:15:00 86 mm[Hg] [facility] Heart rate 2022-10-18 15:15:00 96 /min Unive [facility] Body temperature 2022-10-18 15:15:00 36.78 Jackie [facility] Body height 2022-10-18 15:15:00 154.9 cm [facility] Body weight 2022-10-18 15:15:00 71.487 kg [facility] BMI 2022-10-18 15:15:00 29.78 kg/m2 [facility] Systolic blood pressure 2022-07-13 14:25:00 120 mm[Hg] [facility] Diastolic blood pressure 2022-07-13 14:25:00 81 mm[Hg] [facility] Heart rate 2022-07-13 14:25:00 87 /min Unive [facility] Body temperature 2022-07-13 14:25:00 36.67 Jackie [facility] Respiratory rate 2022-07-13 14:25:00 18 /min [facility] Body height 2022-07-13 14:25:00 154.9 cm [facility] Body weight 2022-07-13 14:25:00 70.126 kg [facility] BMI 2022-07-13 14:25:00 29.21 kg/m2 [facility] Oxygen saturation in Arterial blood by Pulse oximetry 2022-07-13 14:25:00 99 /min [facility] Systolic blood pressure 2022-07-01 13:17:00 129 mm[Hg] [facility] Diastolic blood pressure 2022-07-01 13:17:00 71 mm[Hg] [facility] Heart rate 2022-07-01 13:17:00 86 /min Unive [facility] Respiratory rate 2022-07-01 13:17:00 18 /min [facility] Body height 2022-07-01 13:17:00 154.9 cm [facility] Body weight 2022-07-01 13:17:00 71.169 kg [facility] BMI 2022-07-01 13:17:00 29.65 kg/m2 [facility] Oxygen saturation in Arterial blood by Pulse oximetry 2022-07-01 13:17:00 99 /min [facility] Systolic blood pressure 2021-07-12 14:42:00 120 mm[Hg] [facility] Diastolic blood pressure 2021-07-12 14:42:00 80 mm[Hg] [facility] Heart rate 2021-07-12 14:42:00 83 [facility] Body temperature 2021-07-12 14:42:00 36.67 Jackie [facility] Respiratory rate 2021-07-12 14:42:00 18 /min [facility] Body height 2021-07-12 14:42:00 154.9 cm [facility] Body weight 2021-07-12 14:42:00 71.668 kg [facility] BMI 2021-07-12 14:42:00 29.85 kg/m2 [facility] Body mass index (BMI) [Percentile] Per age and sex 2021-07-12 14:42:00 93.09 % [facility] Procedures Procedure Date / Time Performed Performing Clinician Source TRANSTHORACIC ECHO (TTE) COMPLETE W/ CONTRAST 2024-01-19 20:48:39 Victorino Rouse [facility] POCT URINALYSIS W/O SPECIFIC GRAVITY 2023-12-29 00:00:00 Suzi Moya [facility] POCT TEST 2022-12-23 00:00:00 Monique Herbert [facility] SYSTEMS COORDINATOR CLINIC ULTRASOUND 2022-11-24 05:01:00 Doc tor Unassigned, [place] [facility] POCT TEST 2022-11-24 00:00:00 Margo Herbertsol [facility] DISCLOSURE AND CONSENT MEDICAL & SURGICAL PROCEDURES - FEMALM 2022-10-25 05:01:00 Doctor Unassigned, [place] [facility] POCT TEST 2022-10-25 00:00:00 Monique Herbert [facility] CONSENT FOR CONTRACEPTION 2022-07-13 05:01:00 Doctor Unassigned, [place] [facility] POCT URINALYSIS 2022-07-01 13:22:00 Margo Herbert [facility] ASSIGNMENT OF BENEFITS 2022-07-01 13:04:58 Docto r Unassigned, [place] [facility] CONSENT FOR CONTRACEPTION 2021-07-12 05:01:00 Doctor Unassigned, [place] [facility] Encounters Start Date/Time End Date/Time Encounter Type Admission Type Attending [facility] Care Facility Care Department Encounter ID Source 2024-03-07 08:22:00 Outpatient Olivia Dumont [facility] [id number] [facility] 2023-12-21 08:59:01 Outpatient Olivia Dumont [facility] [id number] [facility] 2021-01-08 09:31:05 Outpatient P [facility] [id number] [facility] 2024-03-11 16:30:00 2024-03-11 16:30:00 Outpatient R CASIE BEASLEY SHIWAN [facility] [id number] [facility] 2024-03-07 00:00:00 2024-03-07 00:00:00 OFFICE VISIT ESTAB PT LEVEL 3 [facility] STLC [id number] [facility] 2024-03-07 00:00:00 2024-03-07 00:00:00 (TEL) STLC STLC [id number] [facility] 2024-03-01 00:00:00 2024-03-01 16:14:23 Case Management Kary salter [facility] 1..840.114 350.1.13.10 4.2.7.2.686 [id number] [facility] 2024-02-29 14:00:00 2024-02-29 14:00:00 Office Visit Juarez-Emeterio s, [facility] 1..840.114 350.1.13.10 4.2.7.2.686 [id number] 134 [id number] [facility] 2024-02-29 14:00:00 2024-02-29 13:59:49 Outpatient R AUNDREAEMETERIO Se MONIQUE CHERELLEI S [facility] [id number] [facility] 2024-02-14 00:00:00 2024-02-14 00:00:00 [facility]EL[facility] [id number] [facility] 2024-01-24 00:00:00 2024-01-24 08:46:36 Telephone Victorino Rouse [facility] 1..840.114 350.1.13.10 4.2.7.2.686 [id number] [facility] 2024-01-24 00:00:00 2024-01-24 00:00:00 (TEL) STLMLC STLMLC [id number] [facility] 2024-01-19 14:00:46 2024-01-19 23:59:00 Hospital Encounter Victorino Rouse [facility] 1.2.840.114 350.1.13.10 4.2.7.2.686 [id number] [facility] 2024-01-19 16:00:00 2024-01-19 16:00:00 Outpatient R VICTORINO ROUSE [facility] [id number] [facility] 2024-01-19 14:00:00 2024-01-19 14:00:00 Outpatient R VICTORINO ROUSE [facility] [id number] [facility] 2024-01-19 14:00:00 2024-01-19 14:00:00 Hospital Encounter Victorino Rouse [facility] 1.2.840.114 350.1.13.10 4.2.7.2.686 [id number] [facility] 2024-01-05 13:00:00 2024-01-05 13:25:56 Outpatient R VICTORINO ROUSE [facility] [id number] [facility] 2024-01-05 13:00:00 2024-01-05 13:25:56 Office Visit Victorino Rosue [facility] 1.2.840.114 350.1.13.10 4.2.7.2.686 [id number] [facility] 2024-01-05 08:30:00 2024-01-05 08:30:00 Outpatient R SUZI MOYA VIVIAN [facility] [id number] [facility] 2023-12-29 14:30:00 2023-12-29 14:45:00 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, Adc Lab Suzi Moya 2, Adc Lab [facility] 1.2.840.114 350.1.13.10 4.2.7.2.686 [id number] [facility] 2023-12-29 14:00:00 2023-12-29 14:21:21 Outpatient R SUZI MOYA VIV[facility] [id number] [facility] 2023-12-29 14:00:00 2023-12-29 14:21:21 Office Visit Suzi Moya [facility] 1..840.114 350.1.13.10 4.2.7.2.686 [id number] [facility] 2023-12-25 00:00:00 2023-12-25 00:00:00 (TEL) [facility] [id number] [facility] 2023-12-21 00:00:00 2023-12-21 00:00:00 OFFICE VISIT ESTAB PT LEVEL 4 [facility] [id number] [facility] 2023-12-07 13:00:00 2023-12-07 13:00:00 Outpatient R SUZI MOYA VIV[facility] [id number] [facility] 2023-11-15 09:30:00 2023-11-15 09:30:00 Outpatient R SUZI MOYA [facility] [id number] [facility] 2023-11-07 15:15:00 2023-11-07 15:30:00 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, Adc Lab Suzi Moya 2, Adc Lab [facility] 1.2.840.114 350.1.13.10 4.2.7.2.686 [id number] [facility] 2023-11-07 15:15:00 2023-11-07 15:15:00 Outpatient R ADSUZI DSA VIVIAN [facility] [id number] [facility] 2023-11-07 00:00:00 2023-11-07 15:02:59 Letter (Out) Suzi Moya [facility] 1.2.840.114 350.1.13.10 4.2.7.2.686 [id number] 134 [id number] [facility] 2023-11-07 14:00:00 2023-11-07 14:59:22 Office Visit AdSuzi das [facility] 1.2.840.114 350.1.13.10 4.2.7.2.686 [id number] [facility] 2023-09-08 11:45:00 2023-09-08 12:00:00 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, Adc Lab Suzi Moya [facility] 1.2.840.114 350.1.13.10 4.2.7.2.686 [id number] [facility] 2023-09-08 11:45:00 2023-09-08 11:45:00 Outpatient R SUZI MOYA VIV[facility] [id number] [facility] 2023-09-08 08:00:00 2023-09-08 08:22:22 Office Visit Suzi Moya [facility] 1.2.840.114 350.1.13.10 4.2.7.2.686 [id number] [facility] 2023-07-17 09:00:00 2023-07-17 09:15:00 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, Adc Lab Luis Rice [facility] 1.2.840.114 350.1.13.10 4.2.7.2.686 [id number] [facility] 2023-07-17 00:00:00 2023-07-17 09:05:17 Letter (Out) Luis Rice [facility] 1.2.114 350.1.13.10 4.2.7.2.686 [id number] [facility] 2023-07-17 08:00:00 2023-07-17 08:30:07 Outpatient R LUIS RICE [facility] [id number] [facility] 2023-07-17 08:00:00 2023-07-17 08:30:07 Office Visit Luis Rice [facility] 1.2.114 350.1.13.10 4.2.7.2.686 [id number] [facility] 2023-04-10 13:30:00 2023-04-10 13:30:00 Outpatient R KARY Salter, MONIQUE CHAGO-EMETERIO S MONIQUE [facility] [id number] [facility] 2023-02-16 08:30:00 2023-02-16 08:57:21 Outpatient R KARY Salter, MONIQUE CHAGO-EMETERIO S MONIQUE [facility] [id number] [facility] 2023-02-16 08:30:00 2023-02-16 08:57:21 Office Visit Monique Chand [facility] 1.2.114 350.1.13.10 4.2.7.2.686 [id number] [facility] 2023-02-16 00:00:00 2023-02-16 00:00:00 [facility]..114 350.1.13.10 4.2.7.2.686 [id number] [facility] 2022-12-23 16:30:00 2022-12-23 16:30:00 Outpatient R KARY Salter, MONIQUE KARY Salter, [facility] [id number] [facility] 2022-12-23 16:30:00 2022-12-23 16:30:00 Commercial Real Estate Associate Visit Lab, [place] Kary salter [facility] 1.2840.114 350.1.13.10 4.2.7.2.686 [id number] [facility] 2022-12-23 15:30:00 2022-12-23 15:49:47 Office Visit Margo Chandsol [facility] 1.2.840.114 350.1.13.10 4.2.7.2.686 [id number] [facility] 2022-12-23 00:00:00 2022-12-23 00:00:00 Letter (Out) Kary salter [facility] 1.2.840.114 350.1.13.10 4.2.7.2.686 [id number] [facility] 2022-12-23 00:00:00 2022-12-23 00:00:00 Telephone Kary salter [facility] 1.2.840.114 350.1.13.10 4.2.7.2.686 [id number] [facility] 2022-11-24 12:45:00 2022-11-24 13:00:00 Commercial [employer] Associate Visit Lab, [place] Kary salter [facility] 1.2840.114 350.1.13.10 4.2.7.2.686 [id number] [facility] 2022-11-24 12:45:00 2022-11-24 12:45:00 Outpatient R JUAREZ-EMETERIO S, MONIQUE JUAREZ-EMETERIO S, MONIQUE [facility] [id number] [facility] 2022-11-24 11:30:00 2022-11-24 12:04:33 Office Visit Chago-Emeterio sMargoMonique [facility] 1.2.114 350.1.13.10 4.2.7.2.686 [id number] [facility] 2022-11-24 00:00:00 2022-11-24 00:00:00 Orders Only Doctor Unassigned, [place] [facility] 1.2114 350.1.13.10 4.2.7.2.686 [id number] [facility] 2022-10-25 11:00:00 2022-10-25 11:47:43 Outpatient R JUAREZ-EMETERIO S, MONIQUE JUAREZ-EMETERIO S, MONIQUE [facility] [id number] [facility] 2022-10-25 11:00:00 2022-10-25 11:47:43 Office Visit Kary sMargoMonique [facility] 1.84.114 350.1.13.10 4.2.7.2.686 [id number] [facility] 2022-10-25 00:00:00 2022-10-25 00:00:00 Letter (Out) Juarez-Emeterio s Monique [facility] 1.2840.114 350.1.13.10 4.2.7.2.686 [id number] [facility] 2022-10-25 00:00:00 2022-10-25 00:00:00 Orders Only Doctor Unassigned, [place] [facility] 1.2.840.114 350.1.13.10 4.2.7.2.686 [id number] [facility] 2022-10-18 10:30:00 2022-10-18 10:30:00 Office Visit Monique Chand [facility] 1.2.840.114 350.1.13.10 4.2.7.2.686 [id number] [facility] 2022-10-18 10:30:00 2022-10-18 10:28:14 Outpatient R KARY Salter [facility]IQUE [facility]ALI [facility] [id number] [facility] 2022-10-18 00:00:00 2022-10-18 00:00:00 Letter (Out) Margo Chandsol [facility] 1.2.840.114 350.1.13.10 4.2.7.2.686 [id number] 134 [id number] [facility] 2022-07-14 00:00:00 2022-07-14 00:00:00 Case Management Luis Rice [facility] 1.2.840.114 350.1.13.10 4.2.7.2.686 [id number] 134 [id number] [facility] 2022-07-13 10:15:00 2022-07-13 10:30:00 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, Adc Lab Luis Rice [facility] 1.2.840.114 350.1.13.10 4.2.7.2.686 [id number] [facility] 2022-07-13 09:30:00 2022-07-13 09:51:41 Outpatient R RICELARRYEN [facility] [id number] [facility] 2022-07-13 09:30:2022-07-13 09:51:41 Office Visit Luis Rice [facility] 1.0.114 350.1.13.10 4.2.7.2.686 [id number] 134 [id number] [facility] 2022-07-13 00:00:00 2022-07-13 00:00:00 Letter (Out) Luis Rice [facility] 1.2840.114 350.1.13.10 4.2.7.2.686 [id number] 134 [id number] [facility] 2022-07-13 00:00:00 2022-07-13 00:00:00 Orders Only Doctor Unassigned, [place] [facility] 1.0.114 350.1.13.10 4.2.7.2.686 [id number] 009 [id number] [facility] 2022-07-04 00:00:00 2022-07-04 00:00:00 Telephone Monique Chand [facility] 1..114 350.1.13.10 4.2.7.2.686 [id number] 134 [id number] [facility] 2022-07-01 08:00:00 2022-07-01 08:47:31 Outpatient R MONIQUE CHAND MARISOL [facility] [id number] [facility] 2022-07-01 08:00:00 2022-07-01 08:47:31 Office Visit Monique Chand [facility] 1..114 350.1.13.10 4.2.7.2.686 [id number] 134 [id number] [facility] 2022-07-01 00:00:00 2022-07-01 00:00:00 Orders Only Doctor Unassigned, [place] [facility] 1.2840.114 350.1.13.10 4.2.7.2.686 [id number] [id number] [facility] 2021-07-12 10:45:00 2021-07-12 11:00:00 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, Adc Lab Luis Rice [facility] 1.0.114 350.1.13.10 4.2.7.2.686 [id number] 353 [id number] [facility] 2021-07-12 09:30:00 2021-07-12 10:07:49 Outpatient R LUIS RICE [facility] [id number] [facility] 2021-07-12 09:30:00 2021-07-12 10:07:49 Office Visit Luis Rice [facility] BUILDING 1..114 350.1.13.10 4.2.7.2.686 [id number] 134 [id number] [facility] 2021-07-12 09:30:00 2021-07-12 09:30:00 Outpatient R LUIS RICE [facility] [id number] [facility] 2021-07-12 09:30:00 2021-07-12 09:30:00 Outpatient R LUIS RICE [facility] [id number] [facility] 2021-07-12 00:00:00 2021-07-12 00:00:00 Letter (Out) Luis Rice [facility] BUILDING 1..114 350.1.13.10 4.2.7.2.686 [id number] 134 [id number] [facility] 2021-07-12 00:00:00 2021-07-12 00:00:00 Orders Only Doctor Unassigned, [place] [facility] 1..114 350.1.13.10 4.2.7.2.686 [id number] [id number] [facility] 2021-07-05 08:00:00 2021-07-05 08:00:00 Outpatient R LUIS RICE [facility] [id number] [facility] 2021-05-17 00:00:00 2021-05-17 00:00:00 Refill Luis Rice Bossman [facility] 1..840.114 350.1.13.10 4.2.7.2.686 [id number] 134 [id number] [facility] 2021-03-16 12:00:00 2021-03-16 12:15:00 Laboratory Only Only, Ang Db Test Manda [facility] 1..840.114 350.1.13.10 4.2.7.2.686 [id number] 370 [id number] [facility] 2021-03-16 12:00:00 2021-03-16 12:00:00 Outpatient R SKYLAR HOLMAN [facility] [id number] [facility] 2021-03-11 14:00:00 2021-03-11 14:15:00 Laboratory Only Only, Ang Db Test Anthony [facility] 1..840.114 350.1.13.10 4.2.7.2.686 [id number] 370 [id number] [facility] 2021-03-11 14:00:00 2021-03-11 14:00:00 Outpatient R ANTHONYJIMMY [facility] [id number] [facility] 2021-01-28 15:59:35 2021-01-28 16:42:18 Office Visit Luis Rice Nancy [facility] 1..840.114 350.1.13.10 4.2.7.2.686 [id number] 134 [id number] [facility] 2021-01-28 15:45:00 2021-01-28 16:42:18 Outpatient R WAYNE FIELD [facility] [id number] [facility] 2021-01-28 15:45:00 2021-01-28 15:45:00 Outpatient R WAYNE FIELD [facility] [id number] [facility] 2021-01-28 00:00:00 2021-01-28 00:00:00 Orders Only Doctor Unassigned, [place] [facility] 1.2840.114 350.1.13.10 4.2.7.2.686 [id number] [id number] [facility] 2020-12-17 09:03:03 2020-12-17 09:50:58 Office [facility] AdnahomySuzi [facility] 1.2.840.114 350.1.13.10 4.2.7.2.686 [id number] 134 [id number] [facility] 2020-12-17 09:00:00 2020-12-17 09:00:00 Outpatient R SUZI MOYA [facility] [id number] [facility] 2020-11-27 00:00:00 2020-11-27 00:00:00 Case Management Adum Suzi Moss [facility] 1.2.840.114 350.1.13.10 4.2.7.2.686 [id number] 134 [id number] [facility] 2020-11-27 00:00:00 2020-11-27 00:00:00 Telephone Adnahomy Suzi Moss [facility] 1.2.840.114 350.1.13.10 4.2.7.2.686 [id number] 134 [id number] [facility] 2020-11-25 00:00:00 2020-11-25 00:00:00 Case Management AdSuzi das [facility] 1.2.84.114 350.1.13.10 4.2.7.2.686 [id number] 134 [id number] [facility] 2020-11-25 00:00:00 2020-11-25 00:00:00 Telephone AdSuzi das [facility] 1.2.840.114 350.1.13.10 4.2.7.2.686 [id number] 134 [id number] [facility] 2020-11-19 12:54:20 2020-11-19 13:35:54 Office Visit Suzi Moya [facility] 1.2840.114 350.1.13.10 4.2.7.2.686 [id number] 134 [id number] [facility] 2020-11-19 13:00:00 2020-11-19 13:00:00 Outpatient Janette MOYA SUZI [facility] [id number] [facility] 2020-11-19 00:00:00 2020-11-19 00:00:00 Orders Only Doctor Unassigned, [place] [facility] 1.2840.114 350.1.13.10 4.2.7.2.686 [id number] [id number] [facility] 2020-11-19 00:00:00 2020-11-19 00:00:00 Orders Only Doctor Unassigned, [place] [facility] 1.2840.114 350.1.13.10 4.2.7.2.686 [id number] [facility] 2020-10-21 11:00:00 2020-10-21 11:00:00 Outpatient PREET BRIGHT [facility] [id number] [facility] 2020-09-08 10:32:07 2020-09-08 11:02:07 Office Visit uLis Rice Adnahomy [facility] 1.2.840.114 350.1.13.10 4.2.7.2.686 [id number] 134 [id number] [facility] 2020-09-08 10:30:00 2020-09-08 10:30:00 Outpatient R SUZI MOYA [facility] [id number] [facility] 2020-07-20 10:15:00 2020-07-20 10:15:00 Outpatient PREET BRIGHT [facility] [id number] [facility] 2020-07-09 15:12:08 2020-07-09 16:41:32 Office Visit Luis Rice [facility] Building 1.840.114 350.1.13.10 4.2.7.2.686 [id number] 134 [id number] [facility] 2020-07-09 15:00:00 2020-07-09 15:00:00 Outpatient R LUIS RICE [facility] [id number] [facility] 2020-07-06 00:00:00 2020-07-06 00:00:00 Telephone Luis Rice [facility] Building 1.840.114 350.1.13.10 4.2.7.2.686 [id number] 134 [id number] [facility] 2020-06-02 00:00:00 2020-06-02 00:00:00 Patient Outreach Anthony Bergman [facility] 1.840.114 350.1.13.10 4.2.7.2.686 [id number] [facility] 2020-01-20 10:28:24 2020-01-20 10:43:24 Office Visit Preet Mayberry [facility] Office Building One 1..840.114 350.1.13.10 4.2.7.2.686 [id number] 044 [id number] [facility] 2020-01-20 10:30:00 2020-01-20 10:30:00 Outpatient PREET BRIGHT [facility] [id number] [facility] 2020-01-08 09:00:00 2020-01-08 09:00:00 Outpatient R [facility] [id number] [facility] 2019-12-25 09:30:20 2019-12-25 10:00:20 Office Visit Preet Mayberry [facility] 1..840.114 350.1.13.10 4.2.7.2.686 [id number] 044 [id number] [facility] 2019-12-25 09:30:00 2019-12-25 09:30:00 Outpatient R PARVEZKHUSHBU PREET [facility] [id number] [facility] 2019-12-09 13:46:42 2019-12-16 15:20:20 Office Visit Victorino Rouse [facility] 1..840.114 350.1.13.10 4.2.7.2.686 [id number] [facility] 2019-12-16 00:00:00 2019-12-16 00:00:00 Telephone Victorino Rouse [facility] Building 1..840.114 350.1.13.10 4.2.7.2.686 [id number] [id number] [facility] 2019-12-09 14:00:00 2019-12-09 14:00:00 Outpatient R VICTORINO ROUSE [facility] [id number] [facility] 2019-11-27 10:29:31 2019-11-27 11:14:39 Office Visit Lius Rice [facility] Building 1.2.840.114 350.1.13.10 4.2.7.2.686 [id number] 134 [id number] [facility] 2019-11-27 10:30:00 2019-11-27 10:30:00 Outpatient R LUIS RICE [facility] [id number] [facility] 2019-11-21 08:56:57 2019-11-21 09:44:36 Office Visit Yola Henriquez [facility] COORDINATOR [facility] MATERNAL & CHILD [facility] 1.2.840.114 350.1.13.10 4.2.7.2.686 [id number] [facility] 2019-11-21 09:00:00 2019-11-21 09:00:00 Outpatient R YOLA HENRIQUEZ [facility] [id number] [facility] 2019-11-21 00:00:00 2019-11-21 00:00:00 Orders Only Doctor Unassigned, [place] [facility] 1.2840.114 350.1.13.10 4.2.7.2.686 [id number] [facility] 2019-11-20 00:00:00 2019-11-20 00:00:00 Telephone Yola Henriquez [facility] COORDINATOR [facility] MATERNAL & CHILD [facility] 1.20.114 350.1.13.10 4.2.7.2.686 [id number] 107 [id number] [facility] 2019-11-12 00:00:00 2019-11-12 00:00:00 Telephone Luis Rice [facility] Building 1.2840.114 350.1.13.10 4.2.7.2.686 [id number] 134 [id number] [facility] 2019-11-12 00:00:00 2019-11-12 00:00:[address] [facility] 1.20.114 350.1.13.10 4.2.7.2.686 [id number] 134 [id number] [facility] 2019-11-12 00:00:00 2019-11-12 00:00:[address] [facility] 1.2.840.114 350.1.13.10 4.2.7.2.686 [id number] 134 [id number] [facility] 2019-11-12 00:00:00 2019-11-12 00:00:00 Patient Secure Msg Doctor Unassigned, [place] [facility] 1.2.840.114 350.1.13.10 4.2.7.2.686 [id number] 134 [id number] [facility] 2019-11-12 00:00:00 2019-11-12 00:00:00 Telephone Luis Rice [facility] 1.2.840.114 350.1.13.10 4.2.7.2.686 [id number] 134 [id number] 2019-11-12 00:00:00 2019-11-12 00:00:00 Telephone Luis Rice [facility] 1.2.840.114 350.1.13.10 4.2.7.2.686 [id number] 134 [id number] 2019-11-12 00:00:00 2019-11-12 00:00:00 Telephone Luis Rice TNKOMAL [place] [facility] 1.2.840.114 350.1.13.10 4.2.7.2.686 [id number] 134 [id number] 2019-10-30 09:25:33 2019-10-30 11:02:55 Office Visit Luis Rice [facility] 1.2.840.114 350.1.13.10 4.2.7.2.686 [id number] 134 [id number] [facility] 2019-10-30 09:25:33 2019-10-30 11:02:55 Office Visit Luis Rice TNKOMAL [place] [facility] 1.2.840.114 350.1.13.10 4.2.7.2.686 [id number] 134 [id number] 2019-10-30 09:30:00 2019-10-30 09:30:00 Outpatient R LUIS RICE [facility] [id number] [facility] 2019-10-28 10:45:00 2019-10-28 10:45:00 Outpatient R LUIS RICE [facility] [id number] [facility] 2019-10-23 13:25:39 2019-10-23 14:04:18 Routine Visit Luis Rice [facility] 1.2.840.114 350.1.13.10 4.2.7.2.686 [id number] 134 [id number] [facility] 2019-10-23 13:30:00 2019-10-23 13:30:00 Outpatient R LUIS RICE [facility] [id number] [facility] 2019-10-23 09:00:00 2019-10-23 09:00:00 Outpatient R LUIS RICE [facility] [id number] [facility] 2019-10-23 00:00:00 2019-10-23 00:00:00 Orders Only Doctor Unassigned, [place] [facility] 1.2840.114 350.1.13.10 4.2.7.2.686 [id number] [facility] 2019-10-22 00:00:00 2019-10-22 00:00:00 Telephone Luis Rice [facility] 1.2.840.114 350.1.13.10 4.2.7.2.686 [id number] 134 [id number] [facility] 2019-10-09 10:04:00 2019-10-10 21:15:00 Hospital Encounter Luis Rice [facility] 1.2840.114 350.1.13.10 4.2.7.2.686 [id number] [facility] 2019-10-10 00:00:00 2019-10-10 00:00:00 Refill Luis Rice [facility] 1.84.114 350.1.13.10 4.2.7.2.686 [id number] 134 [id number] [facility] 2019-10-09 10:04:00 2019-10-09 10:04:00 [facility] [id number] [facility] 2019-10-09 08:50:40 2019-10-09 09:47:51 Routine Visit Luis Rice [facility] 1..114 350.1.13.10 4.2.7.2.686 [id number] 134 [id number] [facility] 2019-10-09 09:00:00 2019-10-09 09:00:00 Outpatient R [facility] [id number] [facility] 2019-10-08 16:30:00 2019-10-08 23:59:00 Hospital Encounter Luis Rice [facility] 1..114 350.1.13.10 4.2.7.2.686 [id number] [facility] 2019-10-08 15:45:00 2019-10-08 15:45:00 Outpatient R LUIS RICE [facility] [id number] [facility] 2019-10-08 00:00:00 2019-10-08 00:00:00 Outpatient R [facility] [id number] [facility] 2019-10-08 00:00:00 2019-10-08 00:00:00 Orders Only Doctor Unassigned, [place] [facility] ..114 350.1.13.10 4.2.7.2.686 [id number] [facility] 2019-10-07 15:52:52 2019-10-07 16:47:16 Routine Visit Room, [facility] 1.2.840.114 350.1.13.10 4.2.7.2.686 [id number] 134 [id number] [facility] 2019-10-07 15:00:00 2019-10-07 15:00:00 Outpatient R [facility] [id number] [facility] 2019-10-07 00:00:00 2019-10-07 00:00:00 Telephone Luis Rice [facility] Building 1.2.840.114 350.1.13.10 4.2.7.2.686 [id number] 134 [id number] [facility] 2019-10-01 00:00:00 2019-10-01 00:00:00 Telephone Luis Rice [facility] Building 1.2840.114 350.1.13.10 4.2.7.2.686 [id number] 134 [id number] [facility] 2019-09-30 08:44:27 2019-09-30 11:34:24 Telemedici ne Visit Wayne Field [facility] Building 1.20.114 350.1.13.10 4.2.7.2.686 [id number] 134 [id number] [facility] 2019-09-30 11:30:00 2019-09-30 11:30:00 Outpatient [facility] [id number] [facility] 2019-09-25 00:00:00 2019-09-25 00:00:00 Refill Luis Rice [facility] Building 1.2840.114 350.1.13.10 4.2.7.2.686 [id number] 134 [id number] [facility] 2019-09-11 08:22:17 2019-09-11 09:25:31 Commercial Real Estate Associate Visit Ultrasound, Dylan Parham [facility] COORDIN[facility] 1.2840.114 350.1.13.10 4.2.7.2.686 [id number] [facility] 2019-09-11 08:30:00 2019-09-11 08:30:00 Outpatient P [facility] [id number] [facility] 2019-09-02 11:32:22 2019-09-02 12:17:09 Routine Visit Luis Rice [facility] Building 1.2.840.114 350.1.13.10 4.2.7.2.686 [id number] 134 [id number] [facility] 2019-09-02 11:30:00 2019-09-02 11:30:00 Outpatient R LUIS RICE [facility] [id number] [facility] 2019-08-20 00:00:00 2019-08-20 00:00:00 Orders Only Doctor Unassigned, [place] [facility] 1.2.840.114 350.1.13.10 4.2.7.2.686 [id number] [facility] 2019-08-07 11:38:10 2019-08-07 11:53:10 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, Adc Lab Luis Rice [facility] Building 1.2.840.114 350.1.13.10 4.2.7.2.686 [id number] [facility] 2019-08-07 11:45:00 2019-08-07 11:45:00 Outpatient R [facility] [id number] [facility] 2019-08-01 14:15:00 2019-08-01 14:15:00 Outpatient R WAYNE FIELD [facility] [id number] [facility] 2019-08-01 09:15:00 2019-08-01 09:15:00 Outpatient R RAHEEM BENITO [facility] [id number] [facility] 2019-08-01 08:10:47 2019-08-01 08:25:47 [facility]medici ne [facility] 1.2.840.114 350.1.13.10 4.2.7.2.686 [id number] 134 [id number] [facility] 2019-07-15 00:00:00 2019-07-15 00:00:00 [facility] 1.2.840.114 350.1.13.10 4.2.7.2.686 [id number] 134 [id number] [facility] 2019-07-10 00:00:00 2019-07-10 00:00:00 Telephone Luis Rice [facility] Building 1.2.840.114 350.1.13.10 4.2.7.2.686 [id number] 134 [id number] [facility] 2019-07-05 08:36:47 2019-07-05 08:51:47 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, Adc Lab Luis Rice [facility] Building 1.2.840.114 350.1.13.10 4.2.7.2.686 [id number] [facility] 2019-07-05 08:45:00 2019-07-05 08:45:00 Outpatient R RICELUIS [facility] [id number] [facility] 2019-07-04 07:57:41 2019-07-04 13:41:52 Telemedici ne Visit Luis Rice [facility] Building 1.2.840.114 350.1.13.10 4.2.7.2.686 [id number] 134 [id number] [facility] 2019-07-04 11:00:00 2019-07-04 11:00:00 Outpatient R L[facility] [id number] [facility] 2019-07-02 00:00:00 2019-07-02 00:00:00 Telephone Raheem Benito [facility] COORDIN[facility] MATERNAL & CHILD [facility] 1.2.840.114 350.1.13.10 4.2.7.2.686 [id number] [facility] 2019-07-01 08:37:18 2019-07-01 09:59:40 Initial Visit Raheem Benito [facility] COORDIN[facility] 1.2.840.114 350.1.13.10 4.2.7.2.686 [id number] [facility] 2019-07-01 08:45:00 2019-07-01 08:45:00 Outpatient R RAHEEM BENITO [facility] [id number] [facility] 2019-07-01 00:00:00 2019-07-01 00:00:00 Orders Only Doctor Unassigned, [place] [facility] 1.2.840.114 350.1.13.10 4.2.7.2.686 [id number] [facility] Results Test Description Test Time Test Comments Results Result Co mments Source [facility]o Specific [id number] 19:02:00* Test Item Value Reference Range Interpretation Comme nts POCT PH U (test code = 3254) 7 mg/dl 5-8 POCT U LEUK EST (test code = 3263) ++ Negative - Negative POCT U NIT (test code = 3262) negative Negative - Negati ve POCT U PROT (test code = 3259) negative Negative - Negat sima POCT U GLU (test code = 3256) normal Negative - Negati ve POCT U KETONE (test code = 3258) negative Negative - Neg ative POCT U BLD (test code = 3257) negative Negative - Negati ve [facility]AUTO [id number] 00:00:00* Test Item Value Reference Range Interpretation Comme nts NUCLEATED RBCS (test code = 34775-2) 0.0 /100 WBC'S See_Comment [Automated messa ge] The system which generated this result transmitted reference range: 0.0 /100 WBC'S. The reference range was not used to interpret this result as normal/abnormal. ABSOLUTE EOSINOPHILS (test code = 85801-5) 0.10 K/UL See_Comment [Automated messa ge] The system which generated this result transmitted reference range: 0.00-0.50 K/UL. The reference range was not used to interpret this result as normal/abnormal. ABSOLUTE LYMPHOCYTES (test code = 90502-1) 2.32 K/UL See_Comment [Automated messa ge] The system which generated this result transmitted reference range: 1.00-4.00 K/UL. The reference range was not used to interpret this result as normal/abnormal. ABSOLUTE MONOCYTES (test code = 57550-2) 0.48 K/UL See_Comment [Automated messa ge] The system which generated this result transmitted reference range: 0.20-1.00 K/UL. The reference range was not used to interpret this result as normal/abnormal. ABSOLUTE NEUTROPHILS (test code = 32873-8) 5.61 K/UL See_Comment [Automated messa ge] The system which generated this result transmitted reference range: 1.50-7.50 K/UL. The reference range was not used to interpret this result as normal/abnormal. BASOPHILS (test code = 46204-8) 0.4 % EOSINOPHILS (test code = 27235-3) 1.2 % HEMATOCRIT (test code = 90998-4) 43.2 % See_Comment [Automated messa ge] The system which generated this result transmitted reference range: 34.0-45.0 %. The reference range was not used to interpret this result as normal/abnormal. HEMOGLOBIN (test code = 718-7) 13.4 G/DL See_Comment [Automated messa ge] The system which generated this result transmitted reference range: 11.5-15.5 G/DL. The reference range was not used to interpret this result as normal/abnormal. LYMPHOCYTES (test code = 82267-7) 27.1 % MCH (test code = 94730-1) 24.5 PG See_Comment L [Automated messa ge] The system which generated this result transmitted reference range: 25.0-33.0 PG. The reference range was not used to interpret this result as normal/abnormal. MCHC (test code = 17234-7) 31.0 G/DL See_Comment [Automated messa ge] The system which generated this result transmitted reference range: 31.0-36.0 G/DL. The reference range was not used to interpret this result as normal/abnormal. MCV (test code = 40878-9) 79.0 fL See_Comment L [Automated messa ge] The system which generated this result transmitted reference range: 80.0-99.0 fL. The reference range was not used to interpret this result as normal/abnormal. MONOCYTES (test code = 23682-8) 5.6 % NEUTROPHILS (test code = 59625-1) 65.3 % PLATELET COUNT (test code = 76881-5) 331 K/UL See_Comment [Automated messa ge] The system which generated this result transmitted reference range: 130-400 K/UL. The reference range was not used to interpret this result as normal/abnormal. RBC (test code = 20936-5) 5.47 M/UL See_Comment H [Automated messa ge] The system which generated this result transmitted reference range: 3.80-5.40 M/UL. The reference range was not used to interpret this result as normal/abnormal. RDW (test code = 68382-9) 14.6 % See_Comment [Automated messa ge] The system which generated this result transmitted reference range: 11.5-15.0 %. The reference range was not used to interpret this result as normal/abnormal. WBC (test code = 90132-4) 8.6 K/UL See_Comment [Automated messa ge] The system which generated this result transmitted reference range: 3.5-11.0 K/UL. The reference range was not used to interpret this result as normal/abnormal. POCT [id number] 20:41:00* Test Item Value Reference Range Interpretation Comme [facility] POCT PREG (test code = 1605) Negative On board controls acceptable with C Line (test code = 3574) Yes POCT PREG LOT # (test code = 3575) POCT PREG TEST DATE ( test code = 3576[id number]:41:00* Test Item Value Reference Range Interpretation Comme [facility] POCT PREG (test code = 1605) Negative On board controls acceptable with C Line (test code = 3574) Yes POCT PREG LOT # (test code = 3575) POCT PREG TEST DATE ( test code = 3576) [facility] [id number] 20:41:00* Test Item Value Reference Range Interpretation Comme nts POCT PREG (test code = 1605) Negative On board controls acceptable with C Line (test code = 3574) Yes POCT PREG LOT # (test code = 3575) POCT PREG TEST DATE ( test code = 3576) [facility] [id number] 17:07:00* Test Item Value Reference Range Interpretation Comme nts POCT PREG (test code = 1605) Negative - per juarez On board controls acceptable with C Line (test code = 3574) Yes POCT PREG LOT # (test code = 3575) POCT PREG TEST DATE ( test code = 3576) [facility] [id number] 17:07:00* Test Item Value Reference Range Interpretation Comme nts POCT PREG (test code = 1605) Negative - per juarez On board controls acceptable with C Line (test code = 3574) Yes POCT PREG LOT # (test code = 3575) POCT PREG TEST DATE ( test code = 3576) [facility] [id number] 16:13:00* Test Item Value Reference Range Interpretation Comme nts POCT PREG (test code = 1605) Negative On board controls acceptable with C Line (test code = 3574) Yes POCT PREG LOT # (test code = 3575) POCT PREG TEST DATE ( test code = 3576) [facility] [id number] 16:13:00* Test Item Value Reference Range Interpretation Comme nts POCT PREG (test code = 1605) Negative On board controls acceptable with C Line (test code = 3574) Yes POCT PREG LOT # (test code = 3575) POCT PREG TEST DATE ( test code = 3576) [facility] URINALYSIS W SPECIFIC [id number] 13:23:00* Test Item Value Reference Range Interpretation [...] 3267) Lab Interpretation (test cod e = 64285-7) Normal [facility] URINALYSIS W SPECIFIC [id number] 13:23:00* Test Item Value Reference Range Interpretation [...] 3267) Lab Interpretation (test cod e = 13441-3) Normal [facility] URINALYSIS W SPECIFIC [id number] 13:23:00* Test Item Value Reference Range Interpretation [...] 3267) Lab Interpretation (test cod e = 00300-0) Normal [facility]
[2024-03-09 12:32] LABS: Specific Gravity 1.013 (1.005-1.030)
[2024-03-09 12:36] LABS: Specific Gravity 1.013 (1.005-1.030); Sqamous Epithelial <5 /HPF (None Seen); Urine Bacteria <20 /HPF (<20); Urine Bilirubin NEGATIVE (Negative); Urine Blood Trace (Negative); Urine Clarity Turbid (Clear); Urine Color Light-Yellow (Yellow); Urine Culture Reflex Order NOT NEEDED; Urine Glucose NEGATIVE (Negative); Urine Ketones NEGATIVE (Negative); Urine Micro Reflex YN NO BILL MICROSCOPIC; Urine Mucus Slight /HPF (None Seen); Urine Nitrite NEGATIVE (Negative); Urine Protein NEGATIVE (Negative); Urine RBC <5 /HPF (None Seen); Urine Urobilinogen Normal (Normal); Urine WBC <5 /HPF (<5); Urine Yeast (Budding) Trace /HPF (None Seen); Urine pH 6.5 (5.0-7.0)
[2024-03-09] MEDS ORDERED: NA CHLORIDE 0.9% 1,000 ML ONE (13:07)
[2024-03-09 13:33] LABS: Absolute Basophils 0.1 K/uL (0-0.5); Absolute Eosinophils 0.1 K/uL (0-0.5); Absolute Lymphocytes (CBC) 2.5 K/uL (0.7-4.9); Absolute Monocytes 0.9 K/uL (0.1-1.3); Absolute Neutrophil 9.1 K/uL (1.8-8.0); Basophils % 0.4 % (0-1.3); Hematocrit 41.3 % (36.0-45.0); Hemoglobin 13.1 g/dL (12.0-15.0); Lymphocytes % 19.7 % (15.3-44.8); MCH 24.2 pg (27.0-35.0); MCHC 31.7 g/dL (32.0-36.0); MCV 76.2 fL (80-100); MPV 8.2 fL (7.6-11.3); Monocytes % 6.8 % (3.3-12.3); Neutrophils % 72.1 % (41.7-73.7); Platelets 304 thou/uL (152-406); RBC Red Blood Cell Count 5.43 M/uL (3.86-4.86); Red Cell Distribution Width 14.8 % (12.1-15.2)
[2024-03-09 13:52] LABS: Albumin 3.8 g/dL (3.4-5.0); Albumin/Globulin Ratio 0.9 (1.1-1.8); Anion Gap 7.9 mEq/L (5.0-15.0); Bilirubin Total 0.3 mg/dL (0.2-1.0); Globulin 4.1 g/dL (2.3-3.5); Potassium 3.9 mEq/L (3.5-5.1); Protein, Total 7.9 g/dL (6.4-8.2)
--- NOTE | 2024-03-09 15:08 | RAD REPORT ---
EXAMINATION: CT ABDOMEN AND PELVIS WITH CONTRAST CLINICAL INDICATION: Female, 23 years old.Abd pain;Flank pain TECHNIQUE: CT abdomen and pelvis was performed, after the administration of IV contrast, as per [facility]. Axial, sagittal and coronal reconstructions were obtained. One or more of the following dose reduction techniques were used: Automated exposure control, adjustment of the mA and/o r kV according to patient size, and/or iterative reconstruction. Unless otherwise specified, incidental findings do not require dedicated imaging follow-up. [id number]. COMPARISON: 06/04/2023 LOWER CHEST: No acute process identified.No significant pericardial effusion. UPPER GI: No significant abnormality. LIVER: No significant focal abnormality. GALLBLADDER/BILE DUCTS: Cholecystectomy?. No biliary duct dilatation. PANCREAS: No mass, ductal dilation, or gael-pancreatic fluid. SPLEEN: Unremarkable. ADRENALS: No adrenal masses. KIDNEYS AND URETERS: Normal size and contour. No hydronephrosis.No suspicious renal mass. ABDOMINAL AORTA AND OTHER VESSELS: Normal caliber aorta and IVC. PERITONEUM: No abnormal free fluid. No free air. LYMPH NODES: No pathologic lymphadenopathy. ABDOMINAL WALL: No significant abnormality. SMALL BOWEL/COLON: Small bowel has normal course and caliber. No colonic wall thickening or pericolon ic inflammatory changes.Normal appendix. URINARY BLADDER: Underdistended but grossly unremarkable. REPRODUCTIVE ORGANS: IUD in similar position. MUSCULOSKELETAL: No acute or suspicious osseous abnormality. ADDITIONAL FINDINGS: None. IMPRESSION: No acute or significant abnormalities seen in the abdomen or pelvis.
--- NOTE | 2024-03-09 15:19 | EDPHYS ---
Physician Documentation [facility] Name: Rashmi Patel Age: 23 yrs Sex: Female : 2000 Arrival Date: 03/09/2024 Time: 10:33 Bed DX3 Private MD: ED Physician Sourav Mariee HPI: 03/09 11:43 This 23 yrs old Female presents to ER via Ambulatory with complaints of sb4 Urinary Problem, Back Pain. 11:43 dark urine, low back pain, and lower abdominal pain x 1 week. recently finished round sb4 of flagyl for BV. denies any burning with urination. states urine has been dark despite adequate fluid intake. endorses nausea. denies vomiting, fever, or chills . 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 - Infectious Disease History:: Denies. - Social history:: Smoking status: Patient denies any tobacco usage or history of. ROS: 11:43 Constitutional: Negative for fever, chills, and weight loss, sb4 11:43 : Positive for per HPI, 11:43 All other systems are negative, Exam: 11:43 Constitutional: This is a well developed, well nourished patient who is awake, alert, sb4 and in no acute distress. Head/Face: Normocephalic, atraumatic. Eyes: Extra-ocular motions intact. Periorbital areas with no swelling, redness, or edema. ENT: Mucous membranes moist. Cardiovascular: Regular rate and rhythm with a normal S1 and S2. Respiratory: No increased work of breathing, no retractions or nasal flaring. Back: No spinal tenderness. No costovertebral tenderness. Full range of motion. Skin: Warm, dry with normal turgor. Normal color with no rashes, no lesions, and no evidence of cellulitis. Vital Signs: 11:37 BP 136 / 76; Pulse 83; Resp 14; Temp 98.2(O); Pulse Ox 100% on R/A; Weight 77.11 kg; ss Height 5 ft. 1 in. ; Pain 5/10; 11:37 Body Mass Index 32.12 (77.11 kg, 154.94 cm) ss 11:37 Pain Scale: Adult ss MDM: 11:24 Medical Screening Exam initiated sb4 15:18 Data reviewed: vital signs, nurses notes, lab test result(s), radiologic studies, and sb4 as a result, I will discharge patient. Counseling: I had a detailed discussion with the patient and/or guardian regarding the historical points, exam findings, and any diagnostic results supporting the discharge/admit diagnosis, lab results, radiology results, to return to the emergency department if symptoms worsen or persist or if there are any questions or concerns that arise at home. 03/09 11:24 Order name: UAM; Complete Time: 12:36 sb4 03/09 11:24 Order name: Test, Urine; Complete Time: 12:36 sb4 03/09 12:37 Order name: CBC with Diff; Complete Time: 13:33 sb4 03/09 12:37 Order name: CMP; Complete Time: 13:52 sb4 03/09 13:33 Order name: CT Abd/Pelvis - IV Contrast Only; Complete Time: 15:10 sb4 03/09 12:37 Order name: IV Saline Lock; Complete Time: 13:17 sb4 03/09 12:37 Order name: Labs collected and sent; Complete Time: 13:17 sb4 Administered Medications: 13:24 Drug: NS 0.9% IV 1000 ml IV at 1 bolus Per protocol; to be given as a bolus over 60 hb minutes Route: IV; Rate: 1 bolus; Site: right antecubital; 16:20 Follow up: IV Status: Completed infusion; IV Intake: 1000ml ss Disposition: 21:26 Co-signature as Attending Physician, Sourav Mariee MD I agree with the assessment and kera plan of care. Disposition Summary: 03/09/24 15:18 Discharge Ordered Notes: Location: Home sb4 Problem: new sb4 Symptoms: have improved sb4 Condition: Stable sb4 Diagnosis - UTI/ Urinary tract infection, site not specified sb4 Followup: sb4 - With: Emergency Department - When: As needed - Reason: Trouble breathing, Worsening of condition Discharge Instructions: - Discharge Summary Sheet sb4 - Urinary Tract Infection, Adult, [id number] sb4 Forms: - Antibiotic Education sb4 - Patient Portal Instructions sb4 - Leadership Thank You Letter sb4 Prescriptions: - Macrobid 100 mg Oral Capsule - take 1 capsule ORAL route every 12 hours for 7 days; 14 capsule; Refills: 0, sb4 Product Selection Permitted Signatures: Dispatcher [employer] EDSourav Ramirez MD MD cha Blanchard, Shelby, RN RN ss Carol Martinez RN RN hb Brown, Sophia, PA-C PACarly sb4 Corrections: (The following items were deleted from the chart) 12:37 12:37 CBC+H.LAB.BRZ ordered. EDMS EDMS 12:37 12:37 COMPREHENSIVE METABOLIC PANEL+C.LAB.BRZ ordered. EDMS EDMS
--- NOTE | 2024-03-09 15:19 | ER ---
Nurse's Notes [facility] Name: Rashmi Patel Age: 23 yrs Sex: Female : 2000 Arrival Date: 03/09/2024 Time: 10:33 Bed DX3 Private MD: Diagnosis: UTI/ Urinary tract infection, site not specified Presentation: 03/09 11:37 Chief complaint: Patient states: dark urine and bilateral flank and lower abd pain x 1 ss week. Coronavirus screen: Client denies travel out of the [place] in the last 14 days. Ebola Screen: Patient denies exposure to infectious person. Patient denies travel to an Ebola-affected area in the 21 days before illness onset. Initial Sepsis Screen: Does the patient meet any 2 criteria? No. Patient's initial sepsis screen is negative. Does the patient have a suspected source of infection? No. Patient's initial sepsis screen is negative. Risk Assessment: Do you want to hurt yourself or someone else? Patient reports no desire to harm self or others. Onset of symptoms was March 02, 2024. 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 - Infectious Disease History:: Denies. - Social history:: Smoking status: Patient denies any tobacco usage or history of. Screenin:00 Abuse screen: Denies threats or abuse. Denies injuries from another. Nutritional ss screening: No deficits noted. Tuberculosis screening: Never had TB. Assessment: 12:00 General: Appears in no apparent distress. comfortable, Behavior is calm, cooperative, ss Denies fever, feeling ill. Pain: Complains of pain in bilateral flank pain, lower abd pain Pain currently is 5 out of 10 on a pain scale. Neuro: Level of Consciousness is awake, alert, obeys commands, Oriented to person, place, time, situation. GI: Patient currently denies abdominal pain, diarrhea, nausea, vomiting. Musculoskeletal: Circulation, motion, and sensation intact. Range of motion: intact in all extremities, Swelling absent. 15:02 Reassessment: Pt back from CT at this time. ss 15:40 Reassessment: Pt is awaiting her IV fluids to finish infusing prior to discharge. ss Respiratory: Airway is patent Respiratory effort is even, unlabored, Respiratory pattern is regular, symmetrical. Derm: Skin is pink, warm \T\ dry. normal. 16:19 Reassessment: Patient appears in no apparent distress at this time. Patient and/or ss family updated on plan of care and expected duration. Pain level reassessed. Patient is alert, oriented x 3, equal unlabored respirations, skin warm/dry/pink. Vital Signs: 11:37 BP 136 / 76; Pulse 83; Resp 14; Temp 98.2(O); Pulse Ox 100% on R/A; Weight 77.11 kg; ss Height 5 ft. 1 in. ; Pain 5/10; 11:37 Body Mass Index 32.12 (77.11 kg, 154.94 cm) ss 11:37 Pain Scale: Adult ss ED Course: 10:38 Patient arrived in ED. mr 10:38 Lilibeth Almaraz PA-C is PHCP. sb4 10:38 Sourav Mariee MD is Attending Physician. sb4 11:38 Triage completed. ss 11:38 Arm band placed on left wrist. ss 12:00 Patient has correct armband on for positive identification. Bed in low position. ss 12:25 Test, Urine Sent. ss 12:25 UAM Sent. ss 13:17 CBC with Diff Sent. ss 13:17 CMP Sent. ss 13:17 Inserted saline lock: 22 gauge in right antecubital area, using aseptic technique. ss Blood collected. Flushed with 10 mL NS. 15:01 CT Abd/Pelvis - IV Contrast Only In Process Unspecified. EDMS 16:19 Krista Thompson, PANCHO is Primary Nurse. ss 16:19 No provider procedures requiring assistance completed. IV discontinued, intact, ss bleeding controlled, No redness/swelling at site. Pressure dressing applied. Administered Medications: 13:24 Drug: NS 0.9% IV 1000 ml IV at 1 bolus Per protocol; to be given as a bolus over 60 hb minutes Route: IV; Rate: 1 bolus; Site: right antecubital; 16:20 Follow up: IV Status: Completed infusion; IV Intake: 1000ml ss Medication: 15:40 VIS not applicable for this client. ss Intake: 16:20 IV: 1000ml; Total: 1000ml. ss Outcome: 12:00 Condition: good ss 12:00 Discharge instructions given to patient, Instructed on discharge instructions, follow up and referral plans. medication usage, Demonstrated understanding of instructions, follow-up care, medications, Prescriptions given X 1, 13:17 Discharged to home ambulatory, ss 15:18 Discharge ordered by . sb4 16:20 Patient left the ED. ss Signatures: Dispatcher [employer] EDMI Zee Morales, Reg Reg mr Krista Thompson, RN RN Carol Shoemaker, Lilibeth Hart RN, PA-C PA-C sb4
[2024-03-09 16:25] VITALS: BP 136/76; TEMP 98.2; O2SAT 100
== END 2024-03-09 16:20 | disposition home or self-care (01) ==
LOC: ER 10:33
DX: N39.0 Urinary tract infection, site not specified (principal)
CPT/HCPCS: 96361; 85025; 81001; 36415; 81025; 80053; 74177; 96360; 99284; Q9967; J7030